=== PATIENT | male | born 1950 | race Caucasian/White ===

== ENCOUNTER 2021-01-05 10:30 | Outpatient (REF) | payer MEDICARE, SELFPAY ==
[2021-01-05 11:02] LABS: Estimated Average Glucose 143 mg/dL; Hemoglobin A1c % 6.6 %
[2021-01-05 12:39] LABS: Alanine Aminotransferase 36 U/L (0-40); Albumin Level 4.5 g/dL (3.5-5.0); Alkaline Phosphatase 48 U/L (39-117); Aspartate Amino Transferase 32 U/L (5-37); Bilirubin Direct 0.3 mg/dL (0.0-0.5); Bilirubin Total 0.8 mg/dL (0.0-1.0); Cholesterol 155 mg/dL; Glucose Fasting 133 mg/dL (60-99); HDL Cholesterol 39 mg/dL; LDL Cholesterol Calculated 96 mg/dl; Total Protein 7.3 g/dL (6.5-8.0); Triglycerides 104 mg/dL
[2021-01-05 12:41] LABS: Reflex LDLD? No
== END 2021-01-05 10:31 | disposition home or self-care (01) ==
LOC: HO.LNP 10:30
PROVIDERS: Visit Provider Internal Medicine
DX: E11.9 Type 2 diabetes mellitus without complications (principal); E78.00 Pure hypercholesterolemia, unspecified
CPT/HCPCS: 80061; 80076; 82947; 83036

== ENCOUNTER 2021-07-13 10:48 | Outpatient (REF) | payer MEDICARE, SELFPAY ==
[2021-07-13 10:53] LABS: MANUAL DIFF FLAG NO
[2021-07-13 11:39] LABS: Basophils Absolute Auto 0.1 X10*3/uL (0.0-0.2); Basophils Percent Auto 0.6 % (0-2); Eosinophils Absolute Auto 0.5 X10*3/uL (0.0-0.4); Eosinophils Percent Auto 5.3 % (0-4); Hematocrit 43.2 % (42.0-52.0); Hemoglobin 14.5 g/dl (14.0-18.0); Imm Gran Abs Auto 0.02 X10*3/uL (0.00-0.03); Imm Gran Pct Auto 0.2 % (0.0-0.4); Mean Corpuscular HGB Conc 33.6 g/dl (31.0-36.0); Mean Corpuscular Hemoglobin 30.8 pg (27.0-33.0); Mean Corpuscular Volume 91.7 fL (80.0-98.0); Mean Platelet Volume 10.4 fL (9.4-12.4); Monocytes Absolute Auto 0.9 X10*3/uL (0.1-1.2); Monocytes Percent Auto 11.1 % (2-11); Neutrophils Percent Auto 46.8 % (45-73); Platelet Count 199 X10*3/uL (160-400); Red Blood Count 4.71 X10*6/uL (4.60-5.80); White Blood Count 8.5 X10*3/uL (4.8-10.8)
[2021-07-13 11:47] LABS: Appearance Urine HAZY; Color Urine YELLOW; Glucose Urine UA NEG (NEG); Leukocyte Esterase Urine TRACE (NEG); Nitrite Urine NEG (NEG); PH 5.5 (5.0-8.0); Specific Gravity - Urine >= 1.030 (1.005-1.025); Urine Blood NEG (NEG); Urine Ketones 5 MG/DL (NEG); Urine Protein NEG (NEG-TRACE)
[2021-07-13 11:54] LABS: Estimated Average Glucose 137 mg/dL; Hemoglobin A1c % 6.4 %
[2021-07-13 12:06] LABS: Microalbum/Creatinine Ratio Ur 6.1 ug/mg cr
[2021-07-13 12:15] LABS: RBC Urine 0 /HPF (0); Squamous Epithelial Cell Urine 1+ /LPF
[2021-07-13 13:05] LABS: Alanine Aminotransferase 40 U/L (0-40); Albumin Level 4.5 g/dL (3.5-5.0); Alkaline Phosphatase 49 U/L (39-117); Anion Gap 12 (12-20); Aspartate Amino Transferase 28 U/L (5-37); Bilirubin Total 0.6 mg/dL (0.0-1.0); Blood Urea Nitrogen 13 mg/dL (9-16); Calcium 9.6 mg/dL (8.4-10.2); Carbon Dioxide 23 mmol/L (22-29); Chloride 106 mmol/L (96-108); Cholesterol 157 mg/dL; Estimated Glomerular Filt Rate 53; Glucose Fasting 143 mg/dL (60-99); HDL Cholesterol 39 mg/dL; LDL Cholesterol Calculated 92 mg/dl; Potassium 4.2 mmol/L (3.3-5.1); Sodium 137 mmol/L (135-145); Total Protein 7.2 g/dL (6.5-8.0); Triglycerides 131 mg/dL
[2021-07-13 13:28] LABS: PSA,Total (Free>4and<10) 2.11 ng/mL (0.00-4.00)
[2021-07-13 14:00] LABS: Reflex LDLD? No
== END 2021-07-13 10:49 | disposition home or self-care (01) ==
LOC: HO.LNP 10:48
PROVIDERS: Visit Provider Internal Medicine
DX: Z00.00 Encounter for general adult medical examination without abnormal findings (principal); E11.9 Type 2 diabetes mellitus without complications; I10 Essential (primary) hypertension; E78.00 Pure hypercholesterolemia, unspecified
CPT/HCPCS: 80053; 80061; 81001; 81003; 82043; 83036; 84153; 85025

== ENCOUNTER 2022-07-19 11:24 | Outpatient (REF) | payer MEDICARE, SELFPAY ==
[2022-07-19 11:28] LABS: MANUAL DIFF FLAG NO
[2022-07-19 12:00] LABS: Basophils Absolute Auto 0.1 X10*3/uL (0.0-0.2); Basophils Percent Auto 0.9 % (0-2); Eosinophils Absolute Auto 0.4 X10*3/uL (0.0-0.4); Eosinophils Percent Auto 5.4 % (0-4); Hematocrit 43.1 % (42.0-52.0); Hemoglobin 14.3 g/dl (14.0-18.0); Imm Gran Abs Auto 0.02 X10*3/uL (0.00-0.03); Imm Gran Pct Auto 0.2 % (0.0-0.4); Lymphocytes Percent Auto 36.8 % (20-40); Mean Corpuscular HGB Conc 33.2 g/dl (31.0-36.0); Mean Corpuscular Hemoglobin 30.3 pg (27.0-33.0); Mean Corpuscular Volume 91.3 fL (80.0-98.0); Mean Platelet Volume 10.5 fL (9.4-12.4); Monocytes Absolute Auto 0.9 X10*3/uL (0.1-1.2); Monocytes Percent Auto 10.8 % (2-11); Neutrophils Absolute Auto 3.7 x10*3/uL (2.0-8.3); Neutrophils Percent Auto 45.9 % (45-73); Platelet Count 209 X10*3/uL (160-400); Red Blood Count 4.72 X10*6/uL (4.60-5.80); White Blood Count 8.1 X10*3/uL (4.8-10.8)
[2022-07-19 12:19] LABS: Estimated Average Glucose 131 mg/dL; Hemoglobin A1c % 6.2 %
[2022-07-19 12:49] LABS: Alanine Aminotransferase 35 U/L (0-40); Albumin Level 4.4 g/dL (3.5-5.0); Alkaline Phosphatase 48 U/L (39-117); Anion Gap 17 (12-20); Aspartate Amino Transferase 29 U/L (5-37); Bilirubin Total 0.6 mg/dL (0.0-1.0); Blood Urea Nitrogen 16 mg/dL (9-16); Calcium 10.1 mg/dL (8.4-10.2); Carbon Dioxide 21 mmol/L (22-29); Chloride 106 mmol/L (96-108); Cholesterol 142 mg/dL; Estimated Glomerular Filt Rate 54; Glucose Fasting 131 mg/dL (60-99); HDL Cholesterol 41 mg/dL; LDL Cholesterol Calculated 79 mg/dl; Potassium 4.4 mmol/L (3.3-5.1); Sodium 140 mmol/L (135-145); Total Protein 7.2 g/dL (6.5-8.0); Triglycerides 114 mg/dL
== END 2022-07-19 11:25 | disposition home or self-care (01) ==
LOC: HO.LNP 11:24
PROVIDERS: Visit Provider Internal Medicine
DX: Z00.00 Encounter for general adult medical examination without abnormal findings (principal); E11.9 Type 2 diabetes mellitus without complications; E78.00 Pure hypercholesterolemia, unspecified; I10 Essential (primary) hypertension
CPT/HCPCS: 80053; 80061; 83036; 85025

== ENCOUNTER 2022-07-25 11:37 | Outpatient (REF) | payer MEDICARE, SELFPAY ==
[2022-07-25 12:06] LABS: Appearance Urine Clear; Color Urine Yellow; Glucose Urine UA Negative (Negative); Leukocyte Esterase Urine Negative (Negative); Nitrite Urine Negative (Negative); Urine Blood Negative (Negative); Urine Ketones Negative (Negative); Urine Protein Negative (Neg-Trace)
[2022-07-25 12:15] LABS: Bacteria Urine None Seen (None Seen); Hyaline Casts Urine 0-2 /LPF (0-2); RBC Urine 0-2 /HPF (0-2); Squamous Epithelial Cell Urine 0-2 /HPF (0-2); WBC Urine 0-5 /HPF (0-5)
[2022-07-25 12:57] LABS: Creatinine Urine 140.67 mg/dL; Microalbum/Creatinine Ratio Ur 6.3 ug/mg cr
== END 2022-07-25 11:38 | disposition home or self-care (01) ==
LOC: HO.LNP 11:37
PROVIDERS: Visit Provider Internal Medicine
DX: E11.9 Type 2 diabetes mellitus without complications (principal); I10 Essential (primary) hypertension
CPT/HCPCS: 81001; 82043

== ENCOUNTER 2023-07-17 14:05 | Outpatient (REF) | payer OTHER, SELFPAY ==
--- NOTE | ~2023-07-17 | FL_ITS ---
EXAMINATION: Modified Barium Swallows CLINICAL INFORMATION: Dysphagia COMPARISON: None TECHNIQUE: Modified barium swallow was performed under lateral fluoroscopy with patient in standing position. Different consistency of barium was administered by the speech therapist. FINDINGS: No laryngeal penetration or aspiration was seen following the oral administration of multiple consistencies of barium. FLUOROSCOPY TIME: 48 seconds Number of Spot Images: DOSE AREA PRODUCT: 615 uGy-m2 (microgray-meter squared) FL/FL barium swallow modified IMPRESSION: No laryngeal penetration or aspiration seen. Refer to the speech therapy report for further clarification This procedure was performed by Irineo Cadet PA-C, and supervised by Dr. Harris
--- NOTE | 2023-07-18 11:23 | MHC.SL.IMP ---
Date of Plan of Treatment: 07/17/23 Onset of Symptoms/Illness: 04/16/23 Date Treatment Started: 07/17/23 Admitting Diagnosis: Dysphagia Primary Speech & Language Diagnosis: R13.10 Dysphagia Reason for Today's Visit: 59803 Modified Barium Swallow Study Pre-evaluation Dietary Consistencies: Regular Pre-evaluation Liquid Consistency: Thin Pre-evaluation Medication Administration: Whole with Liquid Medical History: Modified Barium Swallow Study Fluoroscopic Evaluation of Swallowing Function CPT Code 85093 Evaluation Year: 2022 Reason for Study: Pt reporting difficulty swallowing. Referring Physician: Dr. Irineo Aggarwal Evaluating Clinician: Stacey Langley MA, CCC-EMBEDDER Study Number: 1 Patient Name: Howard Villatoro Status: Outpatient Age: 73 Gender: Male Medical History Parkinson?s disease, headache, degenerative arthritis, erectile dysfunction, hypercholesterolemia, Lyme disease, diabetes mellitus, hypertension, hx colon cancer Current (pre-evaluation) Intake/Diet: Route: PO Diet Grade: Regular Liquid Consistencies: Thin Pre-Study Functional Oral Intake Scale (FOIS): 7- Total oral intake with no restrictions Pain: None reported at time of study SUBJECTIVE: Pt is a 73 year old male with Parkinson?s disease who was referred for a modified barium swallow study to evaluate his complaints of having difficulty swallowing. Pt reports that solids feel ?stuck in [his] throat? and that he induces vomiting in an attempt to regurgitate the food. He says that when this happens, liquid ?won?t go down either.? Pt reports that he expectorates a large amount of sputum with the food. He reports these episodes to be random, as he can go 2-3 days without one. Pt reports onset of his difficulties to have started about 3 months ago. Oral Motor Exam Facial Symmetry: Symmetrical Mouth Occlusion: Normal Oral-Facial Teeth Characteristics: Intact/Normal Dental Appliance Oral-Facial Lip Pucker Description: Normal Oral-Facial Smile (Lips) Description: Normal Oral-Facial Puff Cheeks Description: Normal Tongue Size: Normal Tongue Excursion Description: Normal Tongue Range of Movement Description: Normal Tongue Speed of Movement Description: Normal Tongue Strength of Movement (against opposing pressure): Normal Food and Liquid Trials: Oral Impairment: Lip Closure: Did not test Oral Impairment: Tongue Control During Bolus Hold: 1=Escape to lateral buccal cavity/floor of mouth (FOM) Oral Impairment: Bolus Preparation/Mastication: 0=Timely and efficient chewing and mashing Oral Impairment: Bolus Transport/Lingual Motion: 0=Brisk tongue motion Oral Impairment: Oral Residue: 2=Residue collection on oral structures Oral Impairment:Initiation of Pharyngeal Swallow: 0=Bolus head at posterior angle of ramus (first hyoid excursion) Pharyngeal Impairment: Soft Palate Elevation: 0=No bolus between soft palate (SP)/pharyngeal wall (PW) Pharyngeal Impairment: Laryngeal Elevation: 1=Partial thyroid cartilage/arytenoids to epiglottic petiole movement Pharyngeal Impairment: Anterior Hyoid Excursion: 1=Partial anterior movement Pharyngeal Impairment: Epiglottic Movement: 1=Partial inversion Pharyngeal Impairment: Laryngeal Vestibular Closure:: 0=Complete: no air/contrast in laryngeal vestibule Pharyngeal Impairment: Pharyngeal Stripping Wave: 1=Present: diminished Pharyngeal Impairment: Pharyngeal Contraction: Did not test Pharyngeal Impairment: Pharyngoesophageal Segment Openin=Complete distension and complete duration: no obstruction of flow Pharyngeal Impairment: Tongue Base (TB) Retraction: 2=Narrow column of contrast/air between TB and posterior PW Pharyngeal Impairment: Pharyngeal Residue: 2=Collection of residue within or on pharyngeal structures Pharyngeal Impairment: Esophageal Clearance Upright Position: Did not test Impressions and Recommendations OBJECTIVE: Time-out: performed at 15:00 Evaluation Start: 14:30; Stop: 14:35 Patient Positioning: Standing Viewing Planes: LATERAL ONLY Contrast: MBSImP? Standardized Protocol using commercially prepared, standardized Barium viscosities, including: Varibar? THIN LIQUID (40% w/v, <15 cps) , 1/2 Shortbread Cookie (1 x1 x.25 ) MBSImP ID: [id number] MBSImP Results: Lip closure for intraoral bolus containment could not be assessed due to logistical reasons not related to physiologic impairment. Tongue control during bolus hold allowed bolus escape to the lateral buccal cavity/floor of mouth. Bolus preparation and mastication resulted in timely and efficient chewing and mashing. Bolus transport/lingual motion was with brisk tongue motion. Oral residue was a collection on oral structures. Initiation of the pharyngeal swallow occurred as the bolus head reached the posterior angle of the mandibular ramus. Soft palate elevation resulted in no bolus between the soft palate and the pharyngeal wall. Laryngeal elevation was decreased, with partial superior movement of the thyroid cartilage/partial approximation of the arytenoids to the epiglottic petiole. Anterior hyoid excursion demonstrated partial anterior movement. Epiglottic movement resulted in partial inversion. Laryngeal vestibular closure was complete, as indicated by no air or contrast within the laryngeal vestibule at the height of the swallow. Pharyngeal stripping wave was present, but diminished. Pharyngeal contraction could not be determined due to logistical reasons not related to physiologic impairment. Pharyngoesophageal segment opening was completely distended for complete duration with no obstruction of bolus flow. Tongue base retraction allowed a narrow column of contrast or air between the retracted tongue base and the posterior pharyngeal wall. Pharyngeal residue was a collection of residue within or on pharyngeal structures. Esophageal clearance in the upright position could not be assessed due to logistical reasons not related to physiologic impairment. Oral Impairment Score: 3 (absence of score, component 1) Pharyngeal Impairment Score: 8 (absence of score, component 13) Esophageal Impairment Score: --- (absence of score, component 17) Laryngeal Penetration and Aspiration: Neither penetration nor aspiration was observed in today's study with Cookie, Thin. ASSESSMENT: Clinician Assessment: This exam was performed by the speech pathologist and radiologist. Pt was standing for lateral view and trialed the following consistencies: thin liquid barium (5 mL, individual cup sip with bolus hold, sequential cup sips), pureed solid (applesauce with barium paste), regular solid (Mala Doone cookie coated with barium paste), whole barium pill tablet with sips of water. Unable to visualize lip closure with imaging. Clinically, pt did not appear to have any spillage anteriorly. When instructed to hold bolus, there was minimal spillage to the floor of mouth, but no escape posteriorly. Posterior lingual motion was brisk and timely. Mastication pattern was also timely and efficient. There was mild lingual residue with liquids and solids which mostly cleared with a dry swallow. Pharyngeal swallow trigger was timely, initiated at the posterior angle of the ramus. There was no nasopharyngeal reflux. Reduced laryngeal elevation and partial epiglottic inversion noted, but laryngeal vestibular closure was complete. No evidence of penetration or aspiration during this exam. There was mild residue on the tongue base and in the valleculae, with trace coating in the pyriform sinuses and on the posterior pharyngeal wall. Pharyngeal residue cleared with dry swallow and sips of liquid. Pt swallowed whole barium pill tablet with sips of water. The barium tablet passed freely through the oral and pharyngeal cavities with no hang up. Liquid Intake Recommendation: Thin Liquid Intake Strategies: Small Sips Dietary Recommendations: Regular Medication Administration: Whole with Liquid Please contact the pharmacy regarding appropriate crushable or liquid drug formulations that are available whenever modified delivery is recommended. Compensatory Strategies Recommended: Sitting Upright (90 deg), Small Bites and Sips, Rate of Ingestion Change Supervision during eating and or drinking: None Needed Recommendation for Speech Therapy: NA:Typical Evaluation Intake Recommendations: Route: PO Diet Grade: Regular Liquid Consistencies: Thin Post-Study Functional Oral Intake Scale (FOIS): 7- Total oral intake with no restrictions Overall, unremarkable exam. No evidence of penetration or aspiration. Mild oral and pharyngeal residue cleared with subsequent swallows. Further follow-up with speech therapy is not warranted at this time as pt?s swallow is deemed to be within functional limits in the oral and pharyngeal phases. Given the progressive nature of pt?s underlying condition of Parkinson?s, recommend pt to continue monitoring his dysphagia. If there are any changes or worsening of symptoms, consult with PCP, at which point a re-evaluation may be indicated. Recommend workup with G.I. as pt is reporting expectoration of phlegm and solids. Suggested Referrals: The patient might benefit from a referral to: Gastroenterology Indication for Referral: Further workup Therapy Recommendations: Therapy will be discontinued Clinician - Supplemental, Miscellaneous Communication: It is important to note MBSS objective studies are snapshots in time and Patient function might vary with factors such as time of day or concomitant medical conditions. For this reason, the final treatment plan for this patient should rest with their medical care team. Additional recommendations should be considered with the totality of the Patient in mind. Thank for the opportunity to participate in the care of this patient. If you have any questions about the content of this report, please contact the [facility] [place]. Education: Education regarding findings from today's study and plans for therapy were provided to Patient only through Verbal Instruction. Understanding was expressed by the Patient only. Furnace Utility Operator Clinician/Clinical Fellow: No Supervisory Statement: N/A Speech Language Pathologist: Stacey Langley M.A., CCC-EMBEDDER
== END 2023-07-17 14:06 | disposition home or self-care (01) ==
LOC: HO.XRAY 14:05
PROVIDERS: Visit Provider Psychiatry & Neurology Neurology
DX: R13.10 Dysphagia, unspecified (principal)
CPT/HCPCS: 74230; 92611

== ENCOUNTER → 2023-07-17 14:06 | Outpatient (BNV) | payer OTHER, SELFPAY | PROVIDERS: Visit Provider Radiology Diagnostic Radiology | DX: R13.10 Dysphagia, unspecified (principal) | CPT/HCPCS: 74230 ==

== ENCOUNTER 2024-10-17 10:35 | Outpatient (AMB) | payer OTHER, SELFPAY ==
--- NOTE | 2024-10-17 10:44 | MHC.OFFVIS ---
Vital Signs 10/17/24 10:46 Height 5 ft 10 in Weight 197 lb BMI 28.3 BP 140/66 H Blood Pressure Location Rt brachial Position Sitting Intake Visit Reasons: ENP-Parkinsons Intake Note: [facility] Allergies acetaminophen [From PERCOCET] Allergy (Unknown, Unverified 10/17/24 10:47) UNKNOWN oxycodone [From PERCOCET] Allergy (Unknown, Unverified 10/17/24 10:47) UNKNOWN pravastatin [PRAVASTATIN] Allergy (Unknown, Unverified 10/17/24 10:47) UNKNOWN rosuvastatin [From CRESTOR] Allergy (Unknown, Unverified 10/17/24 10:47) UNKNOWN percocet Allergy (Unknown, Uncoded 10/17/24 10:47) tunnel vision pravastatin Allergy (Unknown, Uncoded 10/17/24 10:47) elev liver enzymes seasonal Allergy (Unknown, Uncoded 10/17/24 10:47) Unknown Medication List - Last Reconciled 10/17/24 by Darlene Cook MD amlodipine mg PO DAILY carboxymethylcellulose sodium 0.5% 1 drp ophthalmic (eye) QID cyclobenzaprine 10 mg PO BEDTIME lisinopril mg PO DAILY lovastatin mg PO metformin mg PO naproxen 375 mg PO BID PRN sildenafil 50 mg PO DAILY PRN HPI Comments Details: 74y/o left handed male comes for further management of Parkinsons disease. He started noticing tremors in his left hand about 2 years ago. He was diagnosed with parkinsons disease by and started on carbidopa/levodopa 25/100 tid and it helped. But he stopped taking it 5 mths ago due to worsening of his IBS. Cognition- mild short term memory issues, word finding difficulties Sleep- no vivid dreams Mood-good Speech-can be softer He has occasional drooling Handwriting- smaller and his tremors are worse when he writes He has difficulty using utensils, has trouble dressing . he can shower by himeself. Gait is Ok Bowel movements - occ constipation . No urinary issues. No nausea. He has mild swallowing issues.He had endoscopy and colonoscopy and was normal. no diplopia, no vertigo . [facility] Medical History (Updated 10/17/24 @ 11:51 by Darlene Cook MD) Parkinson's disease without dyskinesia Nocturnal leg cramps Snoring Osteoarthritis Type 2 diabetes mellitus Tremor Hypercholesteremia Parkinson disease Male erectile disorder Lyme disease HTN (hypertension) Headache Abnormal weight Surgical History (Updated 10/17/24 @ 10:49 by DIANNA Du) Hx of colonoscopy Family History (Updated 10/17/24 @ 10:50 by DIANNA Du) Mother HTN (hypertension) Father HTN (hypertension) Social History (Updated 10/17/24 @ 10:50 by DIANNA Du) Alcohol intake: never Patient Tobacco Use Status: Former Tobacco user Physical Exam Vital Signs: Last Vital Signs BP 140/66 H 10/17/24 10:46 BMI result Body Mass Index 28.3 Const General: cooperative, healthy appearing, comfortable and no acute distress Nutritional Appearance: overweight Orientation/consciousness: patient oriented x3 Eyes Pupils: Equal, round and reactive pupils present Neuro Other: Mild decreased facial expression and blink left UE intermittent rest and postural tremors , action tremors Cog wheel rigidity 2 + in precious UE Mild decreased FFM and Foot taps L>R Gait- mild stoop and decreased arm swing on the left General: patient oriented x3, moves all extremities and no focal motor deficits Cranial nerves: Yes Facial sensation intact/muscles of mastication intact, Yes Equal, round and reactive pupils present, Yes Bilaterally intact EOM present, Yes Nystagmus not present, Yes Normal facial strength present and Yes Midline tongue present Cognition (Neuro): normal cognition Motor exam (neuro): 5/5 motor strength present throughout and Pronator motor function not present Deep tendon reflexes (DTR's): Right triceps reflex intensity grade: 3+, Left triceps reflex intensity grade: 3+, Rt Biceps (C5, C6): 3+, Left biceps reflex intensity grade: 3+, Right brachioradialis reflex intensity grade: 3+ and Left brachioradialis reflex intensity grade: 3+ Coordination: [id number] test normal Assessment & Plan Assessment & Plan (1) Parkinson's disease without dyskinesia: Code(s): G20.A1 - Parkinson's disease without dyskinesia, without mention of fluctuations Category: Medical Qualifiers: Fluctuating manifestations: without fluctuating manifestations Qualified Code(s): G20.A1 - Parkinson's disease without dyskinesia, without mention of fluctuations (2) Nocturnal leg cramps: Code(s): G47.62 - Sleep related leg cramps Category: Medical (3) Snoring: Code(s): R06.83 - Snoring Category: Medical Plan His parkinsons symptoms are mild. Due to Gi issues with levodopa i will hold off on medications for now . PT and OT for gait balance hand strengthening Home sleep test to r/o sleep apnea will consider trialling rytary or dopamine agonists next visi will consider c spine eval as he had had generalized hyperreflexia on todays eval. Orders: Orders PT Evaluation and Treatment Today G20.A1 - Parkinson's disease without dyskinesia, without mention of fluctuations Comprehensive Met. Panel Today G20.A1 - Parkinson's disease without dyskinesia, without mention of fluctuations, G47.62 - Sleep related leg cramps Complete Blood Count Auto Diff Today G20.A1 - Parkinson's disease without dyskinesia, without mention of fluctuations, G47.62 - Sleep related leg cramps RT home sleep study Today G47.10 - Hypersomnia, unspecified, G47.62 - Sleep related leg cramps, R06.83 - Snoring OT Evaluation and Treatment Today G20.A1 - Parkinson's disease without dyskinesia, without mention of fluctuations TSH reflex Free T4 Today G20.A1 - Parkinson's disease without dyskinesia, without mention of fluctuations, G47.62 - Sleep related leg cramps Vitamin B12 and Folate Today G20.A1 - Parkinson's disease without dyskinesia, without mention of fluctuations, G47.62 - Sleep related leg cramps Erythrocyte Sedimentation Rate Today G20.A1 - Parkinson's disease without dyskinesia, without mention of fluctuations, G47.62 - Sleep related leg cramps TERELL Reflex Titer and Pattern Today G20.A1 - Parkinson's disease without dyskinesia, without mention of fluctuations, G47.62 - Sleep related leg cramps Ferritin Today G20.A1 - Parkinson's disease without dyskinesia, without mention of fluctuations, G47.62 - Sleep related leg cramps Vitamin D 25-OH (D2 and D3) Today G20.A1 - Parkinson's disease without dyskinesia, without mention of fluctuations, G47.62 - Sleep related leg cramps Coding Level of Care Code New Pt Level 4 (56805) Complex EM visit Add On G2211 Diagnoses Parkinson's disease without dyskinesia or fluctuating manifestations G20.A1 Fluctuating manifestations: without fluctuating manifestations Nocturnal leg cramps G47.62 Snoring R06.83
[2024-10-17 10:46] VITALS: BP 140/66; BMI 28.3
--- OUTSIDE RECORDS SUMMARY | 2024-10-17 11:43 | XMS_ITS ---
Author Name [facility] [place] [facility] [place] Address [address] [place] [id number] Care Team Providers Care Junction Maker Name Role Phone VICTOR MANUEL LOZANO Primary Care Provider Unavailabl e Insurance Providers: All historical and current Section Date Range: From patient's date of to the date document was created. This section includes the names of all active insurance providers for the patient. Insurance Provider Type of Coverage Plan Name Start of Policy Coverage End of Policy Coverage Group Number Member ID Insurance Provider's Telephone Number Policy Buck's Name Patient's Relationship to Policy Buck [place] [employer] (WNR) MEDICARE ADVANTAGE [facility] ([facility]) Aug 28, 2015 [id number] BERENICE COOPER PATIENT [facility] ([facility]) MEDICARE ADVANTAGE MCR ([facility]) Aug 28, 2022 [id number] BERENICE COOPER PATIENT Selected Encounter This section includes the information on record at [place] for the Encounter. Date/Time Encounter Type Encounter Description Reason Provider Source Dec 15, 2023 08:46 AM QNHP OL DIG ASSMT&MGMT 5-10 CLINICAL PHARMACY ICD-10-CM Z04.89 Encounter for examination and observation for oth reasons THIAGO FIGUEROA Encounter Template Text not used by [place] Assessments - Encounter Diagnoses This section includes the primary and secondary diagnoses documented for the Encounter. Date/Time Primary/Secondary Diagnosis Diagnosis Name Provider Source Dec 15, 2023 08:59 AM PRIMARY Encounter for examination and observation for oth reasons THIAGO FIGUEROA [facility] Plan of Treatment: Future Appointments (+ 6 months) and Future Tests (+/- 45 days) The Plan of Treatment section includes future care activities for the patient from all [place] [facility] This section includes future appointments and future orders which are active, pending or scheduled. Future Appointments This section includes appointments that were scheduled to occur 6 months from the date of the Encounter, up to a maximum of 20 appointments. The data comes from all [facility]. Appointment Date/Time Appointment Type Appointme nt Facility Name January 02, 2024 11:00 AM AMBULATORY - MEDICINE [facility] January 09, 2024 01:00 PM [facility] January 09, 2024 01:30 PM [facility]ONE [facility] Jan 29, 2024 03:30 PM [facility] Feb 09, 2024 01:30 PM AMBULATORY - MEDICINE [facility] Feb 23, 2024 11:30 AM AMBULATORY - MEDICINE [facility] Active, Pending, and Scheduled Orders This section includes a listing of several types of active, pending, and scheduled orders, including clinic medications orders, diagnostic test orders, procedure orders and consult orders; where the start date of the order is 45 days before the date of the Encounter or 45 days after the date of theEncounter. The data comes from all [facility]. Test Date/Time Test Type Test Details Facility Name January 02, 2024 11:58 AM Consult Order COMMUNITY CARE-NEUROLOGY Cons Strategy Manager's Choice [facility] Lab Results: +/- 30 days of the encounter This section includes the Chemistry and Hematology Lab Results on record with [place] for the patient. Radiology Reports and Pathology Reports are provided separately, in subsequent sections. Lab Results This section contains the Chemistry/Hematology Results that were resulted 30 days before or 30 daysafter the date of the Encounter. Date/Time Source Result Type Result - Unit Interpretation Reference Range Comment January 02, 2024 12:14 PM [facility] KAPPA LAMBDA PANEL Specimen Type: SERUM Comment: This assay provides a measurement of the total kappa and total lambda light chains, ie., the amount of free (unattached) light chain in circulation and the amount of light chain linked to heavy chain in intact immunoglobulin molecules. Assays for serum free light chain only, kappa and lambda with ratio, may be more useful in evaluating and managing light chain gammo- pathies including those associated with myeloma, lymphoprolifera tive disorders, and amyloidosis. Test Performed by [employer], [employer] [facility], [address] [place] [address] Lorne Umaña M.D., Ph.D., Director of Laboratories , CLIA [id number] TEST PERFORMED AT: , Ordering Provider: VICTOR MANUEL LOZANO Report Released Date/Time: January 02, 2024 11:42 AM Reporting Lab: [facility] [address] [facility] [address] Performing Lab: [facility] [address] [facility], [address] [place] [address] KAPPA/LAMBDA RATIO 1.79 1.29-2.55 KAPPA 211 mg/dL 176-443 LAMBDA 118 mg/dL 91-240 January 02, 2024 12:14 PM [facility] FOLATE (WROX) Specimen Type: SERUM No comment entered. Ordering Provider: VICTOR MANUEL LOZANO Report Released Date/Time: January 02, 2024 11:42 AM Reporting Lab: [facility] [address] [facility] [address] Performing Lab: [facility] [address] [facility] [address] FOLATE (WROX) 18.57 ng/mL >5.2 January 02, 2024 12:14 PM [facility] PROTEIN SERUM ELECTROPHORESIS PANEL/YUKI Specimen Type : SERUM Comment: SER No monoclonal protein observed on SPEP and YUKI. SPEP reviewed by Yousuf Alvarez MD IEP=IMMUNOELECT ROPHORESIS; YUKI=IMMUNOFIXAT ION ELECTROPHORESIS Ordering Provider: VICTOR MANUEL LOZANO Report Released Date/Time: January 02, 2024 11:42 AM Reporting [facility]: [facility] [place] [facility] [address] [facility] [address] Performing Lab: [facility] [place] [facility] [address] [facility] [address] Alpha-1 Globulin 0.26 g/dL 0.19-0.50 Alpha-2 Globulin 0.87 g/dL 0.46-1.20 Beta Globulin 0.82 g/dL 0.56-1.18 Albumin 4.42 g/dL 3.13-5.37 A/G Ratio 1.53 0.99-1.81 Gamma Globulin 0.93 g/dL 0.67-1.67 January 02, 2024 12:14 PM [facility] MICROALBUMIN CREATININE RATIO PANEL Specimen Type: URINE No comment entered. Ordering Provider: VICTOR MANUEL LOZANO Report Released Date/Time: January 02, 2024 11:42 AM Reporting Lab: [facility] [place] [address] [address] Performing Lab: [facility] [address] [facility] [address] MICROALBUMIN/CR EATININE RATIO 14.6 mg/g 0-29.9 MICROALBUMIN,QU ANTITATIVE 4.1 mg/dL RR UNAVAIL CREATININE URINE 280.64 mg/dL January 02, 2024 12:14 PM [facility] CALCIUM Specimen Type: SERUM No comment entered. Ordering Provider: VICTOR MANUEL LOZANO Report Released Date/Time: January 02, 2024 11:42 AM Reporting Lab: [facility] [place] [facility] [address] [facility] [address] Performing Lab: [facility] [address] [address] CALCIUM 9.3 mg/dL 8.5-10.2 January 02, 2024 12:14 PM [facility] VITAMIN B12 Specimen Type: SERUM No comment entered. Ordering Provider: VICTOR MANUEL LOZANO Report Released Date/Time: January 02, 2024 11:42 AM Reporting Lab: [facility] [address] [address] Performing Lab: [facility] [address] [facility] [address] VITAMIN B12 682 pg/mL 200-900 January 02, 2024 12:14 PM [facility] FERRITIN Specimen Type: SERUM No comment entered. Ordering Provider: VICTOR MANUEL LOZANO Report Released Date/Time: January 02, 2024 11:42 AM Reporting Lab: [facility] [address] [facility] [address] Performing Lab: [address] [address] FERRITIN 109 ng/mL 20-300 January 02, 2024 12:14 PM [facility] IRON & TIBC PANEL Specimen Type: SERUM No comment entered. Ordering Provider: VICTOR MANUEL LOZANO Report Released Date/Time: January 02, 2024 11:42 AM Reporting Lab: [address] [address] Performing Lab: [address] [address] TIBC 294 ug/dL 204-475 IRON 91 ug/dL 40-160 Transferrin Saturation 30.9 20.0-50.0 January 02, 2024 12:14 PM [facility] URINALYSIS CLEAN CATCH Specimen Type: URINE Comment: If Glucose = >500 and Ketones are positive, please alert the Physician. Ordering Provider: VICTOR MANUEL LOZANO Report Released Date/Time: January 02, 2024 11:42 AM Reporting Lab: [address] [address] Performing Lab: [address] [address] UA COLOR Dark-Yellow Yellow UA APPEARANCE Clear Clear UA GLUCOSE NEGATIVE mg/dL Negative UA KETONES TRACE mg/dL Negative UA BLOOD NEGATIVE mg/dL Negative UA PROTEIN 20 mg/dL Negative UA NITRITE NEGATIVE mg/dL Negative UA BILIRUBIN NEGATIVE mg/dL Negative UA SPECIFIC GRAVITY 1.031 H 1.016-1.02 2 UA pH 5.5 5.0-9.0 UA UROBILINOGEN <2.0 mg/dL <2.0 UA LEUKOCYTE NEGATIVE Negative January 02, 2024 12:00 AM [facility] OCCULT BLOOD FIT X1 SCREEN(IN-HOUSE) Specimen Type: FECES No comment entered. Ordering Provider: VICTOR MANUEL LOZANO Report Released Date/Time: January 02, 2024 06:02 PM Reporting Lab: [facility] [address] [facility] [address] Performing Lab: [address] [address] OCCULT BLOOD (FIT)#1 OF 1 Negative NEG December 28, 2023 07:30 AM [facility] CARCINOEMBRYONIC ANTIGEN Specimen Type: SERUM Comment: Non-smokers: <2.5 Smokers <5.0. Ordering Provider: VICTOR MANUEL LOZANO Report Released Date/Time: Dec 22, 2023 10:37 AM Reporting Lab: [facility] [address] [facility] [address] Performing Lab: [facility] [address] [facility] [address] CARCINOEMBRYONI C ANTIGEN 1.64 ng/mL 0-5 December 28, 2023 07:30 AM [facility] LIPID PANEL FASTING Specimen Type: BLOOD No comment entered. Ordering Provider: VICTOR MANUEL LOZANO Report Released Date/Time: Dec 22, 2023 10:37 AM Reporting Lab: [facility] [address] [facility] [address] Performing Lab: [facility] [address] [facility] [address] CHOLESTEROL 124 TRIGLYCERIDE 114 LDL calculated 62.2 CHOL/HDL 3.2 HDL CHOLESTEROL 39 LDL DIRECT 76 December 28, 2023 07:30 AM [facility] LIVER FUNCTION Specimen Type: BLOOD No comment entered. Ordering Provider: VICTOR MANUEL LOZANO Report Released Date/Time: Dec 22, 2023 10:37 AM Reporting Lab: [facility] [address] [facility] [address] Performing Lab: [place] [address] [facility] [address] PROTEIN,TOTAL 7.3 ALBUMIN 4.2 ALKALINE PHOSPHATASE 51 AST 19 ALT 20 BILIRUBIN, TOTAL 0.7 December 28, 2023 07:30 AM [facility] TSH Specimen Type: BLOOD No comment entered. Ordering Provider: VICTOR MANUEL LOZANO Report Released Date/Time: Dec 22, 2023 10:37 AM Reporting Lab: [address] [address] Performing Lab: [address] [address] TSH 1.48 December 28, 2023 07:30 AM [facility] PSA Specimen Type: BLOOD No comment entered. Ordering Provider: VICTOR MANUEL LOZANO Report Released Date/Time: Dec 22, 2023 10:37 AM Reporting Lab: [address] [address] Performing Lab: [address] [address] PSA 2.37 December 28, 2023 07:30 AM [facility] BASIC METABOLIC PANEL (non-fasting) Specimen Type: BLOOD No comment entered. Ordering Provider: VICTOR MANUEL LOZANO Report Released Date/Time: Dec 22, 2023 10:37 AM Reporting Lab: [address] [address] Performing Lab: [address] [address] UREA NITROGEN 20 GLUCOSE 106 SODIUM 139 POTASSIUM 5.1 CHLORIDE 109 CO2 19 CREATININE, Serum 1.22 eGFR(CKD-EPI 2020) 61 December 28, 2023 07:30 AM [facility] HEMOGLOBIN A1C PANEL Specimen Type: BLOOD Comment: Values obtained from A1C measurements can vary. For atypical A1C assays, a reported value of 7.0 could actually be between 6.72 and 7.28 if measured by a reference method. A reported value of 9.0 could actually be between 8.73 and 9.27. Ref: http://www.ngsp .org/CAPdata.as p Ordering Provider: VICTOR MANUEL LOZANO Report Released Date/Time: Dec 22, 2023 10:37 AM Reporting Lab: [facility] [address] [facility] [address] Performing Lab: [facility] [address] [facility] [address] HEMOGLOBIN A1C 5.9 H 4.0-5.6 December 28, 2023 07:30 AM [facility] CBC AND DIFF (AUTO) Specimen Type: BLOOD No comment entered. Ordering Provider: VICTOR MANUEL LOZANO Report Released Date/Time: Dec 22, 2023 10:37 AM Reporting Lab: [facility] [address] [facility] [address] Performing Lab: [facility] [address] [facility] [address] WBC 7.60 10*3/uL 4.50-11.00 RBC 4.32 10*6/uL 4.23-5.66 HGB 13.5 g/dL 12.8-17 HCT 39.0 L 39.2-50.4 MCV 90.3 fL 82-99 MCHC 34.6 g/dL 30.8-35.1 PLT 207 10*3/uL 140-360 RDW-CV 12.8 12.0-16.0 Ada, Abs 0.78 10*3/uL 0.30-1.10 MCH 31.3 pg 26.2-32.6 Neut % 50.7 43.7-75.8 Lymph % 31.8 14.0-42.3 Ada % 10.3 5.1-13.7 Eos % 6.1 0.4-6.8 Baso % 0.8 0.1-2.0 Neut, Abs 3.86 10*3/uL 2.20-7.60 Lymph, Abs 2.42 10*3/uL 1.00-3.20 Eos, Abs 0.46 10*3/uL H 0.03-0.44 Baso, Abs 0.06 10*3/uL 0.01-0.13 Immature Gran % 0.3 0.0-0.7 Immature Gran, Abs 0.02 10*3/uL 0.00-0.06 Social History: Smoking Status (Most current) and Tobacco Use (All prior to encounter date) This section includes the most current, and the historical, smoking and tobacco- related health factors from the [place] facility where the Encounter took place. Current Smoking Status This section includes the most current smoking, or tobacco-related health factor, from the [place] facility where the Encounter took place. Date/Time Current Smoking Status Comment [facility] Sep 01, 2023 02:30 PM VA-TOBACCO FORMER USER [place] [facility] [place] [facility] Tobacco Use History This section includes a history of the smoking, or tobacco-related health factors, that were collected on or before the date of the Encounter. The data comes from the [place] facility where the Encounter took place. Date/Time Smoking Status/Tobac co Use Comment Facility Sep 01, 2023 02:30 PM VA-TOBACCO QUIT 15 YRS OR MORE [place] [facility] [place] [facility] Aug 17, 2022 11:30 AM VA-TOBACCO FORMER USER [place] [facility] [place] [facility] Aug 17, 2022 11:30 AM VA-TOBACCO QUIT 15 YRS OR MORE [place] [facility] [place] [facility] Jul 14, 2021 10:30 AM VA-TOBACCO FORMER USER [place] [facility] [place] [facility] Jul 14, 2021 10:30 AM VA-TOBACCO QUIT 15 YRS OR MORE [place] [facility] [place] [facility] May 26, 2020 11:30 AM VA-TOBACCO FORMER USER [place] [facility] [place] [facility] May 26, 2020 11:30 AM VA-TOBACCO QUIT 15 YRS OR MORE [place] [facility] [place] [facility] Aug 13, 2018 11:07 AM VA-TOBACCO FORMER USER [facility] [place] [facility] Aug 13, 2018 11:07 AM VA-TOBACCO QUIT 5 TO < 15 YRS [facility] [place] [facility] Dec 14, 2017 10:54 AM LIFETIME NON-TOBACCO USER [place] [facility] [facility] Sep 26, 2016 10:11 AM QUIT TOBACCO USE > 7 YEARS AGO [facility] [place] [facility] Sep 11, 2015 10:08 AM QUIT TOBACCO USE > 7 YEARS AGO pt states he quit smoking 47 yrs ago. [facility] [place] [facility] Apr 09, 2013 01:56 PM LIFETIME NON-TOBACCO USER pt states he quit 8 years ago. [facility] Mar 08, 2012 01:47 PM QUIT TOBACCO USE 1-7 YEARS AGO [facility] Jul 13, 2011 09:23 AM QUIT TOBACCO USE 1-7 YEARS AGO quit sic years ago [facility] Mar 19, 2010 10:43 AM QUIT TOBACCO USE 1-7 YEARS AGO [facility] Radiology Reports: +/- 30 days of the encounter Radiology Reports For cases when an order for radiology services may have been completed prior to the date of the Encounter, the report list includes the Radiology Reports that were completed up to 30 days before dateof the Encounter. For cases when an order for radiology services may have been completed after the date of the Encounter, the report list also includes the Radiology Reports that were completed up to30 days after date of the Encounter. The data comes from all [facility] facilities. Date/Time Radiology Report Provider Source January 09, 2024 02:[address] WITH CONTRAST: BERENICE CURRY [id number] -[id number] M Exm Date: JANUARY 09, 2024@14:57 Req Phys: VICTOR MANUEL LOZANO Loc: CWM/NO/PACT 2 (Req'g Loc) Img Loc: [facility]/CT Service: Unknown [facility] , (Case 142 COMPLETE) CT THORAX W/CONT (CT Detailed) CPT:05468 Contrast Media : Non-ionic Iodinated Reason for Study: look for cancer (Case 143 COMPLETE) CT ABDOMEN AND PELVIS WITH CONTRA(CT Detailed) CPT:82340 Contrast Media : Non-ionic Iodinated Clinical History: History of colon cancer cured. History of tobacco use. Patient complains of weight loss and anemia. Report Status: Verified Date Reported: JANUARY 09, 2024 Date Verified: JANUARY 09, 2024 [employer] E-Sig:/ES/YOGI TEIXEIRA JR Report: Study: CT scan of the chest, abdomen and pelvis with contrast. Comparison: Renal ultrasound from May 20, 2013. Technique: After the uneventful administration of oral and 100 cc of Omnipaque 300 nonionic intravenous contrast media, multiple 2 mm contiguous axial images were taken from the thoracic inlet through the pubic symphysis. Soft tissue windows are provided. Coronal and sagittal reformatted images are also provided. Findings: Mild centrilobular and paraseptal emphysematous changes are present with mild associated scattered parenchymal scarring. No acute bony process or pleural effusion is identified. There is a 4 mm, round, well-circumscribed solid nodule on the minor fissure, 9-181, most consistent with intrapulmonary lymph node. There is a 3.7 mm solid, round, well-circumscribed right middle lobe pulmonary nodule, 9-246. No aggressive appearing pulmonary nodules are identified.. No pneumothorax is identified. There is a small amount of scattered mucous debris within the trachea. The tracheobronchial tree is otherwise unremarkable. 2017 Fleischner Society Guidelines for management of incidentally detected pulmonary nodules (in patients over 35 years): Risk is assigned according to the categories proposed by the [employer]: \H\Low risk factors\N\, which corresponds to an estimated risk of cancer of less than 5%, is associated with young age, no prior cancer, less smoking, smaller nodule size, irregular margins, and location in an area other than the upper lobe. \H\High risk factors \N\(which is an estimated risk of cancer of greater than 65%) include prior cancer, older age, heavy smoking, larger nodule size, irregular/spiculated margins, and upper lobe location. Recommendation for \H\multiple\N\ solid nodules: Low-risk patients: Largest nodule size < 6 mm : No routine follow-up required. Largest nodule size >= 6 mm: CT at 3-6 months, then consider CT in 18-24 months. High-risk patients: Largest nodule size < 6 mm : Optional CT at 12 months. Largest nodule size >= 6 mm: CT at 3-6 months, then CT in 18-24months. The heart and pericardium appear normal. There is no abnormal mediastinal, hilar or axillary lymphadenopathy. The liver and gallbladder appear normal. The portal vein is patent and normal. No intrahepatic or extrahepatic biliary ductal dilatation is identified. IVC filter in satisfactory position. The pancreas, spleen, 2 small splenules, and the adrenal glands appear normal. The kidneys enhance normally and symmetrically. Exophytic simple cyst again seen within the right kidney. No solid renal mass, hydronephrosis or nephrolithiasis is identified. The ureters are normal in course and caliber. Moderate calcific atherosclerotic change is present in the grossly patent aorta. No aneurysmal dilatation is identified. The stomach and small bowel are normal in course and caliber. Status post resection of the appendix and proximal ascending colon. The residual colon appears normal in course and caliber.. There is moderate diverticular change to the descending and sigmoid colons without evidence of diverticulitis. The bladder, prostate and seminal vesicles appear normal. There is no dominant abdominal, pelvic or retroperitoneal lymphadenopathy. There is no intra-abdominal free air or free fluid. Age-appropriate degenerative changes are seen to the spine. No acute bony pathology is seen. Impression: No acute abnormality identified. No CT etiology for weight loss, as described above. Primary Diagnostic Code: No immediate attention required Primary Interpreting Staff: YOGI TEIXEIRA JR, Radiologist ([employer]) /YOGI PRABHAKAR JR [facility] January 09, 2024 01:06 PM ULTRASOUND THYROID: BERENICE CURRY [id number] -[id number] M Exm Date: JANUARY 09, 2024@13:06 Req Phys: VICTOR MANEUL LOZANO Loc: CWM/NO/PACT 2 (Req'g Loc) Img Loc: ULTRASOUND Service: Unknown [facility] , (Case 133 COMPLETE) ULTRASOUND THYROID (US Detailed) CPT:02623 Reason for Study: look for cancer Clinical History: History of colon cancer cured. History of tobacco use. Patient complains of weight loss and anemia. Report Status: Verified Date Reported: JANUARY 09, 2024 Date Verified: JANUARY 09, 2024 [employer] E-Sig:/ES/YOGI TEIXEIRA JR Report: Study: Thyroid ultrasound. Comparison: None. Findings: The right lobe of the thyroid measures 3.3 cm in long length x 2.0 cm in AP diameter x 1.5 cm in transverse diameter. Volume of 5 cc with no focal thyroid nodule or mass identified. The thyroid isthmus is sonographically normal. The left lobe of the thyroid measures 3.0 cm in long length x 1.4 cm in AP diameter x 1.3 cm in transverse diameter. Volume of 3 cc with no focal thyroid nodule or mass identified. No extrathyroidal nodules are identified. Impression: No concerning thyroid nodule or mass identified. Normal volume is 7-11 cc/lobe. Volume = L x H x W x 0.52. Differences in technique can preclude direct comparisons. *TI-RADS: Ultrasound based management guidance of thyroid nodules. 0 points: cystic, anechoic, wider than tall, smooth border, comet tail artifact, spongiform. 1 point: mixed cystic and solid, hyperechoic, isoechoic, MACROcalcifications. 2 points: solid, hypoechoic, lobulated or irregular margins, peripheral rim calcifications. 3 points: very hypoechoic, taller than wide, extrathyroidal extension, microcalcifications. TR1 (0 points): Spongiform nodules. cysts. Benign, No FNA. No followup indicated. TR2 (2 points): Not suspicious, No FNA. Followup ultrasound 1, 3, and 5 years. TR3 (3 points): Mildly suspicious. FNA if > 2.5 cm, Follow-up if >1.5 cm. Followup ultrasound 1, 3, and 5 years. TR4 (4 to 6 points): Moderately Suspicious. FNA if >1.5 cm. Follow-up if > 1cm. Followup ultrasound every 1, 2, 3, and 5 years. TR5 (7 points or more): Highly Suspicious. FNA if > 1cm. Follow-up if > 0.5cm. Followup ultrasound every year. Features include solid hypoechoic nodule, solid hypoechoic component of the partially cystic nodule, WITH one or more of the following features: Irregular margins, microcalcifications, taller than wide shape, rim calcifications with small extrusive soft tissue component, evidence of extrathyroidal extension SIGNIFICANT CHANGE: is defined as 20% increase in at least 2 nodule dimensions or a greater than 50% increase in volume. * Reference: ACR Thyroid Imaging, Reporting and Data System (TI-RADS): White Paper of the TI-RADS Committee. Sarasler et al., Journal of the [employer] 2017;14:587-595. Primary Diagnostic Code: No immediate attention required Primary Interpreting Staff: YOGI TEIXEIRA JR, Radiologist (Plug And Mold Finisher) /YOGI PRABHAKAR JR [place] [facility] [place] [facility] Encounter Notes: All associated encounter notes This section contains the clinical notes associated to the Encounter. Date/Time Encounter Note(s) Provider Source Dec 15, 2023 08:46 AM PHARMACY MEDICATIO N MGT NOTE: LOCAL TITLE: CLINICAL PHARMACIST DRUG REGIMEN REVIEW STANDARD TITLE: PHARMACY MEDICATION MGT NOTE DATE OF NOTE: DEC 15, 2023@08:46 ENTRY DATE: DEC 15, 2023@08:46:31 AUTHOR: THIAGO FIGUEROA COSIGNER: URGENCY: STATUS: COMPLETED Pt's most recent labwork from 08/24/23 (nothing more recent in [facility] or [facility]) indicate an SCr of 2.54 and an eGFr of 26. Per Mfg recommendations, metformin use is contraindicated in patients with an eGFR <30 ml/min. Note that in 03/2023, pt's eGFR was substantially higher at 58 ml/min. Alerting the PCP about pt's decline in renal function, suggesting metformin discontinuation may be warranted. If continuing current therapy, PCP may consider closer monitoring of renal function to ascertain if the decreased renal function is the pt's new baseline. Note that pt has f/u appointment on 01/02/24. Thank you /carlos/ TERESA CHOED, BCPS CLINICAL PHARMACIST PRACTITIONER Signed: 12/15/2023 08:59 Receipt Acknowledged By: 12/22/2023 08:56 /carlos/ Victor Manuel Lozano MD Staff Physician THIAGO FIGUEROA CNTL [facility]
--- OUTSIDE RECORDS SUMMARY | 2024-10-17 11:43 | XMS_ITS ---
Author Name [facility] [place] Organization [facility] [place] Address [address] [place] [address] Care Team Providers Care Medical Office Clerk Name Role Phone VICTOR MANUEL LOZANO Primary [...] Buck's Name Patient's Relationship to Policy Buck KERRIE [facility] MEDICARE [facility] ([place]) Aug 28, 2015 [id number] BERENICE COOPER PATIENT [facility] ([place]) MEDICARE ADVANTAGE [facility] ([place]) Aug 28, 2022 [id number] BERENICE COOPER PATIENT Selected Encounter This section includes the information on record at [place] for the Encounter. Date/Time Encounter Type Encounter Description Reason Provider Source Jun 19, 2024 02:30 PM OFFICE O/P EST LOW 20 MIN PRIMARY CARE/MEDICINE ICD-10-CM R63.4 Abnormal weight loss VICTOR MANUEL LOZANO [facility] Encounter Template Text not used by [place] Assessments - Encounter Diagnoses This section includes the primary and secondary diagnoses documented for the Encounter. Date/Time Primary/Secondary Diagnosis Diagnosis Name Provider Source Jun 19, 2024 03:02 PM PRIMARY Abnormal weight loss [facility] MAN[facility]EL [facility] Jun 19, 2024 03:02 PM SECONDARY Encounter for immunization RISA BOWDEN [facility] Plan of Treatment: Future Appointments (+ 6 months) and Future Tests (+/- 45 days) The Plan of Treatment section includes future care activities for the patient from all [place] [facility] This section includes future appointments and future orders which are active, pending or scheduled. Future Appointments This section includes appointments that were scheduled to occur 6 months from the date of the Encounter, up to a maximum of 20 appointments. The data comes from all [facility]. Appointment Date/Time Appointment Type Appointme nt Facility Name Oct 17, 2024 11:00 AM AMBULATORY - MEDICINE [facility] Oct 23, 2024 01:00 PM AMBULATORY MEDICINE [facility] Active, Pending, and Scheduled Orders This section includes a listing of several types of active, pending, and scheduled orders, including clinic medications orders, diagnostic test orders, procedure orders and consult orders; where the start date of the order is 45 days before the date of the Encounter or 45 days after the date of theEncounter. The data comes from all [facility]. Test Date/Time Test Type Test Details Facility Name Jun 13, 2024 12:00 AM Laboratory - Chemistry Order MICROALBUMIN CREATININE RATIO PANEL URINE (RANDOM) SP [facility] Jun 13, 2024 12:00 AM Laboratory - Chemistry Order URINALYSIS CLEAN CATCH URINE SP [facility] Lab Results: +/- 30 days of the encounter This section includes the Chemistry and Hematology Lab Results on record with [place] for the patient. Radiology Reports and Pathology Reports are provided separately, in subsequent sections. Lab Results This section contains the Chemistry/Hematology Results that were resulted 30 days before or 30 daysafter the date of the Encounter. Date/Time Source Result Type Result - Unit Interpretation Reference Range Comment Jun 13, 2024 07:33 AM [facility] CARCINOEMBRYONIC ANTIGEN Specimen Type: SERUM Comment: Non-smokers: <2.5 Smokers <5.0. Ordering Provider: VICTOR MANUEL LOZANO Report Released Date/Time: Jun 09, 2024 09:26 PM Reporting Lab: [facility] [place] [facility] [address] [facility] [address] Performing Lab: [place] [facility] [place] [facility] [address] [facility] [address] CARCINOEMBRYONIC ANTIGEN 1.91 ng/mL 0-5 Jun 13, 2024 07:33 AM [facility] TSH Specimen Type: BLOOD No comment entered. Ordering Provider: VICTOR MANUEL LOZANO Report Released Date/Time: Jun 09, 2024 09:26 PM Reporting Lab: [place] [facility] [place] [facility] [address] [facility] [address] Performing Lab: [place] [facility] [place] [facility] [address] [facility] [address] TSH 2.52 Jun 13, 2024 07:33 AM [facility] LIVER FUNCTION Specimen Type: BLOOD No comment entered. Ordering Provider: VICTOR MANUEL LOZANO Report Released Date/Time: Jun 09, 2024 09:26 PM Reporting Lab: [facility] [place] [facility] [address] [facility] [address] Performing Lab: [facility] [address] [facility] [address] PROTEIN,TOTAL 7.2 ALBUMIN 4.2 ALKALINE PHOSPHATASE 51 AST 21 ALT 26 BILIRUBIN, TOTAL 0.4 Jun 13, 2024 07:33 AM [facility] LIPID PANEL FASTING Specimen Type: BLOOD No comment entered. Ordering Provider: VICTOR MANUEL LOZANO Report Released Date/Time: Jun 09, 2024 09:26 PM Reporting Lab: [place] [facility] [place] [facility] [address] [facility] [address] Performing Lab: [place] [facility] [place] [facility] [address] [facility] [address] CHOLESTEROL 141 TRIGLYCERIDE 84 LDL calculated 79 CHOL/HDL 3.5 HDL CHOLESTEROL 45 Jun 13, 2024 07:33 AM [facility] BASIC METABOLIC PANEL (non-fasting) Specimen Type: BLOOD No comment entered. Ordering Provider: VICTOR MANUEL LOZANO Report Released Date/Time: Jun 09, 2024 09:26 PM Reporting Lab: [place] [facility] [place] [facility] [address] [facility] [address] Performing Lab: [facility] [place] [facility] [address] [facility] [address] UREA NITROGEN 15 GLUCOSE 136 SODIUM 142 POTASSIUM 4.7 CHLORIDE 112 CO2 20 CREATININE, Serum 1.20 eGFR(CKD-EPI 2020) 63 Jun 13, 2024 07:33 AM [facility] [place] [facility] PSA Specimen Type: BLOOD No comment entered. Ordering Provider: VICTOR MANUEL LOZANO Report Released Date/Time: Jun 09, 2024 09:26 PM Reporting Lab: [facility] [place] [facility] [address] [facility] [address] Performing Lab: [facility]N [facility] [address] [facility] [address] PSA 2.46 Jun 13, 2024 07:[address] [facility] HEMOGLOBIN A1C PANEL Specimen Type: BLOOD Comment: Values obtained from A1C measurements can vary. For atypical A1C assays, a reported value of 7.0 could actually be between 6.72 and 7.28 if measured by a reference method. A reported value of 9.0 could actually be between 8.73 and 9.27. Ref: http://www.ng sp.org/CAPdat a.asp Ordering Provider: VICTOR MANUEL LOZANO Report Released Date/Time: Jun 09, 2024 09:26 PM Reporting Lab: [facility] [address] [facility] [address] Performing Lab: [facility] [address] [address] HEMOGLOBIN A1C 5.8 H 4.0-5.6 Jun 13, 2024 07:[address] [facility] CBC AND DIFF (AUTO) Specimen Type: BLOOD No comment entered. Ordering Provider: VICTOR MANUEL LOZANO Report Released Date/Time: Jun 09, 2024 09:26 PM Reporting Lab: [facility] [address] [facility] [address] Performing Lab: [facility] [address] [address] WBC 7.01 10*3/uL 4.50-11.00 RBC 4.40 10*6/uL 4.23-5.66 HGB 13.7 g/dL 12.8-17 HCT 39.3 39.2-50.4 MCV 89.3 fL 82-99 MCHC 34.9 g/dL 30.8-35.1 PLT 194 10*3/uL 140-360 RDW-CV 12.7 12.0-16.0 MONO, ABS 0.66 10*3/uL 0.30-1.10 MCH 31.1 pg 26.2-32.6 NEUT % 53.5 43.7-75.8 LYMPH % 29.4 14.0-42.3 MONO % 9.4 5.1-13.7 EOS % 6.6 0.4-6.8 BASO % 0.7 0.1-2.0 NEUT, ABS 3.75 10*3/uL 2.20-7.60 LYMPH, ABS 2.06 10*3/uL 1.00-3.20 EOS, ABS 0.46 10*3/uL H 0.03-0.44 BASO, ABS 0.05 10*3/uL 0.01-0.13 IMMATURE GRAN % 0.4 0.0-0.7 IMMATURE GRAN, ABS 0.03 10*3/uL 0.00-0.06 NRBC % 0.0 0.0-0.0 NRBC, ABS 0.00 10*3/uL 0.00-0.00 Vital Signs: All taken on the encounter date This section contains inpatient and outpatient Vital Signs collected on the date of the Encounter. Date/Time Temperature Pulse Blood Pressure Respiratory Rate SP02 Pain Height Weight Body Mass Index Source Jun 19, 2024 02:59 PM 132/[address] [facility] Jun 19, 2024 02:12 PM 98.1 73 154/72 16 97 0 70 196 28 [facility] Immunizations: All administered on the encounter date This section contains immunizations associated to the Encounter. Immunization Series Date Issued Reaction Comments RSV, BIVALENT, PROTEIN SUBUN IT RSVPREF, DILUENT RECONSTITUTED, 0.5 ML, PF Jun 19, 2024 steril e water diluent component [id number] Social History: Smoking Status (Most current) and Tobacco Use (All prior to encounter date) This section includes the most current, and the historical, smoking and tobacco- related health factors from the [place] facility where the Encounter took place. Current Smoking Status This section includes the most current smoking, or tobacco-related health factor, from the [place] facility where the Encounter took place. Date/Time Current Smoking Status Comment Alanis parrish Sep 01, 2023 02:30 PM VA-TOBACCO FORMER USER [place] [facility] [place] [facility] Tobacco Use History This section includes a history of the smoking, or tobacco-related health factors, that were collected on or before the date of the Encounter. The data comes from the [place] facility where the Encounter took place. Date/Time Smoking Status/Tobac co Use Comment Facility Sep 01, 2023 02:30 PM VA-TOBACCO QUIT 15 YRS OR MORE [place] [facility] [facility] Aug 17, 2022 11:30 AM VA-TOBACCO FORMER USER [place] [facility] [place] [facility] Aug 17, 2022 11:30 AM VA-TOBACCO QUIT 15 YRS OR MORE [place] [facility] [place] [facility] Jul 14, 2021 10:30 AM VA-TOBACCO FORMER USER [place] [facility] [place] [facility] Jul 14, 2021 10:30 AM VA-TOBACCO QUIT 15 YRS OR MORE [place] [facility] [place] [facility] May 26, 2020 11:30 AM VA-TOBACCO FORMER USER [place] [facility] [place] [facility] May 26, 2020 11:30 AM VA-TOBACCO QUIT 15 YRS OR MORE [place] [facility] [place] [facility] Aug 13, 2018 11:07 AM VA-TOBACCO FORMER USER [place] [facility] [place] [facility] Aug 13, 2018 11:07 AM VA-TOBACCO QUIT 5 TO < 15 YRS [facility] [place] [facility] Dec 14, 2017 10:54 AM LIFETIME NON-TOBACCO USER [place] [facility] [place] [facility] Sep 26, 2016 10:11 AM QUIT TOBACCO USE > 7 YEARS AGO [facility] [place] [facility] Sep 11, 2015 10:08 AM QUIT TOBACCO USE > 7 YEARS AGO pt states he quit smoking 47 yrs ago. [facility] [place] [facility] Apr 09, 2013 01:56 PM LIFETIME NON-TOBACCO USER pt states he quit 8 years ago. [facility] Mar 08, 2012 01:47 PM QUIT TOBACCO USE 1-7 YEARS AGO [facility] Jul 13, 2011 09:23 AM QUIT TOBACCO USE 1-7 YEARS AGO quit sic years ago [facility] Mar 19, 2010 10:43 AM QUIT TOBACCO USE 1-7 YEARS AGO [facility] Encounter Notes: All associated encounter notes This section contains the clinical notes associated to the Encounter. Date/Time Encounter Note(s) Provider Source Jun 19, 2024 03:00 PM PHYSICIAN NOTE: LOCAL TITLE: MD NOTE STANDARD TITLE: PHYSICIAN NOTE DATE OF NOTE: JUN 19, 2024@15:00 ENTRY DATE: JUN 19, 2024@15:00:32 AUTHOR: VICTOR MANUEL LOZANO EXP COSIGNER: URGENCY: STATUS: COMPLETED Patient Name: BERENICE CURRY VITALS: Patient temperature: 98.1 F [36.7 C] (06/19/2024 14:12) Blood pressure: 132/66 (06/19/2024 14:59) Patient height: 70 in [177.8 cm] (06/19/2024 14:12) Patient weight: 196 lb [88.90 kg] (06/19/2024 14:12) Patient BMI: BMI: 28.2 Patient pulse: 73 (06/19/2024 14:12) Patient respiration: 16 (06/19/2024 14:12) Patient Pulse Oximetry: 97% (06/19/2024 14:12) Pain Ratin (06/19/2024 14:12) Active [facility] Medications: Active Outpatient Medications (including Supplies): Active Outpatient Medications Status 1) CARBOXYMETHYLCELLULOSE NA 0.5% OPH SOLN INSTILL 1 ACTIVE (S) DROP INTO EACH EYE FOUR TIMES A DAY 2) CYCLOBENZAPRINE HCL 10MG TAB TAKE ONE TABLET BY MOUTH ACTIVE THREE TIMES DAILY NEEDED FOR BACK SPASMS 3) LIDOCAINE 5% PATCH APPLY 1 PATCH TOPICALLY ONCE DAILY ACTIVE NEEDED FOR NERVE PAIN (LEAVE PATCH ON FOR 12 HOURS, THEN REMOVE PATCH) 4) OMEPRAZOLE 20MG EC CAP TAKE ONE CAPSULE BY MOUTH ACTIVE EVERY MORNING 30 MINUTES BEFORE BREAKFAST Active Non-VA Medications Status 1) Non-VA AMLODIPINE BESYLATE 10MG TAB 10MG BY MOUTH ACTIVE EVERY DAY 2) Non-VA LISINOPRIL 5MG TAB 5MG BY MOUTH EVERY DAY ACTIVE 3) Non-VA LOVASTATIN 20MG TAB 60MG BY MOUTH AT BEDTIME ACTIVE 4) Non-VA METFORMIN HCL 500MG TAB 500MG BY MOUTH TWICE ACTIVE DAILY 8 Total Medications Remote Medications: No Active Remote Medications for this patient director trade note Chief complaint: Weight loss History of present illness Patient was seen in this clinic several months ago with unexplained weight loss. He had extensive evaluation including thyroid ultrasound, CT chest and abdomen, stool for testing, blood and urine tests, all normal. Today patient reports he had upper and lower endoscopy 05-14-2024. Upper endoscopy showed gastric polyp which was removed, benign. Colonoscopy normal. Next colonoscopy due 2024. Patient feels well today with no complaints he is eating normally... He has gained 8 pounds in the past 6 months Review of systems No chest pain or dyspnea No abdominal pain No trouble urinating No fever or chills No cough Physical examination Well-developed well-nourished male in no acute distress Coronary no murmur Lungs clear No peripheral edema CEA: 1.91 PROSTATIC SP ANTIGEN: 2.46 TSH (Access): 2.52 HGB A1C (WR): 5.8 H GLUCOSE: 136 UREA NITROGEN: 15 SODIUM: 142 POTASSIUM: 4.7 CHLORIDE: 112 CO2: 20 CHOLESTEROL: 141 PROTEIN,TOTAL: 7.2 ALBUMIN: 4.2 ALKALINE PHOSPHATASE: 51 SGOT: 21 SGPT: 26 TRIGLYCERIDE: 84 LDL CHOL: 79 CHOL/HDL RATIO: 3.5 HDL: 45 BILIRUBIN,TOT.: 0.4 CREATININE-EGFR: 1.20 eGFR CKD-EPI 2020: 63 WBC: 7.01 RBC: 4.40 HGB: 13.7 HCT: 39.3 MCV: 89.3 MCHC: 34.9 RDW: 12.7 PLT: 194 MCH: 31.1 Neut %: 53.5 Lymph %: 29.4 Carlton %: 9.4 Eos %: 6.6 Baso %: 0.7 Neut, Abs: 3.75 Lymph, Abs: 2.06 Carlton, Abs: 0.66 Eos, Abs: 0.46 H Baso, Abs: 0.05 Immature Granulocytes %: 0.4 Immature Granulocytes, Abs: 0.03 NRBC%: 0.0 NRBC#: 0.00 I discussed above test results with patient Assessment and plan: 1. Weight loss: Appears to be clinically resolved. Will test showed no cancer including upper and lower endoscopy. he is eating and has been gained 8 pounds. Plan: Follow Follow-up 4 months clinic visit and lab Medication Reconciliation: Outpatient: Has the patient been taking medications as documented in the EMLR? YES: The patient has been taking medications as documented in the EMLR. Essential Medication List for Review used to complete this medication reconciliation. INCLUDED IN THIS LIST: Alphabetical list of active outpatient prescriptions dispensed from this [place] (local) and dispensed from another [place] or [facility] facility (remote) as well as inpatient orders (local, pending and active), local clinic medications, locally documented non-VA medications, and local prescriptions that have or been discontinued in the past 90 days. - All changes in medications, including all non-VA/Herbal/OTC medications were entered into CPRS. - If there were any medications the patient should no longer take, they were discontinued. - The patient/caregiver was instructed to update this list, discard old lists, and take this list to the next appointment, whether with a VA or non-VA provider. Follow Up Colonoscopy: Colonoscopy is due based on information available to this reminder. Prior/outside Colonoscopy results: normal Date: May 14, 2024 Colonoscopy reminder set 1 year from JUN 19, 2024. /carlos/ Victor Manuel Lozano MD Staff Physician Signed: 06/19/2024 15:02 VICTOR MANUEL LOZANO [place] [facility] [place] [facility] Jun 19, 2024 02:16 PM PREVENTIVE MEDICINE NURSING NOTE: LOCAL TITLE: CLINICAL REMINDERS/NURSING STANDARD TITLE: PREVENTIVE MEDICINE NURSING NOTE DATE OF NOTE: JUN 19, 2024@14:16 ENTRY DATE: JUN 19, 2024@14:17:02 AUTHOR: YUKI BOWDEN EXP COSIGNER: URGENCY: STATUS: COMPLETED CLINICAL REMINDERS/NURSING Has ADDENDA Falls & Incontinence Screen: Falls Screen: During the past 12 months, did the patient report any falls? 1. One fall with no injury. Incontinence Screen: During the past 12 months, has the patient has any characteristics of incontinence (ability, voiding, leakage, etc.)? No incontinence. Advance Directive Screen MH AD: Patient has an up-to-date Advance Directive at an outside, non-va facility and was asked to forward a copy to his/her clinician. Comment: will get a copy to this VA (Optional) Whole Health Documentation: What matters the most to you? What motivates you to be healthy? (MAP) Response: my COVID-19 Immunization: Patient received a prior dose of the Moderna Monovalent vaccine. Documented: COVID-19 (MODERNA), MRNA, LNP-S, PF, 50 MCG/0.5 ML (AGES 12+ YEARS) Historical Date Administered: May 20, 2024 Series: Series 7 Outside Location: Outside Healthcare Provider Information Source: FROM OTHER REGISTRY Comment: Fei Sandoval Influenza Immunization: The patient has received the seasonal influenza vaccine for the current season at another location. Documented: INFLUENZA, UNSPECIFIED FORMULATION Historical Date Administered: May 20, 2024 Series: Complete Outside Location: Outside Healthcare Provider Information Source: FROM OTHER REGISTRY Comment: Fei Sandoval /carlos/ YUKI BOWDEN LPN LPN Signed: 06/19/2024 14:23 06/19/2024 ADDENDUM STATUS: COMPLETED Respiratory Syncytial Virus (RSV) Vaccine: RSV vaccine administered today. Administered: RSV, BIVALENT, PROTEIN SUBUNIT RSVPREF, DILUENT RECONSTITUTED, 0.5 ML, PF Date Administered: Jun 19, 2024 14:30 Series: Complete Youth Coordinator: [employer] Lot: [id number] Exp Date: Jun 27, 2025 NDC: [id number] Admin Route/Site: INTRAMUSCULAR/RIGHT DELTOID Dosage: 0.5mL Vaccine Information Statement(s): RSV (RESPIRATORY SYNCYTIAL VIRUS) VACCINE VIS Jun 15, 2023 (THAI) Order By: Policy Administered By: Yuki Bowden Comment: sterile water diluent component [id number] Vaccine Information Sheet (VIS) was given to the patient/caregiver, education regarding adverse reactions was discussed, as well as barriers to learning, if any, were acknowledged. /carlos/ YUKI BOWDEN LPN LPN Signed: 06/19/2024 15:14 YUKI BOWDEN [place] [facility]
--- OUTSIDE RECORDS SUMMARY | 2024-10-17 11:43 | XMS_ITS ---
Author Name [facility] of [facility] [place] Organization [facility] [place] Address [address] [place] [address] Care Team Providers Care Program Engagement Director Name Role Phone JANETTE HENDERSON Primary Care Provider Unavailabl e Insurance Providers: [...] Buck's Name Patient's Relationship to Policy Buck [facility] ([facility]) MEDICARE [facility] ([facility]) Aug 28, 2015 [id number] BEERNICE COOPER PATIENT [facility] ([facility]) MEDICARE ADVANTAGE MCR ([facility]) Aug 28, 2022 [id number] BERENICE COOPER PATIENT Selected Encounter This section includes the information on record at [place] for the Encounter. Date/Time Encounter Type Encounter Description Reason Pro vider Source Feb 23, 2024 11:30 AM Outpatient Encounter PRIMARY CARE/MEDICINE IHE Encounter Template Text not used by ME Plan of Treatment: Future Appointments (+ 6 months) and Future Tests (+/- 45 days) The Plan of Treatment section includes future care activities for the patient from all VA treatmentfacilities. This section includes future appointments and future orders which are active, pending or scheduled. Future Appointments This section includes appointments that were scheduled to occur 6 months from the date of the Encounter, up to a maximum of 20 appointments. The data comes from all [place] treatment facilities. Appointment Date/Time Appointment Type Appointme nt Facility Name Jun 19, 2024 01:00 PM AMBULATORY - MEDICINE [facility] [place] [facility] Jun 19, 2024 02:30 PM AMBULATORY - MEDICINE [facility] [place] [facility] Social History: Smoking Status (Most current) and Tobacco Use (All prior to encounter date) This section includes the most current, and the historical, smoking and tobacco- related health factors from the VA facility where the Encounter took place. Current Smoking Status This section includes the most current smoking, or tobacco-related health factor, from the [place] facility where the Encounter took place. Date/Time Current Smoking Status Comment Facil it Sep 01, 2023 02:30 PM VA-TOBACCO FORMER USER [place] [facility] [place] [facility] Tobacco Use History This section includes a history of the smoking, or tobacco-related health factors, that were collected on or before the date of the Encounter. The data comes from the [place] facility where the Encounter took place. Date/Time Smoking Status/Tobac co Use Comment Facility Sep 01, 2023 02:30 PM VA-TOBACCO QUIT 15 YRS OR MORE [facility] [place] [facility] Aug 17, 2022 11:30 AM VA-TOBACCO FORMER USER [facility] [place] [facility] Aug 17, 2022 11:30 AM VA-TOBACCO QUIT 15 YRS OR MORE [facility] [place] [facility] Jul 14, 2021 10:30 AM VA-TOBACCO FORMER USER [facility] [place] [facility] Jul 14, 2021 10:30 AM VA-TOBACCO QUIT 15 YRS OR MORE [facility] [place] [facility] May 26, 2020 11:30 AM VA-TOBACCO FORMER USER [facility] [place] [facility] May 26, 2020 11:30 AM VA-TOBACCO QUIT 15 YRS OR MORE [facility] [place] [facility] Aug 13, 2018 11:07 AM VA-TOBACCO FORMER USER [facility] [place] [facility] Aug 13, 2018 11:07 AM VA-TOBACCO QUIT 5 TO < 15 YRS [facility] [place] [facility] Dec 14, 2017 10:54 AM LIFETIME NON-TOBACCO USER [facility] [place] [facility] Sep 26, 2016 10:11 AM QUIT TOBACCO USE > 7 YEARS AGO [facility] Sep 11, 2015 10:08 AM QUIT TOBACCO USE > 7 YEARS AGO pt states he quit smoking 47 yrs ago. [facility] Apr 09, 2013 01:56 PM LIFETIME NON-TOBACCO USER pt states he quit 8 years ago. [facility] Mar 08, 2012 01:47 PM QUIT TOBACCO USE 1-7 YEARS AGO [facility] Jul 13, 2011 09:23 AM QUIT TOBACCO USE 1-7 YEARS AGO quit sic years ago [facility] Mar 19, 2010 10:43 AM QUIT TOBACCO USE 1-7 YEARS AGO [facility]
--- OUTSIDE RECORDS SUMMARY | 2024-10-17 11:43 | XMS_ITS ---
Author Name [facility] [place] [facility] [place] Organization [facility] [place] Address [address] [place] [address] Care Team Providers Care Advertising Statistical Clerk Name Role Phone VICTOR MANUEL LOZANO [...] Name Patient's Relationship to Policy Buck [facility] ([facility]) MEDICARE ADVANTAGE [facility] ([facility]) Aug 28, 2015 [id number] BERENICE COOPER PATIENT [facility] ([facility]) MEDICARE ADVANTAGE MCR ([facility]) Aug 28, 2022 [id number] BERENICE COOPER PATIENT Selected Encounter This section includes the information on record at [place] for the Encounter. Date/Time Encounter Type Encounter Description Reason Pro vider Source Oct 07, 2024 11:25 AM Outpatient Encounter ADMIN PAT ACTIVTIES (MASNONCT) IHE Encounter Template Text not used by CO Plan of Treatment: Future Appointments (+ 6 [...] 20 appointments. The data comes from all [place] treatment facilities. Appointment Date/Time Appointment Type Appointme nt Facility Name Oct 17, 2024 11:00 AM AMBULATORY - MEDICINE [facility] Oct 23, 2024 01:00 PM AMBULATORY - MEDICINE [facility] Active, Pending, and Scheduled Orders This section includes a listing of several types of active, pending, and scheduled orders, including clinic medications orders, diagnostic test orders, procedure orders and consult orders; where the start date of the order is 45 days before the date of the Encounter or 45 days after the date of theEncounter. The data comes from all [facility]. Test Date/Time Test Type Test Details Facility Name Oct 12, 2024 12:00 AM Laboratory - Chemistry Order URINALYSIS CLEAN CATCH URINE [facility] Oct 12, 2024 12:00 AM Laboratory - Chemistry Order HEMOGLOBIN A1C PANEL BLOOD (LAV-BLOOD) [facility] Oct 12, 2024 12:00 AM Laboratory - Chemistry Order MICROALBUMIN CREATININE RATIO PANEL URINE (RANDOM) [facility] Oct 12, 2024 12:00 AM Laboratory - Chemistry Order CBC AND DIFF (AUTO) BLOOD (LAV-BLOOD) [facility] Oct 12, 2024 12:00 AM Laboratory - Chemistry Order BASIC METABOLIC PANEL (non-fasting) BLOOD (LAV-BLOOD) [facility] Oct 12, 2024 12:00 AM Laboratory - Chemistry Order CARCINOEMBRYONIC ANTIGEN BLOOD (SST-SERUM) [facility] Oct 12, 2024 12:00 AM Laboratory - Chemistry Order LIVER FUNCTION BLOOD (LAV-BLOOD) [facility] Oct 12, 2024 12:00 AM Laboratory - Chemistry Order LIPID PANEL FASTING BLOOD (LAV-BLOOD) [facility] Oct 12, 2024 12:00 AM Laboratory - Chemistry Order TSH BLOOD (LAV-BLOOD) [facility] [place] [facility] Social History: Smoking Status (Most current) and Tobacco Use (All prior to encounter date) This section includes the most current, and the historical, smoking and tobacco- related health factors from the [place] facility where the Encounter took place. Current Smoking Status This section includes the most current smoking, or tobacco-related health factor, from the [place] facility where the Encounter took place. Date/Time Current Smoking Status Comment [facility] it Sep 01, 2023 02:30 PM VA-TOBACCO QUIT 15 YRS OR MORE [facility] [place] [facility] Tobacco Use History This section includes a history of the smoking, or tobacco-related health factors, that were collected on or before the date of the Encounter. The data comes from the [place] facility where the Encounter took place. Date/Time Smoking Status/Tobac co Use Comment Facility Sep 01, 2023 02:30 PM VA-TOBACCO QUIT 15 YRS OR MORE [facility] [place] [facility] Aug 17, 2022 11:30 AM VA-TOBACCO FORMER USER [facility] [place] [facility] Aug 17, 2022 11:30 AM VA-TOBACCO QUIT 15 YRS OR MORE [facility] [place] [facility] Jul 14, 2021 10:30 AM VA-TOBACCO FORMER USER [facility] [place] [facility] Jul 14, 2021 10:30 AM VA-TOBACCO QUIT 15 YRS OR MORE [facility] [place] [facility] May 26, 2020 11:30 AM VA-TOBACCO FORMER USER [facility] [place] [facility] May 26, 2020 11:30 AM VA-TOBACCO QUIT 15 YRS OR MORE [facility] [place] [facility] Aug 13, 2018 11:07 AM VA-TOBACCO FORMER USER [facility] [place] [facility] Aug 13, 2018 11:07 AM VA-TOBACCO QUIT 5 TO < 15 YRS [facility] [place] [facility] Dec 14, 2017 10:54 AM LIFETIME NON-TOBACCO USER [facility] [place] [facility] Sep 26, 2016 10:11 AM QUIT TOBACCO USE > 7 YEARS AGO [facility] [place] [facility] Sep 11, 2015 10:08 AM QUIT TOBACCO USE > 7 YEARS AGO pt states he quit smoking 47 yrs ago. [facility] Apr 09, 2013 01:56 PM LIFETIME NON-TOBACCO USER pt states he quit 8 years ago. [facility] Mar 08, 2012 01:47 PM QUIT TOBACCO USE 1-7 YEARS AGO [facility] Jul 13, 2011 09:23 AM QUIT TOBACCO USE 1-7 YEARS AGO quit sic years ago [facility] Mar 19, 2010 10:43 AM QUIT TOBACCO USE 1-7 YEARS AGO [facility] Encounter Notes: All associated encounter notes This section contains the clinical notes associated to the Encounter. Date/Time Encounter Note(s) Provider Source Oct 07, 2024 11:25 AM ADMINISTRATIVE NOT E: LOCAL TITLE: CCC: SCHEDULING ADMINISTRATION STANDARD TITLE: ADMINISTRATIVE NOTE DATE OF NOTE: OCT 07, 2024@11:25:57 ENTRY DATE: OCT 07, 2024@11:25:57 AUTHOR: REYNA BURT EXP COSIGNER: URGENCY: STATUS: COMPLETED CCC: SCHEDULING ADMINISTRATION Has ADDENDA Patient Demographics Patient Name: BERENICE CURRY Patient Primary Phone: [phone] Patient Primary Address: [address] [place] [address] Patient : 1950 Patient Age: 74 Call Back Number: [phone] Caller/Recipient Relation to Patient: Other If Other Describe Relation to Patient: [facility] Caller Name: Zaira - Pharmacist Administrative Administrative Note Reason: Medication Renewal NonVA Medications Refill/Renewal Request: Non [place] Agency calling to notify pact team: Name of caller/title: Zaira - Pharmacist Agency: [facility] Call back number: [phone] Orders: Medical Report: Calling regarding fax sent on 10/04/24 requesting renewal of medication Rx # - LOVASTATIN 20MG TAB, is out at this time. Any questions please call Zaira at [phone] IMPORTANT: This note was created by [facility] staff. Please do not alert the staff member by adding them as a signer for future communications. Alerts are not monitored by this user. /carlos/ REYNA BURT Signed: 10/07/2024 11:25 Receipt Acknowledged By: 10/07/2024 11:36 /es/ Renetta Lopes MSN RN CNL Primary Care RN for RADHA GAMBLE 10/07/2024 15:00 /es/ Victor Manuel Lozano MD Staff Physician 10/07/2024 ADDENDUM STATUS: COMPLETED lovastatin 20 mg tablet take 3 po qhs x 90 days #270 refill x 3 faxed to [facility] fax [phone] received fax confirmation /carlos/ Victor Manuel Lozano MD Staff Physician Signed: 10/07/2024 14:59 [facility]
--- OUTSIDE RECORDS SUMMARY | 2024-10-17 11:43 | XMS_ITS ---
Author Name [facility] [place] Organization [facility] [place] Address [address] [place] [address] Care Team Providers Care Supervisor Vendor Quality Name Role Phone JANETTE HENDERSON Primary Care [...] Name Patient's Relationship to Policy Buck [facility]ERRIE [facility] MEDICARE [facility] ([facility]) Aug 28, 2015 [id number] BERENICE COOPER PATIENT [facility] (WNR) MEDICARE ADVANTAGE MCR ([facility]) Aug 28, 2022 [id number] BERENICE COOPER PATIENT Selected Encounter This section includes the information on record at [place] for the Encounter. Date/Time Encounter Type Encounter Description Reason Provider Source January 02, 2024 11:00 AM OFFICE O/P EST LOW 20 MIN PRIMARY CARE/MEDICINE ICD-10-CM R63.4 Abnormal weight loss JANETTE HENDERSON [facility] Encounter Template Text not used by [place] Assessments - Encounter Diagnoses This section includes the primary and secondary diagnoses documented for the Encounter. Date/Time Primary/Secondary Diagnosis Diagnosis Name Provider Source January 14, 2024 10:43 PM PRIMARY Abnormal weight loss JANETTE HENDERSON [facility] [place] [facility] January 14, 2024 10:43 PM SECONDARY Encounter for immunization RISA HEN[facility]QUEZ [facility] Plan of Treatment: Future Appointments (+ 6 months) and Future Tests (+/- 45 days) The Plan of Treatment section includes future care activities for the patient from all [place] [facility]. This section includes future appointments and future orders which are active, pending or scheduled. Future Appointments This section includes appointments that were scheduled to occur 6 months from the date of the Encounter, up to a maximum of 20 appointments. The data comes from all [facility]. Appointment Date/Time Appointment Type Appointme nt Facility Name January 09, 2024 01:00 PM [facility]BUL[facility] NONE [facility] January 09, 2024 01:30 PM AMBULATORY NONE [facility] Jan 29, 2024 03:30 PM AMBULATORY - MEDICINE [facility] N[facility]L [facility] Feb 09, 2024 01:30 PM AMBULATORY - MEDICINE [place] [facility] Feb 23, 2024 11:30 AM AMBULATORY - [place]ICINE [place] [facility] Jun 19, 2024 01:00 PM AMBULATORY - MEDICINE [facility] N[facility]L [facility] Jun 19, 2024 02:30 PM AMBULATORY - MEDICINE [facility] NTRL TRN [facility] Active, Pending, and Scheduled Orders This section includes a listing of several types of active, pending, and scheduled orders, including clinic medications orders, diagnostic test orders, procedure orders and consult orders; where the start date of the order is 45 days before the date of the Encounter or 45 days after the date of theEncounter. The data comes from all [facility]. Test Date/Time Test Type Test Details Facility Name January 02, 2024 11:58 AM Consult Order COMMUNITY CARE-NEUROLOGY Cons Gis Instructor's Choice [facility] Lab Results: +/- 30 days of the encounter This section includes the Chemistry and Hematology Lab Results on record with [place] for the patient. Radiology Reports and Pathology Reports are provided separately, in subsequent sections. Lab Results This section contains the Chemistry/Hematology Results that were resulted 30 days before or 30 daysafter the date of the Encounter. Date/Time Source Result Type Result - Unit Interpretation Reference Range Comment January 02, 2024 12:14 PM [facility] KAPPA LAMBDA PANEL Specimen Type: SERUM Comment: [...] tive disorders, and amyloidosis. Test Performed by [facility], [facility], [address] [place] [address] Lorne Umaña M.D., Ph.D., Director of Laboratories , CLIA [id number] TEST PERFORMED AT: , Ordering Provider: JANETTE HENDERSON Report Released Date/Time: January 02, 2024 11:42 AM Reporting Lab: [facility] [address] [facility] [address] Performing Lab: [facility] [address] [address] KAPPA/LAMBDA RATIO 1.79 1.29-2.55 KAPPA 211 mg/dL 176-443 LAMBDA 118 mg/dL 91-240 January 02, 2024 12:14 PM [facility] FOLATE (WROX) Specimen Type: SERUM No comment entered. Ordering Provider: JANETTE HENDERSON Report Released Date/Time: January 02, 2024 11:42 AM Reporting Lab: [facility] [address] [facility] [address] Performing Lab: [facility] [address] [facility] [address] FOLATE (WROX) 18.57 ng/mL >5.2 January 02, 2024 12:14 PM [facility] PROTEIN SERUM ELECTROPHORESIS PANEL/YUKI Specimen Type : SERUM Comment: SER No monoclonal protein observed on SPEP and YUKI. SPEP reviewed by Yousuf Alvarez MD IEP=IMMUNOELECT ROPHORESIS; YUKI=IMMUNOFIXAT ION ELECTROPHORESIS Ordering Provider: JANETTE HENDERSON Report Released Date/Time: January 02, 2024 11:42 AM Reporting Lab: [facility] [address] [facility] [address] Performing Lab: [facility] [address] [facility] [address] Alpha-1 Globulin 0.26 g/dL 0.19-0.50 Alpha-2 Globulin 0.87 g/dL 0.46-1.20 Beta Globulin 0.82 g/dL 0.56-1.18 Albumin 4.42 g/dL 3.13-5.37 A/G Ratio 1.53 0.99-1.81 Gamma Globulin 0.93 g/dL 0.67-1.67 January 02, 2024 12:14 PM [facility] CALCIUM Specimen Type: SERUM No comment entered. Ordering Provider: JANETTE HENDERSON Report Released Date/Time: January 02, 2024 11:42 AM Reporting Lab: [facility] [address] [facility] [address] Performing Lab: [facility] [address] [facility] [address] CALCIUM 9.3 mg/dL 8.5-10.2 January 02, 2024 12:14 PM [facility] MICROALBUMIN CREATININE RATIO PANEL Specimen Type: URINE No comment entered. Ordering Provider: JANETTE HENDERSON Report Released Date/Time: January 02, 2024 11:42 AM Reporting Lab: [facility]RM[facility]N [facility] [address] [facility] [address] Performing Lab: [facility] [address] [facility] [address] MICROALBUMIN/CR EATININE RATIO 14.6 mg/g 0-29.9 MICROALBUMIN,QU ANTITATIVE 4.1 mg/dL RR UNAVAIL CREATININE URINE 280.64 mg/dL January 02, 2024 12:14 PM [facility] VITAMIN B12 Specimen Type: SERUM No comment entered. Ordering Provider: JANETTE HENDERSON Report Released Date/Time: January 02, 2024 11:42 AM Reporting Lab: [facility]RM[facility] S[facility]N [facility] [address] [facility] [address] Performing Lab: [facility] S[facility]THN [facility] [address] [facility] [address] VITAMIN B12 682 pg/mL 200-900 January 02, 2024 12:14 PM [facility] FERRITIN Specimen Type: SERUM No comment entered. Ordering Provider: JANETTE HENDERSON Report Released Date/Time: January 02, 2024 11:42 AM Reporting Lab: [facility]N [facility] [address] [facility] [address] Performing Lab: [facility]ITALUSE[address] [address] FERRITIN 109 ng/mL 20-300 January 02, 2024 12:14 PM [facility] IRON & TIBC PANEL Specimen Type: SERUM No comment entered. Ordering Provider: JANETTE HENDERSON Report Released Date/Time: January 02, 2024 11:42 AM Reporting Lab: [facility] [address] [facility] [address] Performing Lab: [facility] [address] [facility] [address] TIBC 294 ug/dL 204-475 IRON 91 ug/dL 40-160 Transferrin Saturation 30.9 20.0-50.0 January 02, 2024 12:14 PM [facility] URINALYSIS CLEAN CATCH Specimen Type: URINE Comment: If Glucose = >500 and Ketones are positive, please alert the Physician. Ordering Provider: JANETTE HENDERSON Report Released Date/Time: January 02, 2024 11:42 AM Reporting Lab: [facility]ITALRM[facility]N [facility]ITAL[facility] [address] [address] Performing Lab: [facility] [address] UA COLOR Dark-Yellow Yellow UA APPEARANCE Clear Clear UA GLUCOSE NEGATIVE mg/dL Negative UA KETONES TRACE mg/dL Negative UA BLOOD NEGATIVE mg/dL Negative UA PROTEIN 20 mg/dL Negative UA NITRITE NEGATIVE mg/dL Negative UA BILIRUBIN NEGATIVE mg/dL Negative UA SPECIFIC GRAVITY 1.031 H 1.016-1.02 2 UA pH 5.5 5.0-9.0 UA UROBILINOGEN <2.0 mg/dL <2.0 UA LEUKOCYTE NEGATIVE Negative January 02, 2024 12:00 AM [facility] OCCULT BLOOD FIT X1 SCREEN(IN-HOUSE) Specimen Type: FECES No comment entered. Ordering Provider: JANETTE HENDERSON Report Released Date/Time: January 02, 2024 06:02 PM Reporting Lab: [address] [address] Performing Lab: [address] [address] OCCULT BLOOD (FIT)#1 OF 1 Negative NEG December 28, 2023 07:30 AM [facility] CARCINOEMBRYONIC ANTIGEN Specimen Type: SERUM Comment: Non-smokers: <2.5 Smokers <5.0. Ordering Provider: JANETTE HENDERSON Report Released Date/Time: Dec 22, 2023 10:37 AM Reporting Lab: [facility] [address] [facility] [address] Performing Lab: [facility] [address] [facility] [address] CARCINOEMBRYONI C ANTIGEN 1.64 ng/mL 0-5 December 28, 2023 07:30 AM [facility] LIVER FUNCTION Specimen Type: BLOOD No comment entered. Ordering Provider: JANETTE HENDERSON Report Released Date/Time: Dec 22, 2023 10:37 AM Reporting Lab: [facility] [address] [facility] [address] Performing Lab: [address] [address] PROTEIN,TOTAL 7.3 ALBUMIN 4.2 ALKALINE PHOSPHATASE 51 AST 19 ALT 20 BILIRUBIN, TOTAL 0.7 December 28, 2023 07:30 AM [facility] LIPID PANEL FASTING Specimen Type: BLOOD No comment entered. Ordering Provider: JANETTE HENDERSON Report Released Date/Time: Dec 22, 2023 10:37 AM Reporting Lab: [facility] [place] [facility] [address] [facility] [address] Performing Lab: [place] [facility] [facility] [address] [facility] [address] CHOLESTEROL 124 TRIGLYCERIDE 114 LDL calculated 62.2 CHOL/HDL 3.2 HDL CHOLESTEROL 39 LDL DIRECT 76 December 28, 2023 07:30 AM [facility] [place] [facility] TSH Specimen Type: BLOOD No comment entered. Ordering Provider: JANETTE HENDERSON Report Released Date/Time: Dec 22, 2023 10:37 AM Reporting Lab: [place] [facility] [facility] [address] [facility] [address] Performing Lab: [place] [facility] [facility] [address] [facility] [address] TSH 1.48 December 28, 2023 07:30 AM [facility] PSA Specimen Type: BLOOD No comment entered. Ordering Provider: JANETTE HENDERSON Report Released Date/Time: Dec 22, 2023 10:37 AM Reporting Lab: [place] [facility] [place] [facility] [address] [facility] [address] Performing Lab: [place] [facility] [facility] [address] [facility] [address] PSA 2.37 December 28, 2023 07:30 AM [facility] HEMOGLOBIN A1C PANEL Specimen Type: BLOOD Comment: Values obtained from A1C measurements can vary. For atypical A1C assays, a reported value of 7.0 could actually be between 6.72 and 7.28 if measured by a reference method. A reported value of 9.0 could actually be between 8.73 and 9.27. Ref: http://www.ngsp .org/CAPdata.as p Ordering Provider: JANETTE HENDERSON Report Released Date/Time: Dec 22, 2023 10:37 AM Reporting Lab: [place] [facility] [place] [facility] [address] [facility] [address] Performing Lab: [facility]N [facility] [address] [facility] [address] HEMOGLOBIN A1C 5.9 H 4.0-5.6 December 28, 2023 07:30 AM [facility] BASIC METABOLIC PANEL (non-fasting) Specimen Type: BLOOD No comment entered. Ordering Provider: JANETTE HENDERSON Report Released Date/Time: Dec 22, 2023 10:37 AM Reporting Lab: [facility] [address] [facility] [address] Performing Lab: [address] [address] UREA NITROGEN 20 GLUCOSE 106 SODIUM 139 POTASSIUM 5.1 CHLORIDE 109 CO2 19 CREATININE, Serum 1.22 eGFR(CKD-EPI 2020) 61 December 28, 2023 07:30 AM [facility] CBC AND DIFF (AUTO) Specimen Type: BLOOD No comment entered. Ordering Provider: JANETTE HENDERSON Report Released Date/Time: Dec 22, 2023 10:37 AM Reporting Lab: [address] [address] Performing Lab: [address] [address] WBC 7.60 10*3/uL 4.50-11.00 RBC 4.32 10*6/uL 4.23-5.66 HGB 13.5 g/dL 12.8-17 HCT 39.0 L 39.2-50.4 MCV 90.3 fL 82-99 MCHC 34.6 g/dL 30.8-35.1 PLT 207 10*3/uL 140-360 RDW-CV 12.8 12.0-16.0 Centre, Abs 0.78 10*3/uL 0.30-1.10 MCH 31.3 pg 26.2-32.6 Neut % 50.7 43.7-75.8 Lymph % 31.8 14.0-42.3 Centre % 10.3 5.1-13.7 Eos % 6.1 0.4-6.8 Baso % 0.8 0.1-2.0 Neut, Abs 3.86 10*3/uL 2.20-7.60 Lymph, Abs 2.42 10*3/uL 1.00-3.20 Eos, Abs 0.46 10*3/uL H 0.03-0.44 Baso, Abs 0.06 10*3/uL 0.01-0.13 Immature Gran % 0.3 0.0-0.7 Immature Gran, Abs 0.02 10*3/uL 0.00-0.06 Vital Signs: All taken on the encounter date This section contains inpatient and outpatient Vital Signs collected on the date of the Encounter. Date/Time Temperature Pulse Blood Pressure Respiratory Rate SP02 Pain Height Weight Body Mass Index Source January 02, 2024 11:46 AM 126/74 [place] [facility] [place] [facility] January 02, 2024 10:48 AM 99 80 156/72 16 96 5 70.5 190.8 27 [place] [facility] [facility] Immunizations: All administered on the encounter date This section contains immunizations associated to the Encounter. Immunization Series Date Issued Reaction Comments COVID-19 (MODERNA), MRNA, LN P-S, PF, 50 MCG/0.5 ML (AGES 12+ YEARS) 6 January 02, 2024 Social History: Smoking Status (Most current) and Tobacco Use (All prior to encounter date) This section includes the most current, and the historical, smoking and tobacco- related health factors from the [place] facility where the Encounter took place. Current Smoking Status This section includes the most current smoking, or tobacco-related health factor, from the [place] facility where the Encounter took place. Date/Time Current Smoking Status Comment [facility] Sep 01, 2023 02:30 PM VA-TOBACCO FORMER USER [place] [facility] [facility] Tobacco Use History This section includes a history of the smoking, or tobacco-related health factors, that were collected on or before the date of the Encounter. The data comes from the [place] facility where the Encounter took place. Date/Time Smoking Status/Tobac co Use Comment Facility Sep 01, 2023 02:30 PM VA-TOBACCO QUIT 15 YRS OR MORE [place] [facility] [facility] Aug 17, 2022 11:30 AM VA-TOBACCO FORMER USER [facility] [place] [facility] Aug 17, 2022 11:30 AM VA-TOBACCO QUIT 15 YRS OR MORE [place] [facility] [place] [facility] Jul 14, 2021 10:30 AM VA-TOBACCO FORMER USER [facility] [place] [facility] Jul 14, 2021 10:30 AM VA-TOBACCO QUIT 15 YRS OR MORE [facility] [place] [facility] May 26, 2020 11:30 AM VA-TOBACCO FOR[facility]ER [facility] May 26, 2020 11:30 AM VA-TOBACCO QUIT 15 YRS OR MORE [facility] [place] [facility] Aug 13, 2018 11:07 AM VA-TOBACCO FORMER USER [facility] Aug 13, 2018 11:07 AM VA-TOBACCO QUIT 5 TO < 15 YRS [facility] Dec 14, 2017 10:54 AM LIFETIME NON-TOBACCO USER [facility] Sep 26, 2016 10:11 AM QUIT TOBACCO USE > 7 YEARS AGO [facility] WSN [facility] Sep 11, 2015 10:08 AM QUIT TOBACCO USE > 7 YEARS AGO pt states he quit smoking 47 yrs ago. [facility] Apr 09, 2013 01:56 PM LIFETIME NON-TOBACCO USER pt states he quit 8 years ago. [facility] WSTRN [facility] Mar 08, 2012 01:47 PM QUIT TOBACCO USE 1-7 YEARS AGO [facility] Jul 13, 2011 09:23 AM QUIT TOBACCO USE 1-7 YEARS AGO quit sic years ago [facility] WSTRN [facility] Mar 19, 2010 10:43 AM QUIT TOBACCO USE 1-7 YEARS AGO [facility] Radiology Reports: +/- 30 days of the [...] the Encounter. The data comes from all [facility] facilities. Date/Time Radiology Report Provider Source January 09, 2024 02:[address] WITH CONTRAST: JOEMADELINBERENICE CHEN [id number] -[id number] M Exm Date: JANUARY 09, 2024@14:57 Req Phys: HENDERSON,JANETTE D Pat Loc: CWM/NO/PACT 2 (Req'g Loc) Img Loc: NHM/CT Service: Unknown [facility] , (Case [id number] COMPLETE) CT THORAX W/CONT (CT Detailed) CPT:05661 Contrast Media : Non-ionic Iodinated Reason for Study: look for cancer (Case 143 COMPLETE) CT ABDOMEN AND PELVIS WITH CONTRA(CT Detailed) CPT:12311 Contrast Media : Non-ionic Iodinated Clinical History: History of colon cancer cured. History of tobacco use. Patient complains of weight loss and anemia. Report Status: Verified Date Reported: JANUARY 09, 2024 Date Verified: JANUARY 09, 2024 Dry Cell Assembly Supervisor E-Sig:/ES/YOGI TEIEXIRA JR Report: Study: CT scan of the [...] according to the categories proposed by the [employer]: \H\Low risk factors\N\, [...] Primary Interpreting Staff: YOGI TEIXEIRA JR, Radiologist (Dry Cell Assembly Supervisor) /YOGI PRABHAKAR JR [facility] [place] [facility] January 09, 2024 01:06 PM ULTRASOUND THYROID: BERENICE CURRY [id number] -1950 M Exm Date: JANUARY 09, 2024@13:06 Req Phys: JANETTE HENDERSON Pat Loc: CWM/NO/PACT 2 (Req'g Loc) Img Loc: ULTRASOUND Service: Unknown [facility] [place] [facility] , (Case 133 COMPLETE) ULTRASOUND THYROID (US Detailed) CPT:13440 Reason for Study: look for cancer Clinical History: History of colon cancer cured. History of tobacco use. Patient complains of weight loss and anemia. Report Status: Verified Date Reported: JANUARY 09, 2024 Date Verified: JANUARY 09, 2024 Dry Cell Assembly Supervisor E-Sig:/ES/YOGI TEIXEIRA JR Report: Study: Thyroid ultrasound. [...] (TI-RADS): White Paper of the TI-RADS Committee. Sarasconor et al., Journal of the [employer] 2017;14:587-595. Primary Diagnostic Code: No immediate attention required Primary Interpreting Staff: YOGI TEIXEIRA JR, Radiologist (Dry Cell Assembly Supervisor) /YOGI PRABHAKAR JR [place] [facility] Encounter Notes: All associated encounter notes This section contains the clinical notes associated to the Encounter. Date/Time Encounter Note(s) Provider Source January 02, 2024 10:52 AM PREVENTIVE MEDICIN E NURSING NOTE: LOCAL TITLE: CLINICAL REMINDERS/NURSING STANDARD TITLE: PREVENTIVE MEDICINE NURSING NOTE DATE OF NOTE: JANUARY 02, 2024@10:52 ENTRY DATE: JANUARY 02, 2024@10:52:29 AUTHOR: YUKI HENRIQUEZ EXP COSIGNER: URGENCY: STATUS: COMPLETED CLINICAL REMINDERS/NURSING Has ADDENDA Alcohol Use Screen (AUDIT-C): Alcohol Screen: SCREEN FOR ALCOHOL (AUDIT-C) An alcohol screening test (AUDIT-C) was negative (score=1). 1. How often did you have a drink containing alcohol in the past year? Consider a drink to be a 12 ounce can or bottle of regular beer, 8 ounces of malt liquor, a 5 ounce glass of table wine, or a 1.5 ounce shot of liquor (like scotch, gin, or vodka). Monthly or less 2. How many drinks containing alcohol did you have on a typical day when you were drinking in the past year? One or two drinks 3. How often did you have six or more drinks on one occasion in the past year? Never Advance Directive Screen MH AD: Patient has an up-to-date Advance Directive at an outside, non-va facility and was asked to forward a copy to his/her clinician. Suicide Screen: C-SSRS Screening Ryan Suicide Severity Rating Scale (C-SSRS) screener 1. Over the past month, have you wished you were or wished you could go to sleep and not wake up? No 2. Over the past month, have you had any actual thoughts of killing yourself? No 3. Over the past month, have you been thinking about how you might do this? Response not required due to responses to other questions. 4. Over the past month, have you had these thoughts and had some intention of acting on them? Response not required due to responses to other questions. 5. Over the past month, have you started to work out or worked out the details of how to kill yourself? Response not required due to responses to other questions. 6. If yes, at any time in the past month did you intend to carry out this plan? Response not required due to responses to other questions. 7. In your lifetime, have you ever done anything, started to do anything, or prepared to do anything to end your life (for example, collected pills, obtained a gun, gave away valuables, went to the roof but didn't jump)? No 8. If YES, was this within the past 3 months? Response not required due to responses to other questions. Influenza Immunization: The patient has received the seasonal influenza vaccine for the current season at another location. Documented: INFLUENZA, UNSPECIFIED FORMULATION Historical Date Administered: Jun 06, 2023 Series: Complete Outside Location: Outside Healthcare Provider Information Source: FROM PATIENT'S RECALL /carlos/ YUKI HENRIQUEZ LPN LPN Signed: 01/02/2024 10:57 01/02/2024 ADDENDUM STATUS: COMPLETED COVID-19 Immunization: Moderna Monovalent (Spikevax) Administered: COVID-19 (MODERNA), MRNA, LNP-S, PF, 50 MCG/0.5 ML (AGES 12+ YEARS) Date Administered: January 02, 2024 11:00 Series: Series 6 Wet End Tester: MODERNA [employer] Lot: [id number] Exp Date: Feb 03, 2024 [facility]: [id number] Admin Route/Site: INTRAMUSCULAR/RIGHT DELTOID Dosage: 0.5mL Vaccine Information Statement(s): COVID-19 MRNA VACCINE (12+ YRS) VACCINE VIS Jun 15, 2023 (JAPANESE) Order By: Policy Administered By: Yuki Henriquez Vaccine administered without complications. The patient was advised to remain in the facility for 15 minutes post vaccination. /carlos/ YUKI HENRIQUEZ LPN LPN Signed: 01/02/2024 11:56 YUKI HENRIQUEZ [place] [facility]
--- OUTSIDE RECORDS SUMMARY | 2024-10-17 11:44 | XMS_ITS ---
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 Name Role Phone VICTOR MANUEL LOZANO Primary [...] Buck's Name Patient's Relationship to Policy Buck [facility] ([facility]) MEDICARE [facility] ([facility]) Aug 28, 2015 [id number] [phone] BERENICE COOPER PATIENT [facility] ([facility]) MEDICARE ADVANTAGE [facility] ([facility]) Aug 28, 2022 [id number] BERENICE COOPER PATIENT Selected Encounter This section includes the information on record at [place] for the Encounter. Date/Time Encounter Type Encounter Description Reason Pro vider Source Oct 14, 2024 07:44 PM Outpatient Encounter PRIMARY CARE/MEDICINE IHE Encounter Template Text not used by [place] Plan of Treatment: Future Appointments (+ 6 [...] 20 appointments. The data comes from all [place] treatment facilities. Appointment Date/Time Appointment Type Appointme nt Facility Name Oct 17, 2024 11:00 AM AMBULATORY - MEDICINE [facility] Oct 23, 2024 01:00 PM [facility] Active, Pending, and Scheduled Orders This section includes a listing of several types of active, pending, and scheduled orders, including clinic medications orders, diagnostic test orders, procedure orders and consult orders; where the start date of the order is 45 days before the date of the Encounter or 45 days after the date of theEncounter. The data comes from all [facility] facilities. Test Date/Time Test Type Test Details Facility Name Oct 12, 2024 12:00 AM Laboratory - Chemistry Order URINALYSIS CLEAN CATCH [facility]INE [facility] Oct 12, 2024 12:00 AM Laboratory - Chemistry Order MICROALBUMIN CREATININE RATIO PANEL URINE (RANDOM) [facility] Oct 12, 2024 12:00 AM Laboratory - Chemistry Order CARCINOEMBRYONIC ANTIGEN BLOOD (SST-SERUM) [facility] Oct 12, 2024 12:00 AM Laboratory - Chemistry Order HEMOGLOBIN A1C PANEL BLOOD (LAV-BLOOD) [facility] Oct 12, 2024 12:00 AM Laboratory - Chemistry Order CBC AND DIFF (AUTO) BLOOD (LAV-BLOOD) [facility] Oct 12, 2024 12:00 AM Laboratory - Chemistry Order BASIC METABOLIC PANEL (non-fasting) BLOOD (LAV-BLOOD) [facility] Oct 12, 2024 12:00 AM Laboratory - Chemistry Order LIVER FUNCTION BLOOD (LAV-BLOOD) [facility] Oct 12, 2024 12:00 AM Laboratory - Chemistry Order LIPID PANEL FASTING BLOOD (LAV-BLOOD) [facility] Oct 12, 2024 12:00 AM Laboratory - Chemistry Order TSH BLOOD (LAV-BLOOD) [facility] Social History: Smoking Status (Most current) and Tobacco Use (All prior to encounter date) This section includes the most current, and the historical, smoking and tobacco- related health factors from the [place] facility where the Encounter took place. Current Smoking Status This section includes the most current smoking, or tobacco-related health factor, from the [place] facility where the Encounter took place. Date/Time Current Smoking Status Comment [facility] Sep 01, 2023 02:30 PM VA-TOBACCO FORMER USER [place] [facility] Tobacco Use History This section includes a history of the smoking, or tobacco-related health factors, that were collected on or before the date of the Encounter. The data comes from the [place] facility where the Encounter took place. Date/Time Smoking Status/Tobac co Use Comment Facility Sep 01, 2023 02:30 PM VA-TOBACCO QUIT 15 YRS OR MORE [place] [facility] Aug 17, 2022 11:30 AM VA-TOBACCO FORMER USER [place] [facility] Aug 17, 2022 11:30 AM VA-TOBACCO QUIT 15 YRS OR MORE [place] [facility] Jul 14, 2021 10:30 AM VA-TOBACCO FORMER USER [place] [facility] Jul 14, 2021 10:30 AM VA-TOBACCO QUIT 15 YRS OR MORE [place] [facility] May 26, 2020 11:30 AM VA-TOBACCO FORMER USER [place] [facility] May 26, 2020 11:30 AM VA-TOBACCO QUIT 15 YRS OR MORE [place] [facility] Aug 13, 2018 11:07 AM VA-TOBACCO FORMER USER [facility] Aug 13, 2018 11:07 AM VA-TOBACCO QUIT 5 TO < 15 YRS [place] [facility] Dec 14, 2017 10:54 AM LIFETIME NON-TOBACCO USER [place] [facility] Sep 26, 2016 10:11 AM QUIT TOBACCO USE > 7 YEARS AGO [facility] Sep 11, 2015 10:08 AM QUIT TOBACCO USE > 7 YEARS AGO pt states he quit smoking 47 yrs ago. [facility] Apr 09, 2013 01:56 PM LIFETIME NON-TOBACCO USER pt states he quit 8 years ago. [facility] Mar 08, 2012 01:47 PM QUIT TOBACCO USE 1-7 YEARS AGO [facility] Jul 13, 2011 09:23 AM QUIT TOBACCO USE 1-7 YEARS AGO quit sic years ago [facility] Mar 19, 2010 10:43 AM QUIT TOBACCO USE 1-7 YEARS AGO [facility] Encounter Notes: All associated encounter notes This section contains the clinical notes associated to the Encounter. Date/Time Encounter Note(s) Provider Source Oct 14, 2024 07:44 PM PHYSICIAN NOTE: LOCAL TITLE: NOTE STANDARD TITLE: PHYSICIAN NOTE DATE OF NOTE: OCT 14, 2024@19:44 ENTRY DATE: OCT 14, 2024@19:44:35 AUTHOR: VICTOR MANUEL LOZANO EXP COSIGNER: URGENCY: STATUS: COMPLETED lovastatin 20 mg tablets 3 po qhs x 90 days #270 refill x 3 called in [facility] [place] /carlos/ Victor Manuel Lozano MD Staff Physician Signed: 10/14/2024 19:45 VICTOR MANUEL LOZANO [facility]
--- OUTSIDE RECORDS SUMMARY | 2024-10-17 11:44 | XMS_ITS | Encounter Summary ---
Author Name [facility] [place] Address [address] [place] [address] Care Team Providers Care Data Analytics Chief Scientist Name Role Phone BEATRIZJANETTE Primary Care Provider Unavailabl e Insurance Providers: [...] Name Patient's Relationship to Policy Buck [facility]) MEDICARE ADVANTAGE [facility] ([facility]) Aug 28, 2015 [id number] BERENICE COOPER PATIENT [facility] ([facility]) MEDICARE ADVANTAGE [facility] ([facility]) Aug 28, 2022 [id number] BERENICE COOPER PATIENT Selected Encounter This section includes the information on record at [place] for the Encounter. Date/Time Encounter Type Encounter Description Reason Provider Source Oct 27, 2023 11:00 AM OFFICE O/P EST MOD 30 MIN NEUROLOGY ICD-10-CM R25.1 Tremor, unspecified EVELYNE HORTA [place] Encounter Template Text not used by [place] Assessments - Encounter Diagnoses This section includes the primary and secondary diagnoses documented for the Encounter. Date/Time Primary/Secondary Diagnosis Diagnosis Name Provider Source Oct 27, 2023 11:32 AM PRIMARY Tremor, unspecified EVELYNE HORTA [facility] Plan of Treatment: Future Appointments (+ 6 months) and Future Tests (+/- 45 days) The Plan of Treatment section includes future care activities for the patient [facility] [place] [facility] This section includes future appointments and future orders which are active, pending or scheduled. Future Appointments This section includes appointments that were scheduled to occur 6 months from the date of the Encounter, up to a maximum of 20 appointments. The data comes from all [place] treatment facilities. Appointment Date/Time Appointment Type Appointme nt Facility Name January 02, 2024 11:00 AM [facility]ORY [facility] January 09, 2024 01[facility]00 PM [facility] January 09, 2024 01:30 PM [facility]ONE [facility] Jan 29, 2024 03:30 PM [facility] Feb 09, 2024 01:30 PM [facility] Feb 23, 2024 11:30 AM [facility] Vital Signs: All taken on the encounter date This section contains inpatient and outpatient Vital Signs collected on the date of the Encounter. Date/Time Temperature Pulse Blood Pressure Respiratory Rate SP02 Pain Height Weight Body Mass Index Source Oct 27, 2023 11:21 AM 98 86 129/75 18 94 3 197 26 [facility] Social History: Smoking Status (Most current) and Tobacco Use (All prior to encounter date) This section includes the most current, and the historical, smoking and tobacco- related health factors from the [place] facility where the Encounter took place. Current Smoking Status This section includes the most current smoking, or tobacco-related health factor, from the [place] facility where the Encounter took place. Date/Time Current Smoking Status Comment [facility] Sep 01, 2023 02:30 PM VA-TOBACCO FORMER USER [facility] Tobacco Use History This section includes a history of the smoking, or tobacco-related health factors, that were collected on or before the date of the Encounter. The data comes from the [place] facility where the Encounter took place. Date/Time Smoking Status/Tobac co Use Comment Facility Sep 01, 2023 02:30 PM VA-TOBACCO QUIT 15 YRS OR MORE [facility] [place] [facility] Aug 17, 2022 11:30 AM VA-TOBACCO FORMER USER [facility] [place] [facility] Aug 17, 2022 11:30 AM VA-TOBACCO QUIT 15 YRS OR MORE [facility] [place] [facility] Jul 14, 2021 10:30 AM VA-TOBACCO FORMER USER [facility] [place] [facility] Jul 14, 2021 10:30 AM VA-TOBACCO QUIT 15 YRS OR MORE [facility] [place] [facility] May 26, 2020 11:30 AM VA-TOBACCO FORMER USER [facility] [place] [facility] May 26, 2020 11:30 AM VA-TOBACCO QUIT 15 YRS OR MORE [facility] [place] [facility] Aug 13, 2018 11:07 AM VA-TOBACCO FORMER USER [facility] [place] [facility] Aug 13, 2018 11:07 AM VA-TOBACCO QUIT 5 TO < 15 YRS [facility] [place] [facility] Dec 14, 2017 10:54 AM LIFETIME NON-TOBACCO USER [facility] [place] [facility] Sep 26, 2016 10:11 AM QUIT TOBACCO USE > 7 YEARS AGO [facility] [place] [facility] Sep 11, 2015 10:08 AM QUIT TOBACCO USE > 7 YEARS AGO pt states he quit smoking 47 yrs ago. [facility] [place] [facility] Apr 09, 2013 01:56 PM LIFETIME NON-TOBACCO USER pt states he quit 8 years ago. [place] [facility] [place] [facility] Mar 08, 2012 01:47 PM QUIT TOBACCO USE 1-7 YEARS AGO [facility] [place] [facility] Jul 13, 2011 09:23 AM QUIT TOBACCO USE 1-7 YEARS AGO quit sic years ago [facility] [place] [facility] Mar 19, 2010 10:43 AM QUIT TOBACCO USE 1-7 YEARS AGO [facility] [place] [facility] Encounter Notes: All associated encounter notes This section contains the clinical notes associated to the Encounter. Date/Time Encounter Note(s) Provider Source Oct 27, 2023 11:22 AM NEUROLOGY OUTPATIE NT NOTE: LOCAL TITLE: NEUROLOGY CLINIC NOTE STANDARD TITLE: NEUROLOGY OUTPATIENT NOTE DATE OF NOTE: OCT 27, 2023@11:22 ENTRY DATE: OCT 27, 2023@11:22:19 AUTHOR: EVELYNE HORTA COSIGNER: URGENCY: STATUS: COMPLETED Chief Complaint: tremors Interval Hx Oct pt accompanied by spouse. They give congruent hx. Pt reports that his tremors do improve markedly with use of sinemet IR (25/100mg tid), and worsened when he went w/o it for a week, and then improved again when he restarted. Tremors continue to be present only with hand extension and with fine motor activity, when they occur, but never at rest. Aside from some increased bowel motility initially when using sinemet, which has since resolved, he has not had any trouble getting or using this medication, or any other adverse effects. He says that his dysphagia and low voice issues resolved after he addressed the excess phlegm he was having. His appetite also improved. He has not had any syncopal episodes, any falls (though sometimes stumbles while going up stairs), any scuffing of his feet, any RBD during sleep, any constipation, or any other issues or concerns. Pt o/w denies any new issues, illness, injuries, hospitalizations, or concerns. NEUROLOGIC EXAM: Gen: WD WN WM in NAD, appropriate affect, eye contact and social interaction. MS: AAO to Person/Place/Situation Able to maintain attention to conversation and follow directions on exam without distractability, impersistence, or perseveration. Fluent language and intact comprehension, without any paraphasic errors. Normal prosody and word variability/richness. Strength in both UE and LE generally intact. No rest tremor, no parkinsonism on testing of PROM of the BUE. Mild micro>bradykinesia. Trace tremulousness/small amplitude tremor of the LUE during extension. Pt ambulating on own, mildly reduced (but present) RUE arm swing. Trace scuffing of the back of the foot of the LLE during ambulation. Vitals Enter at: Oct 27, 2023@11:21:45 BP: 129/75 P: 86 R: 18 T: 98 197 lb [89.36 kg] (10/27/2023 11:21) Assessment/Plan: 73 y/o M w/trace high freq/low amp tremors improved with sinemet, (and worse when he stopped taking for a week). He is satisfied with current regimen. he is not interested in MRI brain or ARBEN to evaluate for parkinsons. Aside from some decreased arm swing of the RUE, and trace scuffing of the back of the foot of the LLE, there is no significant parkinsonism, and no hx of significant autonomic parkinsonism. -Pt to continue on current sinemet regimen Pt d/w w/PCM if community care neurology referral is needed, if he experiences any worsening of issues or any new symptoms. Evelyne Horta MD Staff Neurologist [facility] ~30 mins spent on exam, assessment, counseling, and coordination [ X ] Management of Neurologic Condition was reassessed, taking into account pt's complex other medical issues and medications. [ X ] ~50% of exam was spent on discussion and education or coordination Medication Rec per [employer] Nursing note on Oct@11:22. NO DISCREPANCIES FOUND other than those listed in note. The patient's medication list/medication history to include Local Active [place] Prescriptions, Remote Active VA Prescriptions, Non-VA medications, Recently VA Prescriptions (90-180 days), Recently Discontinued VA Prescriptions (90-180 days), and Pending Medication Orders where relevant (e.g., patient is seen by multiple providers in the same day) was compared with CPRS and reviewed with the patient/caregiver and reconciled. Any changes in medications and any medications prescribed by this provider discontinued are documented in this note. Medications not prescribed by this provider will be addressed by pt's PCM or appropriate specialty provider. Discussed risks and possible benefits and mechanism of action of medications prescribed. Pt indicated understanding of the risks of medications, and all questions were answered to pt's satisfaction /carlos/ EVELYNE HORTA MD PHYSICIAN Signed: 10/27/2023 11:33 EVELYNE HORTA [facility]
--- OUTSIDE RECORDS SUMMARY | 2024-10-17 11:44 | XMS_ITS | Continuity of Care Document ---
Author Name [facility] Organization [facility] Care Team Providers Care Associate Program Manager Name Role Phone [facility] Unavailable Unavailable Problems Combined list of problems from Department of Defense and Veterans Affairs facilities. It does not include entries that were removed or entered in error. Problem Status Onset Date Problem Type Date of Resolution Comments Source Abnormal weight loss Active 024 Condition January 02, 2024 Entered By: JANETTE HENDERSON Comment: tests ordered [facility] Headache (SCT [id number]) Active 022 Condition Mar 23, 2022 Entered By: JANETTE HENDERSON Comment: CT head normal [facility] Degenerative arthritis Active 020 Condition Sep 17, 2019 Entered By: JANETTE HENDERSON Comment: confirmed by x-ray lumbar spine [facility] Erectile Dysfunction (SCT [id number]) Active 019 Condition Dec 12, 2018 Entered By: JANETTE HENDERSON Comment: treated with medication [facility] Hypercholesterolemia Active 016 Condition [facility] Diabetes mellitus (SNOMED CT 38316303) Active 013 Condition [facility] Lyme Disease Active 013 Condition [facility] Essential hypertension Active 010 Condition [facility] Hypercholesterolemia Active 010 Condition [facility] Colon Cancer Active 005 Condition [facility] Colorectal Cancer Active Condition Ga r 2012 Entered By: NELSON LAIRD Comment: - dx 2005 s/p ?partial colectomyNov 22, 2012 Entered By: NELSON LAIRD Comment: included platin, 5-FU, leucovorin, and prednisone, last 2012 Entered By: NELSON LAIRD Comment: last colo in 2009 ( normal ). CEA normal [facility] Diabetes Mellitus Type II or unspecified Active Condition [facility] Hyperlipidemia Active Condition [facility]pertension Active Condition [facility] Parkinson's disease Active Condition [facility] Tremor Active Condition [facility] Diagnosis: ICD-10-CM R63.4 Abnormal weight loss Active Diagnosis [facility] Diagnosis: ICD-10-CM Z46.0 Encounter for fit/adjst of spectacles and contact lenses Active Diagnosis [facility] Diagnosis: ICD-10-CM E11.9 Type 2 diabetes mellitus without complications Active Diagnosis [facility] Diagnosis: ICD-10-CM Z04.89 Encounter for examination and observation for oth reasons Active Diagnosis [facility] Diagnosis: ICD-10-CM R25.1 Tremor, unspecified Active Diagnosis [facility] Diagnosis: ICD-10-CM I10 Essential (primary) hypertension Active Diagnosis [facility] Diagnosis: ICD-10-CM G20.A1 Parkinson's dis w/o dyskinesia, w/o mention of fluctuations Active Diagnosis [facility] Diagnosis: ICD-10-CM R53.1 Weakness Active Diagnosis [facility] Diagnosis: ICD-10-CM E78.00 Pure hypercholesterolemia, unspecified Active Diagnosis [facility] Medications Combined list of outpatient medications from Department of Defense and Veterans Affairs facilities.Medications provided include 1) outpatient medications from the last 15 months, and 2) patient-reported medications. Medication Details Route Status Patient Instructions Prescription Expires Prescription Number Last Dispense Date Ordering Provider Order Date Order Qty Source AMLODIPINE BESYLATE 10MG TAB TAKE ONE TABLET BY MOUTH EVERY DAY ORAL ACTIVE RAYMUNDO HENDERSON 2009 [facility] CARBIDOPA 25MG/LEVODO PA 100MG TAB TAKE 1 TABLET BY MOUTH THREE TIMES A DAY ORAL DISCONT INUED BY PROVIDE R 10/27/2024 [id number] NAMITA HORTA Y 2023 270 [facility] CARBIDOPA 25MG/LEVODO PA 100MG TAB TAKE 1 TABLET BY MOUTH THREE TIMES A DAY ORAL DISCONT INUED 03/01/2024 [id number] 4 NAMITA HORTA Y 2022 270 [facility] CARBOXYMETH YLCELLULOSE NA 0.5% SOLN,OPH INSTILL 1 DROP INTO EACH EYE FOUR TIMES A DAY OPHTHA LMIC 06/19/2024 [id number] 4 Sebastian YBARRAEW E 2022 45 [facility] CYCLOBENZAP RINE HCL 10MG TAB TAKE ONE TABLET BY MOUTH THREE TIMES DAILY NEEDED FOR BACK SPASMS ORAL ACTIVE 11/24/2024 [id number] RAYMUNDO HENDERSON ZBIGNIEW D 2023 90 [facility] LIDOCAINE 5% PATCH APPLY 1 PATCH TOPICALL Y ONCE DAILY NEEDED FOR NERVE PAIN (LEAVE PATCH ON FOR 12 HOURS, THEN REMOVE PATCH) TOPICA L ACTIVE 02/09/2025 [id number] RAYMUNDO HENDERSON ZBIGNIEW D 2023 30 [facility] LISINOPRIL 5MG TAB TAKE ONE TABLET BY MOUTH EVERY DAY ORAL ACTIVE RAYMUNDO HENDERSON ZBIGNIEW D 2013 [facility] LOVASTATIN 20MG TAB TAKE THREE TABLETS BY MOUTH AT BEDTIME ORAL ACTIVE RAYMUNDO HENDERSON ZBIGNIEW D 2023 [facility] METFORMIN HCL 500MG TAB TAKE ONE TABLET BY MOUTH TWICE DAILY ORAL ACTIVE RAYMUNDO HENDERSON ZBIGNIEW D 2012 [facility] NAPROXEN 375MG TAB TAKE ONE TABLET BY MOUTH TWICE DAILY NEEDED TAKE WITH FOOD; FOR PAIN/INF LAMMATIO N/SWELLI NG ORAL 04/28/2024 [id number] RAYMUNDO HENDERSON D 2022 60 [facility] OMEPRAZOLE 20MG CAP,EC TAKE ONE CAPSULE BY MOUTH EVERY MORNING 30 MINUTES BEFORE BREAKFAS T ORAL ACTIVE 11/24/2024 [id number] 5 RAYMUNDO HENDERSOND D 2023 90 [facility] OMEPRAZOLE 20MG CAP,EC TAKE ONE CAPSULE BY MOUTH EVERY MORNING 30 MINUTES BEFORE BREAKFAS T ORAL DISCONT INUED 03/06/2024 [id number] RAYMUNDO HENDERSON D 2022 90 [facility] SILDENAFIL CITRATE 50MG TAB TAKE ONE TABLET BY MOUTH NEEDED TAKE 1 HOUR PRIOR TO SEXUAL ACTIVITY ORAL 04/28/2024 [id number] RAYMUNDO HENDERSON D 2022 4 [facility] Allergies, Adverse Reactions, Alerts Combined list of allergies from Department of Defense and Veterans Affairs facilities. It does not include entries that were removed or entered in error. Substance Category Reaction Severity Reaction type Status Date Reported Comments Source ATORVASTATIN Propensity to adverse reactions to drug (finding) Muscle pain active 0 [facility] BENZONATATE Propensity to adverse reactions to drug (finding) Eruption active 8 [facility] CEPHALEXIN Propensity to adverse reactions to drug (finding) Eruption active 7 [facility] COLESTIPOL Propensity to adverse reactions to drug (finding) Finding of gastrointes tinal tract gas active 4 [facility] LIPITOR Propensity to adverse reactions to drug (finding) Muscle pain active 3 [facility] PERCOCET Propensity to adverse reactions to drug (finding) Visual disturbance active 3 [facility] PRAVASTATIN Propensity to adverse reactions to drug (finding) Inflammator y disease of liver active 0 [facility] SHINGRIX (PF) Propensity to adverse reactions to drug (finding) Weakness present active 8 [facility] Immunizations Combined list of available immunizations from the Department of Defense and Veterans Affairs facilities. Immunization Series Date Given Administered By Site Reaction Lot Number CVX Code Drug Rail Equipment Operator Status Comments Source RSV, BIVALENT, PROTEIN SUBUNIT RSVPREF, DILUENT RECONSTITUTED , 0.5 ML, PF 2023 RISA BOWDEN RIGHT DELTO ID [id number] 305 complet ed sterile water diluent component [id number] [facility] COVID-19 (MODERNA), MRNA, LNP-S, PF, 50 MCG/0.5 ML (AGES 12+ YEARS) 7 2023 312 complet ed [facility] INFLUENZA, UNSPECIFIED FORMULATION 2023 88 complet ed [facility] COVID-19 (MODERNA), MRNA, LNP-S, PF, 50 MCG/0.5 ML (AGES 12+ YEARS) 6 2023 RISA BOWDEN RIGHT DELTO ID [id number] 312 complet ed [facility] INFLUENZA, UNSPECIFIED FORMULATION 2022 88 complet ed [facility] INFLUENZA, UNSPECIFIED FORMULATION 2021 88 complet ed [facility] COVID-19 (MODERNA), MRNA, LNP-S, BIVALENT BOOSTER, PF, 50 MCG/0.5 ML OR 25MCG/0.25 ML DOSE 2021 229 complet ed [facility] COVID-19 (PFIZER), MRNA, LNP-S, PF, 30 MCG/0.3 ML DOSE 4 2021 208 complet ed [facility] INFLUENZA, UNSPECIFIED FORMULATION 2020 88 complet ed [facility] COVID-19 (PFIZER), MRNA, LNP-S, PF, 30 MCG/0.3 ML DOSE 3 2020 208 complet ed [facility] COVID-19 (PFIZER), MRNA, LNP-S, PF, 30 MCG/0.3 ML DOSE 2 2020 208 complet ed PFR; [id number]; 1 [facility] COVID-19 (PFIZER), MRNA, LNP-S, PF, 30 MCG/0.3 ML DOSE 1 2020 208 complet ed PFR; [id number]; 1 [facility] INFLUENZA, INJECTABLE, QUADRIVALENT, PRESERVATIVE FREE 2019 150 complet ed [facility] INFLUENZA, SEASONAL, INJECTABLE 2018 141 complet ed [facility] TD (ADULT), 2 LF TETANUS TOXOID, PRESERVATIVE FREE, ADSORBED 2017 09 complet ed Site: Right Deltoid [facility] INFLUENZA, SEASONAL, INJECTABLE 2017 141 complet ed [facility] ZOSTER RECOMBINANT 1 2017 187 complet ed [facility] INFLUENZA, SEASONAL, INJECTABLE 2016 141 complet ed Site: Right Deltoid [facility] FLU,3 YRS (HISTORICAL) 2015 88 complet ed Site: Left Deltoid [facility] FLU,3 YRS (HISTORICAL) 2014 88 complet ed [facility] PNEUMOCOCCAL CONJUGATE PCV 13 2013 133 complet ed [facility] FLU,3 YRS (HISTORICAL) 2013 88 complet ed [facility] FLU,3 YRS (HISTORICAL) 2012 88 complet ed Site: Left Deltoid [facility] PNEUMOCOCCAL, UNSPECIFIED FORMULATION 2012 109 complet ed [facility] FLU,3 YRS (HISTORICAL) 2011 88 complet ed [facility] ZOSTER LIVE 2011 CRISTOBAL JEROME 121 complet ed [facility] FLU,3 YRS (HISTORICAL) 2010 88 complet ed [facility] FLU,3 YRS (HISTORICAL) 2009 88 complet ed [facility] FLU,3 YRS (HISTORICAL) 2008 88 complet ed [facility] DTAP, UNSPECIFIED FORMULATION 2008 107 complet ed [facility] FLU,3 YRS (HISTORICAL) 2008 88 complet ed [facility] NOVEL INFLUENZA-H1N 1-09, ALL FORMULATIONS 2008 128 complet ed [facility] PNEUMOCOCCAL, UNSPECIFIED FORMULATION 2007 109 complet ed [facility] Results Combined list of recent chemistry, hematology and other laboratory results from Department of Defense and Veterans Affairs, ranging from 15 months to all on record, depending upon the facility. Order Name Results Value Reference Range Date Interpretation Specimen Comments Source CARCINOEM BRYONIC ANTIGEN CARCINOEMBR YONIC AG [MASS/VOLUM E] IN SERUM OR PLASMA 1.91 ng/mL 0 - 5 06/13 Specimen Type: SERUM Comment: Non-smokers : <2.5 Smokers <5.0. Ordering Provider: CONNIE HENDERSON Report Released Date/Time: Jun 09, 2024 09:26 PM Reporting Lab: [facility] [address] [facility] [address] Performing Lab: [facility] [address] [facility] [address] [facility] LIVER FUNCTION PROTEIN [MASS/VOLUM E] IN SERUM OR PLASMA 7.2 06/13 Specimen Type: BLOOD No comment entered. Ordering Provider: CONNIE HENDERSON Report Released Date/Time: Jun 09, 2024 09:26 PM Reporting Lab: [facility] [address] [facility] [address] Performing Lab: [facility] [address] [facility] [address] [facility] LIVER FUNCTION ALBUMIN [MASS/VOLUM E] IN SERUM OR PLASMA 4.2 06/13 Specimen Type: BLOOD No comment entered. Ordering Provider: CONNIE HENDERSON Report Released Date/Time: Jun 09, 2024 09:26 PM Reporting Lab: [facility] [address] [facility] [address] Performing Lab: [facility] [address] [facility] [address] [facility] LIVER FUNCTION ALKALINE PHOSPHATASE [ENZYMATIC ACTIVITY/VO LUME] IN SERUM OR PLASMA 51 06/13 Specimen Type: BLOOD No comment entered. Ordering Provider: CONNIE HENDERSON Report Released Date/Time: Jun 09, 2024 09:26 PM Reporting Lab: [facility] [address] [facility] [address] Performing Lab: [facility] [place] [facility] [address] [facility] [address] [facility] LIVER FUNCTION ASPARTATE AMINOTRANSF ERASE [ENZYMATIC ACTIVITY/VO LUME] IN SERUM OR PLASMA 21 06/13 Specimen Type: BLOOD No comment entered. Ordering Provider: CONNIE HENDERSON Report Released Date/Time: Jun 09, 2024 09:26 PM Reporting Lab: [facility] [address] [facility] [address] Performing Lab: [facility] [address] [facility] [address] [facility] LIVER FUNCTION ALANINE AMINOTRANSF ERASE [ENZYMATIC ACTIVITY/VO LUME] IN SERUM OR PLASMA 26 06/13 Specimen Type: BLOOD No comment entered. Ordering Provider: CONNIE HENDERSON Report Released Date/Time: Jun 09, 2024 09:26 PM Reporting Lab: [facility] [place] [facility] [address] [facility] [address] Performing Lab: [facility] [place] [facility] [address] [facility] [address] [facility] LIVER FUNCTION BILIRUBIN.T OTAL [MASS/VOLUM E] IN SERUM OR PLASMA 0.4 06/13 Specimen Type: BLOOD No comment entered. Ordering Provider: CONNIE HENDERSON Report Released Date/Time: Jun 09, 2024 09:26 PM Reporting Lab: [facility] [place] [facility] [address] [facility] [address] Performing Lab: [facility] [place] [facility] [address] [facility] [address] [facility] BASIC METABOLIC PANEL (non-fast ing) UREA NITROGEN [MASS/VOLUM E] IN SERUM OR PLASMA 15 06/13 Specimen Type: BLOOD No comment entered. Ordering Provider: CONNIE HENDERSON Report Released Date/Time: Jun 09, 2024 09:26 PM Reporting Lab: [facility] [place] [facility] [address] [facility] [address] Performing Lab: [facility] [place] [facility] [address] [facility] [address] [facility] BASIC METABOLIC PANEL (non-fast ing) GLUCOSE [MASS/VOLUM E] IN SERUM OR PLASMA 136 06/13 Specimen Type: BLOOD No comment entered. Ordering Provider: CONNIE HENDERSON Report Released Date/Time: Jun 09, 2024 09:26 PM Reporting Lab: [facility] [place] [facility] [address] [facility] [address] Performing Lab: [facility] [place] [facility] [address] [facility] [address] [facility] BASIC METABOLIC PANEL (non-fast ing) SODIUM [MOLES/VOLU ME] IN SERUM OR PLASMA 142 06/13 Specimen Type: BLOOD No comment entered. Ordering Provider: CONNIE HENDERSON Report Released Date/Time: Jun 09, 2024 09:26 PM Reporting Lab: [facility] [place] [facility] [address] [facility] [address] Performing Lab: [facility] [address] [facility] [address] [facility] BASIC METABOLIC PANEL (non-fast ing) POTASSIUM [MOLES/VOLU ME] IN SERUM OR PLASMA 4.7 06/13 Specimen Type: BLOOD No comment entered. Ordering Provider: CONNIE HENDERSON Report Released Date/Time: Jun 09, 2024 09:26 PM Reporting Lab: [facility] [address] [facility] [address] Performing Lab: [facility]TR[facility]USE[facility] [address] [facility] [address] [facility] BASIC METABOLIC PANEL (non-fast ing) CHLORIDE [MOLES/VOLU ME] IN SERUM OR PLASMA 112 06/13 Specimen Type: BLOOD No comment entered. Ordering Provider: CONNIE HENDERSON Report Released Date/Time: Jun 09, 2024 09:26 PM Reporting Lab: [facility] TR[facility]ENTERUSEJ[facility] [address] [facility] [address] Performing Lab: [facility] TRN [facility]USEJ[facility] [address] [facility] [address] [facility]ENTERUSE [facility] BASIC METABOLIC PANEL (non-fast ing) CARBON DIOXIDE, TOTAL [MOLES/VOLU ME] IN SERUM OR PLASMA 20 06/13 Specimen Type: BLOOD No comment entered. Ordering Provider: CONNIE HENDERSON Report Released Date/Time: Jun 09, 2024 09:26 PM Reporting Lab: [facility]ITALTRN [facility] [address] [facility] [address] Performing Lab: [facility]ITALTRN [facility]USEJ[facility] [address] [facility] [address] [facility] BASIC METABOLIC PANEL (non-fast ing) CREATININE [MASS/VOLUM E] IN SERUM OR PLASMA 1.20 06/13 Specimen Type: BLOOD No comment entered. Ordering Provider: CONNIE HENDERSON Report Released Date/Time: Jun 09, 2024 09:26 PM Reporting Lab: [facility]TR[facility] [address] [facility] [address] Performing Lab: [facility] [place] [facility] [address] [facility] [address] [facility] [facility] BASIC METABOLIC PANEL (non-fast ing) GLOMERULAR FILTRATION RATE/1.73 SQ M.PREDICTED [VOLUME RATE/AREA] IN SERUM, PLASMA OR BLOOD BY CREATININE- BASED FORMULA (CKD-EPI 2020) 63 06/13 Specimen Type: BLOOD No comment entered. Ordering Provider: CONNIE HENDERSON Report Released Date/Time: Jun 09, 2024 09:26 PM Reporting Lab: [facility]ITALTRN [facility]ENTERUSETS [facility] [address] [facility] [address] Performing Lab: [facility]L TRN [facility]ENTERUSEJ[facility] [address] [facility] [address] [facility]ERN [facility] LIPID PANEL FASTING CHOLESTEROL [MASS/VOLUM E] IN SERUM OR PLASMA 141 06/13 Specimen Type: BLOOD No comment entered. Ordering Provider: CONNIE HENDERSON Report Released Date/Time: Jun 09, 2024 09:26 PM Reporting Lab: [facility] TR[facility]ENTERUSETS [facility] [address] [facility] [address] Performing Lab: [facility]L WSTRN [facility] CENTERUSETS [facility] [address] [facility] [address] [facility]IVONIARNORTH [facility]ERN [facility] LIPID PANEL FASTING TRIGLYCERID E [MASS/VOLUM E] IN SERUM OR PLASMA 84 06/13 Specimen Type: BLOOD No comment entered. Ordering Provider: CONNIE HENDERSON Report Released Date/Time: Jun 09, 2024 09:26 PM Reporting Lab: [facility] [place] [facility] [address] [facility] [address] Performing Lab: [facility] [address] [facility] [address] [facility] TRN [facility]ENTERCHUSE [facility] LIPID PANEL FASTING CHOLESTEROL IN LDL [MASS/VOLUM E] IN SERUM OR PLASMA BY CALCULATION 79 06/13 Specimen Type: BLOOD No comment entered. Ordering Provider: CONNIE HENDERSON Report Released Date/Time: Jun 09, 2024 09:26 PM Reporting Lab: [facility] [place] [facility] [address] [facility] [address] Performing Lab: [facility] [place] [facility] [address] [facility] [address] [facility] LIPID PANEL FASTING CHOLESTEROL .TOTAL/CHOL ESTEROL IN HDL [MASS RATIO] IN SERUM OR PLASMA 3.5 06/13 Specimen Type: BLOOD No comment entered. Ordering Provider: CONNIE HENDERSON Report Released Date/Time: Jun 09, 2024 09:26 PM Reporting Lab: [facility] [place] [facility] [address] [facility] [address] Performing Lab: [facility] [place] [facility] [address] [facility] [address] [facility] [facility] LIPID PANEL FASTING CHOLESTEROL IN HDL [MASS/VOLUM E] IN SERUM OR PLASMA 45 06/13 Specimen Type: BLOOD No comment entered. Ordering Provider: CONNIE HENDERSON Report Released Date/Time: Jun 09, 2024 09:26 PM Reporting Lab: [facility] [place] [facility] [address] [facility] [address] Performing Lab: [facility] [place] [facility] [address] [facility] [address] [facility] [facility] PSA PSA 2.46 06/13 Specimen Type: BLOOD No comment entered. Ordering Provider: CONNIE HENDERSON Report Released Date/Time: Jun 09, 2024 09:26 PM Reporting Lab: [facility] [place] [facility] [address] [facility] [address] Performing Lab: [facility] [place] [facility] [address] [facility] [address] [facility] [place] [facility] TSH TSH 2.52 06/13 Specimen Type: BLOOD No comment entered. Ordering Provider: CONNIE HENDERSON Report Released Date/Time: Jun 09, 2024 09:26 PM Reporting Lab: [facility] [place] [facility] [address] [facility] [address] Performing Lab: [facility] [address] [facility] [address] [facility] HEMOGLOBI N A1C PANEL HEMOGLOBIN A1C/HEMOGLO BIN.TOTAL IN BLOOD BY HPLC 5.8 4.0 - 5.6 06/13 H Specimen Type: BLOOD Comment: Values obtained from A1C measurement s can vary. For atypical A1C assays, a reported value of 7.0 could actually be between 6.72 and 7.28 if measured by a reference method. A reported value of 9.0 could actually be between 8.73 and 9.27. Ref: http://www. ngsp.org/[place] Pdata.asp Ordering Provider: CONNIE HENDERSON Report Released Date/Time: Jun 09, 2024 09:26 PM Reporting Lab: [address] [id number] Performing Lab: [address] [address] [facility] CBC AND DIFF (AUTO) LEUKOCYTES [#/VOLUME] IN BLOOD BY AUTOMATED COUNT 7.01 10*3/u L 4.50 - 11.00 06/13 Specimen Type: BLOOD No comment entered. Ordering Provider: CONNIE HENDERSON Report Released Date/Time: Jun 09, 2024 09:26 PM Reporting Lab: [address] [address] Performing Lab: [address] [address] [facility] CBC AND DIFF (AUTO) ERYTHROCYTE S [#/VOLUME] IN BLOOD BY AUTOMATED COUNT 4.40 10*6/u L 4.23 - 5.66 06/13 Specimen Type: BLOOD No comment entered. Ordering Provider: CONNIE HENDERSON Report Released Date/Time: Jun 09, 2024 09:26 PM Reporting Lab: [address] [address] Performing Lab: [address] [address] [facility] CBC AND DIFF (AUTO) HEMOGLOBIN [MASS/VOLUM E] IN BLOOD 13.7 g/dL 12.8 - 17 06/13 Specimen Type: BLOOD No comment entered. Ordering Provider: CONNIE HENDERSON Report Released Date/Time: Jun 09, 2024 09:26 PM Reporting Lab: [facility] [place] [facility] [address] [facility] [address] Performing Lab: [facility] [place] [facility] [address] [facility] [address] [facility] [place] CBC AND DIFF (AUTO) HEMATOCRIT [VOLUME FRACTION] OF BLOOD BY AUTOMATED COUNT 39.3 39.2 - 50.4 06/13 Specimen Type: BLOOD No comment entered. Ordering Provider: CONNIE HENDERSON Report Released Date/Time: Jun 09, 2024 09:26 PM Reporting Lab: [facility] [place] [facility] [address] [facility] [address] Performing Lab: [facility] [place] [facility] [address] [facility] [address] [facility] [place] [facility] CBC AND DIFF (AUTO) MCV [ENTITIC VOLUME] BY AUTOMATED COUNT 89.3 fL 82 - 99 06/13 Specimen Type: BLOOD No comment entered. Ordering Provider: CONNIE HENDERSON Report Released Date/Time: Jun 09, 2024 09:26 PM Reporting Lab: [facility] [place] [facility] [address] [facility] [address] Performing Lab: [facility] [place] [facility] [address] [facility] [address] [facility] [place] [facility] CBC AND DIFF (AUTO) MCHC [MASS/VOLUM E] BY AUTOMATED COUNT 34.9 g/dL 30.8 - 35.1 06/13 Specimen Type: BLOOD No comment entered. Ordering Provider: CONNIE HENDERSON Report Released Date/Time: Jun 09, 2024 09:26 PM Reporting Lab: [facility] [place] [facility] [address] [facility] [address] Performing Lab: [facility] [address] [facility] [address] [facility] CBC AND DIFF (AUTO) PLATELETS [#/VOLUME] IN BLOOD BY AUTOMATED COUNT 194 10*3/u L 140 - 360 06/13 Specimen Type: BLOOD No comment entered. Ordering Provider: CONNIE HENDERSON Report Released Date/Time: Jun 09, 2024 09:26 PM Reporting Lab: [facility] [address] [facility] [address] Performing Lab: [facility] [place] [facility] [address] [facility] [address] [facility] [place] [facility] CBC AND DIFF (AUTO) ERYTHROCYTE DISTRIBUTIO N WIDTH [RATIO] BY AUTOMATED COUNT 12.7 12.0 - 16.0 06/13 Specimen Type: BLOOD No comment entered. Ordering Provider: CONNIE HENDERSON Report Released Date/Time: Jun 09, 2024 09:26 PM Reporting Lab: [facility] [place] [facility] [address] [facility] [address] Performing Lab: [facility] [place] [facility] [address] [facility] [address] [facility] CBC AND DIFF (AUTO) MONOCYTES [#/VOLUME] IN BLOOD BY AUTOMATED COUNT 0.66 10*3/u L 0.30 - 1.10 06/13 Specimen Type: BLOOD No comment entered. Ordering Provider: CONNIE HENDERSON Report Released Date/Time: Jun 09, 2024 09:26 PM Reporting Lab: [facility] [place] [facility] [address] [facility] [address] Performing Lab: [facility] [place] [facility] [address] [facility] [address] [facility] CBC AND DIFF (AUTO) MCH [ENTITIC MASS] BY AUTOMATED COUNT 31.1 pg 26.2 - 32.6 06/13 Specimen Type: BLOOD No comment entered. Ordering Provider: CONNIE HENDERSON Report Released Date/Time: Jun 09, 2024 09:26 PM Reporting Lab: [facility] [address] [facility] [address] Performing Lab: [facility] [address] [facility] [address] [facility] CBC AND DIFF (AUTO) NEUTROPHILS /100 LEUKOCYTES IN BLOOD BY AUTOMATED COUNT 53.5 43.7 - 75.8 06/13 Specimen Type: BLOOD No comment entered. Ordering Provider: CONNIE HENDERSON Report Released Date/Time: Jun 09, 2024 09:26 PM Reporting Lab: [facility] [address] [facility] [address] Performing Lab: [facility] [address] [facility] [address] [facility] CBC AND DIFF (AUTO) LYMPHOCYTES /100 LEUKOCYTES IN BLOOD BY AUTOMATED COUNT 29.4 14.0 - 42.3 06/13 Specimen Type: BLOOD No comment entered. Ordering Provider: CONNIE HENDERSON Report Released Date/Time: Jun 09, 2024 09:26 PM Reporting Lab: [facility] [address] [facility] [address] Performing Lab: [facility] [address] [facility] [address] [facility] CBC AND DIFF (AUTO) MONOCYTES/1 00 LEUKOCYTES IN BLOOD BY AUTOMATED COUNT 9.4 5.1 - 13.7 06/13 Specimen Type: BLOOD No comment entered. Ordering Provider: CONNIE HENDERSON Report Released Date/Time: Jun 09, 2024 09:26 PM Reporting Lab: [facility] [address] [facility] [address] Performing Lab: [facility] [address] [facility] [address] [facility] CBC AND DIFF (AUTO) EOSINOPHILS /100 LEUKOCYTES IN BLOOD BY AUTOMATED COUNT 6.6 0.4 - 6.8 06/13 Specimen Type: BLOOD No comment entered. Ordering Provider: CONNIE HENDERSON Report Released Date/Time: Jun 09, 2024 09:26 PM Reporting Lab: [facility] [address] [facility] [address] Performing Lab: [facility] [address] [facility] [address] [facility] CBC AND DIFF (AUTO) BASOPHILS/1 00 LEUKOCYTES IN BLOOD BY AUTOMATED COUNT 0.7 0.1 - 2.0 06/13 Specimen Type: BLOOD No comment entered. Ordering Provider: CONNIE HENDERSON Report Released Date/Time: Jun 09, 2024 09:26 PM Reporting Lab: [facility] [address] [facility] [address] Performing Lab: [facility] [address] [facility] [address] [facility] CBC AND DIFF (AUTO) NEUTROPHILS [#/VOLUME] IN BLOOD BY AUTOMATED COUNT 3.75 10*3/u L 2.20 - 7.60 06/13 Specimen Type: BLOOD No comment entered. Ordering Provider: CONNIE HENDERSON Report Released Date/Time: Jun 09, 2024 09:26 PM Reporting Lab: [facility] [address] [facility] [address] Performing Lab: [facility] [address] [facility] [address] [facility] CBC AND DIFF (AUTO) LYMPHOCYTES [#/VOLUME] IN BLOOD BY AUTOMATED COUNT 2.06 10*3/u L 1.00 - 3.20 06/13 Specimen Type: BLOOD No comment entered. Ordering Provider: CONNIE HENDERSON Report Released Date/Time: Jun 09, 2024 09:26 PM Reporting Lab: [facility] [address] [facility] [address] Performing Lab: [facility] [address] [facility] [address] [facility] CBC AND DIFF (AUTO) EOSINOPHILS [#/VOLUME] IN BLOOD BY AUTOMATED COUNT 0.46 10*3/u L 0.03 - 0.44 06/13 H Specimen Type: BLOOD No comment entered. Ordering Provider: CONNIE HENDERSON Report Released Date/Time: Jun 09, 2024 09:26 PM Reporting Lab: [facility] [place] [facility] [address] [facility] [address] Performing Lab: [facility] [place] [facility] [address] [facility] [address] [facility] [place] [facility] CBC AND DIFF (AUTO) BASOPHILS [#/VOLUME] IN BLOOD BY AUTOMATED COUNT 0.05 10*3/u L 0.01 - 0.13 06/13 Specimen Type: BLOOD No comment entered. Ordering Provider: CONNIE HENDERSON Report Released Date/Time: Jun 09, 2024 09:26 PM Reporting Lab: [facility] [place] [address] [address] Performing Lab: [facility] [place] [address] [address] [facility] [place] [facility] CBC AND DIFF (AUTO) IMMATURE GRANULOCYTE S/100 LEUKOCYTES IN BLOOD BY AUTOMATED COUNT 0.4 0.0 - 0.7 06/13 Specimen Type: BLOOD No comment entered. Ordering Provider: CONNIE HENDERSON Report Released Date/Time: Jun 09, 2024 09:26 PM Reporting Lab: [facility] [place] [address] [address] Performing Lab: [facility] [place] [facility] [address] [facility] [address] [facility] [place] [facility] CBC AND DIFF (AUTO) IMMATURE GRANULOCYTE S [#/VOLUME] IN BLOOD 0.03 10*3/u L 0.00 - 0.06 06/13 Specimen Type: BLOOD No comment entered. Ordering Provider: CONNIE HENDERSON Report Released Date/Time: Jun 09, 2024 09:26 PM Reporting Lab: [facility] [place] [address] [address] Performing Lab: [facility] [address] [facility] [address] [facility] CBC AND DIFF (AUTO) NRBC % 0.0 0.0 - 0.0 06/13 Specimen Type: BLOOD No comment entered. Ordering Provider: CONNIE HENDERSON Report Released Date/Time: Jun 09, 2024 09:26 PM Reporting Lab: [facility] [address] Performing Lab: [facility]USE[facility] [address] [facility] [address] [facility] CBC AND DIFF (AUTO) NRBC, ABS 0.00 10*3/u L 0.00 - 0.00 06/13 Specimen Type: BLOOD No comment entered. Ordering Provider: CONNIE HENDERSON Report Released Date/Time: Jun 09, 2024 09:26 PM Reporting Lab: [facility] [address] Performing Lab: [facility]ENTERUSE[address] [address] [facility]USE [facility] KAPPA LAMBDA PANEL KAPPA LIGHT CHAINS/STEWART DA LIGHT CHAINS [MASS RATIO] IN SERUM 1.79 1.29 - 2.55 01/01 Specimen Type: SERUM Comment: This assay provides a measurement of the total kappa and total lambda light chains, ie., the amount of free (unattached ) light chain in circulation and the amount of light chain linked to heavy chain in intact immunoglobu freddy molecules. Assays for serum free light chain only, kappa and lambda with ratio, may be more useful in evaluating and managing light chain gammo- pathies including those associated with myeloma, lymphoproli ferative disorders, and amyloidosis . Test Performed by [employer], [facility], [address] [place] [address] Lorne Umaña M.D., Ph.D., Director of Laboratorie s , CLIA [id number] TEST PERFORMED AT: , Ordering Provider: CONNIE HENDERSON Report Released Date/Time: January 02, 2024 11:42 AM Reporting Lab: [facility]USE[facility] [address] [facility] [address] Performing Lab: [facility]USE[facility] [address] [id number] [facility]ERN [facility] KAPPA LAMBDA PANEL KAPPA LIGHT CHAINS [MASS/VOLUM E] IN SERUM OR PLASMA 211 mg/dL 176 - 443 01/01 Specimen Type: SERUM Comment: This assay provides a measurement of the total kappa and total lambda light chains, ie., the amount of free (unattached ) light chain in circulation and the amount of light chain linked to heavy chain in intact immunoglobu freddy molecules. Assays for serum free light chain only, kappa and lambda with ratio, may be more useful in evaluating and managing light chain gammo- pathies including those associated with myeloma, lymphoproli ferative disorders, and amyloidosis . Test Performed by [employer] [place], [employer] [facility], [address] [place] [address] Lorne Umaña M.D., Ph.D., Director of Laboratorie s , CLIA [id number] TEST PERFORMED AT: , Ordering Provider: CONNIE HENDERSON Report Released Date/Time: January 02, 2024 11:42 AM Reporting Lab: [facility]ITALTR[facility] [address] [facility] [address] Performing Lab: [facility]ENTERUSECH[place]STOP[place] [id number] [facility] KAPPA LAMBDA PANEL LAMBDA LIGHT CHAINS [MASS/VOLUM E] IN SERUM OR PLASMA 118 mg/dL 91 - 240 01/01 Specimen Type: SERUM Comment: This assay provides a measurement of the total kappa and total lambda light chains, ie., the amount of free (unattached ) light chain in circulation and the amount of light chain linked to heavy chain in intact immunoglobu freddy molecules. Assays for serum free light chain only, kappa and lambda with ratio, may be more useful in evaluating and managing light chain gammo- pathies including those associated with myeloma, lymphoproli ferative disorders, and amyloidosis . Test Performed by [employer], [facility], [address] [place], [place] Lorne Umaña M.D., Ph.D., Director of Laboratorie s , CLIA [id number] TEST PERFORMED AT: , Ordering Provider: CONNIE HENDERSON Report Released Date/Time: January 02, 2024 11:42 AM Reporting Lab: [facility] [place] [facility] [address] [facility] [address] Performing Lab: [facility] [place] [facility] [address] [address] [facility] FOLATE (WROX) FOLATE [MASS/VOLUM E] IN SERUM OR PLASMA 18.57 ng/mL 5.2 01/01 Specimen Type: SERUM No comment entered. Ordering Provider: CONNIE HENDERSON Report Released Date/Time: January 02, 2024 11:42 AM Reporting Lab: [facility] [place] [facility] [address] [facility] [address] Performing Lab: [facility] [place] [facility] [address] [facility] [address] [facility] [place] [facility] Vital Signs Combined list of inpatient and outpatient Vital Signs from Department of Defense and Veterans Affairs, ranging from 12 months to all on record, depending upon the facility. Vital Sign Value Date Comments Source SYSTOLIC BLOOD PRESSURE 154 06/19/20 24 14:12:47 [facility] [place] [facility] DIASTOLIC BLOOD PRESSURE 72 024 14:12:47 [facility] [place] [facility] PULSE OXIMETRY 97 06/19/2024 14:12:47 [facility] WEIGHT 196 06/19/2024 14:12:47 [facility] BMI 28 kg/m2 06/19/2024 14:12:47 [facility] PAIN 0 06/19/2024 14:12:47 [facility] [place] [facility] HEIGHT 70 06/19/2024 14:12:47 [facility] TEMPERATURE 98.1 06/19/2024 14:12:47 [facility] PULSE 73 06/19/2024 14:12:47 [facility] RESPIRATION 16 06/19/2024 14:12:47 [facility] SYSTOLIC BLOOD PRESSURE 142 02/09/20 24 13:13:39 [facility] DIASTOLIC BLOOD PRESSURE 62 02/08/ 024 13:13:39 [facility] PULSE OXIMETRY 96 02/09/2024 13:13:39 [facility] WEIGHT 187.7 02/09/2024 13:13:39 [facility] BMI 27 kg/m2 02/09/2024 13:13:39 [facility] PAIN 0 02/09/2024 13:13:39 [facility] HEIGHT 70 02/09/2024 13:13:39 [facility] TEMPERATURE 99.4 02/09/2024 13:13:39 [facility] PULSE 97 02/09/2024 13:13:39 [facility] RESPIRATION 16 02/09/2024 13:13:39 [facility] SYSTOLIC BLOOD PRESSURE 156 01/02/20 24 10:48:36 [facility] DIASTOLIC BLOOD PRESSURE 72 024 10:48:36 [facility] PULSE OXIMETRY 96 01/02/2024 10:48:36 [facility] WEIGHT 190.8 01/02/2024 10:48:36 [facility] BMI 27 kg/m2 01/02/2024 10:48:36 [facility] PAIN 5 01/02/2024 10:48:36 [facility] HEIGHT 70.5 01/02/2024 10:48:36 [facility] TEMPERATURE 99 01/02/2024 10:48:36 [facility] PULSE 80 01/02/2024 10:48:36 [facility] RESPIRATION 16 01/02/2024 10:48:36 [facility] SYSTOLIC BLOOD PRESSURE 129 10/27/19 11:21:45 [facility] DIASTOLIC BLOOD PRESSURE 75 024 11:21:45 [facility] PULSE OXIMETRY 94 10/27/2023 11:21:45 [facility] WEIGHT 197 10/27/2023 11:21:45 [facility] BMI 26 kg/m2 10/27/2023 11:21:45 [facility] PAIN 3 10/27/2023 11:21:45 [facility] TEMPERATURE 98 10/27/2023 11:21:45 [facility] PULSE 86 10/27/2023 11:21:45 [facility] RESPIRATION 18 10/27/2023 11:21:45 [facility] Encounters Combined list of: 1) Encounters from Department of Veterans Affairs facilities going backup to the last 18 months, not all VA inpatient encounters are included; 2) Encounters from the Department of Defense facilities going backup to 280 months. 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, unspeci ZOIN Azar RD D 04/28 [facility] SELF CARE MNGMENT TRAINING [id number] Diagnos is: ICD-10- CM R53.1 Hilario Lara 05/08 [facility] Outpatient Encounter [id number] 06/06 [facility] OFFICE O/P EST MOD 30-39 MIN [id number] Diagnos is: ICD-10- CM 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, w/o mention of fluctua tiANDRES Prince IEL Y 06/08 [facility] Outpatient Encounter [id number] 06/19 [facility] EYE EXAM&TX ESTAB PT 1/>VST [id number] Diagnos is: ICD-10- CM E11.9 Type 2 diabete s mellitu s without complic ations ISMAEL YBARRA 06/19 [facility] Outpatient Encounter [id number] 06/23 [facility] FIT SPECTACLES MULTIFOCAL [id number] Diagnos is: ICD-10- CM Z46.0 Encount er for fit/adj st of spectac les and contact lenses FRANKLIN VIGIL 06/23 [facility] En[facility] [id number] 07/17 [facility] [id number] 07/27 [facility] Encounter [id number] 08/23 [facility] OFFICE O/P EST LOW 20 MIN [id number] Diagnos is: ICD-10- CM I10 Essenti al (primar y) hyperte nsion ZION HENDERSON RD D 09/01 [facility] En[facility] [id number] 09/21 [facility] Encounter [id number] 09/25 [facility] Encounter [id number] 10/02 [facility] OFFICE O/P EST MOD 30 MIN [id number] Diagnos is: ICD-10- CM R25.1 Tremor, unspeci fied ANDRES HORTA IEL Y 10/26 [facility] En[facility] [id number] 11/23 [facility] Encounter [id number] 11/23 [facility] QNHP OL DIG ASSMT&MGMT 5-10 [id number] Diagnos is: ICD-10- CM Z04.89 Encount er for examina tion and observa tion for oth reasons MARCI FIGUEROA 12/14 [facility] OFFICE O/P EST LOW 20 MIN [id number] Diagnos is: ICD-10- CM R63.4 Abnorma l weight loss ZION HENDERSON RD D 01/01 [facility] OFFICE O/P EST LOW 20 MIN [id number] Diagnos is: ICD-10- CM R63.4 Abnorma l weight loss ZION HENDERSON RD 01/01 [facility] En[facility] [id number] 01/03 [facility] En[facility] [id number] D 01/08 [facility] Encounter [id number] D 01/08 [facility] [id number] 01/11 [facility] [id number] D 01/11 [facility] OFFICE O/P EST LOW 20 MIN [id number] Diagnos is: ICD-10- CM R63.4 Abnorma l weight loss ZION HENDERSON RD D 02/08 [facility] [id number] 02/12 [facility] [id number] 02/12 [facility] [id number] 02/22 [facility]counter [id number] 02/22 [facility] [id number] 03/10 [facility] [id number] 03/11 [facility] [id number] 03/12 [facility] [id number] 05/14 [facility] [id number] 05/20 [facility] [id number] 06/19 [facility] COM[place] 1/ [id number] Diagnos is: ICD-10- CM E11.9 Type 2 diabete s mellitu s without complic ations ISMAEL YBARRA E 06/19 [facility] FIT SPECTACLES MULTIFOCAL [id number] Diagnos is: ICD-10- CM Z46.0 Encount er for fit/adj st of spectac les and contact lenses ISMAEL YBARRA E 06/19 [facility] OFFICE O/P EST LOW 20 MIN [id number] Diagnos is: ICD-10- CM R63.4 Abnorma l weight loss ZION HENDERSON RD D 06/19 [facility] Encounter [id number] 06/23 [facility] Encounter [id number] D 07/18 [facility] Out[facility] Encounter [id number] 09/22 [facility] Encounter [id number] 09/22 [facility] Out[facility] Encounter [id number] 10/07 [facility] [facility] Outpatient Encounter [id number] 10[facility]14 [facility] [place] [facility] Social History Combined list of available smoking, tobacco, and other social history from Department of Defense and Veterans Affairs facilities. Social History Type Response Date Comment Source Tobacco smoking status NHIS VA-TOBACCO QUIT 15 YRS OR MORE 09/01/2023 [facility] [place] [place] [facility] History of tobacco use DE-TOBACCO FORMER USER 09/01/2023 [facility] [facility] History of tobacco use DE-TOBACCO FORMER USER 08[facility]17[facility] [place] [facility] History of tobacco use DE-TOBACCO FORMER USER 07/14/2021 [facility] [place] [facility] History of tobacco use DE-TOBACCO FORMER USER 05/26/2020 [facility] [place] [facility] History of tobacco use DE-TOBACCO FORMER USER 08/13/2018 [facility] [place] [facility] History of tobacco use LIFETIME NON-TOBACCO USER 12/14/2017 [facility] [place] [facility] History of tobacco use QUIT TOBACCO USE > 7 YEARS AGO 09/26/2016 [facility] [place] [facility] History of tobacco use QUIT TOBACCO USE > 7 YEARS AGO 09/11/2015 pt states he quit smoking 47 yrs ago. [facility] [place] [facility] History of tobacco use LIFETIME NON-TOBACCO USER 04/09/2013 pt states he quit 8 years ago. [facility] [place] [facility] History of tobacco use QUIT TOBACCO USE 1-7 YEARS AGO 03/08/2012 [facility] [place] [facility] History of tobacco use QUIT TOBACCO USE 1-7 YEARS AGO 07/13/2011 quit sic years ago [facility] [place] [facility] History of tobacco use QUIT TOBACCO USE 1-7 YEARS AGO 03/19/2010 [facility] [place] [facility] Plan of Care List of future care activities from Department of Veterans Affairs facilities. Additional future care activities may be listed in the Assessment and Plan section. Date/Time Care Activity Care Activity Detail Facili ty 10/17/2024 AMBULATORY - MEDICINE [facility]AT[facility] [place] [facility] 10/23/2024 AMBULATORY - MEDICINE AMBULATORY - MEDICI [facility] [place] [facility] 10/12/2024 Laboratory - Sail Repair Person ry Order URINALYSIS CLEAN CATCH URINE [facility] [place] [facility] 10/12/2024 Laboratory - Sail Repair Person ry Order MICROALBUMIN CREATININE RATIO PANEL URINE (RANDOM) [facility] [place] [facility] 10/12/2024 Laboratory - Sail Repair Person ry Order HEMOGLOBIN A1C PANEL BLOOD (LAV-BLOOD) SP [facility] [place] [facility] 10/12/2024 Laboratory - Sail Repair Person ry Order CARCINOEMBRYONIC ANTIGEN BLOOD (SST-SERUM) SP [facility] [place] [facility] 10/12/2024 Laboratory - Sail Repair Person ry Order BASIC METABOLIC PANEL (non-fasting) BLOOD (LAV-BLOOD) [facility] [place] [facility] 10/12/2024 Laboratory - Sail Repair Person ry Order CBC AND DIFF (AUTO) BLOOD (LAV-BLOOD) [facility] [place] [facility] 10/12/2024 Laboratory - Sail Repair Person ry Order LIVER FUNCTION BLOOD (LAV-BLOOD) [facility] [place] [facility] 10/12/2024 Laboratory - Sail Repair Person ry Order LIPID PANEL FASTING BLOOD (LAV-BLOOD) [facility] [place] [facility] 10/12/2024 Laboratory - Sail Repair Person ry Order TSH BLOOD (LAV-BLOOD) [facility]
--- OUTSIDE RECORDS SUMMARY | 2024-10-17 11:44 | XMS_ITS ---
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 Generated for Printi ng/Nayeli/eTransmitting on:?10/17/2024 11:44 AM EST
--- OUTSIDE RECORDS SUMMARY | 2024-10-17 11:44 | XMS_ITS | Encounter Summary ---
Author Name [facility] [place] [facility] [place] Address [address] [place] [address] Care Team Providers Care Sales Enablement Consultant Name Role Phone BEATRIZ JANETTE Primary Care Provider Unavailabl e Insurance Providers: [...] Name Patient's Relationship to Policy Buck KERRIE [facility] MEDICARE ADVANTAGE [facility] ([facility]) Aug 28, 2015 [id number] BERENICE COOPER PATIENT [facility] (WNR) MEDICARE ADVANTAGE [facility] ([facility]) Aug 28, 2022 [id number] BERENICE COOPER PATIENT Selected Encounter This section includes the information on record at [place] for the Encounter. Date/Time Encounter Type Encounter Description Reason Provider Source Jun 19, 2024 01:00 PM COMPRE OPH EXAM EST PT 1/> OPTOMETRY ICD-10-CM E11.9 Type 2 diabetes mellitus without complications DEVANG YBARRA Cayla Encounter Template Text not used by [place] Assessments - Encounter Diagnoses This section includes the primary and secondary diagnoses documented for the Encounter. Date/Time Primary/Secondary Diagnosis Diagnosis Name Provider Source Jun 19, 2024 01:37 PM PRIMARY Type 2 diabetes mellitus without complications DEVANG YBARRA [facility] Jun 19, 2024 01:37 PM SECONDARY Unspecified disorder of refraction DEVANG YBARRA [facility] Plan of Treatment: Future Appointments (+ 6 months) and Future Tests (+/- 45 days) The Plan of Treatment section includes future care activities for the patient from all [place] [facility]. This section includes future appointments and future orders which are active, pending or scheduled. Future Appointments This section includes appointments that were scheduled to occur 6 months from the date of the Encounter, up to a maximum of 20 appointments. The data comes from all [facility]. Appointment Date/Time Appointment Type Appointme nt Facility Name Oct 17, 2024 11:00 AM AMBULATORY - MEDICINE [facility] Oct 23, 2024 01:00 PM AMBULATORY MEDICINE [facility] Active, Pending, and Scheduled Orders This section includes a listing of several types of active, pending, and scheduled orders, including clinic medications orders, diagnostic test orders, procedure orders and consult orders; where the start date of the order is 45 days before the date of the Encounter or 45 days after the date of theEncounter. The data comes from all [facility]. Test Date/Time Test Type Test Details Facility Name Jun 13, 2024 12:00 AM Laboratory - Chemistry Order URINALYSIS CLEAN CATCH URINE [facility] Jun 13, 2024 12:00 AM Laboratory - Chemistry Order MICROALBUMIN CREATININE RATIO PANEL URINE (RANDOM) [facility] Lab Results: +/- 30 days of the encounter This section includes the Chemistry and Hematology Lab Results on record with [place] for the patient. Radiology Reports and Pathology Reports are provided separately, in subsequent sections. Lab Results This section contains the Chemistry/Hematology Results that were resulted 30 days before or 30 daysafter the date of the Encounter. Date/Time Source Result Type Result - Unit Interpretation Reference Range Comment Jun 13, 2024 07:33 AM [facility] CARCINOEMBRYONIC ANTIGEN Specimen Type: SERUM Comment: Non-smokers: <2.5 Smokers <5.0. Ordering Provider: JANETTE HENDERSON Report Released Date/Time: Jun 09, 2024 09:26 PM Reporting Lab: [facility] [address] [address] Performing Lab: [facility] [address] [facility] [address] CARCINOEMBRYONIC ANTIGEN 1.91 ng/mL 0-5 Jun 13, 2024 07:33 AM [facility] LIVER FUNCTION Specimen Type: BLOOD No comment entered. Ordering Provider: JANETTE HENDERSON Report Released Date/Time: Jun 09, 2024 09:26 PM Reporting Lab: [facility] [address] [address] Performing Lab: [facility] [address] [address] PROTEIN,TOTAL 7.2 ALBUMIN 4.2 ALKALINE PHOSPHATASE 51 AST 21 ALT 26 BILIRUBIN, TOTAL 0.4 Jun 13, 2024 07:33 AM [facility] LIPID PANEL FASTING Specimen Type: BLOOD No comment entered. Ordering Provider: JANETTE HENDERSON Report Released Date/Time: Jun 09, 2024 09:26 PM Reporting Lab: [facility] [address] [address] Performing Lab: [facility] [address] [address] CHOLESTEROL 141 TRIGLYCERIDE 84 LDL calculated 79 CHOL/HDL 3.5 HDL CHOLESTEROL 45 Jun 13, 2024 07:33 AM [facility] BASIC METABOLIC PANEL (non-fasting) Specimen Type: BLOOD No comment entered. Ordering Provider: JANETTE HENDERSON Report Released Date/Time: Jun 09, 2024 09:26 PM Reporting Lab: [facility] [address] [address] Performing Lab: [facility] [address] [address] UREA NITROGEN 15 GLUCOSE 136 SODIUM 142 POTASSIUM 4.7 CHLORIDE 112 CO2 20 CREATININE, Serum 1.20 eGFR(CKD-EPI 2020) 63 Jun 13, 2024 07:33 AM [facility] TSH Specimen Type: BLOOD No comment entered. Ordering Provider: JANETTE HENDERSON Report Released Date/Time: Jun 09, 2024 09:26 PM Reporting Lab: [facility] [place] [facility] [address] [address] Performing Lab: [place] [facility] [place] [facility] [address] [address] TSH 2.52 Jun 13, 2024 07:33 AM [facility] [place] [facility] PSA Specimen Type: BLOOD No comment entered. Ordering Provider: JANETTE HENDERSON Report Released Date/Time: Jun 09, 2024 09:26 PM Reporting Lab: [facility] [place] [facility] [address] [address] Performing Lab: [facility] [place] [facility] [address] [address] PSA 2.46 Jun 13, 2024 07:33 AM [facility] HEMOGLOBIN A1C PANEL Specimen Type: BLOOD Comment: Values obtained from A1C measurements can vary. For atypical A1C assays, a reported value of 7.0 could actually be between 6.72 and 7.28 if measured by a reference method. A reported value of 9.0 could actually be between 8.73 and 9.27. Ref: http://www.ng sp.org/CAPdat a.asp Ordering Provider: JANETTE HENDERSON Report Released Date/Time: Jun 09, 2024 09:26 PM Reporting Lab: [facility] [place] [facility] [address] [address] Performing Lab: [facility] [place] [facility] [address] [address] HEMOGLOBIN A1C 5.8 H 4.0-5.6 Jun 13, 2024 07:33 AM [facility] CBC AND DIFF (AUTO) Specimen Type: BLOOD No comment entered. Ordering Provider: JANETTE HENDERSON Report Released Date/Time: Jun 09, 2024 09:26 PM Reporting Lab: [facility] [place] [facility] [address] [address] Performing Lab: [facility] [address] [address] WBC 7.01 10*3/uL 4.50-11.00 RBC 4.40 10*6/uL [...] Source Jun 19, 2024 02:59 PM 132/66 [facility] [place] [facility] Jun 19, 2024 02:12 PM 98.1 73 154/72 16 97 0 70 196 28 [facility] [place] [facility] Social History: Smoking Status (Most current) and Tobacco Use (All prior to encounter date) This section includes the most current, and the historical, smoking and tobacco- related health factors from the [place] facility where the Encounter took place. Current Smoking Status This section includes the most current smoking, or tobacco-related health factor, from the [place] facility where the Encounter took place. Date/Time Current Smoking Status Comment Facil it Sep 01, 2023 02:30 PM VA-TOBACCO FORMER USER [place] [facility] [place] [facility] Tobacco Use History This section includes a history of the smoking, or tobacco-related health factors, that were collected on or before the date of the Encounter. The data comes from the [place] facility where the Encounter took place. Date/Time Smoking Status/Tobac co Use Comment Facility Sep 01, 2023 02:30 PM VA-TOBACCO QUIT 15 YRS OR MORE [place] [facility] [place] [facility] Aug 17, 2022 11:30 AM VA-TOBACCO FORMER USER [place] [facility] [place] [facility] Aug 17, 2022 11:30 AM VA-TOBACCO QUIT 15 YRS OR MORE [place] [facility] [place] [facility] Jul 14, 2021 10:30 AM VA-TOBACCO FORMER USER [place] [facility] [place] [facility] Jul 14, 2021 10:30 AM VA-TOBACCO QUIT 15 YRS OR MORE [place] [facility] [place] [facility] May 26, 2020 11:30 AM VA-TOBACCO FORMER USER [place] [facility] [place] [facility] May 26, 2020 11:30 AM VA-TOBACCO QUIT 15 YRS OR MORE [place] [facility] [place] [facility] Aug 13, 2018 11:07 AM VA-TOBACCO FORMER USER [place] [facility] [place] [facility] Aug 13, 2018 11:07 AM VA-TOBACCO QUIT 5 TO < 15 YRS [place] [facility] [place] [facility] Dec 14, 2017 10:54 AM LIFETIME NON-TOBACCO USER [place] [facility] [place] [facility] Sep 26, 2016 10:11 AM QUIT TOBACCO USE > 7 YEARS AGO [place] [facility] [place] [facility] Sep 11, 2015 10:08 AM QUIT TOBACCO USE > 7 YEARS AGO pt states he quit smoking 47 yrs ago. [place] [facility] [place] [facility] Apr 09, 2013 01:56 PM LIFETIME NON-TOBACCO USER pt states he quit 8 years ago. [place] [facility] [place] [facility] Mar 08, 2012 01:47 PM QUIT TOBACCO USE 1-7 YEARS AGO [place] [facility] [place] [facility] Jul 13, 2011 09:23 AM QUIT TOBACCO USE 1-7 YEARS AGO quit sic years ago [facility] Mar 19, 2010 10:43 AM QUIT TOBACCO USE 1-7 YEARS AGO [facility] Encounter Notes: All associated encounter notes This section contains the clinical notes associated to the Encounter. Date/Time Encounter Note(s) Provider Source Jun 19, 2024 08:40 AM OPTOMETRY NOTE: LOCAL TITLE: OPTOMETRY NOTE STANDARD TITLE: OPTOMETRY NOTE DATE OF NOTE: JUN 19, 2024@08:40 ENTRY DATE: JUN 19, 2024@08:40:53 AUTHOR: SHILPI SALDAÑA CHR EXP COSIGNER: URGENCY: STATUS: COMPLETED OPTOMETRY NOTE Has ADDENDA Active problems - Computerized Problem List is the source for the followin. Abnormal weight loss 2. Tremor 3. Parkinson's disease 4. Headache (SCT [id number]) 5. Degenerative arthritis 6. Erectile Dysfunction (SCT 847422967) 7. Hypercholesterolemia 8. Lyme Disease 9. Diabetes mellitus (SNOMED CT 81732596) 10. Essential hypertension 11. Hypercholesterolemia 12. Colon Cancer Active Outpatient Medications (including Supplies): Active Outpatient Medications Status 1) CARBOXYMETHYLCELLULOSE NA 0.5% OPH SOLN INSTILL 1 ACTIVE DROP INTO EACH EYE FOUR TIMES A [...] MOUTH TWICE ACTIVE DAILY 8 Total Medications Allergies: ATORVASTATIN, PERCOCET, PRAVASTATIN, COLESTIPOL, CEPHALEXIN, BENZONATATE SHINGRIX (PF) All medications including those prescribed by outside VA's, community providers, and all OTC meds were reviewed and reconciled with patient to the best of their abilities. This 74 year old MALE is seen today for CEE Optometry Parts Picker Attending Provider Note: Date of Last Exam: May 2023 Location: [facility] Chief Complaint: Patient states vision is stable, however, he notes that his eyes always feel like there is sand in them, in the mornings I have to remove sand from them. Says this has been going on for the past year or more, but seems to just be getting worse. Using ATs BID which helps somewhat- would like more refills today. HISTORY AND REVIEW OF SYSTEMS: Diabetes per history without ocular manifestations OU Dry eye syndrome Pseudophakia OU Refraction disorder (-) Pain: (-) TONG: (-) Diplopia: (-) Flashes: (-) Floaters: (-) Amaurosis Fugax/Tia's: (-) Eye Injury: (+) Eye Surgery: PC IOL OU (-) TBI (-) FOHx: (-) Smoker/Length of Time: DIABEIC: Yes LAST A1C: Collection time: Jun 13, 2024@07:33 Test Name Result Units Range --------- ------ ----- ----- HEMOGLOBIN A1C 5.8 H % 4.0 - 5.6 NEW ALLERGIES TO REPORT: No EYE MEDICATION(S): AT's BID CURRENT RX WITH BCVA: OD +1.00 -1.00 X005 20/20 OS +0.25 -1.00 X005 20/20 Add:+2.50 20/20 DVA: ( )SC ( )CC (x)Phoropter ( )CL OD: 20/20 OS: 20/20 NVA OU: 20/20 MANIFEST REFRACTION(MRx): OD: +0.75 -1.00 x005 20/20 OS: +0.50 -1.00 x005 20/20 ADD: +2.50 20/20 CVF: Appear FTFC OU EOMS: Appear Full OU PUPILS: Appear ERRL(-)APD INTRAOCULAR PRESSURE (IOP) METHOD: Goldmann Time: 1:06PM OD: 17 OS: 19 holding lids ANTERIOR CHAMBER (AC): Penlight or slit lamp (if available) exam appears unremarkable. Pupils are dilated. Dilation and driving precautions reviewed with patient and patient expresses understanding. Medication: 1% Tropicamide, 2.5% Phenylephrine OU Time: 1:08PM Visual Imaging Performed Today: Additional Comments: /carlos/ Shilpi Saldaña Optometry Health Parts Picker Signed: 06/19/2024 13:09 06/19/2024 ADDENDUM STATUS: COMPLETED O: Dermatochalasis OU was seen and lashes were clear both eyes. Corneas and conjunctiva were clear both eyes. Anterior chambers were deep clear and quiet with open angles. Iris was flat both eyes without neovascularization. Posterior chamber lenses were in place and clear OU. Vitreous syneresis was seen OU. Approximately 30% horizontal and vertical cupping was seen OD and 40% horizontal and vertical cupping OS with healthy rims and margins and no neovascularization OU. Normal pigmentary architecture was seen OU with trace ERM temporally OD and no lipid or edema OU. A two third artery to vein ratio was seen with good color and caliber. Retinal peripheries were intact OU without diabetic retinopathy OU. A: Diabetes per history without ocular manifestations OU. Dry eye syndrome. Pseudophakia OU looks perfect. Refraction disorder P: Renewed lubricating eyedrops and ordered the same to be used as needed. Ordered new PAL. The patient will return in 12 months or sooner if any problems arise. Education: After discussion and answering all 's questions, demonstrated and verbalized understanding of diagnosis and treatment. Yes [x] No [ ] Medication Reconciliation: Outpatient: Has the patient been taking medications as documented in the EMLR? YES: The patient has been taking medications as documented in the EMLR. Essential Medication List for Review used to complete this medication reconciliation. INCLUDED IN THIS LIST: Alphabetical list of active outpatient prescriptions dispensed from this VA (local) and dispensed from another VA or DoD facility (remote) as well as inpatient orders [...] whether with a VA or non-VA provider. /carlos/ JESSA YBARRA OD STAFF REGIONAL ACCOUNT MANAGER Signed: 06/19/2024 13:37 SHILPI SALDAÑA [place] [facility]
--- OUTSIDE RECORDS SUMMARY | 2024-10-17 11:44 | XMS_ITS ---
Author Organization [facility] Ace rebecca Sandoval Address [address] [facility] [place] [address] Care Team Providers Care Hookman Name Role Phone Marcelo Bhatti MD Primary Care Provider Sony Rivas Unavailable [phone] Allergies Allergen (clinical drug ingredient) Drug/Non Drug Allergy documented on EMR Reaction Allergy Type Onset Date Status atorvastatin Lipitor Unknown Drug Allergy Acti ve REASON FOR VISIT At Risk Footcare, Painful Nail(s) aggravated by shoes and causing difficulty standing/walking., ToeIrritation Medications Medication SIG (Take, Route, Frequency, Duration) Notes Start Date End Date Status Extra Depth Orthopedic Shoes, (1) Pair With (3) Pair Custom Heat Molded Multidensity Innersoles Dx: NIDDM/PVD(E11.51), Hammertoe Foot Deformity(M20.41,M20.42), Preulcerative Skin Lesion(s)(L85.1) Wear Daily for 365 days 08/16/2024 Active Lovastatin Active amLODIPine Besylate Active metFORMIN HCl Active Lisinopril Active Social History Tobacco Use: Social History Observation Description Date Details (start date - stop date) Former Smoker NA - NA Tobacco Use/Smoking Question Answer Notes Are you a: former smoker Additional Findings: Tobacco Non-User Current no n-smoker Alcohol Screen Question Answer Notes Did you have a drink containing alcohol in the p ast year? No Points 0 Interpretation Negative Tobacco use other than smoking: Question Answer Notes Are you an other tobacco user? No Problems Problem Type SNOMED Code ICD Code Onset Dates Problem Status W/U Status Risk Notes Problem Type 2 diabetes mellitus with peripheral angiopathy (520001169) Type 2 diabetes mellitus with diabetic peripheral angiopathy without gangrene (E11.51) Active confirmed Q7(A), Q8(2B), Q9(1B,2C) Problem Acquired hammer toe of right foot ([id number] 105) Other hammer toe(s) (acquired), right foot (M20.41) Active confirmed Problem Acquired hammer toe of left foot (3394574424475 103) Other hammer toe(s) (acquired), left foot (M20.42) Active confirmed Vital Signs Height 5 ft 11 in in 08/16/2024 Weight 190 lbs 08/16/2024 BMI 26.5 kg/m2 08/16/2024 Blood pressure systolic 130 mm Hg 08/16/20 24 Blood pressure diastolic 78 mm Hg 024 Procedures Procedure Date Ordered Date Performed Result Body Sit e 59136-DLHVZSC NAIL, 1-5 08/16/2024 N/A 63055-IOFF SKIN LESIONS, OVER 4 08/16/2024 N/A Q3172-[id number] DYSTROPHIC NAILS ANY # 08/16/2024 N/A Encounters Encounter Location Date Provider Diagnosis [facility] [address] [address] 08/16/2024 Sony Goldstein Type 2 diabetes mellitus with diabetic peripheral angiopathy without gangrene E11.51 ; Tinea unguium B35.1 ; Pain in right toe(s) M79.674 ; Pain in left toe(s) M79.675 ; Other hammer toe(s) (acquired), right foot M20.41 and Other hammer toe(s) (acquired), left foot M20.42 Assessments Encounter Date Diagnosis (ICD Code) Assessment Notes Treatment Notes Treatment Clinical Notes Section Notes 08/16/2024 Type 2 diabetes mellitus with diabetic peripheral angiopathy without gangrene (ICD-10 - E11.51) Q7(A), Q8(2B), Q9(1B,2C) 08/16/2024 Tinea unguium (ICD-10 - B35.1) 08/16/2024 Pain in right toe(s) (ICD-10 - M79.674) 08/16/2024 Pain in left toe(s) (ICD-10 - M79.675) 08/16/2024 Other hammer toe(s) (acquired), right foot (ICD-10 - M20.41) Patient Educated with: DIABETIC FOOT CARE INSTRUCTIONS.p df (DIABETIC FOOT CARE INSTRUCTIONS.p df) 08/16/2024 Other hammer toe(s) (acquired), left foot (ICD-10 - M20.42) Plan Of Treatment Medication Medication Name Sig Start Date Stop Date Notes Extra Depth Orthopedic Shoes , (1) Pair With (3) Pair Custom Heat Molded Multidensity Innersoles Dx: NIDDM/PVD(E11.51), Hammertoe Foot Deformity(M20.41,M20.42), Preulcerative Skin Lesion(s)(L85.1) Wear Daily for 365 days 08/16/2024 Treatment Notes Assessment Notes Other hammer toe(s) (acquired), right fo ot Patient Educated with: DIABETIC FOOT CARE INSTRUCTIONS.pdf (DIABETIC FOOT CARE INSTRUCTIONS.pdf) Pending Test Test Name Order Date 38512-VIANUZY NAIL, 1-5 08/16/2024 76910-NFYC SKIN LESIONS, OVER 4 08/16/20 24 [id number]-URXOKOCE DYSTROPHIC NAILS ANY # Next Appt Details Follow Up: prn, Reason: Provider Name:Sony Goldstein , 11/22/2024 10:45:00 AM, [address] [place] [address], [id number], Procedure Notes * Category Sub-Category Detail Notes Keratoma Treatment Parring or Cutting o f Benign Hyperkeratotic Lesion(s) (-57) More than 4 Lesions - Due to the at risk nature of the patients medical condition as documented in the exam findings, performance of this keratoderma treatment is medically necessary as its management by an unskilled/untrained nonprofessional would put this patients foot and overall health at risk. Therefore, the benign hyperkeratotic lesions, ( 6) in total, locations as stated and described in the exam ( Medial plantar, IPJ, TA, Medial plantar, IPJ, T5, SUB MTH (s), 1, B/L, Plantar Heel(s), B/L), were pared, and/or cut utilizing a sterile 15 blade, tissue nippers, and/or power dremel instrumentation by the physician of record - 94846, Q8 Debride Nails 1-5 Procedure: Due to the cli nical pathology outlined in the exam findings, performance of this nail treatment is medically necessary as its management by an unskilled/untrained nonprofessional would put this patients foot and overall health at risk. Therefore, debridement to affected nail(s), as described in exam ( TA, T5,T7 ), was performed exclusively by the physician of record to reduce/remove overall nail length, girth, thickness, subungual debris, and necrotic tissue, by manual and/or electrical means through the use of a nail nipper and/or dremel stylegrinder, to a more viable healthy nail plate or bed tissue 5 nails or fewer in number. Silver nitrate was used for any petechial bleeding as necessary. Definitive antifungal treatment options, both pharmaceutical and surgical, have been reviewed and discussed with the patient. The patient solely prefers the use of intermittent/as needed professional debridement services for their nail condition and understands that additional periodic treatments may be required as necessary to maintain effective symptomatic relief - 25249 Nail Reduction Nail Reduction (-27) Trimming o f all dystrophic nails - Due to the at risk nature of the patients medical condition as documented in the exam findings, performance of this nail treatment is medically necessary as its management by an unskilled/untrained nonprofessional would put this patients foot and overall health at risk. Therefore, the dystrophic nails, in locations as stated and described in the exam ( T1, T2, T3, T4, T6, T8, T9), were debrided by the phisician of record to reduce/remove overall nail length and girth, by manual and electrical means with use of a nail nipper and/or dremel, to more viable healthy nail plate or bed tissue - G0127, Q8 Progress Notes * Howard VILLATORODOB: [birth year] (74 yo M)Acc No.[id number]:08/16/2024 Progress Notes Patient:?Howard VILLATORO Provider:?Sony Goldstein DPM :1950???Age:74 Y???Sex:Male Norm e:08/16/2024 Address:[address] [place], [place] [id number] Pcp:Marcelo Bhatti MD Subjective: * Chief Complaints: * ???At Risk FootcarePainful N ail(s) aggravated by shoes and causing difficulty standing/walking.Toe Irritation * HPI: ???At Risk footcare:?Pt States Last PCP Visit:?Date?04/10/2024 ?Misc?Patient accompanied by, , Malika.?Toe pain:?Location:?B/L feet.?Duration:?several years.?Course:?worse.?Aggravated by:?shoes, any pressure.?Treatments:?change in shoes.? * ROS:?General/Constitutional:?Nausea?denies.?Vomiting?denies.?Hunger Thirst?denies.?Loss appetite?denies.?Chills?denies.?Fatigue?denies.?Fever?denies.?Night Sweats?denies.?Unexplained weight loss?denies.?Unexplained weight gain?denies.?HEENTM:?Dentures?denies.?Dizziness?denies.?Glasses/contacts?admits.?Retinopathy?den ies.?Blurred/double vision?denies.?TMJ?denies.?Discharge/drainage?denies.?Implants?denies.?Sore throat?denies.?Dental implants?denies.?Hard of hearing ?denies.?Difficulty chewing/swallowing/speaking?denies.?Nose bleeds?denies.?Sore mouth?denies.?Respiratory:?On O xygen?denies.?Pneumonia/pleurisy?denies.?Bronchitis?denies.?Emphysema?denies.?Co ughing?denies.?Cough blood?denies.?Shortness of breath?denies.?Wheezing?denies.?Cardiovascular:?Pacemaker?denies.?MVP?denies.?WPW?denies.?CHF?denies.?Heart attack?denies.?Septal defect?denies.?Rapid beat?denies.?Chest pain ?denies.?Atrial Fib.?denies.?Murmur/Palpitations?denies.?Gastrointestinal:?Hemorrhoids?denies.?Stomach/Abdominal pain?denies.?Dark blood stool?denies.?Irritable bowel ?denies.?Constipation?denies.?Diarrhea?denies.?Hematology:?Swelling?denies.?Clots?denies.?Varicose Veins?denies.?Bruising?denies.?Bleeding problem?denies.?Genitourinary:?Blood urine?denies.?Frequent/Painfu/urination/bladder control?denies.?Kidney stones?denies.?Infection (UTI)?denies.?Nephropathy?denies.?sex trans dis (STD)?denies.?Prostate?denies.?Musculoskeletal:?Hammertoes?admits.?Bunions?denies.?Back Pain?denies.?Muscle Cramps/ Resting?denies.?Muscle cramps / walking?denies.?Generalized aches and pains?denies.?Weakness?denies.?Integ.:?Bridges?denies.?Scars?denies.?Corns/calluses?admits.?Ingrown nails?admits.?Painful nails?admits.?Open Sores?denies.?Rashes?denies.?Neurologic:?Difficulty sleeping?denies.?Brain disorder?denies.?Numbness?denies.?Balance t rouble?denies.?Confusion?denies.?Fainting/blackouts?denies.?Tingling?denies.?Mat mors?denies.? * Medical History:? * Surgical History:?Denies Pas t Surgical History * Hospitalization/Major Diagno stic Procedure:?Denies Past Hospitalization * Family History:?Mother: dece ased.?Father: .? * Social History:?Tobacco Use:?Tobacco Use/Smoking?Are you a:?former smoker ?Additional Findings: Tobacco Non-User?Current non-smoker ?Tobacco use other than smoking?Are you an other tobacco user??No ???Drugs/Alcohol:?Drugs?Have you used drugs other than those for medical reasons in the past 12 months??No ?Alcohol Screen?Did you have a drink containing alcohol in the past year??No ?Points?0 ?Interpretation?Negative ???Miscellaneous:?Caffeine: yes. ?Children: no. ?Exercise: no. ?Marital status: . * Medications:?TakingamLODIPin e Besylate Lisinopril metFORMIN HCl Lovastatin Medication List reviewed and reconciled with the patientTaking amLODIPine Besylate Taking Lisinopril Taking metFORMIN HCl Taking Lovastatin Medication List reviewed and reconciled with the patient * Allergies:?Lipitoryes[Allerg ies Verified] Objective: * Vitals:?Ht: 5 ft 11 in, Wt: 190, BMI: 26.5, Shoe size: 11, BP:130/78mm Hg, BS:not taken, Ht-cm: 180.34 cm, Wt-k.18 kg. * ???Past Orders: ???Lab:HEMOGLOBIN A1C (GLYCO HEMOGLOBIN) (Order Date - 08/16/2024) (Collection Date & Time - 06/28/2024 11:09 AM) ? Value Reference Range ?TOTAL HEMOGLOBIN (HGBA1C) 5.8 * Examination: ???Vascular: ?DP PULSES (B):?0/4, LEFT, 1/4, RIGHT.?PT PULSES (B):? 0/4, B/L.?CAPILLARY FILL TIME:? delayed, all digits, B/L.?TROPHIC CONDITION-TEXTURE/ELASTICITY/TURGOR/HAIR GROWTH (B):? decreased, fragile, with sparse to absent hair growth, B/L.?TEMPERTURE GRADIENT (C):? decreased, cool to cool, proximal to distal, B/L.?PIGMENTATION:?rubrous, B/L.?EDEMA (C):?absent, B/L.?CLAUDICATION (C):?denies, B/L.?REST PAIN:?denies, B/L.?PARESTHESIA (C):?absent, B/L.?BURNING (C):?absent, B/L.?Nails: ?NAILS are:?Elongated, overgrown, dystrophic, lytic, greater than 3mm thick, discolored and friable with crumbly malodorous subungual debris, with pain on palpation ( TA, T5,T7 ), all other nails not described with characteristics as possessing mycosis are elongated, overgrown, and dystrophic ( T1, T2, T3, T4, T6, T8, T9?).?Dermatologic: ?SKIN FINDINGS:?Skin exam reveals Keratotic lesion(s) located at, Medial plantar, IPJ, TA, Medial plantar, IPJ, T5, SUB MTH (s), 1, B/L, Plantar Heel(s), B/L.?Orthopedic: ?MUSCLE STRENGTH:?5/5 all groups in a symmetrical fashion, B/L.?FOOT MORPHOLOGY:?(-) Charcot collapse/destruction noted at MTJ.?DIGITAL DEFORMITIES:?Digital contracture, PIPJ, 2-5 B/L, incompl-reducible to push-up test, no over, nor underlapping,?there is?evidence of shoe producing skin irritation.?FOOTWEAR:?worn, non-supportive, shoe gear properties exacerbate patient's foot/toe deformity.?Neurological: ?SENSORY:?Neurological exam reveals intact sensorium, pain sensation normal, vibration sensation intact, pinprick sensation is normal in the lower extremities, 5.07 monofilament test performed at plantar aspects of 5 varied sites per foot shows sensation, normal, B/L, Pt denies, anesthesia, burning, paresthesia, tingling, B/L.?Ophthalmology Referral: ?DIABETES EYE EXAM?General Examination: ?GENERAL APPEARANCE:?Reveals a pleasant, alert, well nourished, well- developed, well hydrated individual, who demonstrates proper attention to hygiene/body habitus, and is in no acute distress, Pt serves as own historian for office visit today, Pt accompanied by, , and/who is physically present in exam room at time of visit.?ORIENTED:?person, place, and time.?FOOT EXAM:?Footwear Evaluation? Assessment: * Assessment: 1.?Tinea unguium - B35.1???2 .?Type 2 diabetes mellitus with diabetic peripheral angiopathy without gangrene - E11.51 (Primary)???Notes :Q7(A), Q8(2B), Q9(1B,2C)???3.?Pain in right toe(s) - M79.674???4.?Pain in left toe(s) - M79.675???5.?Other hammer toe(s) (acquired), right foot - M20.41???Specify :Chronic problem, Worse (4),Rx Management (4)???6.?Other hammer toe(s) (acquired), left foot - M20.42???Specify :Chronic problem, Worse (4),Rx Management (4)??? Plan: * Treatment: 2.?Tinea unguium?Procedure: 22164-DUKBMZB NAIL, 1-5 3.?Other hammer toe(s) (acqu ired), right foot? Start Extra Depth Orthopedic Shoes, (1) Pair ., With (3) Pair Custom Heat Molded Multidensity Innersoles, Dx: NIDDM/PVD(E11.51), Hammertoe Foot Deformity(M20.41,M20.42), Preulcerative Skin Lesion(s)(L85.1), Wear, Daily, 365 days, 2, Refills 0.?? Notes: Patient Educated with: DIABETIC FOOT CARE INSTRUCTIONS.pdf (DIABETIC FOOT CARE INSTRUCTIONS.pdf)?? * Procedures:?Debride Nails 1-5:?Procedure:?Due to the clinical pathology outlined in the exam findings, performance of this nail treatment is medically necessary as its management by an unskilled/untrained nonprofessional would put this patients foot and overall health at risk. Therefore, debridement to affected nail(s), as described in exam (??TA,?T5,T7?), was performed exclusively by the physician of record to reduce/remove overall nail length, girth, thickness, subungual debris, and necrotic tissue, by manual and/or electrical means through the use of a nail nipper and/or dremel stylegrinder, to a more viable healthy nail plate or bed tissue 5 nails or fewer in number. Silver nitrate was used for any petechial bleeding as necessary. Definitive antifungal treatment options, both pharmaceutical and surgical, have been reviewed and discussed with the patient. The patient solely prefers the use of intermittent/as needed professional debridement services for their nail condition and understands that additional periodic treatments may be required as necessary to maintain effective symptomatic relief - 44700.?Keratoma Treatment:?Parring or Cutting of Benign Hyperkeratotic Lesion(s)?(-57) More than 4 Lesions - Due to the at risk nature of the patients medical condition as documented in the exam findings, performance of this keratoderma treatment is medically necessary as its management by an unskilled/untrained nonprofessional would put this patients foot and overall health at risk. Therefore, the benign hyperkeratotic lesions, ( 6) in total, locations as stated and described in the exam (?Medial plantar,?IPJ,?TA,?Medial plantar,?IPJ,?T5,?SUB MTH (s),?1,?B/L,?Plantar Heel(s),?B/L), were pared, and/or cut utilizing a sterile 15 blade, tissue nippers, and/or power dremel instrumentation by the physician of record - 61077, Q8.?Nail Reduction:?Nail Reduction?(-27) Trimming of all dystrophic nails - Due to the at risk nature of the patients medical condition as documented in the exam findings, performance of this nail treatment is medically necessary as its management by an unskilled/untrained nonprofessional would put this patients foot and overall health at risk. Therefore, the dystrophic nails, in locations as stated and described in the exam ( T1, T2, T3, T4, T6, T8, T9), were debrided by the phisician of record to reduce/remove overall nail length and girth, by manual and electrical means with use of a nail nipper and/or dremel, to more viable healthy nail plate or bed tissue - G0127, Q8.? * Procedure Codes:?G0127 BARRERA ING DYSTROPHIC NAILS ANY #, Modifiers: XS , [id number] DEBRIDE NAIL, 1-5, Modifiers: XS 26543 TRIM SKIN LESIONS, OVER 4, Modifiers: XS , Q8 * Preventive Medicine:? ??Counseling:?Discussion:?-04: Office or other outpatient visit for the evaluation and management of a new patient, which required a medically appropriate history and/or examination and MODERATE level of DECISION MAKING for: 1 OR MORE CHRONIC PROBLEM(S) THATS WORSENING, 2 STABLE CHRONIC PROBLEMS, A NEWLY DIAGNOSED PROBLEM WITH UNCERTAIN PROGNOSIS, AN ACUTE COMPLICATED INJURY WITH MULTIPLE TREATMENT OPTIONS, OR AN ACUTE PROBLEM WITH ACCOMPANYING SYSTEMIC SYMPTOMS, THAT POSE(S) A MODERATE RISK OF MORBIDITY. THIS CONDITION MAY ALSO INCLUDE RX DRUG MANAGEMENT, OR A DECISON FOR MINOR SURGERY. The visit on the day of the encounter encompassed interpreting the data and educating the patient as to the nature of their condition, treatment options available according to their individual PMH, meds, allergies, and overall health/living conditions, as well as any potential risks or complications that may occur from a failure to adhere to, and participate in, the recommended course of therapy. The discussion included a complete verbal, and/or written explanation of the examination results, any x-rays taken, the proposed diagnosis, and outline of the treatment plan. A schedule for future care needs was also explained. The patient verbalized an understanding of the instructions at this time and agreed to be an active participant in their treatment. If the patient should think of any questions or concerns after the visit, I have encouraged the patient to call the office.?Digital Surgery:?Digital surgery was discussed with the patient, We elected to try conservative treatment at the present time, due to the patients medical history and increased asssociated post-operative risks.?Digital Treatment:?HT- I explained to the patient the possible etiologies of Hammertoes, including genetics/foot type/shoegear/activity level/exercise routine and the risks/benefits of all the different treatment options for their pain including: No treatment at all, Rest, Ice, New/supportive/wider/deeper Shoegear, Digital Padding/Strapping/Taping/Bracing/Gel protective sleeves, Foot/Ankle AFO Bracing, Stretching exercises, Deep Tissue Massage, Arch support/shoe inserts with splay metatarsal padding, and Custom orthoses. I insisted that any digital devices be removed daily and not worn overnight for safety. The patient is to carefully examine the toes daily for any skin irritation while using any splinting or padding device. The advantages and disadvantages of each option were discussed and the patients questions re: shoegear, padding, custom vs prefabricated inserts, activity level, and consistency in home treatment regimens for optimal success were answered to their verbally confirmed satisfaction.?Shoe Gear Counseling:?SHOE Rx - The patient was counseled in great detail on their muscoloskeletal foot and toe deformities which coincided with the dermatological presentations visualized on exam. We discussed how their deformities put the integrity of their feet at risk for potential pedal complications which makes the accomidative diabetic shoes and cutomizable inserts medically necessary. We discussed the different shoe and insert treatment types and options, as well as the important advantages for adhering to regularly wearing these accomidative devices daily. The patient was made aware of the fact that a failure to abide by these recommedations may be deleterious to their foot health as they are able to prevent many pedal complications such as skin irritation, skin ulceration, infection, and even loss of toe/foot/leg/or life. Time was also spent with the patient dispensing and discussing proper diabetic footcare techniques including daily skin moisturization, daily foot inspection for any interruption in skin integrity including open lesions, or sign of infection such as redness/malodor/drainage/swelling. Also discussed and recommended were procedures regarding daily shoe inspection for the presence of internal foreign bodies as well as any visualized irregular shoe or insert wear. Patient questions re: shoes, inserts, and self foot inspections were answered to their satisfaction as the patient verbally confirmed a full understanding of the above information. A Rx for Extra Depth Orthopedic Shoes with 3 pair of custom heat-molded inserts was dispensed.? ??Screening/Special Tests:?Fall Risk?Screening:?No falls in the past year ?FALLS: Screening for Future Fall Risk?Have you had any falls with injury in the past year??No * Follow Up:?prn * Images: * Sign off status: Completed true * Provider:?Sony Goldstein DPM Date:?2023 Generated for Wanda paez/Nayeli/Cristaitting on:?10/17/2024 11:44 AM EST History and Physical Notes * HPI (History of Present Illness) Category Sub-Category Detail Notes Category Not es Toe pain Location: B/L feet Duration: several years Course: worse Aggravated by: shoes, any pressure Treatments: change in shoes At Risk footcare Pt States Last PCP Visit: Date: [facility] [place] accompanied by, , Malika Examination Category Sub-Category Detail Notes Category Not es Neurological SENSORY: Neurological exa m reveals intact sensorium, pain sensation normal, vibration sensation intact, pinprick sensation is normal in the lower extremities, 5.07 monofilament test performed at plantar aspects of 5 varied sites per foot shows sensation, normal, B/L, Pt denies, anesthesia, burning, paresthesia, tingling, B/L Dermatologic SKIN FINDINGS: Skin exam reveal s Keratotic lesion(s) located at, Medial plantar, IPJ, TA, Medial plantar, IPJ, T5, SUB MTH (s), 1, B/L, Plantar Heel(s), B/L Orthopedic FOOT MORPHOLOGY: (-) Charcot col lapse/destruction noted at MTJ FOOTWEAR: worn, non-supportive , shoe gear properties exacerbate patient's foot/toe deformity DIGITAL DEFORMITIES: Digital contracture , PIPJ, 2-5 B/L, incompl-reducible to push-up test, no over, nor underlapping, there is evidence of shoe producing skin irritation MUSCLE STRENGTH: 5/5 all groups in a symmetrical fashion, B/L General Examination GENERAL APPEARANCE: Reveals a pleasant, alert, well nourished, well-developed, well hydrated individual, who demonstrates proper attention to hygiene/body habitus, and is in no acute distress, Pt serves as own historian for office visit today, Pt accompanied by, , and/who is physically present in exam room at time of visit FOOT EXAM: Lower Extremity Neurological Exa m performed:: Yes Date: 08/16/2024 ORIENTED: person, place, and t jitendra Footwear Evaluation Footwear Evaluation performe d:: Yes Ophthalmology Referral DIABETES EYE EXAM Procedure Perform ed:: Yes ?Date of Exam Performed: 06/13/2024 Diabetic Retinopathy Screening:: Yes Retinal Screening Performed:: Yes Findings of Diabetic Eye Exam:: no retin opathy Vascular DP PULSES (B): 0/4, LEFT, 1/4, RIGHT PT PULSES (B): 0/4, B/L CAPILLARY FILL TIME: delayed, all digits , B/L TEMPERTURE GRADIENT (C): decreased, cool to cool, proximal to distal, B/L TROPHIC CONDITION-TEXTURE/ELASTICITY/TURGOR/HAIR GROWTH (B): decreased, fragile, with sparse to absen t hair growth, B/L EDEMA (C): absent, B/L CLAUDICATION (C): denies, B/L REST PAIN: denies, B/L PIGMENTATION: rubrous, B/L PARESTHESIA (C): absent, B/L BURNING (C): absent, B/L Nails NAILS are: Elongated, overg rown, dystrophic, lytic, greater than 3mm thick, discolored and friable with crumbly malodorous subungual debris, with pain on palpation ( TA, T5,T7 ), all other nails not described with characteristics as possessing mycosis are elongated, overgrown, and dystrophic ( T1, T2, T3, T4, T6, T8, T9 )
--- OUTSIDE RECORDS SUMMARY | 2024-10-17 11:44 | XMS_ITS ---
Author Name [facility] [place] Organization [facility] [place] Address [address] [place] [address] Care Team Providers Care Purchasing Supervisor Name Role Phone VICTOR MANUEL LOZANO Primary [...] Name Patient's Relationship to Policy Buck [facility] MEDICARE [facility] ([facility]) Aug 28, 2015 [id number] BERENICE COOPER PATIENT [facility] ([facility]) MEDICARE ADVANTAGE MCR ([facility]) Aug 28, 2022 [id number] BERENICE COOPER PATIENT Selected Encounter This section includes the information on record at [place] for the Encounter. Date/Time Encounter Type Encounter Description Reason Provider Source Feb 09, 2024 01:30 PM OFFICE O/P EST LOW 20 MIN PRIMARY CARE/MEDICINE ICD-10-CM R63.4 Abnormal weight loss VICTOR MANUEL LOZANO [facility] Encounter Template Text not used by [place] Assessments - Encounter Diagnoses This section includes the primary and secondary diagnoses documented for the Encounter. Date/Time Primary/Secondary Diagnosis Diagnosis Name Provider Source Feb 09, 2024 05:23 PM PRIMARY Abnormal weight loss [facility]EL [facility] Feb 09, 2024 05:23 PM SECONDARY Pain in right hip VICTOR MANUEL LOZANO [facility] Plan of Treatment: Future Appointments (+ 6 months) and Future Tests (+/- 45 days) The Plan of Treatment section includes future care activities for the patient from all [place] [facility] This section includes future appointments and future orders which are active, pending or scheduled. Future Appointments This section includes appointments that were scheduled to occur 6 months from the date of the Encounter, up to a maximum of 20 appointments. The data comes from all [facility] facilities. Appointment Date/Time Appointment Type Appointme nt Facility Name Feb 23, 2024 11:30 AM AMBULATORY - MEDICINE [facility] Jun 19, 2024 01:00 PM AMBULATORY MEDICINE [facility] Jun 19, 2024 02:30 PM AMBULATORY MEDICINE [facility] Active, Pending, and Scheduled Orders This section includes a listing of several types of active, pending, and scheduled orders, including clinic medications orders, diagnostic test orders, procedure orders and consult orders; where the start date of the order is 45 days before the date of the Encounter or 45 days after the date of theEncounter. The data comes from all [facility]. Test Date/Time Test Type Test Details Facility Name January 02, 2024 11:58 AM Consult Order COMMUNITY CARE-NEUROLOGY Cons Laundry Aid[employer] Choice [facility] Vital Signs: All taken on the encounter date This section contains inpatient and outpatient Vital Signs collected on the date of the Encounter. Date/Time Temperature Pulse Blood Pressure Respiratory Rate SP02 Pain Height Weight Body Mass Index Source Feb 09, 2024 02:00 PM 126/74 [facility] Feb 09, 2024 01:13 PM 99.4 97 142/62 16 96 0 70 187.7 27 [facility] Social History: Smoking Status (Most current) and Tobacco Use (All prior to encounter date) This section includes the most current, and the historical, smoking and tobacco- related health factors from the [place] facility where the Encounter took place. Current Smoking Status This section includes the most current smoking, or tobacco-related health factor, from the [facility] facility where the Encounter took place. Date/Time Current Smoking Status Comment Facil it Sep 01, 2023 02:30 PM VA-TOBACCO FORMER USER [place] [facility] [place] [facility] Tobacco Use History This section includes a history of the smoking, or tobacco-related health factors, that were collected on or before the date of the Encounter. The data comes from the [place] facility where the Encounter took place. Date/Time Smoking Status/Tobac co Use Comment Facility Sep 01, 2023 02:30 PM VA-TOBACCO QUIT 15 YRS OR MORE [place] [facility] [place] [facility] Aug 17, 2022 11:30 AM VA-TOBACCO FORMER USER [place] [facility] [place] [facility] Aug 17, 2022 11:30 AM VA-TOBACCO QUIT 15 YRS OR MORE [place] [facility] [place] [facility] Jul 14, 2021 10:30 AM VA-TOBACCO FORMER USER [place] [facility] [place] [facility] Jul 14, 2021 10:30 AM VA-TOBACCO QUIT 15 YRS OR MORE [place] [facility] [place] [facility] May 26, 2020 11:30 AM VA-TOBACCO FORMER USER [place] [facility] [place] [facility] May 26, 2020 11:30 AM VA-TOBACCO QUIT 15 YRS OR MORE [place] [facility] [place] [facility] Aug 13, 2018 11:07 AM VA-TOBACCO FORMER USER [place] [facility] [place] [facility] Aug 13, 2018 11:07 AM VA-TOBACCO QUIT 5 TO < 15 YRS [place] [facility] [place] [facility] Dec 14, 2017 10:54 AM LIFETIME NON-TOBACCO USER [place] [facility] [place] [facility] Sep 26, 2016 10:11 AM QUIT TOBACCO USE > 7 YEARS AGO [place] [facility] [place] [facility] Sep 11, 2015 10:08 AM QUIT TOBACCO USE > 7 YEARS AGO pt states he quit smoking 47 yrs ago. [place] [facility] [place] [facility] Apr 09, 2013 01:56 PM LIFETIME NON-TOBACCO USER pt states he quit 8 years ago. [place] [facility] [place] [facility] Mar 08, 2012 01:47 PM QUIT TOBACCO USE 1-7 YEARS AGO [place] [facility] [place] [facility] Jul 13, 2011 09:23 AM QUIT TOBACCO USE 1-7 YEARS AGO quit sic years ago [facility] Mar 19, 2010 10:43 AM QUIT TOBACCO USE 1-7 YEARS AGO [facility] Encounter Notes: All associated encounter notes This section contains the clinical notes associated to the Encounter. Date/Time Encounter Note(s) Provider Source Feb 09, 2024 05:18 PM PHYSICIAN NOTE: LOCAL TITLE: MD NOTE STANDARD TITLE: PHYSICIAN NOTE DATE OF NOTE: FEB 09, 2024@17:18 ENTRY DATE: FEB 09, 2024@17:18:40 AUTHOR: VICTOR MANUEL LOZANO EXP COSIGNER: URGENCY: STATUS: COMPLETED Patient Name: BERENICE CURRY VITALS: Patient temperature: 99.4 F [37.4 C] (02/09/2024 13:13) Blood pressure: 126/74 (02/09/2024 14:00) Patient height: 70 in [177.8 cm] (02/09/2024 13:13) Patient weight: 187.7 lb [85.14 kg] (02/09/2024 13:13) Patient BMI: BMI: 27.0 Patient pulse: 97 (02/09/2024 13:13) Patient respiration: 16 (02/09/2024 13:13) Patient Pulse Oximetry: 96% (02/09/2024 13:13) Pain Ratin (02/09/2024 13:13) Active VA Medications: Active Outpatient Medications (including Supplies): Active Outpatient Medications Status 1) CARBOXYMETHYLCELLULOSE NA 0.5% OPH SOLN INSTILL 1 ACTIVE DROP INTO EACH EYE FOUR TIMES A DAY 2) CYCLOBENZAPRINE HCL 10MG TAB TAKE ONE TABLET BY MOUTH ACTIVE (S) THREE TIMES DAILY NEEDED FOR BACK SPASMS 3) NAPROXEN 375MG TAB TAKE ONE TABLET BY MOUTH TWICE ACTIVE (S) DAILY NEEDED TAKE WITH FOOD; FOR PAIN/INFLAMMATION/SWELLING 4) OMEPRAZOLE 20MG EC CAP TAKE ONE CAPSULE BY MOUTH ACTIVE (S) EVERY MORNING 30 MINUTES BEFORE BREAKFAST 5) SILDENAFIL CITRATE 50MG TAB TAKE ONE TABLET BY MOUTH ACTIVE (S) NEEDED TAKE 1 HOUR PRIOR TO SEXUAL ACTIVITY Pending Outpatient Medications Status 1) LIDOCAINE 5% PATCH APPLY 1 PATCH TOPICALLY ONCE DAILY PENDING NEEDED (LEAVE PATCH ON FOR 12 HOURS, THEN REMOVE PATCH) Active Non-VA Medications Status 1) Non-VA AMLODIPINE BESYLATE 10MG TAB 10MG BY MOUTH ACTIVE EVERY DAY 2) Non-VA LISINOPRIL 5MG TAB 5MG BY MOUTH EVERY DAY ACTIVE 3) Non-VA LOVASTATIN 20MG TAB 60MG BY MOUTH AT BEDTIME ACTIVE 4) Non-VA METFORMIN HCL 500MG TAB 500MG BY MOUTH TWICE ACTIVE DAILY 10 Total Medications Remote Medications: No Active 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 Since then he has had extensive evaluation including CAT scan of chest, CAT scan abdomen, ultrasound thyroid, stool FIT testing, blood testing and urine tests. All tests negative for cancer. Patient reports today that he has upper and lower endoscopy scheduled in April with Dr. Clemente. Today he is feeling well with no complaints. Physical examination Well-developed well-nourished male no acute distress Ears mild cerumen without erythema Gait normal Assessment and plan: 1. Weight loss: No obvious etiology Plan: Await endoscopy to look for cancer 2. Right hip pain: November 2023 fell. Seen at [facility] emergency department. Verbal report from patient, all x-rays negative for fracture. Some mild persistent right hip pain. No improvement with topical diclofenac. He is requesting topical lidocaine. I provided education about side effects including life-threatening irregular heartbeat. Patient understands and accepts the risks. Plan: Topical lidocaine Follow-up 4 months clinic visit and lab Medication Reconciliation: Outpatient: Has the patient been taking medications as documented in the EMLR? YES: The patient has been taking medications as documented in the EMLR. Essential Medication List for Review used to complete this medication reconciliation. INCLUDED IN THIS LIST: Alphabetical list of active outpatient prescriptions dispensed from this [place] (local) and dispensed from another [place] or [facility] facility (remote) as well as inpatient orders [...] with a VA or non-VA provider. /carlos/ Victor Manuel Lozano MD Staff Physician Signed: 02/09/2024 17:23 VICTOR MANUEL LOZANO [facility] [employer] [facility] [facility] Feb 09, 2024 05:15 PM ACCOUNTING OF DISCLOSURES NOTE: LOCAL TITLE: STATE PRESCRIPTION DRUG MONITORING PROGRAM (SPDMP) STANDARD TITLE: ACCOUNTING OF DISCLOSURES NOTE DATE OF NOTE: FEB 09, 2024@17:15 ENTRY DATE: FEB 09, 2024@17:15:44 AUTHOR: VICTOR MANUEL LOZANO EXP COSIGNER: URGENCY: STATUS: COMPLETED State Prescription Drug Monitoring Program (SPDMP) Review The following State Prescription Drug Monitoring Program was queried for this patient: [place] Report Number: The purpose of this query was a part of the medication reconciliation process for the: Renewal of a controlled substance prescription. The findings of the query are as follows: No duplicate therapy prescriptions for controlled substances outside the [facility] were found. /stephanie Lozano MD Staff Physician Signed: 02/09/2024 17:15 VICTOR MANUEL LOZANO [facility]
--- OUTSIDE RECORDS SUMMARY | 2024-10-17 11:44 | XMS_ITS | Patient Health Record ---
Author Organization [facility] Keshiaroberth Sandoval Address [address] [place] [address] Care Team Providers Care Structural Manager Name Role Phone Magy ANDERSEN, Marcelo Primary Care Provider Sony Rivas Unavailable [phone] Allergies Allergen (clinical drug ingredient) Drug/Non Drug Allergy documented on EMR Reaction Allergy Type Onset Date Status atorvastatin Lipitor Unknown Drug Allergy Acti ve Results Component Value Reference Range Notes HEMOGLOBIN A1C (GLYCOHEMOGLO BIN) Reviewed date:08/16/2024 11:09:55 AM Interpretation: Performing Lab: Notes/Report: TOTAL HEMOGLOBIN (HGBA1C) 5.8 Reason For Referral No Information Medications Medication SIG (Take, Route, Frequency, Duration) [...] Problem Status W/U Status Risk Notes Problem Acquired hammer toe of right foot (4330218641577 105) Other hammer toe(s) (acquired), right foot (M20.41) Active confirmed Problem Acquired hammer toe of left foot (3704997280127 103) Other hammer toe(s) (acquired), left foot (M20.42) Active confirmed Problem Type 2 diabetes mellitus with peripheral angiopathy (054838093) Type 2 diabetes mellitus with diabetic peripheral angiopathy without gangrene (E11.51) Active confirmed Q7(A), Q8(2B), Q9(1B,2C) Vital Signs Blood pressure diastolic 78 mm Hg 08/16/2024 Height 5 ft 11 in in 08/16/2024 Blood pressure systolic 130 mm Hg 08/16/2024 Weight 190 lbs 08/16/2024 BMI 26.5 kg/m2 08/16/2024 Procedures Procedure Date Ordered Date Performed Result Body Sit e 03212-BAPQQAA NAIL, 1-5 08/16/2024 N/A 15493-XHYQ SKIN LESIONS, OVER 4 08/16/2024 N/A [id number] DYSTROPHIC NAILS ANY # 08/16/2024 N/A Encounters Encounter Location Date Provider Diagnosis [facility] [address] 08/16/2024 Sony Goldstein Type 2 diabetes mellitus with diabetic peripheral angiopathy without gangrene E11.51 ; Tinea unguium B35.1 ; Pain in right toe(s) M79.674 ; Pain in left toe(s) M79.675 ; Other hammer toe(s) (acquired), right foot M20.41 and Other hammer toe(s) (acquired), left foot M20.[address] [facility] [address] 05/01/2024 Sony Goldstein Assessments Encounter Date Diagnosis (ICD Code) Assessment Notes Treatment Notes Treatment Clinical Notes Section Notes 08/16/2024 Tinea unguium (ICD-10 - B35.1) 08/16/2024 Type 2 diabetes mellitus with diabetic peripheral angiopathy without gangrene (ICD-10 - E11.51) Q7(A), Q8(2B), Q9(1B,2C) 08/16/2024 Pain in right toe(s) (ICD-10 - M79.674) 08/16/2024 Pain in left toe(s) (ICD-10 - M79.675) 08/16/2024 Other hammer toe(s) (acquired), right foot (ICD-10 - M20.41) Patient Educated with: DIABETIC FOOT CARE INSTRUCTIONS.p df (DIABETIC FOOT CARE INSTRUCTIONS.p df) 08/16/2024 Other hammer toe(s) (acquired), left foot (ICD-10 - M20.42) Plan Of Treatment Pending Test Test Name Order Date [id number] NAIL, 1-5 08/16/2024 79533-SCIS SKIN LESIONS, OVER 4 08/16/20 24 [id number] DYSTROPHIC NAILS ANY # Next Appt Details Provider Name:Sony Goldstein , 11/22/2024 10:45:00 AM, [address] [place], [address], Insurance Providers Payer Name Payer Address Payer Phone Subscriber Number Group Number Insured Name Patient Relationship to Insured Coverage Start Date Coverage End Date [employer] [place] [employer] [address] [place] [address] [id number] Howard Olivarez Self - patient is the insured 3 Medical (General) History Medical History History ICD Code Back,Hip,and Knee pain Cancer Cataracts Diabetic High Blood Pressure Lyme disease Parkinsons disease Hypercholesterolemia
--- OUTSIDE RECORDS SUMMARY | 2024-10-17 11:45 | XMS_ITS ---
Author Name [facility] [place] Organization [place] Address [address] [place] [address] Care Team Providers Care Chemical Blender Name Role Phone VICTOR MANUEL LOZANO Primary [...] Buck's Name Patient's Relationship to Policy Buck [facility] ([facility] MEDICARE [facility] ([facility]) Aug 28, 2015 [id number] [phone] BERENICE COOEPR PATIENT [facility] ([facility]) MEDICARE ADVANTAGE MCR ([facility]) Aug 28, 2022 [id number] BERENICE COOPER PATIENT Selected Encounter This section includes the information on record at [place] for the Encounter. Date/Time Encounter Type Encounter Description Reason Pro vider Source Sep 22, 2024 07:41 PM Outpatient Encounter PRIMARY CARE/MEDICINE [facility] Encounter Template Text not used by [place] Plan of Treatment: Future Appointments (+ 6 [...] 20 appointments. The data comes from all [place] treatment facilities. Appointment Date/Time Appointment Type Appointme nt Facility Name Oct 17, 2024 11:00 AM AMBULATORY - MEDICINE [facility] Oct 23, 2024 01:00 PM [facility] Active, Pending, and Scheduled Orders This section includes a listing of several types of active, pending, and scheduled orders, including clinic medications orders, diagnostic test orders, procedure orders and consult orders; where the start date of the order is 45 days before the date of the Encounter or 45 days after the date of theEncounter. The data comes from all [facility] facilities. Test Date/Time Test Type Test Details Facility Name Oct 12, 2024 12:00 AM Laboratory - Chemistry Order URINALYSIS CLEAN CATCH URINE [facility] Oct 12, 2024 12:00 AM Laboratory - Chemistry Order MICROALBUMIN CREATININE RATIO PANEL URINE (RANDOM) [facility] Oct 12, 2024 12:00 AM Laboratory - Chemistry Order CARCINOEMBRYONIC ANTIGEN BLOOD (SST-SERUM) [facility] Oct 12, 2024 12:00 AM Laboratory - Chemistry Order HEMOGLOBIN A1C PANEL BLOOD (LAV-BLOOD) [facility] Oct 12, 2024 12:00 AM Laboratory - Chemistry Order CBC AND DIFF (AUTO) BLOOD (LAV-BLOOD) [facility] Oct 12, 2024 12:00 AM Laboratory - Chemistry Order BASIC METABOLIC PANEL (non-fasting) BLOOD (LAV-BLOOD) [facility] Oct 12, 2024 12:00 AM Laboratory - Chemistry Order LIVER FUNCTION BLOOD (LAV-BLOOD) [facility] Oct 12, 2024 12:00 AM Laboratory - Chemistry Order LIPID PANEL FASTING BLOOD (LAV-BLOOD) [facility] Oct 12, 2024 12:00 AM Laboratory - Chemistry Order TSH BLOOD (LAV-BLOOD) [facility] Social History: Smoking Status (Most current) and Tobacco Use (All prior to encounter date) This section includes the most current, and the historical, smoking and tobacco- related health factors from the [place] facility where the Encounter took place. Current Smoking Status This section includes the most current smoking, or tobacco-related health factor, from the [place] facility where the Encounter took place. Date/Time Current Smoking Status Comment [facility] Sep 01, 2023 02:30 PM VA-TOBACCO FORMER USER [place] [facility] [place] [facility] Tobacco Use History This section includes a history of the smoking, or tobacco-related health factors, that were collected on or before the date of the Encounter. The data comes from the [place] facility where the Encounter took place. Date/Time Smoking Status/Tobac co Use Comment Facility Sep 01, 2023 02:30 PM VA-TOBACCO QUIT 15 YRS OR MORE [place] [facility] [place] [facility] Aug 17, 2022 11:30 AM VA-TOBACCO FORMER USER [place] [facility] [place] [facility] Aug 17, 2022 11:30 AM VA-TOBACCO QUIT 15 YRS OR MORE [place] [facility] [place] [facility] Jul 14, 2021 10:30 AM VA-TOBACCO FORMER USER [place] [facility] [place] [facility] Jul 14, 2021 10:30 AM VA-TOBACCO QUIT 15 YRS OR MORE [place] [facility] [place] [facility] May 26, 2020 11:30 AM VA-TOBACCO FORMER USER [place] [facility] [place] [facility] May 26, 2020 11:30 AM VA-TOBACCO QUIT 15 YRS OR MORE [place] [facility] [place] [facility] Aug 13, 2018 11:07 AM VA-TOBACCO FORMER USER [place] [facility] [place] [facility] Aug 13, 2018 11:07 AM VA-TOBACCO QUIT 5 TO < 15 YRS [place] [facility] [place] [facility] Dec 14, 2017 10:54 AM LIFETIME NON-TOBACCO USER [place] [facility] [place] [facility] Sep 26, 2016 10:11 AM QUIT TOBACCO USE > 7 YEARS AGO [place] [facility] [place] [facility] Sep 11, 2015 10:08 AM QUIT TOBACCO USE > 7 YEARS AGO pt states he quit smoking 47 yrs ago. [facility] [place] [facility] Apr 09, 2013 01:56 PM LIFETIME NON-TOBACCO USER pt states he quit 8 years ago. [facility] Mar 08, 2012 01:47 PM QUIT TOBACCO USE 1-7 YEARS AGO [facility] Jul 13, 2011 09:23 AM QUIT TOBACCO USE 1-7 YEARS AGO quit sic years ago [facility] Mar 19, 2010 10:43 AM QUIT TOBACCO USE 1-7 YEARS AGO [facility] Encounter Notes: All associated encounter notes This section contains the clinical notes associated to the Encounter. Date/Time Encounter Note(s) Provider Source Sep 22, 2024 07:41 PM PHYSICIAN NOTE: LOCAL TITLE: NOTE STANDARD TITLE: PHYSICIAN NOTE DATE OF NOTE: SEP 22, 2024@19:41 ENTRY DATE: SEP 22, 2024@19:41:12 AUTHOR: VICTOR MANUEL LOZANO EXP COSIGNER: URGENCY: STATUS: COMPLETED NOTE Has ADDENDA metformin 500 mg tablet 1 po bid x 90 days #180 refill x 3 faxed to [facility] fax [phone] received fax confirmation /carlos/ Victor Manuel Lozano MD Staff Physician Signed: 09/22/2024 19:54 09/27/2024 ADDENDUM STATUS: COMPLETED refaxed /carlos/ Victor Manuel Lozano MD Staff Physician Signed: 09/27/2024 09:56 VICTOR MANUEL LOZANO [facility]
--- OUTSIDE RECORDS SUMMARY | 2024-10-17 11:45 | XMS_ITS ---
Author Name [facility] Organization [facility] [place] Address [address] [place] [address] Care Team Providers Care Licensed Psychologist Name Role Phone JANETTE HENDERSON Primary Care [...] Buck's Name Patient's Relationship to Policy [facility] ([facility]) MEDICARE [facility] ([facility]) Aug 28, 2015 [id number] BERENICE COOPER PATIENT [facility] ([facility]) MEDICARE ADVANTAGE [facility] ([facility]) Aug 28, 2022 [id number] BERENICE COOPER PATIENT Selected Encounter This section includes the information on record at [place] for the Encounter. Date/Time Encounter Type Encounter Description Reason Pro vider Source Sep 22, 2024 12:00 AM Outpatient Encounter EVENT (HISTORICAL) [facility] Encounter Template Text not used by [facility] Plan of Treatment: Future Appointments (+ 6 [...] 20 appointments. The data comes from all [place] treatment facilities. Appointment Date/Time Appointment Type Appointme nt Facility Name Oct 17, 2024 11:00 AM AMBULATORY - MEDICINE [facility] Oct 23, 2024 01:00 PM AMBULATORY - [facility] Active, Pending, and Scheduled Orders This section includes a listing of several types of active, pending, and scheduled orders, including clinic medications orders, diagnostic test orders, procedure orders and consult orders; where the start date of the order is 45 days before the date of the Encounter or 45 days after the date of theEncounter. The data comes from all [facility] [place] [facility] facilities. Test Date/Time Test Type Test Details Facility Name Oct 12, 2024 12:00 AM Laboratory - Chemistry Order URINALYSIS CLEAN CATCH URINE [facility] Oct 12, 2024 12:00 AM Laboratory - Chemistry Order MICROALBUMIN CREATININE RATIO PANEL URINE (RANDOM) [facility] Oct 12, 2024 12:00 AM Laboratory - Chemistry Order CARCINOEMBRYONIC ANTIGEN BLOOD (SST-SERUM) [facility] Oct 12, 2024 12:00 AM Laboratory - Chemistry Order HEMOGLOBIN A1C PANEL BLOOD (LAV-BLOOD) [facility] Oct 12, 2024 12:00 AM Laboratory - Chemistry Order CBC AND DIFF (AUTO) BLOOD (LAV-BLOOD) [facility] Oct 12, 2024 12:00 AM Laboratory - Chemistry Order BASIC METABOLIC PANEL (non-fasting) BLOOD (LAV-BLOOD) [facility] Oct 12, 2024 12:00 AM Laboratory - Chemistry Order LIVER FUNCTION BLOOD (LAV-BLOOD) [facility] Oct 12, 2024 12:00 AM Laboratory - Chemistry Order LIPID PANEL FASTING BLOOD (LAV-BLOOD) [facility] Oct 12, 2024 12:00 AM Laboratory - Chemistry Order TSH BLOOD (LAV-BLOOD) [facility] Social History: Smoking Status (Most current) and Tobacco Use (All prior to encounter date) This section includes the most current, and the historical, smoking and tobacco- related health factors from the [place] facility where the Encounter took place. Current Smoking Status This section includes the most current smoking, or tobacco-related health factor, from the [place] facility where the Encounter took place. Date/Time Current Smoking Status Comment [facility] Sep 01, 2023 02:30 PM VA-TOBACCO FORMER USER [place] [facility] [place] [facility] Tobacco Use History This section includes a history of the smoking, or tobacco-related health factors, that were collected on or before the date of the Encounter. The data comes from the [place] facility where the Encounter took place. Date/Time Smoking Status/Tobac co Use Comment Facility Sep 01, 2023 02:30 PM VA-TOBACCO QUIT 15 YRS OR MORE [place] [facility] [place] [facility] Aug 17, 2022 11:30 AM VA-TOBACCO FORMER USER [place] [facility] [place] [facility] Aug 17, 2022 11:30 AM VA-TOBACCO QUIT 15 YRS OR MORE [place] [facility] [place] [facility] Jul 14, 2021 10:30 AM VA-TOBACCO FORMER USER [place] [facility] [place] [facility] Jul 14, 2021 10:30 AM VA-TOBACCO QUIT 15 YRS OR MORE [place] [facility] [place] [facility] May 26, 2020 11:30 AM VA-TOBACCO FORMER USER [place] [facility] [place] [facility] May 26, 2020 11:30 AM VA-TOBACCO QUIT 15 YRS OR MORE [place] [facility] [place] [facility] Aug 13, 2018 11:07 AM VA-TOBACCO FORMER USER [facility] [place] [facility] Aug 13, 2018 11:07 AM VA-TOBACCO QUIT 5 TO < 15 YRS [place] [facility] [place] [facility] Dec 14, 2017 10:54 AM LIFETIME NON-TOBACCO USER [place] [facility] [place] [facility] Sep 26, 2016 10:11 AM QUIT TOBACCO USE > 7 YEARS AGO [facility] [place] [facility] Sep 11, 2015 10:08 AM QUIT TOBACCO USE > 7 YEARS AGO pt states he quit smoking 47 yrs ago. [facility] [place] [facility] Apr 09, 2013 01:56 PM LIFETIME NON-TOBACCO USER pt states he quit 8 years ago. [facility] Mar 08, 2012 01:47 PM QUIT TOBACCO USE 1-7 YEARS AGO [facility] Jul 13, 2011 09:23 AM QUIT TOBACCO USE 1-7 YEARS AGO quit sic years ago [facility] Mar 19, 2010 10:43 AM QUIT TOBACCO USE 1-7 YEARS AGO [facility] Encounter Notes: All associated encounter notes This section contains the clinical notes associated to the Encounter. Date/Time Encounter Note(s) Provider Source Sep 22, 2024 12:00 AM NURSING ADMINISTRATIVE NOTE: LOCAL TITLE: NON-VA PRESCRIPTION STANDARD TITLE: NURSING ADMINISTRATIVE NOTE DATE OF NOTE: SEP 22, 2024 ENTRY DATE: OCT 17, 2024@07:17:30 AUTHOR: MONTSERRAT LOCKE EXP COSIGNER: URGENCY: STATUS: COMPLETED VistA Imaging - Scanned Document SCANNED DOCUMENT SIGNATURE NOT REQUIRED Electronically Filed: 10/17/2024 by: MONTSERRAT MCKINNON [facility]
== END 2024-10-17 11:29 | disposition home or self-care (01) ==
PROVIDERS: PCP Internal Medicine; Visit Provider Psychiatry & Neurology Neurology
DX: G20.A1 Parkinson's disease without dyskinesia, without mention of fluctuations (principal); G47.62 Sleep related leg cramps; R06.83 Snoring
CPT/HCPCS: 99204; G2211

== ENCOUNTER 2024-10-17 10:35 | Outpatient (REF) | payer OTHER, SELFPAY ==
--- OUTSIDE RECORDS SUMMARY | 2024-10-17 12:55 | XMS_ITS | Continuity of Care Document ---
Author Name [facility] Organization [facility] Care Team Providers Care Scrap Separator Name Role Phone [facility] Unavailable Unavailable Problems Combined list of problems from Department of Defense and Veterans Affairs facilities. It does not include entries that were removed or entered in error. Problem Status Onset Date Problem Type Date of Resolution Comments Source Abnormal weight loss Active 024 Condition January 02, 2024 Entered By: JANETTE HENDERSON Comment: tests ordered [facility] Headache (SCT [id number]) Active 022 Condition Mar 23, 2022 Entered By: JANETTE HENDERSON Comment: CT head normal [facility] Degenerative arthritis Active 020 Condition Sep 17, 2019 Entered By: JANETTE HENDERSON Comment: confirmed by x-ray lumbar spine [facility] Erectile Dysfunction (SCT [id number]) Active 019 Condition Dec 12, 2018 Entered By: JANETTE HENDERSON Comment: treated with medication [facility] Hypercholesterolemia Active 016 Condition [facility] Diabetes mellitus (SNOMED CT [id number]) Active 013 Condition [facility] Lyme Disease Active 013 Condition [facility] Essential hypertension Active 010 Condition [facility] Hypercholesterolemia Active 010 Condition [facility] Colon Cancer Active 005 Condition [facility] Colorectal Cancer Active Condition Fl r 2012 Entered By: NELSON LAIRD Comment: [...] ORAL DISCONT INUED BY PROVIDE R 10/27/2024 [id number] NAMITA HORTA Y 2023 270 [facility] CARBIDOPA 25MG/LEVODO PA 100MG TAB TAKE 1 TABLET BY MOUTH THREE TIMES A DAY ORAL DISCONT INUED 03/01/2024 [id number] NAMITA HORTA Y 2022 270 [facility] CARBOXYMETH YLCELLULOSE NA 0.5% SOLN,OPH INSTILL 1 DROP INTO EACH EYE FOUR TIMES A DAY OPHTHA LMIC 06/19/2024 [id number] Sebastian YBARRAEW E 2022 45 [facility] CYCLOBENZAP RINE HCL 10MG TAB TAKE ONE TABLET BY MOUTH THREE TIMES DAILY NEEDED FOR BACK SPASMS ORAL ACTIVE 11/24/2024 [id number] RAYMUNDO HENDERSON ZBIGNIEW D 2023 90 [facility] LIDOCAINE 5% PATCH APPLY 1 PATCH TOPICALL Y ONCE DAILY NEEDED FOR NERVE PAIN (LEAVE PATCH ON FOR 12 HOURS, THEN REMOVE PATCH) TOPICA L ACTIVE 02/09/2025 [id number] 5 RAYMUNDO HENDERSON ZBIGNIEW D 2023 30 [facility] LISINOPRIL 5MG TAB [...] FOR PAIN/INF LAMMATIO N/SWELLI NG ORAL 04/28/2024 [id number] RAYMUNDO HENDERSON D 2022 60 [facility] OMEPRAZOLE 20MG CAP,EC TAKE ONE CAPSULE BY MOUTH EVERY MORNING 30 MINUTES BEFORE BREAKFAS T ORAL ACTIVE 11/24/2024 [id number] RAYMUNDO HENDERSOND D 2023 90 [facility] OMEPRAZOLE 20MG CAP,EC TAKE ONE CAPSULE BY MOUTH EVERY MORNING 30 MINUTES BEFORE BREAKFAS T ORAL DISCONT INUED 03/06/2024 [id number] 4 RAYMUNDO HENDERSON D 2022 90 [facility] SILDENAFIL CITRATE 50MG TAB TAKE ONE TABLET BY MOUTH NEEDED TAKE 1 HOUR PRIOR TO SEXUAL ACTIVITY ORAL 04/28/2024 [id number] RAYMUNDO HENDERSON D 2022 4 [facility] Allergies, Adverse Reactions, Alerts [...] reactions to drug (finding) Eruption active 8 [facility] CEPHALEXIN Propensity to adverse reactions to drug (finding) Eruption active 7 [facility] COLESTIPOL Propensity to adverse reactions to drug (finding) Finding of gastrointes tinal tract gas active 4 [facility] LIPITOR Propensity to adverse reactions to drug (finding) Muscle pain active 3 [facility] PERCOCET Propensity to adverse reactions to drug (finding) Visual disturbance active 3 [facility] PRAVASTATIN Propensity to adverse reactions to [...] Site Reaction Lot Number CVX Code Drug Nanoscience Technician Status Comments Source RSV, BIVALENT, PROTEIN SUBUNIT RSVPREF, DILUENT RECONSTITUTED , 0.5 ML, PF 2023 RISA BOWDEN RIGHT DELTO ID [id number] 305 complet ed sterile water diluent component [id number] [facility] COVID-19 (MODERNA), MRNA, LNP-S, PF, 50 MCG/0.5 ML (AGES 12+ YEARS) 7 2023 312 complet ed [facility] INFLUENZA, UNSPECIFIED FORMULATION 2023 88 complet ed [facility] COVID-19 (MODERNA), MRNA, LNP-S, PF, 50 MCG/0.5 ML (AGES 12+ YEARS) 6 2023 RISA BOWDEN RIGHT DELTO ID [id number] 312 complet ed [facility] INFLUENZA, UNSPECIFIED FORMULATION 2022 88 complet ed [facility] INFLUENZA, UNSPECIFIED FORMULATION 2021 88 complet ed [facility] COVID-19 (MODERNA), MRNA, LNP-S, BIVALENT BOOSTER, PF, 50 MCG/0.5 ML OR 25MCG/0.25 ML DOSE 2021 229 complet ed [facility] COVID-19 (PFIZER), [...] DOSE 2 2020 208 complet ed PFR; [id number]; 1 [facility] COVID-19 (PFIZER), MRNA, LNP-S, PF, 30 MCG/0.3 ML DOSE 1 2020 208 complet ed PFR; [id number]; 1 [facility] [...] FLU,3 YRS (HISTORICAL) 2009 88 complet ed [facility] [...] Reference Range Date Interpretation Specimen Comments Source BASIC METABOLIC PANEL (non-fast ing) UREA NITROGEN [MASS/VOLUM E] IN SERUM OR PLASMA 15 06/13 Specimen Type: BLOOD No comment entered. Ordering Provider: CONNIE HENDERSON Report Released Date/Time: Jun 09, 2024 09:26 PM Reporting Lab: [facility] [place] [facility] [address] [facility] [address] Performing Lab: [facility] [address] [facility] [address] [place] [facility] [facility] [place] [facility] BASIC METABOLIC PANEL (non-fast ing) GLUCOSE [MASS/VOLUM E] IN SERUM OR PLASMA 136 06/13 Specimen Type: BLOOD No comment entered. Ordering Provider: CONNIE HENDERSON Report Released Date/Time: Jun 09, 2024 09:26 PM Reporting Lab: [facility] [place] [facility] [address] [facility] [address] Performing Lab: [place] [facility] [place] [facility] [address] [facility] [address] [place] [facility] [facility] BASIC METABOLIC PANEL (non-fast ing) SODIUM [MOLES/VOLU ME] IN SERUM OR PLASMA 142 06/13 Specimen Type: BLOOD No comment entered. Ordering Provider: CONNIE HENDERSON Report Released Date/Time: Jun 09, 2024 09:26 PM Reporting Lab: [place] [facility] [place] [facility] [address] [facility] [address] Performing Lab: [place] [facility] [place] [facility] [address] [facility] [address] [place] [facility] [facility] BASIC METABOLIC PANEL (non-fast ing) POTASSIUM [MOLES/VOLU ME] IN SERUM OR PLASMA 4.7 06/13 Specimen Type: BLOOD No comment entered. Ordering Provider: CONNIE HENDERSON Report Released Date/Time: Jun 09, 2024 09:26 PM Reporting Lab: [facility] [facility] [address] [facility] [address] Performing Lab: [place] [facility] [facility] [address] [facility] [address] [facility] [place] [facility] BASIC METABOLIC PANEL (non-fast ing) CHLORIDE [MOLES/VOLU ME] IN SERUM OR PLASMA 112 06/13 Specimen Type: BLOOD No comment entered. Ordering Provider: CONNIE HENDERSON Report Released Date/Time: Jun 09, 2024 09:26 PM Reporting Lab: [place] [facility] [place] [facility] [address] [facility] [address] Performing Lab: [place] [facility] [place] [facility] [address] [facility] [address] [place] [facility] BASIC METABOLIC PANEL (non-fast ing) CARBON DIOXIDE, TOTAL [MOLES/VOLU ME] IN SERUM OR PLASMA 20 06/13 Specimen Type: BLOOD No comment entered. Ordering Provider: CONNIE HENDERSON Report Released Date/Time: Jun 09, 2024 09:26 PM Reporting Lab: [place] [facility] [facility] [address] [facility] [address] Performing Lab: [facility] [place] [facility] [address] [facility] [address] [facility] [facility] BASIC METABOLIC PANEL (non-fast ing) CREATININE [MASS/VOLUM E] IN SERUM OR PLASMA 1.20 06/13 Specimen Type: BLOOD No comment entered. Ordering Provider: CONNIE HENDERSON Report Released Date/Time: Jun 09, 2024 09:26 PM Reporting Lab: [place] [facility] [place] [facility] [address] [facility] [address] Performing Lab: [facility] TRN [facility] [address] [facility] [address] [facility] TRN [facility] BASIC METABOLIC PANEL (non-fast ing) GLOMERULAR FILTRATION RATE/1.73 SQ M.PREDICTED [VOLUME RATE/AREA] IN SERUM, PLASMA OR BLOOD BY CREATININE- BASED FORMULA (CKD-EPI 2020) 63 06/13 Specimen Type: BLOOD No comment entered. Ordering Provider: CONNIE HENDERSON Report Released Date/Time: Jun 09, 2024 09:26 PM Reporting Lab: [facility] [address] [facility] [address] Performing Lab: [facility] TRN [facility] [address] [facility] [address] [facility]ITALRW[facility] HOSPITALN [facility]ITALUSE [facility] CARCINOEM BRYONIC ANTIGEN CARCINOEMBR YONIC AG [MASS/VOLUM E] IN SERUM OR PLASMA 1.91 ng/mL 0 - 5 06/13 Specimen Type: SERUM Comment: Non-smokers : <2.5 Smokers <5.0. Ordering Provider: CONNIE HENDERSON Report Released Date/Time: Jun 09, 2024 09:26 PM Reporting Lab: [facility]N [facility] [address] [facility] [address] Performing Lab: [place] [facility] [facility] [address] [facility] [address] [facility]RL [facility] CBC AND DIFF (AUTO) LEUKOCYTES [#/VOLUME] IN BLOOD BY AUTOMATED COUNT 7.01 10*3/u L 4.50 - 11.00 06/13 Specimen Type: BLOOD No comment entered. Ordering Provider: CONNIE HENDERSON Report Released Date/Time: Jun 09, 2024 09:26 PM Reporting Lab: [facility] [place] [facility] [address] [facility] [address] Performing Lab: [facility] [place] [facility] [address] [facility] [address] [facility] [facility] CBC AND DIFF (AUTO) ERYTHROCYTE S [#/VOLUME] IN BLOOD BY AUTOMATED COUNT 4.40 10*6/u L 4.23 - 5.66 06/13 Specimen Type: BLOOD No comment entered. Ordering Provider: CONNIE HENDERSON Report Released Date/Time: Jun 09, 2024 09:26 PM Reporting Lab: [facility] [place] [facility] [address] [facility] [address] Performing Lab: [place] [facility] [place] [facility] [address] [facility] [address] [place] [facility] [facility] CBC AND DIFF (AUTO) HEMOGLOBIN [MASS/VOLUM E] IN BLOOD 13.7 g/dL 12.8 - 17 06/13 Specimen Type: BLOOD No comment entered. Ordering Provider: CONNIE HENDERSON Report Released Date/Time: Jun 09, 2024 09:26 PM Reporting Lab: [facility] [place] [facility] [address] [facility] [address] Performing Lab: [facility] [facility] [address] [facility] [address] [facility] [facility] CBC AND DIFF (AUTO) HEMATOCRIT [VOLUME FRACTION] OF BLOOD BY AUTOMATED COUNT 39.3 39.2 - 50.4 06/13 Specimen Type: BLOOD No comment entered. Ordering Provider: CONNIE HENDERSON Report Released Date/Time: Jun 09, 2024 09:26 PM Reporting Lab: [facility] [place] [facility] [address] [facility] [address] Performing Lab: [facility] [place] [facility] [address] [facility] [address] [place] [facility] [facility] CBC AND DIFF (AUTO) MCV [ENTITIC VOLUME] BY AUTOMATED COUNT 89.3 fL 82 - 99 06/13 Specimen Type: BLOOD No comment entered. Ordering Provider: CONNIE HENDERSON Report Released Date/Time: Jun 09, 2024 09:26 PM Reporting Lab: [facility] [place] [facility] [address] [facility] [address] Performing Lab: [facility] [place] [facility] [address] [facility] [address] [place] [facility] [facility] CBC AND DIFF (AUTO) MCHC [MASS/VOLUM E] BY AUTOMATED COUNT 34.9 g/dL 30.8 - 35.1 06/13 Specimen Type: BLOOD No comment entered. Ordering Provider: CONNIE HENDERSON Report Released Date/Time: Jun 09, 2024 09:26 PM Reporting Lab: [place] [facility] [place] [facility] [address] [facility] [address] Performing Lab: [place] [facility] [place] [facility] [address] [facility] [address] [place] [facility] [facility] CBC AND DIFF (AUTO) PLATELETS [#/VOLUME] IN BLOOD BY AUTOMATED COUNT 194 10*3/u L 140 - 360 06/13 Specimen Type: BLOOD No comment entered. Ordering Provider: CONNIE HENDERSON Report Released Date/Time: Jun 09, 2024 09:26 PM Reporting Lab: [place] [facility] [place] [facility] [address] [facility] [address] Performing Lab: [facility] [place] [facility] [address] [facility] [address] [place] [facility] [place] [facility] CBC AND DIFF (AUTO) ERYTHROCYTE DISTRIBUTIO N WIDTH [RATIO] BY AUTOMATED COUNT 12.7 12.0 - 16.0 06/13 Specimen Type: BLOOD No comment entered. Ordering Provider: CONNIE HENDERSON Report Released Date/Time: Jun 09, 2024 09:26 PM Reporting Lab: [place] [facility] [place] [facility] [address] [facility] [address] Performing Lab: [facility] [place] [facility] [address] [facility] [address] [place] [facility] [facility] CBC AND DIFF (AUTO) MONOCYTES [#/VOLUME] IN BLOOD BY AUTOMATED COUNT 0.66 10*3/u L 0.30 - 1.10 06/13 Specimen Type: BLOOD No comment entered. Ordering Provider: CONNIE HENDERSON Report Released Date/Time: Jun 09, 2024 09:26 PM Reporting Lab: [facility] [address] [facility] [address] Performing Lab: [facility] [facility] [address] [facility] [address] [place] [facility] [facility] CBC AND DIFF (AUTO) MCH [ENTITIC MASS] BY AUTOMATED COUNT 31.1 pg 26.2 - 32.6 06/13 Specimen Type: BLOOD No comment entered. Ordering Provider: CONNIE HENDERSON Report Released Date/Time: Jun 09, 2024 09:26 PM Reporting Lab: [facility] [facility] [address] [facility] [address] Performing Lab: [place] [facility] [place] [facility] [address] [facility] [address] [facility] [facility] CBC AND DIFF (AUTO) NEUTROPHILS /100 LEUKOCYTES IN BLOOD BY AUTOMATED COUNT 53.5 43.7 - 75.8 06/13 Specimen Type: BLOOD No comment entered. Ordering Provider: CONNIE HENDERSON Report Released Date/Time: Jun 09, 2024 09:26 PM Reporting Lab: [facility] [facility] [address] [facility] [address] Performing Lab: [facility] [place] [facility] [address] [facility] [address] [place] [facility] [place] [facility] CBC AND DIFF (AUTO) LYMPHOCYTES /100 LEUKOCYTES IN BLOOD BY AUTOMATED COUNT 29.4 14.0 - 42.3 06/13 Specimen Type: BLOOD No comment entered. Ordering Provider: CONNIE HENDERSON Report Released Date/Time: Jun 09, 2024 09:26 PM Reporting Lab: [facility] [place] [facility] [address] [facility] [address] Performing Lab: [place] [facility] [place] [facility] [address] [facility] [address] [place] [facility] [facility] CBC AND DIFF (AUTO) MONOCYTES/1 00 LEUKOCYTES IN BLOOD BY AUTOMATED COUNT 9.4 5.1 - 13.7 06/13 Specimen Type: BLOOD No comment entered. Ordering Provider: CONNIE HENDERSON Report Released Date/Time: Jun 09, 2024 09:26 PM Reporting Lab: [place] [facility] [place] [facility] [address] [facility] [address] Performing Lab: [place] [facility] [facility] [address] [facility] [address] [facility] [place] [facility] CBC AND DIFF (AUTO) EOSINOPHILS /100 LEUKOCYTES IN BLOOD BY AUTOMATED COUNT 6.6 0.4 - 6.8 06/13 Specimen Type: BLOOD No comment entered. Ordering Provider: CONNIE HENDERSON Report Released Date/Time: Jun 09, 2024 09:26 PM Reporting Lab: [place] [facility] [place] [facility] [address] [facility] [address] Performing Lab: [place] [facility] [facility] [address] [facility] [address] [facility]N [place] [facility] CBC AND DIFF (AUTO) BASOPHILS/1 00 LEUKOCYTES IN BLOOD BY AUTOMATED COUNT 0.7 0.1 - 2.0 06/13 Specimen Type: BLOOD No comment entered. Ordering Provider: CONNIE HENDERSON Report Released Date/Time: Jun 09, 2024 09:26 PM Reporting Lab: [place] [facility] [place] [facility] [address] [facility] [address] Performing Lab: [place] [facility] [place] [facility] [address] [facility] [address] [facility] [place] [facility] CBC AND DIFF (AUTO) NEUTROPHILS [#/VOLUME] IN BLOOD BY AUTOMATED COUNT 3.75 10*3/u L 2.20 - 7.60 06/13 Specimen Type: BLOOD No comment entered. Ordering Provider: CONNIE HENDERSON Report Released Date/Time: Jun 09, 2024 09:26 PM Reporting Lab: [facility] [place] [facility] [address] [facility] [address] Performing Lab: [facility] [place] [facility] [address] [facility] [address] [facility] [place] [facility] CBC AND DIFF (AUTO) LYMPHOCYTES [#/VOLUME] IN BLOOD BY AUTOMATED COUNT 2.06 10*3/u L 1.00 - 3.20 06/13 Specimen Type: BLOOD No comment entered. Ordering Provider: CONNIE HENDERSON Report Released Date/Time: Jun 09, 2024 09:26 PM Reporting Lab: [facility] [place] [facility] [address] [facility] [address] Performing Lab: [facility] [place] [facility] [address] [facility] [address] [facility] [place] [facility] CBC AND DIFF (AUTO) EOSINOPHILS [#/VOLUME] IN BLOOD BY AUTOMATED COUNT 0.46 10*3/u L 0.03 - 0.44 06/13 H Specimen Type: BLOOD No comment entered. Ordering Provider: CONNIE HENDERSON Report Released Date/Time: Jun 09, 2024 09:26 PM Reporting Lab: [facility] [place] [facility] [address] [facility] [address] Performing Lab: [facility] [place] [facility] [address] [facility] [address] [facility] [place] [facility] CBC AND DIFF (AUTO) BASOPHILS [#/VOLUME] IN BLOOD BY AUTOMATED COUNT 0.05 10*3/u L 0.01 - 0.13 06/13 Specimen Type: BLOOD No comment entered. Ordering Provider: CONNIE HENDERSON Report Released Date/Time: Jun 09, 2024 09:26 PM Reporting Lab: [facility] [place] [facility] [address] [facility] [address] Performing Lab: [facility] [place] [facility] [address] [facility] [address] [facility] [place] [facility] CBC AND DIFF (AUTO) IMMATURE GRANULOCYTE S/100 LEUKOCYTES IN BLOOD BY AUTOMATED COUNT 0.4 0.0 - 0.7 06/13 Specimen Type: BLOOD No comment entered. Ordering Provider: CONNIE HENDERSON Report Released Date/Time: Jun 09, 2024 09:26 PM Reporting Lab: [place] [facility] [address] [address] Performing Lab: [place] [facility] [facility] [address] [facility] W[facility]N [facility]CHUSE [facility] CBC AND DIFF (AUTO) IMMATURE GRANULOCYTE S [#/VOLUME] IN BLOOD 0.03 10*3/u L 0.00 - 0.06 06/13 Specimen Type: BLOOD No comment entered. Ordering Provider: CONNIE HENDERSON Report Released Date/Time: Jun 09, 2024 09:26 PM Reporting Lab: [facility]PITALRMOBILE IN[facility] CENTERTRN [address] [address] Performing Lab: [place] [facility] TRN [facility] [address] [facility]ITALRL TRN [facility]ITALUSE [facility] CBC AND DIFF (AUTO) NRBC % 0.0 0.0 - 0.0 06/13 Specimen Type: BLOOD No comment entered. Ordering Provider: CONNIE HENDERSON Report Released Date/Time: Jun 09, 2024 09:26 PM Reporting Lab: [facility]ITALR[facility]BILE IN[facility] CENTERTRN [facility] [address] Performing Lab: [place] [facility] TRN [facility]ITALUSE[address] [address] [facility]ITALRL TRN [facility]ITALUSE [facility] CBC AND DIFF (AUTO) NRBC, ABS 0.00 10*3/u L 0.00 - 0.00 06/13 Specimen Type: BLOOD No comment entered. Ordering Provider: CONNIE HENDERSON Report Released Date/Time: Jun 09, 2024 09:26 PM Reporting Lab: [facility]ITALRL TRN [facility]ITALUSE[address] [address] Performing Lab: [place] [facility] TRN [facility]ITAL[facility] [address] [facility] HEMOGLOBI N A1C PANEL HEMOGLOBIN A1C/HEMOGLO BIN.TOTAL [...] Jun 09, 2024 09:26 PM Reporting Lab: [address] [address] Performing Lab: [address] [address] [facility] LIPID PANEL FASTING CHOLESTEROL [MASS/VOLUM E] IN SERUM OR PLASMA 141 06/13 Specimen Type: BLOOD No comment entered. Ordering Provider: CONNIE HENDERSON Report Released Date/Time: Jun 09, 2024 09:26 PM Reporting Lab: [address] [address] Performing Lab: [address] [address] [facility] LIPID PANEL FASTING TRIGLYCERID E [MASS/VOLUM E] IN SERUM OR PLASMA 84 06/13 Specimen Type: BLOOD No comment entered. Ordering Provider: CONNIE HENDERSON Report Released Date/Time: Jun 09, 2024 09:26 PM Reporting Lab: [address] [address] Performing Lab: [address] [address] [facility] LIPID PANEL FASTING CHOLESTEROL IN LDL [MASS/VOLUM E] IN SERUM OR PLASMA BY CALCULATION 79 06/13 Specimen Type: BLOOD No comment entered. Ordering Provider: CONNIE HENDERSON Report Released Date/Time: Jun 09, 2024 09:26 PM Reporting Lab: [place] [facility] [facility] [address] [facility] [address] Performing Lab: [facility] [facility] [address] [facility] [address] [place] [facility] [facility] [facility] LIPID PANEL FASTING CHOLESTEROL .TOTAL/CHOL ESTEROL IN HDL [MASS RATIO] IN SERUM OR PLASMA 3.5 06/13 Specimen Type: BLOOD No comment entered. Ordering Provider: CONNIE HENDERSON Report Released Date/Time: Jun 09, 2024 09:26 PM Reporting Lab: [place] [facility] [place] [facility] [address] [facility] [address] Performing Lab: [place] [facility] [facility] [address] [facility] [address] [place] [facility] [facility] LIPID PANEL FASTING CHOLESTEROL IN HDL [MASS/VOLUM E] IN SERUM OR PLASMA 45 06/13 Specimen Type: BLOOD No comment entered. Ordering Provider: CONNIE HENDERSON Report Released Date/Time: Jun 09, 2024 09:26 PM Reporting Lab: [place] [facility] [place] [facility] [address] [facility] [address] Performing Lab: [place] [facility] [place] [facility] [address] [facility] [address] [place] [facility] [facility] LIVER FUNCTION PROTEIN [MASS/VOLUM E] IN SERUM OR PLASMA 7.2 06/13 Specimen Type: BLOOD No comment entered. Ordering Provider: CONNIE HENDERSON Report Released Date/Time: Jun 09, 2024 09:26 PM Reporting Lab: [place] [facility] [place] [facility] [address] [facility] [address] Performing Lab: [place] [facility] [facility] [address] [facility] [address] [place] [facility] [facility] LIVER FUNCTION ALBUMIN [MASS/VOLUM E] IN SERUM OR PLASMA 4.2 06/13 Specimen Type: BLOOD No comment entered. Ordering Provider: CONNIE HENDERSON Report Released Date/Time: Jun 09, 2024 09:26 PM Reporting Lab: [facility] [place] [facility] [address] [facility] [address] Performing Lab: [facility] [place] [facility] [address] [facility] [address] [facility] [place] [facility] LIVER FUNCTION ALKALINE PHOSPHATASE [ENZYMATIC ACTIVITY/VO LUME] IN SERUM OR PLASMA 51 06/13 Specimen Type: BLOOD No comment entered. Ordering Provider: CONNIE HENDERSON Report Released Date/Time: Jun 09, 2024 09:26 PM Reporting Lab: [facility] [place] [facility] [address] [facility] [address] Performing Lab: [facility] [place] [facility] [address] [facility] [address] [facility] [place] [facility] LIVER FUNCTION ASPARTATE AMINOTRANSF ERASE [ENZYMATIC ACTIVITY/VO LUME] IN SERUM OR PLASMA 21 06/13 Specimen Type: BLOOD No comment entered. Ordering Provider: CONNIE HENDERSON Report Released Date/Time: Jun 09, 2024 09:26 PM Reporting Lab: [facility] [place] [facility] [address] [facility] [address] Performing Lab: [facility] [facility] [address] [facility] [address] [facility] [place] [facility] LIVER FUNCTION ALANINE AMINOTRANSF ERASE [ENZYMATIC ACTIVITY/VO LUME] IN SERUM OR PLASMA 26 06/13 Specimen Type: BLOOD No comment entered. Ordering Provider: CONNIE HENDERSON Report Released Date/Time: Jun 09, 2024 09:26 PM Reporting Lab: [facility] [place] [facility] [address] [facility] [address] Performing Lab: [facility] [place] [facility] [address] [facility] [address] [facility] [facility] LIVER FUNCTION BILIRUBIN.T OTAL [MASS/VOLUM E] IN SERUM OR PLASMA 0.4 06/13 Specimen Type: BLOOD No comment entered. Ordering Provider: CONNIE HENDERSON Report Released Date/Time: Jun 09, 2024 09:26 PM Reporting Lab: [facility] [place] [facility] [address] [facility] [address] Performing Lab: [facility] [place] [facility] [address] [facility] [address] [facility] [facility] PSA PSA 2.46 06/13 Specimen Type: BLOOD No comment entered. Ordering Provider: CONNIE HENDERSON Report Released Date/Time: Jun 09, 2024 09:26 PM Reporting Lab: [facility] [place] [facility] [address] [facility] [address] Performing Lab: [facility] [place] [facility] [address] [facility] [address] [place] [facility] [facility] TSH TSH 2.52 06/13 Specimen Type: BLOOD No comment entered. Ordering Provider: CONNIE HENDERSON Report Released Date/Time: Jun 09, 2024 09:26 PM Reporting Lab: [place] [facility] [place] [facility] [address] [facility] [address] Performing Lab: [place] [facility] [place] [facility] [address] [facility] [address] [facility] [facility] FOLATE (WROX) FOLATE [MASS/VOLUM E] IN SERUM OR PLASMA 18.57 ng/mL 5.2 01/01 Specimen Type: SERUM No comment entered. Ordering Provider: CONNIE HENDERSON Report Released Date/Time: January 02, 2024 11:42 AM Reporting Lab: [place] [facility] [place] [facility] [address] [facility] [address] Performing Lab: [place] [facility] [place] [facility] [address] [facility] [address] [place] [facility] [place] [facility] KAPPA LAMBDA PANEL KAPPA LIGHT CHAINS/STEWART DA [...] disorders, and amyloidosis . Test Performed by [facility] [employer], [address] [place] [address] Lorne Umaña M.D., Ph.D., Director of Laboratorie s , CLIA [id number] TEST PERFORMED AT: , Ordering Provider: CONNIE HENDERSON Report Released Date/Time: January 02, 2024 11:42 AM Reporting Lab: [place] [facility] [facility] [address] [facility] [address] Performing Lab: [place] [facility] [place] [facility] [address] [address] [place] [facility] [facility] KAPPA LAMBDA PANEL KAPPA LIGHT CHAINS [MASS/VOLUM [...] disorders, and amyloidosis . Test Performed by [employer] [employer] [place], [address] [place] [address] Lorne Umaña M.D., Ph.D., Director of Laboratorie s , CLIA [id number] TEST PERFORMED AT: , Ordering Provider: CONNIE HENDERSON Report Released Date/Time: January 02, 2024 11:42 AM Reporting Lab: [place] [facility] [place] [facility] [address] [facility] [address] Performing Lab: [place] [facility] [place] [facility] [address] [facility], [address] [place] [address] [place] [facility] [facility] KAPPA LAMBDA PANEL LAMBDA LIGHT CHAINS [MASS/VOLUM [...] disorders, and amyloidosis . Test Performed by [facility], [email or web address] [facility], [address] [place] [address] Lorne Umaña M.D., Ph.D., Director of Laboratorie s , CLIA [id number] TEST PERFORMED AT: , Ordering Provider: CONNIE HENDERSON Report Released Date/Time: January 02, 2024 11:42 AM Reporting Lab: [place] [facility] [facility] [address] [facility] [address] Performing Lab: [place] [facility] [place] [facility] [address] [address] [place] [facility] [facility] Vital Signs Combined list of inpatient and outpatient Vital Signs from Department of Defense and Veterans Affairs, ranging from 12 months to all on record, depending upon the facility. Vital Sign Value Date Comments Source SYSTOLIC BLOOD PRESSURE 154 06/19/20 24 14:12:47 [place] [facility] [facility] DIASTOLIC BLOOD PRESSURE 72 024 14:12:47 [place] [facility] [facility] PULSE OXIMETRY 97 06/19/2024 14:12:47 [facility] [place] [facility] WEIGHT 196 06/19/2024 14:12:47 [facility] [place] 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 SELF CARE MNGMENT TRAINING [id number] Diagnos is: ICD-10- CM R53.1 Hilario Lara 05/08 [facility] [place] [place] [facility] Outpatient Encounter [id number] 06/06 [facility] [place] [place] 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 Outpatient Encounter [id number] 06/19 [facility] [place] [facility] [place] [facility] EYE EXAM&TX ESTAB PT 1/>VST [id number] Diagnos is: ICD-10- CM E11.9 Type 2 diabete s mellitu s without complic ations ISMAEL YBARRA 06/19 [facility] [place] [place] [facility] Outpatient Encounter [id number] 06/23 [facility] [place] [place] [facility] FIT SPECTACLES MULTIFOCAL [id number] Diagnos is: ICD-10- CM Z46.0 Encount er for fit/adj st of spectac les and contact lenses FRANKLIN VIGIL 06/23 [facility] [place] En[facility] [id number] 07/17 [facility] [place] En[facility] [id number] 07/27 [facility] [place] En[facility] [id number] 08/23 [facility] [place] OFF[facility] O/P EST LOW 20 MIN [id number] Diagnos is: ICD-10- CM I10 Essenti al (primar y) hyperte nsion ZION HENDERSON RD D 09/01 [facility] [place] En[facility] [id number] 09/21 [facility] [place] En[facility] [id number] 09/25 [facility] [place] En[facility] [id number] 10/02 [facility] [place] [place] OFF[facility] O/P EST MOD 30 MIN [id number] Diagnos is: ICD-10- CM R25.1 Tremor, unspeci fied ANDRES HORTA IEL Y 10/26 [facility] [place] En[facility] [id number] 11/23 [facility] [place] En[facility] [id number] 11/23 [facility] [place] QNHP OL DIG ASSMT&MGMT 5-10 [id number] Diagnos is: ICD-10- CM Z04.89 Encount er for examina tion and observa tion for oth reasons MARCI FIGUEROA 12/14 [facility] [place] OFF[facility] O/P EST LOW 20 MIN [id number] Diagnos is: ICD-10- CM R63.4 Abnorma l weight loss ZION HENDERSON RD D 01/01 [facility] [place] OFF[facility] O/P EST LOW 20 MIN [id number] Diagnos is: ICD-10- CM R63.4 Abnorma l weight loss ZION HENDERSON RD 01/01 [facility] [place] En[facility] [id number] 01/03 [facility] [place] En[facility] [id number] D 01/08 [facility] [place] En[facility] [id number] D 01/08 [facility] [place] En[facility] [id number] 01/11 [facility] [place] [place] Encounter [id number] D 01/11 [facility] [place] [place] OFF[facility] O/P EST LOW 20 MIN [id number] Diagnos is: ICD-10- CM R63.4 Abnorma l weight loss ZION HENDERSON RD D 02/08 [facility] [place] En[facility] [id number] 02/12 [facility] [place] En[facility] [id number] 02/12 [facility] [place] Encounter [id number] 02/22 [facility] [place] En[facility] [id number] 02/22 [facility] [place] En[facility] [id number] 03/10 [facility] [place] En[facility] [id number] 03/11 [facility] [place] Encounter [id number] 03/12 [facility] [place] Encounter [id number] 05/14 [facility] [place] En[facility] [id number] 05/20 [facility] [place] En[facility] [id number] 06/19 [facility] [place] COM[place]AM [place] PT 1/ [id number] Diagnos is: ICD-10- CM E11.9 Type 2 diabete s mellitu s without complic ations ISMAEL YBARRA E 06/19 [facility] FIT SPECTACLES MULTIFOCAL [id number] Diagnos is: ICD-10- CM Z46.0 Encount er for fit/adj st of spectac les and contact lenses ISMAEL YBARRA E 06/19 [facility] [place] [place] [facility] OFFICE O/P EST LOW 20 MIN [id number] Diagnos is: ICD-10- CM R63.4 Abnorma l weight loss ZION HENDERSON RD D 06/19 [facility] [place] En[facility] [id number] 06/23 [facility] [place] En[facility] [id number] D 07/18 [facility] [place] En[facility] [id number] 09/22 [facility] [place] Encounter [id number] 09/22 [facility] [place] [place] Encounter [id number] 10/07 [facility] [place] [facility] [place] [facility] Outpatient Encounter [id number] 10[facility] Social History Combined list of available smoking, tobacco, and other social history from Department of Defense and Veterans Affairs facilities. Social History Type Response Date Comment Source Tobacco smoking status NHIS VA-TOBACCO QUIT 15 YRS OR MORE 09/01/2023 [facility] [place] [facility] History of tobacco use IL-TOBACCO FORMER USER 09/01/2023 [facility] [place] [facility] History of tobacco use [facility]-TOBACCO FORMER USER [facility] [place] [facility] History of tobacco use IL-TOBACCO FORMER USER 07/14/2021 [facility] [place] [facility] History of tobacco use IL-TOBACCO FORMER USER 05/26/2020 [facility] [place] [facility] History of tobacco use IL-TOBACCO FORMER USER 08/13/2018 [facility] [place] [facility] History of tobacco use LIFETIME NON-TOBACCO USER 12/14/2017 [facility] [place] [facility] History of tobacco use QUIT TOBACCO USE > 7 YEARS AGO 09/26/2016 [facility] [place] [facility] History of tobacco use QUIT TOBACCO USE > 7 YEARS AGO 09/11/2015 pt states he quit smoking 47 yrs ago. [facility] [place] [facility] History of tobacco use LIFETIME NON-TOBACCO USER 04/09/2013 pt states he quit 8 years ago. [facility] [place] [facility] History of tobacco use QUIT TOBACCO USE 1-7 YEARS AGO 03/08/2012 [facility] [place] [facility] History of tobacco use QUIT TOBACCO USE 1-7 YEARS AGO 07/13/2011 quit sic years ago [facility] [place] [facility] History of tobacco use QUIT TOBACCO USE 1-7 YEARS AGO 03/19/2010 [facility] [place] [facility] Plan of Care List of future care activities from Department of Veterans Affairs facilities. Additional future care activities may be listed in the Assessment and Plan section. Date/Time Care Activity Care Activity Detail Facili ty 10/17/2024 AMBULATORY - MEDICINE AMBULATORY - [facility]ICI [facility] [place] [facility] 10/23/2024 AMBULATORY - MEDICINE AMBULATORY - MEDICI [facility] [place] [facility] 10/12/2024 Laboratory - Shank Breaker ry Order URINALYSIS CLEAN CATCH URINE SP [facility] [place] [facility] 10/12/2024 Laboratory - Shank Breaker ry Order MICROALBUMIN CREATININE RATIO PANEL URINE (RANDOM) SP [facility] [place] [facility] 10/12/2024 Laboratory - Shank Breaker ry Order HEMOGLOBIN A1C PANEL BLOOD (LAV-BLOOD) SP [facility] [place] [facility] 10/12/2024 Laboratory - Shank Breaker ry Order CARCINOEMBRYONIC ANTIGEN BLOOD (SST-SERUM) SP [facility] [place] [facility] 10/12/2024 Laboratory - Shank Breaker ry Order BASIC METABOLIC PANEL (non-fasting) BLOOD (LAV-BLOOD) [facility] [place] [facility] 10/12/2024 Laboratory - Shank Breaker ry Order CBC AND DIFF (AUTO) BLOOD (LAV-BLOOD) [facility] [place] [facility] 10/12/2024 Laboratory - Shank Breaker ry Order LIVER FUNCTION BLOOD (LAV-BLOOD) SP [facility] [place] [facility] 10/12/2024 Laboratory - Shank Breaker ry Order LIPID PANEL FASTING BLOOD (LAV-BLOOD) SP [facility] [place] [facility] 10/12/2024 Laboratory - Shank Breaker ry Order TSH BLOOD (LAV-BLOOD) [facility]
[2024-10-17 18:01] LABS: MANUAL DIFF FLAG NO
[2024-10-17 18:16] LABS: Basophils Absolute Auto 0.1 X10*3/uL (0.0-0.2); Basophils Percent Auto 0.9 % (0-2); Eosinophils Absolute Auto 0.5 X10*3/uL (0.0-0.4); Eosinophils Percent Auto 6.1 % (0-4); Hematocrit 43.1 % (42.0-52.0); Hemoglobin 14.4 g/dl (14.0-18.0); Imm Gran Abs Auto 0.03 X10*3/uL (0.00-0.03); Imm Gran Pct Auto 0.4 % (0.0-0.4); Lymphocytes Absolute Auto 2.2 X10*3/uL (1.2-4.9); Lymphocytes Percent Auto 26.8 % (20-40); Mean Corpuscular HGB Conc 33.4 g/dl (31.0-36.0); Mean Corpuscular Volume 92.7 fL (80.0-98.0); Mean Platelet Volume 10.1 fL (9.4-12.4); Monocytes Absolute Auto 0.9 X10*3/uL (0.1-1.2); Monocytes Percent Auto 10.7 % (2-11); Neutrophils Absolute Auto 4.4 x10*3/uL (2.0-8.3); Neutrophils Percent Auto 55.1 % (45-73); Platelet Count 226 X10*3/uL (160-400); Red Blood Count 4.65 X10*6/uL (4.60-5.80); Red Cell Distribution Width 13.1 % (11.0-16.0)
[2024-10-17 18:29] LABS: Alanine Aminotransferase 32 U/L (0-40); Albumin Level 4.6 g/dL (3.5-5.0); Alkaline Phosphatase 57 U/L (39-117); Anion Gap 14 (12-20); Aspartate Amino Transferase 30 U/L (5-37); Bilirubin Total 0.3 mg/dL (0.0-1.0); Blood Urea Nitrogen 20 mg/dL (9-16); Calcium 10.3 mg/dL (8.4-10.2); Carbon Dioxide 20 mmol/L (22-29); Chloride 111 mmol/L (96-108); Estimated Glomerular Filt Rate > 60; Glucose Random 102 mg/dL (60-115); Sodium 140 mmol/L (135-145); Total Protein 8.2 g/dL (6.5-8.0)
[2024-10-17 18:56] LABS: Ferritin 85 ng/mL (20-250); Folate 18.7 ng/mL (> or = 4.0); TSH reflex Free T4 1.88 uIU/mL (0.32-4.0); Vitamin B12 549 pg/mL (200-900)
[2024-10-17 19:03] LABS: Erythrocyte Sedimentation Rate 17 MM/HR (0-15)
[2024-10-23 12:04] LABS: Vitamin D 25-OH, D2 <4 ng/mL; Vitamin D 25-OH, D3 50 ng/mL; Vitamin D 25-OH, Total 50 ng/mL (30-100)
[2024-10-23 13:34] LABS: Anti Nuclear Antibody Pattern Nuclear, Speckled; Anti Nuclear Antibody Screen POSITIVE (NEGATIVE)
== END 2024-10-17 10:36 | disposition home or self-care (01) ==
LOC: HO.HKASLDS 10:35
PROVIDERS: PCP Internal Medicine; Visit Provider Psychiatry & Neurology Neurology
DX: G20.A1 Parkinson's disease without dyskinesia, without mention of fluctuations (principal); G47.62 Sleep related leg cramps; R06.83 Snoring; Z79.899 Other long term (current) drug therapy
CPT/HCPCS: 36415; 80053; 82306; 82607; 82728; 82746; 84443; 85025; 85652; 86038; 86039; 99202

== ENCOUNTER 2025-02-04 12:07 | Inpatient (IN) | payer OTHER, SELFPAY ==
--- NOTE | ~2025-02-04 | XR_ITS ---
EXAMINATION: XR TIBIA AND FIBULA, RIGHT CLINICAL INFORMATION: fall COMPARISON: None available. TECHNIQUE: AP and lateral views of the right tibia and fibula were obtained. FINDINGS: The bones and soft tissues are normal. No fracture. No osseous lesions. Mild arthritis in the ankle joint. There is a large plantar calcaneal spur. XR/XR tibia fibula RT 2V IMPRESSION: No acute bony abnormalities right tibia and fibula. Electronically signed by: Gene Harris MD 02/04/2025 01:46 PM EDT RP
--- NOTE | ~2025-02-04 | CT_ITS ---
CLINICAL HISTORY: Trauma, medial tenderness, r o occ fx Exam: CT of the right knee without contrast Comparison: X-rays of the right knee from 02/04/2025 Findings: Ewwxdkri-dk-dwpeuk tricompartment osteoarthritis of the right knee including subchondral cystic changes, osteophytes, and joint space narrowing in this nonweightbearing study. Cartilage loss supported by CT including patellofemoral compartment particularly in the lateral patellar facet with subchondral sclerosis present. Mild lateral positioning of the patella as can be seen with patellofemoral tracking syndrome. Adjacent soft tissue calcifications present. Large effusion present. No acute displaced fracture. No dislocation. Vascular calcifications noted. Impression: 1. Large effusion present. 2. Zhvadotk-fn-dmlvmo osteoarthritis of the right knee. 3. No displaced fracture. This document has been electronically signed by: Mike Lindsay MD on 02/05/2025 01:11:19
--- NOTE | ~2025-02-04 | XR_ITS ---
EXAMINATION: XR KNEE, RIGHT CLINICAL INFORMATION: fall COMPARISON: None available. TECHNIQUE: Four views of the right knee. FINDINGS: No fracture, dislocation, or suspicious bone lesion. Normal bone mineralization. Normal alignment. A linear density projecting medial superiorly from the medial femoral condyle is felt to represent artifact. Joint spaces are preserved. No significant arthropathy. No significant joint effusion. Soft tissues appear normal. There are mild vascular calcifications. XR/XR knee RT 4V IMPRESSION: 1. No acute abnormalities of the right knee. Electronically signed by: Gene Harris MD 02/04/2025 01:45 PM EDT
--- NOTE | ~2025-02-04 | CT_ITS ---
EXAMINATION: CT CERVICAL SPINE WITHOUT CONTRAST CLINICAL INFORMATION: Fall. DLP: 1104 mGY*cm COMPARISON: None available. TECHNIQUE: CT images were obtained axially by scanning through the base of the skull through lower T2. Coronal and sagittal reformatted images were generated from the original axial data set. ALARA: The examination used one or more of the following radiation dose reduction techniques: Automated exposure control, iterative reconstruction, and/or adjustment of mA and/or KV. FINDINGS: Faint lucency and cortical offset is noted in the C2 right transverse process (axial series 4 image 140/320). 2 lucencies in the cortex of the posterior superior left vertebral body of T1 is concerning for a small nondisplaced fracture. (Coronal image 42-3/86) Otherwise, there are extensive degenerative changes with grade 1 anterolisthesis at C4-5 and minimally at C3-4, C5-6, and C7-T1. There are endplate osteophytes and mild disc space narrowing. There is extensive facet sclerosis, osteophytes, and facet joint space narrowing between C3 and T1. There is also extensive degenerative changes of the anterior C1-2 articulation as well as the atlantooccipital joint. CT/CT cervical spine wo IV con IMPRESSION: Faint lucency in the posterior superior left T1 vertebral body is concerning for a small nondisplaced fracture. Focal cortical lucency through the right C2 transverse process is probably related to chronic change or prominent trabeculations and less likely acute fracture. Degenerative disc disease and severe facet osteoarthritis Electronically signed by: Martin Salmeron MD 02/04/2025 02:44 PM EDT
--- NOTE | ~2025-02-04 | CT_ITS ---
EXAMINATION: CT HEAD WITHOUT CONTRAST CLINICAL INFORMATION: Fall, head strike. COMPARISON: None available. TECHNIQUE: Contiguous axial imaging was performed from the skull base to vertex without intravenous administration of contrast. This CT examination was performed using dose optimization techniques as appropriate, variously including the following: *Automated exposure control *Adjustment of mA and/or kV according to patient size (this includes techniques or standardized protocols for targeted exams where dose is matched to indication/reason for exam; i.e. extremities or head) *Use of iterative reconstruction technique FINDINGS: There is no evidence of intracranial hemorrhage or extra-axial fluid collection. There is no mass effect, or edema. No CT evidence of acute territorial infarct. Ventricles, sulci, and cisterns are normal in size and configuration for patient age. No hydrocephalus. No midline shift. Negative hyperdense MCA sign. Negative insular ribbon sign. Patchy periventricular and deep white matter hypoattenuation is consistent with mild to moderate small vessel ischemic changes. 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 Normal pituitary. Mild atheromatous calcification of the bilateral carotid siphons and V4 segments vertebral arteries bilaterally. Globes and orbital contents image normally. There are bilateral lens replacements. No extracranial soft tissue abnormalities. The paranasal sinuses, mastoid air cells, and tympanic cavities are normally aerated. No suspicious bony abnormalities. There are no acute fractures evident. CT/CT head/brain wo IV con IMPRESSION: No acute intracranial abnormality. No acute fracture evident. Electronically signed by: Gene Harris MD 02/04/2025 02:34 PM EDT
--- NOTE | ~2025-02-04 | XR_ITS ---
EXAMINATION: XR FOOT, RIGHT CLINICAL INFORMATION: fall COMPARISON: None available. TECHNIQUE: AP, lateral, and oblique views of the right foot. FINDINGS: No fracture, dislocation, or suspicious bone lesion. Normal bone mineralization. Normal alignment. Joint spaces are essentially preserved. Mild degenerative arthropathy in the ankle joint. Normal plantar arch. Large plantar calcaneal spur. No ankle joint effusion. Soft tissues appear normal. XR/XR foot RT 2V IMPRESSION: 1. No acute bony abnormalities of the right foot. Electronically signed by: Gene Harris MD 02/04/2025 01:48 PM EDT
--- NOTE | ~2025-02-04 | XR_ITS ---
EXAMINATION: XR HIP, RIGHT CLINICAL INFORMATION: Fall COMPARISON: None available. TECHNIQUE: AP pelvis, and 2 views right hip. FINDINGS: No fracture, dislocation, or suspicious bone lesion. Mild degenerative arthritis in both hip joints. Normal hip joint alignment. Normal femoral head contour without evidence of AVN. Normal acetabular coverage bilaterally. The sacrum is intact. There are degenerative changes in the bilateral SI joints. There are vascular calcifications in the soft tissues. XR/XR hip RT w PEL1V IMPRESSION: No acute findings in the pelvis or right hip. Electronically signed by: Gene Harris MD 02/04/2025 01:50 PM EDT
[2025-02-04 12:32] VITALS: BP 111/63; PULSE 88; RESP 16; TEMP 36.7; O2SAT 97; BMI 23.0
--- NOTE | 2025-02-04 12:40 | ED.GENADULT ---
HPI - General Adult General Chief complaint: Fall Stated complaint: R leg injury - fall yesterday Time Seen by Provider: 02/04/25 21:23 History of Present Illness ED Provider: Pradeep DUPREE narrative: The patient is a 74-year-old male with a history of Parkinson's disease who lives at home with his . Apparently his was sick yesterday and came to the hospital and was hospitalized. Today the son checked on the father and found the patient on a couch. The patient seemed very weak and the son could not get the patient to stand up from the couch. Additionally the patient's had told the son that the patient fell yesterday or the day before and injured his right knee. The son had not been aware of that. When the son checked on the father today the son felt that the patient seemed extremely weak and unable to care for himself and so brought him to the emergency room. Additionally the son was concerned about the right knee injury. The patient is not able to really give details about the fall. The patient does not think he hit his head. The patient denies headache and neck pain. The patient denies chest pain or shortness of breath. The patient denies pain with breathing. The patient denies abdominal pain, nausea, vomiting. The patient denies feeling feverish. The patient denies any urinary discomfort. The patient admits to some pain in the right knee but otherwise denies all pain or other symptoms. Related Data Home Medications ?Medication ?Instructions ?Recorded ?Confirmed carboxymethylcellulose sodium 0.5 1 drp ophthalmic (eye) QID 10/11/24 10/17/24 % eye drops cyclobenzaprine 10 mg tablet 10 mg PO BEDTIME 10/11/24 02/04/25 naproxen 375 mg tablet 375 mg PO BID PRN 10/11/24 10/17/24 sildenafil 50 mg tablet 50 mg PO DAILY PRN 10/11/24 10/17/24 amlodipine 10 mg tablet 10 mg PO DAILY 10/17/24 02/04/25 lisinopril 10 mg tablet mg PO DAILY 10/17/24 10/17/24 lovastatin 20 mg tablet 60 mg PO BEDTIME 10/17/24 02/04/25 metformin 500 mg tablet 500 mg PO BID 10/17/24 02/04/25 carbidopa 25 mg-levodopa 100 mg 1 tab PO TID 02/04/25 02/04/25 tablet metoprolol succinate 50 mg 50 mg PO DAILY 02/04/25 02/04/25 tablet,extended release 24 hr Allergies Allergy/AdvReac Type Severity Reaction Status Date / Time acetaminophen [From PERCOCET] Allergy Unknown UNKNOWN Verified 02/04/25 12:37 oxycodone [From PERCOCET] Allergy Unknown UNKNOWN Verified 02/04/25 12:37 pravastatin [PRAVASTATIN] Allergy Unknown UNKNOWN Verified 02/04/25 12:37 rosuvastatin [From CRESTOR] Allergy Unknown UNKNOWN Verified 02/04/25 12:37 percocet Allergy Unknown tunnel Uncoded 10/17/24 10:47 vision pravastatin Allergy Unknown elev liver Uncoded 10/17/24 10:47 enzymes seasonal Allergy Unknown Unknown Uncoded 10/17/24 10:47 PMFSH Past Medical History Medical History Parkinson's disease without dyskinesia Nocturnal leg cramps Snoring Osteoarthritis Type 2 diabetes mellitus Tremor Hypercholesteremia Parkinson disease Male erectile disorder Lyme disease HTN (hypertension) Headache Abnormal weight Surgical History Hx of colonoscopy Family History Family History Mother HTN (hypertension) Father HTN (hypertension) Social History Social History Alcohol intake: never Patient Tobacco Use Status: Former Tobacco user Smoked in Last 30 Days: No Use of substances other than those prescribed or required for medical reasons: No Advance Directives: No Advance Directives Information Provided: No Nutrition Risks: No Nutritional Risk Physical Exam ED Vital Signs: Vital Signs - 24 hr 02/04/25 12:32 02/04/25 21:27 02/04/25 23:46 Temperature 98.1 F 98.4 F Pulse Rate 88 90 93 Respiratory Rate 16 16 16 Blood Pressure 111/63 136/78 133/58 L Pulse Oximetry 97 98 Oxygen Delivery Method Room Air Room Air 02/05/25 02:18 02/05/25 04:07 Temperature 98.2 F 100.1 F Pulse Rate 100 Respiratory Rate 16 Blood Pressure 121/57 L Pulse Oximetry 97 Oxygen Delivery Method Room Air BMI result Body Mass Index 23.0 Const Other: The patient is an older man who was awake and seemed reasonably well oriented. He was oriented to the month and the year and the place. He did not appear obviously acutely ill. He looks somewhat chronically ill. HENMT Other: Face is symmetrical, mucous membranes moist. Eyes Other: Pupils are round equal, conjunctivae clear, extraocular movements intact General: appearance normal, both eyes and all related structures Neck Neck: Yes normal visual inspection, Yes full ROM and Yes no JVD Resp Effort & Inspection: normal respiratory effort Auscultation: clear to auscultation bilaterally Cardio Rate: regular rate Rhythm: regular rhythm Heart sounds: S1 normal heart sound present and S2 normal heart sound present GI Other: The abdomen is soft and nontender Skin Other: There is a patch of erythema on the medial aspect of the proximal right lower leg just below the knee. This area is quite tender. Neuro Other: The patient is an older man with a somewhat vague demeanor but who was not frankly confused or disoriented. Cranial nerves 2-12 seem grossly intact. He moves his extremities symmetrically although he has pain with moving his right knee. No obvious focal findings. Extrem Other: There is a patch of erythema on the proximal right lower leg medially. This is just on the lower medial aspect of the right knee. The patient is quite tender with palpation of this area of erythema. Elsewhere the knee seems less tender. I can palpate what seems to be a clinical effusion in the suprapatellar region and the patient does not seem markedly tender. The patient has pain with the manipulation of the right knee but I can put the knee through at least 30 degrees of a range of motion. The other joints do not seem to be tender or painful to the patient. There was no peripheral edema or asymmetry to the ankles or calves. Good pulses in the feet. Course Course Course Narrative: RME: 74-year-old male history of Parkinson's presents to ED for right lower extremity pain after falling yesterday. Patient states he fell because he felt weak. Patient denies hitting head. Presently negative for any signs of neuro deficits. NIH score is 0. Labs EKG head imaging and lower extremity imaging ordered Medications Administered Generic Name Dose Route Start Last Admin Trade Name Freq PRN Reason Stop Dose Admin Amlodipine Besylate 10 mg 02/05/25 09:00 02/05/25 08:40 Amlodipine Besylate 10 Mg Tablet PO 10 mg DAILY KAILEY Administration Protocol Carbidopa/Levodopa 1 tab 02/05/25 03:10 02/05/25 08:41 Carbidopa/Levodopa 25/100 Tablet PO 1 tab TID KAILEY Administration Ceftriaxone Sodium 1 gm 02/05/25 05:30 02/05/25 05:32 Ceftriaxone Sodium 1 Gm Vial IVPUSH 1 gm Q24H KAILEY Administration Insulin Human Lispro 0 unit 02/05/25 07:30 02/05/25 08:42 Insulin Lispro 100 Unit/Ml 3 Ml Vial SUBCUT Not Given QIDACHS [facility] Protocol Magnesium Oxide 400 mg 02/05/25 09:00 02/05/25 08:40 Magnesium Oxide 400 Mg Tablet PO 400 mg DAILY KAILEY Administration Metoprolol Succinate 50 mg 02/05/25 09:00 02/05/25 08:41 Metoprolol Succinate Er 50 Mg Tab.Er.24h PO 50 mg DAILY KAILEY Administration Protocol Omeprazole 20 mg 02/05/25 06:30 02/05/25 06:43 Omeprazole 20 Mg Capsule.Dr PO 20 mg DAILY@0630 [facility] Administration Sodium Chloride 3 ml 02/05/25 08:00 02/05/25 08:00 0.9 % Sodium Chloride Flush 3 Ml Syringe IVFLUSH Not Given QSHIFT [facility] Discontinued Medications Generic Name Dose Route Start Last Admin Trade Name Freq PRN Reason Stop Dose Admin Lactated Ringer's 1,000 mls @ 999 mls/hr 02/04/25 21:45 02/04/25 23:00 Lr IV 02/04/25 22:45 Infused .Q1H1M KAILEY Infusion Magnesium Sulfate 2 gm in 50 mls @ 150 mls/hr 02/04/25 21:42 02/04/25 22:22 Magnesium Sulfate/H2o IV 02/04/25 22:01 Infused ONCE ONE Infusion Vancomycin HCl 1,000 mg/ 535 mls @ 267.5 mls/hr 02/05/25 04:47 02/05/25 07:56 Vancomycin HCl 750 mg/ Sodium IV 02/05/25 06:46 Infused Chloride ONCE ONE Infusion Ketorolac Tromethamine 15 mg 02/05/25 05:23 02/05/25 05:32 Ketorolac Tromethamine 15 Mg/Ml Vial IVPUSH 02/05/25 05:24 15 mg ONCE ONE Administration Lidocaine HCl 5 ml 02/05/25 04:06 02/05/25 04:38 Lidocaine Hcl 1 % Mpf 5 Ml Vial INFILTRATI 02/05/25 04:07 5 ml ONCE ONE Administration Procedures Joint Aspiration/Injection Joint Asp./Inject. 1: Time Out Performed: Yes Side of body: right Joint Aspirated: knee Ultrasound Guidance: Yes Skin Prep: Povidone-Iodine1% Local Anesthetic: lidocaine 1% Amount of anesthesia used (mL): 2 Needle Size Used: 20G Fluid Obtained: turbid Total fluid obtained (mL): 35 Patient Tolerated Procedure: well and no complications Complications: none Medical Decision Making Medical Decision Making MDM Narrative: The patient is a 74-year-old male with a history of Parkinson's. The patient is was hospitalized yesterday. The patient spent the night alone last night after his was hospitalized. Today the son checked on the patient and the son felt the patient was quite weak and could not get him to stand up. It did not seem as though the patient was doing well in his own at home. There is a report that the patient fell. The details are not clear. Here in the emergency room the patient had a lidocaine patch on the right knee. This was apparently applied by his before she was hospitalized. The patient states that he hurt his knee and a fall. Studies ordered at triage included a head CT and a cervical spine CT that were negative. Additionally ordered were a right hip x-ray, right tib-fib x-ray, right foot x-ray, and right knee x-ray. These studies were negative. The patient has a white count of 15.5. Differential showed 79.5% neutrophils. CRP somewhat elevated at 8.59. We obtained a rectal temperature. This was 100.1. I ordered a CT of the right knee to look for a possible occult fracture after the negative knee x-ray. The CT shows no definite fracture but did show what was described as a large effusion. Given that the patient had an area of erythema and tenderness on the medial side of the right knee and given that he had an elevated white count in his slightly elevated rectal temperature I ultimately felt it might be prudent to assume that there might be a cellulitis at the right knee. Given the presence of an underlying effusion I also felt that it would be prudent to rule out a septic arthritis although my clinical suspicion for septic arthritis is low. I therefore performed an arthrocentesis of the right knee. I did this after speaking with the son for telephone consent. The patient had had a change in his mental status by that point which I think was sundowning in a patient who probably has some incipient dementia. The patient's son gave verbal consent over the phone. The procedure was then done under sterile conditions after a time-out was called. 35 mL of somewhat turbid, nonbloody fluid was easily aspirated from the right knee. The procedure was performed on the lateral aspect of the right knee, opposite the side of the knee which has a erythema. Blood cultures were obtained and a lactate was mildly elevated. The patient was started on vancomycin and admitted to the hospitalist service for further evaluation and management. Lab Data 02/05/25 05:55 02/05/25 05:55 Labs: Lab Results 02/04/25 02/05/25 02/05/25 Range/Units 13:33 03:19 04:19 WBC 15.5 H (4.8-10.8) X10*3/uL RBC 4.59 L (4.60-5.80) X10*6/uL Hgb 13.9 L (14.0-18.0) g/dl Hct 39.8 L (42.0-52.0) % MCV 86.7 (80.0-98.0) fL MCH 30.3 (27.0-33.0) pg MCHC 34.9 (31.0-36.0) g/dl RDW 12.9 (11.0-16.0) % Plt Count 267 (160-400) X10*3/uL MPV 9.9 (9.4-12.4) fL Immature Gran % (Auto) 0.6 H (0.0-0.4) % Neut % (Auto) 79.5 H (45-73) % Lymph % (Auto) 10.7 L (20-40) % [place] % (Auto) 8.3 (2-11) % Eos % (Auto) 0.6 (0-4) % Baso % (Auto) 0.3 (0-2) % Lymph # (Auto) 1.7 (1.2-4.9) X10*3/uL [place]well # (Auto) 1.3 H (0.1-1.2) X10*3/uL Eos # (Auto) 0.1 (0.0-0.4) X10*3/uL Baso # (Auto) 0.1 (0.0-0.2) X10*3/uL Abs Immat Gran (auto) 0.09 H (0.00-0.03) X10*3/uL Absolute Neuts (auto) 12.3 H (2.0-8.3) x10*3/uL Absolute Nucleated RBC 0.000 (0.0-0.012) X10*3/uL Nucleated RBC % (auto) 0.0 (0.0-0.2) /100WBC Sodium 137 (135-145) mmol/L Potassium 4.0 (3.3-5.1) mmol/L Chloride 107 (96-108) mmol/L Carbon Dioxide 21 L (22-29) mmol/L Anion Gap 13 (12-20) BUN 15 (9-16) mg/dL Creatinine 1.46 H (0.5-1.4) mg/dL Estim Creat Clear Calc 44.1 Estimated GFR 47 Random Glucose 142 H (60-115) mg/dL Lactic Acid 2.3 H* (0.5-2.0) mmol/L Calcium 9.8 (8.4-10.2) mg/dL Magnesium 1.4 L* (1.6-2.6) mg/dL Total Bilirubin 0.8 (0.0-1.0) mg/dL AST 21 (5-37) U/L ALT 14 (0-40) U/L Alkaline Phosphatase 67 (39-117) U/L Total Creatine Kinase 99 (38-174) U/L Troponin I High Sens 4.7 (<3.5-35.0) ng/L C-Reactive Protein 8.59 H (< or = 0.50) mg/dL Total Protein 8.0 (6.5-8.0) g/dL Albumin 4.7 (3.5-5.0) g/dL Urine Color Dark Yellow Urine Appearance Clear Urine pH 5.5 (5.0-9.0) Ur Specific [place] 1.025 (1.005-1.025) Urine Protein Trace (Neg-Trace) mg/dL Urine Glucose (UA) Negative (Negative) mg/dL Urine Ketones Trace (Negative) mg/dL Urine Blood Negative (Negative) Urine Nitrite Negative (Negative) Ur Leukocyte Esterase Negative (Negative) Discharge Plan Discharge Clinical Impression: Cellulitis of right leg Patient Disposition: Admitted As Inpatient
--- NOTE | 2025-02-04 12:43 | ECG_ITS ---
Test Reason : weakness fall Blood Pressure : */* mmHG Vent. Rate : 83 BPM Atrial Rate : 83 BPM P-R Int : 170 ms QRS Dur : 82 ms QT Int : 376 ms P-R-T Axes : 45 -8 50 degrees QTcB Int : 441 ms Normal sinus rhythm Normal ECG No previous ECGs available Referred By: Gabriel Augustine Electronically Signed By: STEVEN FOSTER MD
--- NOTE | 2025-02-04 13:28 | MHC.EDTECH ---
CALLED TWICE FOR LAB/EKG NO ANSWER.
[2025-02-04 14:00] LABS: MANUAL DIFF FLAG NO
[2025-02-04 14:01] LABS: Basophils Absolute Auto 0.1 X10*3/uL (0.0-0.2); Basophils Percent Auto 0.3 % (0-2); Eosinophils Absolute Auto 0.1 X10*3/uL (0.0-0.4); Eosinophils Percent Auto 0.6 % (0-4); Hematocrit 39.8 % (42.0-52.0); Hemoglobin 13.9 g/dl (14.0-18.0); Imm Gran Abs Auto 0.09 X10*3/uL (0.00-0.03); Imm Gran Pct Auto 0.6 % (0.0-0.4); Lymphocytes Absolute Auto 1.7 X10*3/uL (1.2-4.9); Lymphocytes Percent Auto 10.7 % (20-40); Mean Corpuscular HGB Conc 34.9 g/dl (31.0-36.0); Mean Corpuscular Hemoglobin 30.3 pg (27.0-33.0); Mean Corpuscular Volume 86.7 fL (80.0-98.0); Mean Platelet Volume 9.9 fL (9.4-12.4); Monocytes Absolute Auto 1.3 X10*3/uL (0.1-1.2); Monocytes Percent Auto 8.3 % (2-11); Neutrophils Absolute Auto 12.3 x10*3/uL (2.0-8.3); Neutrophils Percent Auto 79.5 % (45-73); Platelet Count 267 X10*3/uL (160-400); Red Blood Count 4.59 X10*6/uL (4.60-5.80); Red Cell Distribution Width 12.9 % (11.0-16.0); White Blood Count 15.5 X10*3/uL (4.8-10.8)
[2025-02-04 14:21] LABS: Troponin-I High Sensitivity 4.7 ng/L (<3.5-35.0)
[2025-02-04 14:24] LABS: Alanine Aminotransferase 14 U/L (0-40); Albumin Level 4.7 g/dL (3.5-5.0); Alkaline Phosphatase 67 U/L (39-117); Anion Gap 13 (12-20); Aspartate Amino Transferase 21 U/L (5-37); Bilirubin Total 0.8 mg/dL (0.0-1.0); Blood Urea Nitrogen 15 mg/dL (9-16); Calcium 9.8 mg/dL (8.4-10.2); Carbon Dioxide 21 mmol/L (22-29); Chloride 107 mmol/L (96-108); Creatinine Clr Calc Pharmacy 44.1; Estimated Glomerular Filt Rate 47; Glucose Random 142 mg/dL (60-115); Magnesium 1.4 mg/dL (1.6-2.6); Sodium 137 mmol/L (135-145)
--- NOTE | 2025-02-04 20:44 | PC.NURSE ---
Patient/family requesting urinal. Remains in waiting room at this time. Has Parkinson's. Urinal provided. UA ordered. Awaiting ED bed assignment.
--- NOTE | 2025-02-04 21:26 | PC.NURSE ---
pt a&ox4, respirations even and unlabored. pt reports fall after knees gave out . pt denies blood thinners and loc. pt reports he fell onto his right knee and is now reporting right knee pain. pt 3 person assist out of wheel chair into bed. pt also reports he has not urinated since arriving, bladder scan done at this time, 81 ml. pt nsr on tele 80-81bpm. vss. at bedside
[2025-02-04 21:27] VITALS: BP 136/78; PULSE 90; RESP 16; O2SAT 98
[2025-02-04] MEDS: Magnesium Sulfate/H2O 2 GM/50 ML PIGGYBACK IV (21:57)
[2025-02-04] MEDS: Lactated Ringers 1,000 ML 999 ML IV (21:57)
[2025-02-04 22:09] LABS: C Reactive Protein 8.59 mg/dL (< or = 0.50)
--- NOTE | 2025-02-04 22:23 | PC.NURSE ---
Pt janelle Camarena [phone]
--- NOTE | 2025-02-04 22:33 | PC.NURSE ---
medication list provided to this rn by pt son, medications updated in system, provider aware
[2025-02-04 23:46] VITALS: BP 133/58; PULSE 93; RESP 16; TEMP 36.9
[2025-02-05] VITALS (9 sets, daily range): BP systolic 101–128; BP diastolic 54–67; PULSE 86–100; RESP 14–20; TEMP 36.2–37.8; O2SAT 93–97
--- NOTE | 2025-02-05 03:19 | PC.NURSE ---
pt notably increasingly confused, pt removed iv access, got dressed and was attempting to stand up. pt 2 person assist on standing. aware. camera placed on pt and pt placed in hospital bed for safety. pt straight cath per provider order, tolerated well, 200ml of yellow urine voided
[2025-02-05 03:28] LABS: Appearance Urine Clear; Color Urine Dark Yellow; Glucose Urine UA Negative (Negative); Leukocyte Esterase Urine Negative (Negative); Nitrite Urine Negative (Negative); PH 5.5 (5.0-9.0); Specific Gravity - Urine 1.025 (1.005-1.025); Urine Blood Negative (Negative); Urine Ketones Trace mg/dL (Negative); Urine Protein Trace mg/dL (Neg-Trace)
[2025-02-05] MEDS: Carbidopa/Levodopa 25/100 TABLET 1 TAB PO ×4 (03:44→21:05)
[2025-02-05] MEDS: Lidocaine HCl 1 % MPF 5 ML VIAL INFILTRATI (04:38)
[2025-02-05 04:43] LABS: Lactic Acid 2.3 mmol/L (0.5-2.0)
--- NOTE | 2025-02-05 04:48 | PC.NURSE ---
at bedside for right knee aspiration. verbal consent over the phone from pt son, time out called. lab specimen collected, hospitalist at bedside
--- NOTE | 2025-02-05 05:02 | P.HPHOSP_ITS ---
History of Present Illness Date of Service: 02/05/25 Attending physician on admission: Rojelio Brock Chief Complaint: right knee pain Pt is a 74-year-old male with past medical history Parkinson's with tremors, diabetes [id number], hypertension, erectile dysfunction, hyperlipidemia, colon cancer currently cancer free was seen in the emergency department per his son after patient was found at home lying in the couch with significant weakness and mild confusion. It was concluded that patient had fallen within the last 48 hours. Patient does have Parkinson's and has been having more frequent falls. Pt has walker, cane and WC available for use at home. Patient only able to provide minimal details. Patient denied strike to the head. Patient is not on blood thinners. Patient's was admitted to this hospital earlier which prompted son to check on the patient as he was alone. Patient had a noted leukocytosis, lactic acid of 2.3, sed rate of 17 and CRP of 8.59. Blood cultures were drawn and are pending. UA negative for urinary tract infection. Magnesium also low at 1.4 and patient received 2 g of IV magnesium in the emergency department. Patient did not experience a bout of significant confusion and patient attempted to get dressed and out of the stretcher to leave. Patient was redirected by the ED provider and is currently comfortable, alert and orientated x3. Was noted that patient was experiencing retention of urine and Rodriguez was placed with initial 200 cc output. In the emergency department CT of the head and CT of the cervical spine were completed. CT of the head negative for acute findings. CT of the cervical spine noted a possible nondisplaced fracture of T1. On examination patient has full range of motion in the cervical and upper back area. Patient denies any pain in the cervical and thoracic spine area. Palpation of the spine does not elicit any pain or discomfort. Reviewed findings with the attending Dr. Mayen. No referral indicated at this time. Patient indicated that he likely injured his right knee. Patient states that he did hit both knees with the right knee became more painful which prompted him to be bound to the couch and unable to ambulate. A large right knee effusion was found on x-ray. ED provider was able to tap the right knee and extract 35 mL of turbid yellow fluid. Specimen sent for culture. Knee is currently very hot to the touch. Areas of cellulitis marked with surgical marker. Patient now developing a low-grade temperature of a 100.1F. Patient will receive 15 mg of IV Toradol for pain and inflammation. Patient was started on vancomycin in the ED. Ceftriaxone is being added to cover for septic joint. Orthopedics has been consulted as well. There was no obvious injury to the left knee, B hips or B lower ankles or feet. Review of Systems 2 Review of Systems: Patient currently denies any chest pain, nausea, vomiting or diarrhea. Patient denies any shortness of breath at rest. Patient denies fever, chills or night sweats. Patient appears comfortable but is reporting pain in the right knee. Patient reports having intermittent tremors especially in the upper body that wax and wane. Patient is reporting problems with swallowing. Yes all other systems are reviewed and are negative [facility] Medical History (Updated 02/05/25 @ 05:03 by BRIA Alexander) Parkinson's disease without dyskinesia Nocturnal leg cramps Snoring Osteoarthritis Type 2 diabetes mellitus Tremor Hypercholesteremia Parkinson disease Male erectile disorder Lyme disease HTN (hypertension) Headache Abnormal weight Cognitive capacity: Currently alert and orientated x3 Functional capacity: uses cane/walker Family History Mother HTN (hypertension) Father HTN (hypertension) Surgical History Hx of colonoscopy Social History Alcohol intake: never Patient Tobacco Use Status: Former Tobacco user Smoked in Last 30 Days: No Use of substances other than those prescribed or required for medical reasons: No Advance Directives: No Advance Directives Information Provided: No Ebola Risk: Travel/Contact With Anyone From Affected Area/s: No Has Patient Experienced Ebola Symptoms: No Meds Allergies Allergy/AdvReac Type Severity Reaction Status Date / Time acetaminophen [From PERCOCET] Allergy Unknown UNKNOWN Verified 02/04/25 12:37 oxycodone [From PERCOCET] Allergy Unknown UNKNOWN Verified 02/04/25 12:37 pravastatin [PRAVASTATIN] Allergy Unknown UNKNOWN Verified 02/04/25 12:37 rosuvastatin [From CRESTOR] Allergy Unknown UNKNOWN Verified 02/04/25 12:37 percocet Allergy Unknown tunnel Uncoded 10/17/24 10:47 vision pravastatin Allergy Unknown elev liver Uncoded 10/17/24 10:47 enzymes seasonal Allergy Unknown Unknown Uncoded 10/17/24 10:47 Active Medications: Current Medications Acetaminophen (Acetaminophen 325 Mg Tablet) 650 mg PO Q6H PRN PRN Reason: Pain, Mild 1-3,fever,headache Albuterol/Ipratropium (Albuterol/Iprat 2.5/0.5mg 3 Ml Ampul.Neb) 3 ml INHALE Q4H PRN PRN Reason: Shortness of Breath/Wheezing Amlodipine Besylate (Amlodipine Besylate 10 Mg Tablet) 10 mg PO DAILY [facility]; Protocol Calcium Carbonate (Calcium Carbonate 750 Mg Tab.Chew) 750 mg PO Q4H PRN PRN Reason: Heartburn Carbidopa/Levodopa (Carbidopa/Levodopa 25/100 Tablet) 1 tab PO TID KAILEY Last Admin: 02/05/25 03:44 Dose: 1 tab Vancomycin HCl 1,000 mg/Vancomycin HCl 750 mg/ Sodium Chloride 535 mls @ 267.5 mls/hr IV ONCE ONE Stop: 02/05/25 06:46 Magnesium Hydroxide (Milk Of Magnesia 30 Ml Oral.Susp) 30 ml PO DAILY PRN PRN Reason: Constipation Melatonin (Melatonin 3 Mg Tablet) 6 mg PO BEDTIME PRN PRN Reason: Insomnia Metformin HCl (Metformin Hcl 500 Mg Tablet) 500 mg PO BID [facility] Metoprolol Succinate (Metoprolol Succinate Er 50 Mg Tab.Er.24h) 50 mg PO DAILY [facility]; Protocol Ondansetron HCl (Ondansetron Hcl 4 Mg/2 Ml Vial) 4 mg IVPUSH Q8H PRN PRN Reason: Nausea and Vomiting Pharmacy Consult (Consult Rx Vancomycin Dosing) 1 each MISCELLANE DAILY PRN PRN Reason: Consult order Polyethylene Glycol (Polyethylene Glycol 3350 17 Gm Powd.Pack) 17 gm PO DAILY PRN PRN Reason: Constipation Pravastatin Sodium (Pravastatin Sodium 20 Mg Tablet) 60 mg PO BEDTIME [facility] Senna (Sennosides 8.6 Mg Tablet) 17.2 mg PO BEDTIME [facility] Sodium Chloride (0.9 % Sodium Chloride Flush 3 Ml Syringe) 3 ml IVFLUSH QSHIFT [facility] Home Medications ?Medication ?Instructions ?Recorded ?Confirmed ?Last Taken ?Type carboxymethylcellulose sodium 0.5 1 drp ophthalmic (eye) QID 10/11/24 10/17/24 Unknown History % eye drops cyclobenzaprine 10 mg tablet 10 mg PO BEDTIME 10/11/24 02/04/25 Unknown History naproxen 375 mg tablet 375 mg PO BID PRN 10/11/24 10/17/24 Unknown History sildenafil 50 mg tablet 50 mg PO DAILY PRN 10/11/24 10/17/24 Unknown History amlodipine 10 mg tablet 10 mg PO DAILY 10/17/24 02/04/25 Unknown History lisinopril 10 mg tablet mg PO DAILY 10/17/24 10/17/24 Unknown History lovastatin 20 mg tablet 60 mg PO BEDTIME 10/17/24 02/04/25 Unknown History metformin 500 mg tablet 500 mg PO BID 10/17/24 02/04/25 Unknown History carbidopa 25 mg-levodopa 100 mg 1 tab PO TID 02/04/25 02/04/25 Unknown History tablet metoprolol succinate 50 mg 50 mg PO DAILY 02/04/25 02/04/25 Unknown History tablet,extended release 24 hr Physical Exam 2 Vital Signs and Narrative: Vital Signs: Last Vital Signs Temp 100.1 F 02/05/25 04:07 Pulse 100 02/05/25 02:18 Resp 16 02/05/25 02:18 BP 121/57 L 02/05/25 02:18 Pulse Ox 97 02/05/25 02:18 O2 Del Method Room Air 02/05/25 02:18 BMI result Body Mass Index 23.0 Alert and orientated X3, able to follow commands, answer interview questions for HPI. SHort term memory fair. Neuro: CN II-X11 intact, noted essential tremor in upper body and confirmed with pt he was not havign chills, visual acuity intact EYES: PERRLA, EOM intact, sclerae nonicteric, conjunctiva pink ENT: hearing intact, uvula midline, lips moist, nares patent no epistaxis Cardiac: S1 S2 RRR, no murmur, no JVD, no edema in left lower extremity, mild swelling noted in right knee Pulmonary: lungs clear to auscultation B Abdominal: BS active in all 4 quadrants, no guarding, tenderness, rebounding MSK: strength 4/5 upper and lower extremities : no CVA tenderness Rodriguez in place Extremities: Mild edema in right knee, very hot to the touch, areas of cellulitis marked with surgical pen, PT and DP pulses palpable +2 Psych: mood stable, judgement and insight fair Skin: Cellulitis noted medial lower border of right knee. Otherwise skin currently intact Fluid from effusion yellow, turbid no obvious blood seen Results Labs 02/05/25 05:55 02/05/25 05:55 Labs: Laboratory Results - last 24 hr 02/04/25 02/05/25 02/05/25 13:33 03:19 04:19 MCV 86.7 MCH 30.3 MCHC 34.9 RDW 12.9 Plt Count 267 MPV 9.9 Immature Gran % (Auto) 0.6 H Neut % (Auto) 79.5 H Lymph % (Auto) 10.7 L Bowman % (Auto) 8.3 Eos % (Auto) 0.6 Baso % (Auto) 0.3 Lymph # (Auto) 1.7 [place] # (Auto) 1.3 H Eos # (Auto) 0.1 Baso # (Auto) 0.1 Abs Immat Gran (auto) 0.09 H Absolute Neuts (auto) 12.3 H Absolute Nucleated RBC 0.000 Nucleated RBC % (auto) 0.0 Anion Gap 13 Estim Creat Clear Calc 44.1 Estimated GFR 47 Random Glucose 142 H Lactic Acid 2.3 H* Calcium 9.8 Magnesium 1.4 L* Total Bilirubin 0.8 AST 21 ALT 14 Alkaline Phosphatase 67 Total Creatine Kinase 99 Troponin I High Sens 4.7 C-Reactive Protein 8.59 H Total Protein 8.0 Albumin 4.7 Urine Color Dark Yellow Urine Appearance Clear Urine pH 5.5 Ur Specific [place] 1.025 Urine Protein Trace Urine Glucose (UA) Negative Urine Ketones Trace Urine Blood Negative Urine Nitrite Negative Ur Leukocyte Esterase Negative ECG Attestation: I personally reviewed and interpreted this ECG as follows: (Normal sinus rhythm, QTC 441) Imaging Radiologist's Impressions: Impressions Hip/Pelvis X-Ray 02/04/25 12:20 IMPRESSION: No acute findings in the pelvis or right hip. Electronically signed by: Gene Harris MD 02/04/2025 01:50 PM EDT RP Tibia/Fibula X-Ray 02/04/25 12:25 IMPRESSION: No acute bony abnormalities right tibia and fibula. Electronically signed by: Gene Harris MD 02/04/2025 01:46 PM EDT RP Foot X-Ray 02/04/25 12:26 IMPRESSION: 1. No acute bony abnormalities of the right foot. Electronically signed by: Gene Harris MD 02/04/2025 01:48 PM EDT RP Cervical Spine CT 02/04/25 12:59 IMPRESSION: Faint lucency in the posterior superior left T1 vertebral body is concerning for a small nondisplaced fracture. Focal cortical lucency through the right C2 transverse process is probably related to chronic change or prominent trabeculations and less likely acute fracture. Degenerative disc disease and severe facet osteoarthritis Electronically signed by: Martin Salmeron MD 02/04/2025 02:44 PM EDT RP Head CT 02/04/25 12:59 IMPRESSION: No acute intracranial abnormality. No acute fracture evident. Electronically signed by: Gene Harris MD 02/04/2025 02:34 PM EDT RP Knee X-Ray 02/04/25 13:00 IMPRESSION: 1. No acute abnormalities of the right knee. Electronically signed by: Gene Harris MD 02/04/2025 01:45 PM EDT RP Assessment and Plan (1) Effusion, right knee: Status: Acute Plan Pt is a 74-year-old male with past medical history Parkinson's with tremors, diabetes [id number], hypertension, erectile dysfunction, hyperlipidemia, colon cancer currently cancer free is being admitted for large right knee effusion status post fall with cellulitis and to rule out septic joint. Sepsis -Patient currently developing low-grade temp of a 100.7 degrees. Lactate 2.3, leukocytosis 15. -IV fluids administered per protocol -Patient on ceftriaxone and vancomycin -Source right knee effusion/cellulitis - ruling out septic joint -Consider ID consult if indicated Large R knee effusion/ cellulitis, rule out septic joint -Patient currently on vancomycin and ceftriaxone -Right knee effusion tapped by emergency room provider, cultures pending -Blood cultures pending -Lactic acid 2.3, IV fluids administered -ESR 17, CRP 8.59 -Orthopedics consulted -Keep leg elevated, ice packs p.r.n., 1 dose of Toradol 15 mg IV x1, acetaminophen for fever -Helo Lovenox until seen by ortho Nondisplaced fracture likely T1 VB s/p fall -Reviewed with the attending Dr. Mayen, no intervention at this time -Physical exam reassuring Hypomagnesemia -Patient received 2 g of IV Mag -Check Mag daily -Start oral supplementation DMII -SSI -DIabetic DIet Parkinson's with recent falls -Continue current dose of carbidopa levodopa once med rec completed -PT evaluation HTN -Patient normally on amlodipine, lisinopril and metoprolol: Noted sepsis with stable blood pressure so we will hold home medications at this time -Low-sodium diet DVT prophylaxis: Held due to noted effusion/ ortho consult, unsure if pt will require surgical intervention PPI prophylaxis: Omeprazole Med rec pending Full Code status Quality Stroke Does the patient have a stroke diagnosis?: No Reason for No Anti-thrombotic by Day Two: Contraindicated VTE Prior VTE?: No VTE Risk Level:: Medical - moderate - high VTE Device Contraindication: N/A - Device Ordered VTE Drug Contraindication: Treatment Not Tolerated
[2025-02-05] MEDS: vancomycin HCL 1,000 MG, vancomycin HCL 750 MG in 0.9 % Sodium Chloride 500 ML 267.5 MG IV (05:23)
[2025-02-05 05:27] LABS: MN% 8.1 %; PMN% 91.9 %; RBC Synovial Fluid 0.002 X10*6/uL; Source Synovial Fluid right knee
[2025-02-05] MEDS: cefTRIAXone sodium 1 GM VIAL IVPUSH (05:32)
[2025-02-05] MEDS: Ketorolac Tromethamine 15 MG/ML VIAL IVPUSH (05:32)
[2025-02-05 05:59] LABS: MANUAL DIFF FLAG NO
[2025-02-05 06:01] LABS: BF Shift QC OK YES
[2025-02-05 06:01] LABS: Basophils Percent Auto 0.3 % (0-2); Eosinophils Percent Auto 0.3 % (0-4); Hematocrit 34.6 % (42.0-52.0); Imm Gran Abs Auto 0.04 X10*3/uL (0.00-0.03); Imm Gran Pct Auto 0.3 % (0.0-0.4); Lymphocytes Absolute Auto 1.2 X10*3/uL (1.2-4.9); Lymphocytes Percent Auto 10.4 % (20-40); Mean Corpuscular HGB Conc 34.7 g/dl (31.0-36.0); Mean Corpuscular Hemoglobin 29.9 pg (27.0-33.0); Mean Corpuscular Volume 86.3 fL (80.0-98.0); Mean Platelet Volume 9.7 fL (9.4-12.4); Monocytes Absolute Auto 1.2 X10*3/uL (0.1-1.2); Neutrophils Absolute Auto 9.1 x10*3/uL (2.0-8.3); Neutrophils Percent Auto 78.7 % (45-73); Platelet Count 185 X10*3/uL (160-400); Red Blood Count 4.01 X10*6/uL (4.60-5.80); Red Cell Distribution Width 12.6 % (11.0-16.0); White Blood Count 11.5 X10*3/uL (4.8-10.8)
[2025-02-05 06:02] LABS: Monocytes Synovial Fluid 5 %
[2025-02-05 06:23] LABS: Reflex Lactate? Lactic Acid Added
[2025-02-05 06:27] LABS: Alanine Aminotransferase < 6 U/L (0-40); Alkaline Phosphatase 52 U/L (39-117); Anion Gap 14 (12-20); Aspartate Amino Transferase 34 U/L (5-37); Bilirubin Total 0.6 mg/dL (0.0-1.0); Blood Urea Nitrogen 20 mg/dL (9-16); Calcium 8.9 mg/dL (8.4-10.2); Carbon Dioxide 19 mmol/L (22-29); Chloride 105 mmol/L (96-108); Estimated Glomerular Filt Rate > 60; Glucose Random 93 mg/dL (60-115); Magnesium 1.7 mg/dL (1.6-2.6); Potassium 3.7 mmol/L (3.3-5.1); Sodium 134 mmol/L (135-145); Total Protein 6.7 g/dL (6.5-8.0)
[2025-02-05] MEDS: Omeprazole 20 MG CAPSULE.DR PO (06:43)
--- NOTE | 2025-02-05 06:47 | PHA.PROG ---
Admission Date/Time: February 05, 2025 04:50 Indication: SEPSIS Weight in k.575 kg Adjusted body weight in Kg: [place] body weight in Kg: Obesity Dosing Indication % IBW: Serum Creatinine - Last 168 Hours 02/04/25 02/05/25 13:33 05:55 Creatinine 1.46 H 1.15 Estimated CrCl and GFR - Last 168 Hours 02/04/25 02/05/25 13:33 05:55 Estim Creat Clear Calc 44.1 56.0 Estimated GFR 47 > 60 Vancomycin Loading Dose: 1750 MG Current Vancomycin Dosing Regimen: 1500 MG Q24H Vancomycin Monitoring using AUC goal of 400 - 600 range with trough as surrogate marker: JYC=142 TROUGH=17.9 Date and Time for next Vancomycin Level to be drawn: 02/07/25 @0600 Pharmacist Comments on Vancomycin Plan: Vancomycin dosing will take advantage of [employer] as a clinical decision support tool that uses Bayesian modeling to calculate individual patient's pharmacokinetic parameters and forecast the patient's drug concentration time course with the target goal AUC 24 range of 400 - 600 mg/L/hr.
[2025-02-05 06:59] LABS: ~Lactic Acid-LAB USE ONLY 1.1 mmol/L (0.5-2.0)
[2025-02-05 07:30] LABS: Glucose, Whole Blood 104 mg/dL (60-115)
[2025-02-05] MEDS: Magnesium Oxide 400 MG TABLET PO (08:40)
[2025-02-05] MEDS: amLODIPine Besylate 10 MG TABLET PO (08:40)
[2025-02-05] MEDS: Metoprolol Succinate ER 50 MG TAB.ER.24H PO (08:41)
--- NOTE | 2025-02-05 11:03 | PHA.MEDREC ---
Pharmacy Consult ? Medication Reconciliation Pharmacy has completed the medication reconciliation. Spoke with pt and he was able to confirm some medications but was a poor historian with his Lisinopril and Metoprolol; Pt states he is not taking the Lisinopril anymore. [facility] and [facility] able [facility] get [facility] med [facility]; [facility]op[facility], pt adamant he is not on that anymore and now taking Metoprolol.
--- NOTE | 2025-02-05 11:11 | PHA.MEDREC ---
Addendum entered by Mojgan Friend RPh 02/05/25 12:03: Reviewed by [facility]. Left lisinopril on the med list and will make provider aware as the pt said they were not on this med (last filled 09/02/24 #90), and then states he was on it? Original Note: Pharmacy Consult ? Medication Reconciliation Pharmacy has completed the medication reconciliation. Spoke with pt and he was able to confirm some medications but was a poor historian with his Lisinopril and Metoprolol; Pt states he is not taking the Lisinopril anymore. [facility] and [facility] able [facility] get [facility] med [facility]; [facility]op[facility], pt adamant he is not on that anymore and now taking Metoprolol. Pt states he is taking his Carbidopa-Levadopa QD and stated he always took it QD and was never aware of it needing to be taken TID.
[2025-02-05 12:03] LABS: Glucose, Whole Blood 120 mg/dL (60-115)
--- NOTE | 2025-02-05 17:27 | HO.PM.IMPN ---
Subjective Subjective Date of Service: 02/05/25 Interval History: Large R knee effusion/ cellulitis, Review of Systems knee pain similar ,edema somewhat improving no fevers Review of Systems: Yes all other systems are reviewed and are negative Physical Exam Vital Signs: Vital Signs: Last Vital Signs Temp 98.1 F 02/05/25 11:57 Pulse 87 02/05/25 11:57 Resp 18 02/05/25 11:57 BP 101/67 02/05/25 11:57 Pulse Ox 93 02/05/25 11:57 O2 Del Method Room Air 02/05/25 11:57 BMI result Body Mass Index 23.0 Appearance: Alert.? Oriented X3. cvs: rrr, [id number]. res: clear to auscultation ,no rhonchii or wheezing abd: no rebound or guarding ,nt, bs present. ext pulses present , no cyanosis. :right effusion/zctk-cky-nnhzrjbfi, neuro: axo3 , nonfocal. Objective Data Active Medications Acetaminophen (Acetaminophen 325 Mg Tablet) 650 mg PO Q6H PRN PRN Reason: Pain, Mild 1-3,fever,headache Albuterol/Ipratropium (Albuterol/Iprat 2.5/0.5mg 3 Ml Ampul.Neb) 3 ml INHALE Q4H PRN PRN Reason: Shortness of Breath/Wheezing Amlodipine Besylate (Amlodipine Besylate 10 Mg Tablet) 10 mg PO DAILY [facility]; Protocol Last Admin: 02/05/25 08:40 Dose: 10 mg Documented By: JENIFFER Calcium Carbonate (Calcium Carbonate 750 Mg Tab.Chew) 750 mg PO Q4H PRN PRN Reason: Heartburn Carbidopa/Levodopa (Carbidopa/Levodopa 25/100 Tablet) 1 tab PO TID [facility] Last Admin: 02/05/25 15:47 Dose: 1 tab Documented By: CLARISSE Ceftriaxone Sodium (Ceftriaxone Sodium 1 Gm Vial) 1 gm IVPUSH Q24H [facility] Last Admin: 02/05/25 05:32 Dose: 1 gm Documented By: MARIAN Dextrose (Dextrose 50 % 25 Gm/50 Ml Syringe) 25 gm IVPUSH Q15M PRN; Protocol PRN Reason: per Hypoglycemia Standing Ord. Glucose (Glucose Gel 15 Gm Gel..Gram.) 15 gm PO Q15M PRN; Protocol PRN Reason: per Hypoglycemia Standing Ord. Vancomycin HCl 1,500 mg/ (Sodium Chloride) 500 mls @ 333.333 mls/hr IV Q24H [facility] Insulin Human Lispro (Insulin Lispro 100 Unit/Ml 3 Ml Vial) 0 unit SUBCUT QIDACHS [facility]; Protocol Last Admin: 02/05/25 12:01 Dose: Not Given Documented By: CLARISSE Non-Admin Reason: No Insulin Coverage Magnesium Hydroxide (Milk Of Magnesia 30 Ml Oral.Susp) 30 ml PO DAILY PRN PRN Reason: Constipation Magnesium Oxide (Magnesium Oxide 400 Mg Tablet) 400 mg PO DAILY [facility] Last Admin: 02/05/25 08:40 Dose: 400 mg Documented By: JENIFFER Melatonin (Melatonin 3 Mg Tablet) 6 mg PO BEDTIME PRN PRN Reason: Insomnia Metoprolol Succinate (Metoprolol Succinate Er 50 Mg Tab.Er.24h) 50 mg PO DAILY [facility]; Protocol Last Admin: 02/05/25 08:41 Dose: 50 mg Documented By: JENIFFER Omeprazole (Omeprazole 20 Mg Capsule.Dr) 20 mg PO DAILY@0630 [facility] Last Admin: 02/05/25 06:43 Dose: 20 mg Documented By: MARIAN Ondansetron HCl (Ondansetron Hcl 4 Mg/2 Ml Vial) 4 mg IVPUSH Q8H PRN PRN Reason: Nausea and Vomiting Pharmacy Consult (Consult Rx Vancomycin Dosing) 1 each MISCELLANE DAILY PRN PRN Reason: Consult order Polyethylene Glycol (Polyethylene Glycol 3350 17 Gm Powd.Pack) 17 gm PO DAILY PRN PRN Reason: Constipation Pravastatin Sodium (Pravastatin Sodium 20 Mg Tablet) 60 mg PO BEDTIME [facility] Senna (Sennosides 8.6 Mg Tablet) 17.2 mg PO BEDTIME [facility] Sodium Chloride (0.9 % Sodium Chloride Flush 3 Ml Syringe) 3 ml IVFLUSH QSHIFT [facility] Last Admin: 02/05/25 15:47 Dose: Not Given Documented By: CLARISSE Non-Admin Reason: No Access Labs 02/05/25 05:55 02/05/25 05:55 Labs: Laboratory Results - last 24 hr 02/04/25 02/05/25 02/05/25 13:33 03:19 04:19 MCV MCH MCHC RDW Plt Count MPV Immature Gran % (Auto) Neut % (Auto) Lymph % (Auto) Emanuel % (Auto) Eos % (Auto) Baso % (Auto) Lymph # (Auto) Emanuel # (Auto) Eos # (Auto) Baso # (Auto) Abs Immat Gran (auto) Absolute Neuts (auto) Absolute Nucleated RBC Nucleated RBC % (auto) Anion Gap Estim Creat Clear Calc Estimated GFR POC Glucose Random Glucose Lactic Acid 2.3 H* Lactic Acid F/U @ 2Hr Calcium Magnesium Total Bilirubin AST ALT Alkaline Phosphatase C-Reactive Protein 8.59 H Total Protein Albumin Urine Color Dark Yellow Urine Appearance Clear Urine pH 5.5 Ur Specific [place] 1.025 Urine Protein Trace Urine Glucose (UA) Negative Urine Ketones Trace Urine Blood Negative Urine Nitrite Negative Ur Leukocyte Esterase Negative Synovial Source Synovial WBC Synovial RBC Synovial Lymphocytes Synovial Monocytes 02/05/25 02/05/25 02/05/25 05:21 05:55 06:38 MCV 86.3 MCH 29.9 MCHC 34.7 RDW 12.6 Plt Count 185 D MPV 9.7 Immature Gran % (Auto) 0.3 Neut % (Auto) 78.7 H Lymph % (Auto) 10.4 L Emanuel % (Auto) 10.0 Eos % (Auto) 0.3 Baso % (Auto) 0.3 Lymph # (Auto) 1.2 Emanuel # (Auto) 1.2 Eos # (Auto) 0.0 Baso # (Auto) 0.0 Abs Immat Gran (auto) 0.04 H Absolute Neuts (auto) 9.1 H Absolute Nucleated RBC 0.000 Nucleated RBC % (auto) 0.0 Anion Gap 14 Estim Creat Clear Calc 56.0 Estimated GFR > 60 POC Glucose Random Glucose 93 Lactic Acid Lactic Acid F/U @ 2Hr 1.1 Calcium 8.9 D Magnesium 1.7 Total Bilirubin 0.6 AST 34 ALT < 6 Alkaline Phosphatase 52 C-Reactive Protein Total Protein 6.7 Albumin 4.0 Urine Color Urine Appearance Urine pH Ur Specific [place] Urine Protein Urine Glucose (UA) Urine Ketones Urine Blood Urine Nitrite Ur Leukocyte Esterase Synovial Source right knee Synovial WBC 43.560 Synovial RBC 0.002 Synovial Lymphocytes 95 Synovial Monocytes 5 02/05/25 02/05/25 07:26 11:57 MCV MCH MCHC RDW Plt Count MPV Immature Gran % (Auto) Neut % (Auto) Lymph % (Auto) Emanuel % (Auto) Eos % (Auto) Baso % (Auto) Lymph # (Auto) Emanuel # (Auto) Eos # (Auto) Baso # (Auto) Abs Immat Gran (auto) Absolute Neuts (auto) Absolute Nucleated RBC Nucleated RBC % (auto) Anion Gap Estim Creat Clear Calc Estimated GFR POC Glucose 104 120 H Random Glucose Lactic Acid Lactic Acid F/U @ 2Hr Calcium Magnesium Total Bilirubin AST ALT Alkaline Phosphatase C-Reactive Protein Total Protein Albumin Urine Color Urine Appearance Urine pH Ur Specific [place] Urine Protein Urine Glucose (UA) Urine Ketones Urine Blood Urine Nitrite Ur Leukocyte Esterase Synovial Source Synovial WBC Synovial RBC Synovial Lymphocytes Synovial Monocytes Microbiology Microbiology Results: Microbiology 02/05/25 05:21 Gram Stain - Final Knee aspirate Gross Specimen Examination - Final Fluid Crystals - Final 02/05/25 05:20 Gram Stain - Final Knee - Aspirate Assessment and Plan (1) Effusion, right knee: Status: Acute Assessment and Plan: 74-year-old male with past medical history Parkinson's with tremors, diabetes [id number], hypertension, erectile dysfunction, hyperlipidemia, colon cancer currently cancer free is being admitted for large right knee effusion status post fall with cellulitis and to rule out septic joint. Sepsis Started on ceftriaxone and vancomycin-? Sepsis/septic joint Source right knee effusion/cellulitis - ruling out septic joint-fluid culture negative, no fever Patient has sodium mono urate crystal-likely gout Will stop vanco, continue ceftriaxone due tomild knee cellulitis. added po prednisone /colchicine Large R knee effusion/ cellulitis, rule out septic joint Right knee effusion tapped by emergency room provider, cultures pending Blood cultures pending Lactic acid 2.3 -ESR 17, CRP 8.59 Orthopedics consulted-no acute intervention due to have gout likely Keep leg elevated, ice packs p.r.n., 1 dose of Toradol 15 mg IV x1, acetaminophen for fever Nondisplaced fracture likely T1 VB s/p fall : please see h&P,reassurance. Hypomagnesemia: repleted and resolved. DMII-SSI -DIabetic DIet fs with slidng wcale coverage. Parkinson's with recent falls -Continue current dose of carbidopa levodopa once med rec completed -PT evaluation HTN -Patient normally on amlodipine, lisinopril and metoprolol: Noted sepsis with stable blood pressure so we will hold home medications at this time -Low-sodium diet DVT prophylaxis: Held due to noted effusion/ ortho consult, unsure if pt will require surgical intervention . Urinary retention: Added Flomax Monitor PVR, if urinary retention or than 350 mL use straight cath PPI prophylaxis: Omeprazole ongoing need: Sepsis/gout/cellulitis: Need IV antibiotics, ID evaluation and monitor for cellulitis Quality Stroke Does the patient have a stroke diagnosis?: No Reason for No Anti-thrombotic by Day Two: Contraindicated VTE Prior VTE?: No VTE Risk Level:: Medical - moderate - high VTE Device Contraindication: N/A - Device Ordered VTE Drug Contraindication: Treatment Not Tolerated
[2025-02-05 17:35] LABS: Glucose, Whole Blood 119 mg/dL (60-115)
[2025-02-05] MEDS: Heparin Sodium,Porcine 5,000 UNIT/ML VIAL 5000 UNIT SUBCUT (19:02)
[2025-02-05] MEDS: predniSONE 20 MG TABLET 40 MG PO (19:03)
[2025-02-05] MEDS: Tamsulosin HCL 0.4 MG CAPSULE PO (19:03)
[2025-02-05] MEDS: Gabapentin 100 MG CAPSULE PO (21:04)
[2025-02-05] MEDS: Sennosides 8.6 MG TABLET 17.2 MG PO (21:04)
[2025-02-05] MEDS: Pravastatin Sodium 20 MG TABLET 60 MG PO (21:05)
[2025-02-05] MEDS: Colchicine 0.6 MG TABLET PO (21:05)
[2025-02-05 21:17] LABS: Glucose, Whole Blood 128 mg/dL (60-115)
[2025-02-05 23:23] LABS: Lymphocytes Synovial Fluid 0 %; Neutrophils Synovial Fluid 95 %
[2025-02-06] MEDS: Heparin Sodium,Porcine 5,000 UNIT/ML VIAL 5000 UNIT SUBCUT ×3 (01:53→18:17)
[2025-02-06] MEDS: 0.9 % Sodium Chloride Flush 3 ML SYRINGE IVFLUSH ×4 (01:59→20:21)
[2025-02-06 03:37] VITALS: BP 134/68; PULSE 86; RESP 16; TEMP 36.7; O2SAT 97
[2025-02-06] MEDS: cefTRIAXone sodium 1 GM VIAL IVPUSH (04:33)
--- NOTE | 2025-02-06 04:45 | PC.NURSE ---
0200 pt bladder scanned for [address]cath x 2 met with resistance. notified ordered to try to insert haddad cath.Pt refused haddad notified.
[2025-02-06] MEDS: Omeprazole 20 MG CAPSULE.DR PO (05:27)
[2025-02-06 07:37] VITALS: BP 107/57; PULSE 87; RESP 16; TEMP 36.2; O2SAT 98
[2025-02-06 07:43] LABS: Glucose, Whole Blood 144 mg/dL (60-115)
[2025-02-06 09:11] VITALS: BP 107/57; PULSE 87; O2SAT 98
[2025-02-06 09:24] LABS: Glucose Synovial Fluid 131; Total Protein Synovial Fluid 4.1
[2025-02-06 11:27] LABS: Glucose, Whole Blood 125 mg/dL (60-115)
[2025-02-06 12:31] LABS: Hematocrit 34.4 % (42.0-52.0); Hemoglobin 12.4 g/dl (14.0-18.0); Mean Corpuscular Hemoglobin 30.4 pg (27.0-33.0); Mean Corpuscular Volume 84.3 fL (80.0-98.0); Mean Platelet Volume 9.9 fL (9.4-12.4); Platelet Count 201 X10*3/uL (160-400); Red Blood Count 4.08 X10*6/uL (4.60-5.80); Red Cell Distribution Width 12.2 % (11.0-16.0); White Blood Count 11.4 X10*3/uL (4.8-10.8)
[2025-02-06 12:32] LABS: Venous Blood Gas Refer to POC result
[2025-02-06 12:33] LABS: VBG Base Excess -3.3 mmol/L; VBG HCO3 20 mmol/L (22-26); VBG pCO2 31 mmHg; VBG pH 7.41 (7.32-7.43); VBG pO2 44 mmHg
[2025-02-06 12:51] LABS: Alanine Aminotransferase < 6 U/L (0-40); Albumin Level 3.9 g/dL (3.5-5.0); Alkaline Phosphatase 53 U/L (39-117); Anion Gap 14 (12-20); Aspartate Amino Transferase 32 U/L (5-37); Bilirubin Direct 0.3 mg/dL (0.0-0.5); Bilirubin Total 0.5 mg/dL (0.0-1.0); Blood Urea Nitrogen 18 mg/dL (9-16); Calcium 9.4 mg/dL (8.4-10.2); Carbon Dioxide 21 mmol/L (22-29); Chloride 104 mmol/L (96-108); Creatinine Clr Calc Pharmacy 66.5; Estimated Glomerular Filt Rate > 60; Glucose Random 133 mg/dL (60-115); Potassium 4.2 mmol/L (3.3-5.1); Sodium 135 mmol/L (135-145); Total Protein 6.9 g/dL (6.5-8.0)
[2025-02-06 12:52] LABS: Creatinine Clr Calc Pharmacy 64.5; Estimated Glomerular Filt Rate > 60
--- NOTE | 2025-02-06 14:27 | MHC.CM.PN ---
CM SPOKE TO PTS SONRO [phone] AND PT MULTIPLE TIMES DCP WILL BE STR, [facility] IS PREFERRED PT HAS COMPLETED A NEW HCP NAMING HIS AND SON HIS AGENTS
--- NOTE | 2025-02-06 14:34 | MHC.CM.PN ---
Per Karli Carver: imm 02/05 met with pts son who explains the pt was living with his who is now a [place] [facility] [place] [facility] physical therapy is recommending str for pt son agrees he says the pts is the hcp for kassidy spoke with schuyler at al who says that pt does not qualify for snf thru the al pt has bc [facility] blue his id number is [id number] referrals made to str
[2025-02-06 15:17] VITALS: BP 123/57; PULSE 80; RESP 16; TEMP 36.4; O2SAT 97
--- NOTE | 2025-02-06 15:56 | HO.WOUND ---
Wound Consult: Initial 74yr old?male admitted to [facility] on 02/05/25 04:50 - See progress notes and H&P for detailed history.? Wound consult placed for bilateral buttock.? Patient agreeable to assessment and photo documentation.? Sacrum Etiology: Redness??Present on Admission Wound Bed: pink blanchable tissue remains intact and hyperpigmented Drainage / Odor: none Edges: ?mirrored Ryann wound: ? Intact No Induration, Fluctuance or Warmth noted Pain: denies Goals of Treatment: ? Foam to aid in pressure redistribution Recommendations: 1. Turn and Reposition every 2 hours and as needed for patient comfort.? Use pillows or wedges to support off loading positions. 2. Off Load all bony prominences with use of pillows and heel boots if needed.? Apply Preventative foams where needed. ? 3. Monitor for incontinence and moisture control, use barrier creams when needed for prevention and treatment. 4. Provide adequate and supplemental nutrition.? 5. Order low air loss mattress. 6. When applicable maintain blood glucose levels per Providers order. Sacrum - Off Load Pressure with Q2 hr turns and use of pillows - Routine cleansing.? Apply skin prep allow to dry.? Cover with foam dressing to aid in off loading and protection from friction. Change every 3 days and PRN. Re-consult wound care Nurse for wound deterioration or wound changes.
--- NOTE | 2025-02-06 16:06 | HO.PM.IMPN ---
Subjective Subjective Date of Service: 02/06/25 Interval History: confusion,knee swellin Review of Systems Mental status seems to be improving Review of Systems: Yes all other systems are reviewed and are negative Physical Exam Vital Signs: Vital Signs: Last Vital Signs Temp 97.6 F 02/06/25 15:17 Pulse 80 02/06/25 15:17 Resp 16 02/06/25 15:17 BP 123/57 L 02/06/25 15:17 Pulse Ox 97 02/06/25 15:17 O2 Del Method Room Air 02/06/25 15:17 BMI result Body Mass Index 23.0 Appearance: Alert.? Oriented X3. cvs: rrr, p9p1kgful. res: clear to auscultation ,no rhonchii or wheezing abd: no rebound or guarding ,nt, bs present. ext pulses present , no cyanosis. :right effusion/ujed-zjx-zctjgoikp, neuro: axo3 , nonfocal. Objective Data Active Medications Acetaminophen (Acetaminophen 325 Mg Tablet) 650 mg PO Q6H PRN PRN Reason: Pain, Mild 1-3,fever,headache Albuterol/Ipratropium (Albuterol/Iprat 2.5/0.5mg 3 Ml Ampul.Neb) 3 ml INHALE Q4H PRN PRN Reason: Shortness of Breath/Wheezing Calcium Carbonate (Calcium Carbonate 750 Mg Tab.Chew) 750 mg PO Q4H PRN PRN Reason: Heartburn Carbidopa/Levodopa (Carbidopa/Levodopa 25/100 Tablet) 1 tab PO TID [facility] Last Admin: 02/06/25 11:34 Dose: Not Given Documented By: BETTIE Non-Admin Reason: too lethargic Ceftriaxone Sodium (Ceftriaxone Sodium 1 Gm Vial) 1 gm IVPUSH Q24H [facility] Last Admin: 02/06/25 04:33 Dose: 1 gm Documented By: MICHAEL Colchicine (Colchicine 0.6 Mg Tablet) 0.6 mg PO BID [facility] Last Admin: 02/06/25 11:35 Dose: Not Given Documented By: BETTIE Non-Admin Reason: too lethargic Cyclobenzaprine HCl (Cyclobenzaprine Hcl 10 Mg Tablet) 10 mg PO BEDTIME PRN PRN Reason: Spasms Dextrose (Dextrose 50 % 25 Gm/50 Ml Syringe) 25 gm IVPUSH Q15M PRN; Protocol PRN Reason: per Hypoglycemia Standing Ord. Gabapentin (Gabapentin 100 Mg Capsule) 100 mg PO BID [facility] Last Admin: 02/06/25 11:35 Dose: Not Given Documented By: BETTIE Non-Admin Reason: too lethargic Glucose (Glucose Gel 15 Gm Gel..Gram.) 15 gm PO Q15M PRN; Protocol PRN Reason: per Hypoglycemia Standing Ord. Heparin Sodium (Porcine) (Heparin Sodium,Porcine 5,000 Unit/Ml Vial) 5,000 unit SUBCUT Q8H [facility] Last Admin: 02/06/25 09:55 Dose: 5,000 unit Documented By: SEBASTIEN Insulin Human Lispro (Insulin Lispro 100 Unit/Ml 3 Ml Vial) 0 unit SUBCUT QIDACHS [facility]; Protocol Last Admin: 02/06/25 11:36 Dose: Not Given Documented By: BETTIE Non-Admin Reason: No Insulin Coverage Lidocaine (Lidocaine 4 % Patch Adh..Patch) 1 patch TRANSDERMA DAILY PRN PRN Reason: Nerve Pain Magnesium Hydroxide (Milk Of Magnesia 30 Ml Oral.Susp) 30 ml PO DAILY PRN PRN Reason: Constipation Magnesium Oxide (Magnesium Oxide 400 Mg Tablet) 400 mg PO DAILY [facility] Last Admin: 02/06/25 11:35 Dose: Not Given Documented By: BETTIE Non-Admin Reason: too lethargic Melatonin (Melatonin 3 Mg Tablet) 6 mg PO BEDTIME PRN PRN Reason: Insomnia Metoprolol Succinate (Metoprolol Succinate Er 50 Mg Tab.Er.24h) 50 mg PO DAILY [facility]; Protocol Last Admin: 02/06/25 11:35 Dose: Not Given Documented By: BETTIE Non-Admin Reason: too lethargic Omeprazole (Omeprazole 20 Mg Capsule.Dr) 20 mg PO DAILY@0630 [facility] Last Admin: 02/06/25 05:27 Dose: 20 mg Documented By: MICHAEL Ondansetron HCl (Ondansetron Hcl 4 Mg/2 Ml Vial) 4 mg IVPUSH Q8H PRN PRN Reason: Nausea and Vomiting Pharmacy Consult (Consult Rx Vancomycin Dosing) 1 each MISCELLANE DAILY PRN PRN Reason: Consult order Polyethylene Glycol (Polyethylene Glycol 3350 17 Gm Powd.Pack) 17 gm PO DAILY PRN PRN Reason: Constipation Pravastatin Sodium (Pravastatin Sodium 20 Mg Tablet) 60 mg PO BEDTIME [facility] Last Admin: 02/05/25 21:05 Dose: 60 mg Documented By: MICHAEL Prednisone (Prednisone 20 Mg Tablet) 40 mg PO DAILY [facility] Last Admin: 02/06/25 11:35 Dose: Not Given Documented By: BETTIE Non-Admin Reason: too lethargic Senna (Sennosides 8.6 Mg Tablet) 17.2 mg PO BEDTIME [facility] Last Admin: 02/05/25 21:04 Dose: 17.2 mg Documented By: MICHAEL Sodium Chloride (0.9 % Sodium Chloride Flush 3 Ml Syringe) 3 ml IVFLUSH QSHIFT [facility] Last Admin: 02/06/25 15:19 Dose: 3 ml Documented By: BETTIE Tamsulosin HCl (Tamsulosin Hcl 0.4 Mg Capsule) 0.4 mg PO DAILY [facility] Last Admin: 02/06/25 11:36 Dose: Not Given Documented By: BETTIE Non-Admin Reason: too lethargic Trazodone HCl (Trazodone Hcl 25 Mg Halftab) 25 mg PO BID PRN PRN Reason: Pain, Severe (Pain Scale 7-10) Labs 02/06/25 12:23 02/06/25 12:23 Labs: Laboratory Results - last 24 hr 02/05/25 02/05/25 02/05/25 05:21 17:26 21:12 MCV MCH MCHC RDW Plt Count MPV Absolute Nucleated RBC Nucleated RBC % (auto) VBG pH VBG pCO2 VBG pO2 VBG HCO3 VBG O2 Saturation VBG Base Excess Anion Gap Estim Creat Clear Calc Estimated GFR POC Glucose 119 H 128 H Random Glucose Calcium Total Bilirubin Direct Bilirubin AST ALT Alkaline Phosphatase Total Protein Albumin Synovial Neutrophils 95 Synovial Lymphocytes 0 Synovial Glucose 131 Synovial Total Protein 4.1 02/06/25 02/06/25 02/06/25 07:40 11:24 12:23 MCV 84.3 MCH 30.4 MCHC 36.0 RDW 12.2 Plt Count 201 MPV 9.9 Absolute Nucleated RBC 0.000 Nucleated RBC % (auto) 0.0 VBG pH VBG pCO2 VBG pO2 VBG HCO3 VBG O2 Saturation VBG Base Excess Anion Gap 14 Estim Creat Clear Calc 64.5 Estimated GFR POC Glucose 144 H 125 H Random Glucose Calcium Total Bilirubin Direct Bilirubin AST ALT Alkaline Phosphatase Total Protein Albumin Synovial Neutrophils Synovial Lymphocytes Synovial Glucose Synovial Total Protein 02/06/25 02/06/25 02/06/25 12:23 12:23 12:29 MCV MCH MCHC RDW Plt Count MPV Absolute Nucleated RBC Nucleated RBC % (auto) VBG pH 7.41 VBG pCO2 31 VBG pO2 44 VBG HCO3 20 L VBG O2 Saturation 59.0 VBG Base Excess -3.3 Anion Gap Estim Creat Clear Calc 66.5 Estimated GFR > 60 > 60 POC Glucose Random Glucose 133 H Calcium 9.4 Total Bilirubin 0.5 Direct Bilirubin 0.3 AST 32 ALT < 6 Alkaline Phosphatase 53 Total Protein 6.9 Albumin 3.9 Synovial Neutrophils Synovial Lymphocytes Synovial Glucose Synovial Total Protein Microbiology Microbiology Results: Microbiology 02/05/25 05:20 Gram Stain - Final Knee - Aspirate Routine Culture - Preliminary No growth to date. 02/05/25 05:21 Gram Stain - Final Knee aspirate Anaerobic Culture - Preliminary No growth to date. Gross Specimen Examination - Final Fluid Crystals - Final Joint Fluid Culture - Preliminary No growth after 1 day 02/05/25 04:27 Blood Culture - Preliminary Blood - Venous No growth after 24 hours. 02/05/25 04:19 Blood Culture - Preliminary Blood - Venous No growth after 24 hours. Assessment and Plan (1) Effusion, right knee: Status: Acute Assessment and Plan: 74-year-old male with past medical history Parkinson's with tremors, diabetes [id number], hypertension, erectile dysfunction, hyperlipidemia, colon cancer currently cancer free is being admitted for large right knee effusion status post fall with cellulitis and to rule out septic joint. Sepsis sec Source right knee cellulitis/gout flare - ruling out septic joint-fluid culture negative, no fever Patient has sodium mono urate crystal-likely gout ESR 17, CRP 8.59 Will stop vanco, continue ceftriaxone due to mild knee cellulitis. added po prednisone /colchicine Id eval. Pt eval Toxic metabolic encephalopathy: Likely due to lack of sleep, decreased p.o. intake, pain meds. Hold pain meds for today BMP and CBC seems fine, patient not hypoxic Improving The patient's perioperative risk is high, particularly for cardiopulmonary complications, delirium, infection, and hepatic complications due to cirrhosis. Close perioperative monitorin is essential to mitigate these risks. Nondisplaced fracture likely T1 VB s/p fall : please see h&P,reassurance. Hypomagnesemia: repleted and resolved. DMII-SSI -DIabetic DIet fs with slidng wcale coverage. Parkinson's with recent falls -Continue current dose of carbidopa levodopa once med rec completed -PT evaluation HTN -Patient normally on amlodipine, lisinopril and metoprolol: Noted sepsis with stable blood pressure so we will hold home medications at this time -Low-sodium diet DVT prophylaxis: Held due to noted effusion/ ortho consult, unsure if pt will require surgical intervention . Urinary retention: Added Flomax Monitor PVR, if urinary retention or than 350 mL use straight cath PPI prophylaxis: Omeprazole ongoing need: Sepsis/gout/cellulitis: Need IV antibiotics, ID evaluation and monitor for cellulitis Quality Stroke Does the patient have a stroke diagnosis?: No Reason for No Anti-thrombotic by Day Two: Contraindicated VTE Prior VTE?: No VTE Risk Level:: Medical - moderate - high VTE Device Contraindication: N/A - Device Ordered VTE Drug Contraindication: Treatment Not Tolerated
[2025-02-06] MEDS: Carbidopa/Levodopa 25/100 TABLET 1 TAB PO ×2 (16:15→20:20)
[2025-02-06 16:24] LABS: Glucose, Whole Blood 119 mg/dL (60-115)
--- NOTE | 2025-02-06 16:30 | P.CNNE_ITS ---
History of Present Illness Data of Consult Service Date: 02/06/25 Primary Care Provider: Marcelo Bhatti MD [facility] Reason for consult: Parkinson's 74 years old man who said that he started to use a cane and a walker about a month ago and was seen by a doctor in [place] and was prescribed medicines for Parkinson's. This history was not independently confirmed. It he was brought to hospital for unsteadiness. His son found him apparently on the floor and it was not clear what had happened. When I saw him he was comfortable watching television. There was no history of seizure disorder. Review of Systems 2 Review of Systems: No recent cold or flu-like illness PMFSH Past Medical History Medical History Parkinson's disease without dyskinesia Nocturnal leg cramps Snoring Osteoarthritis Type 2 diabetes mellitus Tremor Hypercholesteremia Parkinson disease Male erectile disorder Lyme disease HTN (hypertension) Headache Abnormal weight Family History Family History Mother HTN (hypertension) Father HTN (hypertension) Surgical History Surgical History Hx of colonoscopy Social History Social History Household Members: Spouse Housing: House Do you presently have visiting nurse or other home services: No Alcohol intake: never Patient Tobacco Use Status: Former Tobacco user service: Yes Travel History Ebola Risk: Travel/Contact With Anyone From Affected Area/s: No Has Patient Experienced Ebola Symptoms: No Meds Allergies Allergy/AdvReac Type Severity Reaction Status Date / Time acetaminophen [From PERCOCET] Allergy Unknown UNKNOWN Verified 02/04/25 12:37 oxycodone [From PERCOCET] Allergy Unknown UNKNOWN Verified 02/04/25 12:37 pravastatin [PRAVASTATIN] Allergy Unknown UNKNOWN Verified 02/04/25 12:37 rosuvastatin [From CRESTOR] Allergy Unknown UNKNOWN Verified 02/04/25 12:37 percocet Allergy Unknown tunnel Uncoded 10/17/24 10:47 vision pravastatin Allergy Unknown elev liver Uncoded 10/17/24 10:47 enzymes seasonal Allergy Unknown Unknown Uncoded 10/17/24 10:47 Active Medications: Current Medications Acetaminophen (Acetaminophen 325 Mg Tablet) 650 mg PO Q6H PRN PRN Reason: Pain, Mild 1-3,fever,headache Albuterol/Ipratropium (Albuterol/Iprat 2.5/0.5mg 3 Ml Ampul.Neb) 3 ml INHALE Q4H PRN PRN Reason: Shortness of Breath/Wheezing Calcium Carbonate (Calcium Carbonate 750 Mg Tab.Chew) 750 mg PO Q4H PRN PRN Reason: Heartburn Carbidopa/Levodopa (Carbidopa/Levodopa 25/100 Tablet) 1 tab PO TID [facility] Last Admin: 02/06/25 16:15 Dose: 1 tab Ceftriaxone Sodium (Ceftriaxone Sodium 1 Gm Vial) 1 gm IVPUSH Q24H [facility] Last Admin: 02/06/25 04:33 Dose: 1 gm Colchicine (Colchicine 0.6 Mg Tablet) 0.6 mg PO BID [facility] Last Admin: 02/06/25 11:35 Dose: Not Given Cyclobenzaprine HCl (Cyclobenzaprine Hcl 10 Mg Tablet) 10 mg PO BEDTIME PRN PRN Reason: Spasms Dextrose (Dextrose 50 % 25 Gm/50 Ml Syringe) 25 gm IVPUSH Q15M PRN; Protocol PRN Reason: per Hypoglycemia Standing Ord. Gabapentin (Gabapentin 100 Mg Capsule) 100 mg PO BID [facility] Last Admin: 02/06/25 11:35 Dose: Not Given Glucose (Glucose Gel 15 Gm Gel..Gram.) 15 gm PO Q15M PRN; Protocol PRN Reason: per Hypoglycemia Standing Ord. Heparin Sodium (Porcine) (Heparin Sodium,Porcine 5,000 Unit/Ml Vial) 5,000 unit SUBCUT Q8H [facility] Last Admin: 02/06/25 09:55 Dose: 5,000 unit Insulin Human Lispro (Insulin Lispro 100 Unit/Ml 3 Ml Vial) 0 unit SUBCUT QIDACHS [facility]; Protocol Last Admin: 02/06/25 11:36 Dose: Not Given Lidocaine (Lidocaine 4 % Patch Adh..Patch) 1 patch TRANSDERMA DAILY PRN PRN Reason: Nerve Pain Magnesium Hydroxide (Milk Of Magnesia 30 Ml Oral.Susp) 30 ml PO DAILY PRN PRN Reason: Constipation Magnesium Oxide (Magnesium Oxide 400 Mg Tablet) 400 mg PO DAILY [facility] Last Admin: 02/06/25 11:35 Dose: Not Given Melatonin (Melatonin 3 Mg Tablet) 6 mg PO BEDTIME PRN PRN Reason: Insomnia Metoprolol Succinate (Metoprolol Succinate Er 50 Mg Tab.Er.24h) 50 mg PO DAILY [facility]; Protocol Last Admin: 02/06/25 11:35 Dose: Not Given Omeprazole (Omeprazole 20 Mg Capsule.Dr) 20 mg PO DAILY@0630 [facility] Last Admin: 02/06/25 05:27 Dose: 20 mg Ondansetron HCl (Ondansetron Hcl 4 Mg/2 Ml Vial) 4 mg IVPUSH Q8H PRN PRN Reason: Nausea and Vomiting Pharmacy Consult (Consult Rx Vancomycin Dosing) 1 each MISCELLANE DAILY PRN PRN Reason: Consult order Polyethylene Glycol (Polyethylene Glycol 3350 17 Gm Powd.Pack) 17 gm PO DAILY PRN PRN Reason: Constipation Pravastatin Sodium (Pravastatin Sodium 20 Mg Tablet) 60 mg PO BEDTIME [facility] Last Admin: 02/05/25 21:05 Dose: 60 mg Prednisone (Prednisone 20 Mg Tablet) 40 mg PO DAILY [facility] Last Admin: 02/06/25 11:35 Dose: Not Given Senna (Sennosides 8.6 Mg Tablet) 17.2 mg PO BEDTIME [facility] Last Admin: 02/05/25 21:04 Dose: 17.2 mg Sodium Chloride (0.9 % Sodium Chloride Flush 3 Ml Syringe) [facility] Admin: 02/06/25 15:19 Dose: 3 ml Tamsulosin HCl (Tamsulosin Hcl 0.4 Mg Capsule) 0.4 mg PO DAILY [facility] Last Admin: 02/06/25 11:36 Dose: Not Given Trazodone HCl (Trazodone Hcl 25 Mg Halftab) 25 mg PO BID PRN PRN Reason: Pain, Severe (Pain Scale 7-10) Home Medications ?Medication ?Instructions ?Recorded ?Confirmed ?Last Taken ?Type cyclobenzaprine 10 mg tablet 10 mg PO BEDTIME PRN Spasms 10/11/24 02/05/25 Unknown History naproxen 375 mg tablet 375 mg PO BID PRN Pain 10/11/24 02/05/25 Unknown History sildenafil 50 mg tablet 50 mg PO DAILY PRN Sexual Activity 10/11/24 02/05/25 Unknown History amlodipine 10 mg tablet 10 mg PO DAILY 10/17/24 02/05/25 1 Day Ago History ~02/04/25 lovastatin 20 mg tablet 60 mg PO BEDTIME 10/17/24 02/05/25 1 Day Ago History ~02/04/25 metformin 500 mg tablet 500 mg PO BID 10/17/24 02/05/25 1 Day Ago History ~02/04/25 carbidopa 25 mg-levodopa 100 mg 1 tab PO DAILY 02/04/25 02/05/25 Unknown History tablet metoprolol succinate 50 mg 50 mg PO DAILY 02/04/25 02/05/25 1 Day Ago History tablet,extended release 24 hr ~02/04/25 lidocaine 5 % topical patch 1 patch topical DAILY PRN Nerve 02/05/25 02/05/25 Unknown History Pain lisinopril 10 mg tablet 10 mg PO DAILY 02/05/25 02/05/25 Unknown History omeprazole 20 mg capsule,delayed 20 mg PO DAILY@0630 02/05/25 02/05/25 Unknown History release Physical Exam 2 Vital Signs: Vital Signs: Last Vital Signs Temp 97.6 F 02/06/25 15:17 Pulse 80 02/06/25 15:17 Resp 16 02/06/25 15:17 BP 123/57 L 02/06/25 15:17 Pulse Ox 97 02/06/25 15:17 O2 Del Method Room Air 02/06/25 15:17 BMI result Body Mass Index 23.0 Neuro: Other: He is alert and awake with normal spontaneity of speech fluency comprehension and affect. Facial expression blinking or slightly diminished. Mild cogwheeling rigidity is noted in upper extremities. Mild tremor is noted in upper extremities. Deep tendon reflexes are trace to absent with flexor plantars. Speech is normal. Results Labs 02/06/25 12:23 02/06/25 12:23 Labs: Short CBC 02/06/25 Range/Units 12:23 WBC 11.4 H (4.8-10.8) X10*3/uL Hgb 12.4 L (14.0-18.0) g/dl Hct 34.4 L (42.0-52.0) % Plt Count 201 (160-400) X10*3/uL BMP 02/06/25 02/06/25 12:23 12:23 Sodium 135 Potassium 4.2 Chloride 104 Carbon Dioxide 21 L BUN 18 H Creatinine 1.00 0.97 Calcium 9.4 Liver Function 02/06/25 Range/Units 12:23 Total Bilirubin 0.5 (0.0-1.0) mg/dL Direct Bilirubin 0.3 (0.0-0.5) mg/dL AST 32 (5-37) U/L ALT < 6 (0-40) U/L Alkaline Phosphatase 53 (39-117) U/L Albumin 3.9 (3.5-5.0) g/dL Noncontrast head CT did not reveal any significant abnormality for his age. Microbiology Microbiology Results: Microbiology 02/05/25 05:20 Knee - Aspirate Gram Stain - Final 02/05/25 05:20 Knee - Aspirate Routine Culture - Preliminary No growth to date. 02/05/25 05:21 Knee aspirate Gram Stain - Final 02/05/25 05:21 Knee aspirate Anaerobic Culture - Preliminary No growth to date. 02/05/25 05:21 Knee aspirate Gross Specimen Examination - Final 02/05/25 05:21 Knee aspirate Fluid Crystals - Final 02/05/25 05:21 Knee aspirate Joint Fluid Culture - Preliminary No growth after 1 day 02/05/25 04:27 Blood - Venous Blood Culture - Preliminary No growth after 24 hours. 02/05/25 04:19 Blood - Venous Blood Culture - Preliminary No growth after 24 hours. Assessment and Plan (1) Parkinson's disease without dyskinesia: Qualifiers: Fluctuating manifestations: without fluctuating manifestations Q ualified Code(s): G20.A1 - Parkinson's disease without dyskinesia, without mention of fluctuations Status: Acute 74 years old man with moderate Parkinson's. My recommendation is to put him on carbidopa/levodopa 25/100 4 times a day at 07:00, 11:00, 15:00, and 19:00. PT OT consultation is also recommended. Procedures Date of Service Date of Service: 02/06/25
[2025-02-06 19:21] VITALS: BP 127/61; PULSE 85; RESP 16; TEMP 36.4; O2SAT 97
[2025-02-06] MEDS: Sennosides 8.6 MG TABLET 17.2 MG PO (20:20)
[2025-02-06] MEDS: Pravastatin Sodium 20 MG TABLET 60 MG PO (20:20)
[2025-02-06] MEDS: Colchicine 0.6 MG TABLET PO (20:21)
[2025-02-06 20:23] LABS: Glucose, Whole Blood 110 mg/dL (60-115)
[2025-02-07] MEDS: Heparin Sodium,Porcine 5,000 UNIT/ML VIAL 5000 UNIT SUBCUT ×2 (01:28→08:46)
[2025-02-07 03:31] VITALS: BP 128/60; PULSE 88; RESP 18; TEMP 36.3; O2SAT 96
[2025-02-07] MEDS: Omeprazole 20 MG CAPSULE.DR PO (05:09)
[2025-02-07] MEDS: cefTRIAXone sodium 1 GM VIAL IVPUSH (05:09)
[2025-02-07 06:22] LABS: Vancomycin Random 2.4 mcg/mL (15-20)
[2025-02-07 06:25] LABS: Creatinine Clr Calc Pharmacy 65.1; Estimated Glomerular Filt Rate > 60
[2025-02-07 07:19] VITALS: BP 130/61; PULSE 95; RESP 18; TEMP 36.4; O2SAT 96
[2025-02-07 07:26] LABS: Glucose, Whole Blood 90 mg/dL (60-115)
[2025-02-07] MEDS: Colchicine 0.6 MG TABLET PO (08:45)
[2025-02-07] MEDS: Tamsulosin HCL 0.4 MG CAPSULE PO (08:46)
[2025-02-07] MEDS: predniSONE 20 MG TABLET 40 MG PO (08:46)
[2025-02-07] MEDS: Carbidopa/Levodopa 25/100 TABLET 1 TAB PO ×2 (08:46→13:01)
[2025-02-07] MEDS: Metoprolol Succinate ER 50 MG TAB.ER.24H PO (08:46)
[2025-02-07] MEDS: Magnesium Oxide 400 MG TABLET PO (08:46)
[2025-02-07] MEDS: 0.9 % Sodium Chloride Flush 3 ML SYRINGE IVFLUSH (08:53)
[2025-02-07] MEDS: Acetaminophen 325 MG TABLET 650 MG PO (10:28)
[2025-02-07 10:47] VITALS: BP 130/61; PULSE 95; O2SAT 96
[2025-02-07 11:58] LABS: Glucose, Whole Blood 139 mg/dL (60-115)
[2025-02-07 11:58] LABS: Lyme PCR Source FLUID, SYNOVIAL; Lyme Synovial Fluid PCR NOT DETECTED (NOT DETECTED)
--- NOTE | 2025-02-07 12:48 | P.CNID_ITS ---
History of Present Illness Data of Consult Service Date: 02/07/25 Requesting physician: Norma Delcid Primary Care Provider: Marcelo Bhatti MD [facility] Reason for consult: right knee redness He presents with swelling right knee last week. He had it tapped,shows uric acid crystals It is not red now. 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 Nocturnal leg cramps Snoring Osteoarthritis Type 2 diabetes mellitus Tremor Hypercholesteremia Parkinson disease Male erectile disorder Lyme disease HTN (hypertension) Headache Abnormal weight Family History Family History Mother HTN (hypertension) Father HTN (hypertension) Family history: reviewed and not pertinent Surgical History Surgical History Hx of colonoscopy Social History Social History Household Members: Spouse Housing: House Do you presently have visiting nurse or other home services: No Alcohol intake: never Patient Tobacco Use Status: Former Tobacco user service: Yes Travel History Ebola Risk: Travel/Contact With Anyone From Affected Area/s: No Has Patient Experienced Ebola Symptoms: No Meds Allergies Allergy/AdvReac Type Severity Reaction Status Date / Time acetaminophen [From PERCOCET] Allergy Unknown UNKNOWN Verified 02/04/25 12:37 oxycodone [From PERCOCET] Allergy Unknown UNKNOWN Verified 02/04/25 12:37 pravastatin [PRAVASTATIN] Allergy Unknown UNKNOWN Verified 02/04/25 12:37 rosuvastatin [From CRESTOR] Allergy Unknown UNKNOWN Verified 02/04/25 12:37 percocet Allergy Unknown tunnel Uncoded 10/17/24 10:47 vision pravastatin Allergy Unknown elev liver Uncoded 10/17/24 10:47 enzymes seasonal Allergy Unknown Unknown Uncoded 10/17/24 10:47 Active Medications: Current Medications Acetaminophen (Acetaminophen 325 Mg Tablet) 650 mg PO Q6H PRN PRN Reason: Pain, Mild 1-3,fever,headache Last Admin: 02/07/25 10:28 Dose: 650 mg Albuterol/Ipratropium (Albuterol/Iprat 2.5/0.5mg 3 Ml Ampul.Neb) 3 ml INHALE Q4H PRN PRN Reason: Shortness of Breath/Wheezing Calcium Carbonate (Calcium Carbonate 750 Mg Tab.Chew) 750 mg PO Q4H PRN PRN Reason: Heartburn Carbidopa/Levodopa (Carbidopa/Levodopa 25/100 Tablet) 1 tab PO QID [facility] Colchicine (Colchicine 0.6 Mg Tablet) 0.6 mg PO BID [facility] Last Admin: 02/07/25 08:45 Dose: 0.6 mg Cyclobenzaprine HCl (Cyclobenzaprine Hcl 10 Mg Tablet) 10 mg PO BEDTIME PRN PRN Reason: Spasms Dextrose (Dextrose 50 % 25 Gm/50 Ml Syringe) 25 gm IVPUSH Q15M PRN; Protocol PRN Reason: per Hypoglycemia Standing Ord. Gabapentin (Gabapentin 100 Mg Capsule) 100 mg PO BID [facility] Last Admin: 02/06/25 11:35 Dose: Not Given Glucose (Glucose Gel 15 Gm Gel..Gram.) 15 gm PO Q15M PRN; Protocol PRN Reason: per Hypoglycemia Standing Ord. Heparin Sodium (Porcine) (Heparin Sodium,Porcine 5,000 Unit/Ml Vial) 5,000 unit SUBCUT Q8H [facility] Last Admin: 02/07/25 08:46 Dose: 5,000 unit Insulin Human Lispro (Insulin Lispro 100 Unit/Ml 3 Ml Vial) 0 unit SUBCUT QIDACHS [facility]; Protocol Last Admin: 02/07/25 11:59 Dose: Not Given Lidocaine (Lidocaine 4 % Patch Adh..Patch) 1 patch TRANSDERMA DAILY PRN PRN Reason: Nerve Pain Magnesium Hydroxide (Milk Of Magnesia 30 Ml Oral.Susp) 30 ml PO DAILY PRN PRN Reason: Constipation Magnesium Oxide (Magnesium Oxide 400 Mg Tablet) 400 mg PO DAILY [facility] Last Admin: 02/07/25 08:46 Dose: 400 mg Melatonin (Melatonin 3 Mg Tablet) 6 mg PO BEDTIME PRN PRN Reason: Insomnia Metoprolol Succinate (Metoprolol Succinate Er 50 Mg Tab.Er.24h) 50 mg PO DAILY [facility]; Protocol Last Admin: 02/07/25 08:46 Dose: 50 mg Omeprazole (Omeprazole 20 Mg Capsule.Dr) 20 mg PO DAILY@0630 [facility] Last Admin: 02/07/25 05:09 Dose: 20 mg Ondansetron HCl (Ondansetron Hcl 4 Mg/2 Ml Vial) 4 mg IVPUSH Q8H PRN PRN Reason: Nausea and Vomiting Polyethylene Glycol (Polyethylene Glycol 3350 17 Gm Powd.Pack) 17 gm PO DAILY PRN PRN Reason: Constipation Pravastatin Sodium (Pravastatin Sodium 20 Mg Tablet) 60 mg PO BEDTIME [facility] Last Admin: 02/06/25 20:20 Dose: 60 mg Prednisone (Prednisone 10 Mg Tablet) 30 mg PO DAILY [facility] Senna (Sennosides 8.6 Mg Tablet) 17.2 mg PO BEDTIME [facility] Last Admin: 02/06/25 20:20 Dose: 17.2 mg Sodium Chloride (0.9 % Sodium Chloride Flush 3 Ml Syringe) 3 ml IVFLUSH QSHIFT [facility] Last Admin: 02/07/25 08:53 Dose: 3 ml Tamsulosin HCl (Tamsulosin Hcl 0.4 Mg Capsule) 0.4 mg PO DAILY [facility] Last Admin: 02/07/25 08:46 Dose: 0.4 mg Trazodone HCl (Trazodone Hcl 25 Mg Halftab) 25 mg PO BID PRN PRN Reason: Pain, Severe (Pain Scale 7-10) Home Medications ?Medication ?Instructions ?Recorded ?Confirmed ?Last Taken ?Type cyclobenzaprine 10 mg tablet 10 mg PO BEDTIME PRN Spasms 10/11/24 02/05/25 Unknown History naproxen 375 mg tablet 375 mg PO BID PRN Pain 10/11/24 02/05/25 Unknown History sildenafil 50 mg tablet 50 mg PO DAILY PRN Sexual Activity 10/11/24 02/05/25 Unknown History amlodipine 10 mg tablet 10 mg PO DAILY 10/17/24 02/05/25 1 Day Ago History ~02/04/25 lovastatin 20 mg tablet 60 mg PO BEDTIME 10/17/24 02/05/25 1 Day Ago History ~02/04/25 metformin 500 mg tablet 500 mg PO BID 10/17/24 02/05/25 1 Day Ago History ~02/04/25 carbidopa 25 mg-levodopa 100 mg 1 tab PO DAILY 02/04/25 02/05/25 Unknown History tablet metoprolol succinate 50 mg 50 mg PO DAILY 02/04/25 02/05/25 1 Day Ago History tablet,extended release 24 hr ~02/04/25 lidocaine 5 % topical patch 1 patch topical DAILY PRN Nerve 02/05/25 02/05/25 Unknown History Pain lisinopril 10 mg tablet 10 mg PO DAILY 02/05/25 02/05/25 Unknown History omeprazole 20 mg capsule,delayed 20 mg PO DAILY@0630 02/05/25 02/05/25 Unknown History release Physical Exam 2 Vital Signs: Vital Signs: Last Vital Signs Temp 97.5 F 02/07/25 07:19 Pulse 95 02/07/25 10:47 Resp 18 02/07/25 07:19 BP 130/61 02/07/25 10:47 Pulse Ox 96 02/07/25 10:47 O2 Del Method Room Air 02/07/25 07:19 BMI result Body Mass Index 23.0 Const: General: cooperative HEENT: Head: Yes normal to inspection Face and sinus: Yes normal facial exam Mouth: Normal oral and palatal mucosa present Teeth and gingiva: d entition normal Eyes: General: appearance normal, both eyes and all related structures P upils: Equal, round and reactive pupils present Resp: Effort & Inspection: normal respiratory effort Cardio: Rate: regular rate Rhythm: regular rhythm GI: Palpation (GI): Soft to palpation and nontender : General: Yes no CVA tenderness Back/Spine/Pelvis: Back: no CVA tenderness Skin: General skin exam: no rashes or lesions noted Neuro: General: moves all extremities Cranial nerves: Yes Equal, round and reactive pupils present Extrem: General: Yes normal to inspection Psych: Appearance: grossly normal Results Labs 02/06/25 12:23 02/07/25 05:52 Labs: BMP 02/06/25 02/06/25 02/07/25 12:23 12:23 05:52 Sodium 135 Potassium 4.2 Chloride 104 Carbon Dioxide 21 L BUN 18 H Creatinine 1.00 0.97 0.99 Calcium 9.4 Liver Function 02/06/25 Range/Units 12:23 Total Bilirubin 0.5 (0.0-1.0) mg/dL Direct Bilirubin 0.3 (0.0-0.5) mg/dL AST 32 (5-37) U/L ALT < 6 (0-40) U/L Alkaline Phosphatase 53 (39-117) U/L Albumin 3.9 (3.5-5.0) g/dL Microbiology Microbiology Results: Microbiology 02/05/25 05:20 Knee - Aspirate Gram Stain - Final 02/05/25 05:20 Knee - Aspirate Routine Culture - Final No growth after 2 days 02/05/25 05:21 Knee aspirate Gram Stain - Final 02/05/25 05:21 Knee aspirate Anaerobic Culture - Preliminary No growth to date. 02/05/25 05:21 Knee aspirate Gross Specimen Examination - Final 02/05/25 05:21 Knee aspirate Fluid Crystals - Final 02/05/25 05:21 Knee aspirate Joint Fluid Culture - Final No growth after 2 days 02/05/25 04:27 Blood - Venous Blood Culture - Preliminary No growth after 48 hours. 02/05/25 04:19 Blood - Venous Blood Culture - Preliminary No growth after 48 hours. Assessment and Plan (1) Effusion, right knee: Status: Acute Plan Treat for gout. No antibiotics necessary.
--- NOTE | 2025-02-07 13:02 | MHC.CM.PN ---
pt going to [facility] today at 4 son javi notified of same
--- NOTE | 2025-02-07 13:22 | PM.DS ---
DS: Providers Provider Date of Service: 02/07/25 Date of admission: 02/05/25 04:50 Date of discharge: 02/07/25 Primary care physician: Marcelo Bhatti MD Consults: 02/05/25 05:00 Consult to Orthopedics Routine Consulting Provider: [facility] Reason for consultation: large right knee effusion 02/05/25 17:33 Consult to Infectious Diseases Routine Consulting Provider: [facility] Reason for consultation: right knee cellulitis vs gout Has provider been notified: No 02/05/25 21:20 Consult to Wound Care Routine Reason for consultation: redness to precious buttocks 02/06/25 08:05 Consult to Urology Routine Consulting Provider: [facility] Reason for consultation: urinary retention Has provider been notified: No Attending physician on discharge: Norma Delcid Discharging clinician: Norma Delcid DS: Diagnosis Discharge Diagnosis (1) Effusion, right knee: Status: Acute DS: Summary Hospital Course Hospital Course: HPI:74-year-old male with past medical history Parkinson's with tremors, diabetes [id number], hypertension, erectile dysfunction, hyperlipidemia, colon cancer currently cancer free was seen in the emergency department per his son after patient was found at home lying in the couch with significant weakness and mild confusion. It was concluded that patient had fallen within the last 48 hours. Patient does have Parkinson's and has been having more frequent falls. Pt has walker, cane and WC available for use at home. Patient only able to provide minimal details. Patient denied strike to the head. Patient is not on blood thinners. Patient's was admitted to this hospital earlier which prompted son to check on the patient as he was alone. Patient had a noted leukocytosis, lactic acid of 2.3, sed rate of 17 and CRP of 8.59. Blood cultures were drawn and are pending. UA negative for urinary tract infection. Magnesium also low at 1.4 and patient received 2 g of IV magnesium in the emergency department. Patient did not experience a bout of significant confusion and patient attempted to get dressed and out of the stretcher to leave. Patient was redirected by the ED provider and is currently comfortable, alert and orientated x3. Was noted that patient was experiencing retention of urine and Rodriguez was placed with initial 200 cc output. In the emergency department CT of the head and CT of the cervical spine were completed. CT of the head negative for acute findings. CT of the cervical spine noted a possible nondisplaced fracture of T1. On examination patient has full range of motion in the cervical and upper back area. Patient denies any pain in the cervical and thoracic spine area. Palpation of the spine does not elicit any pain or discomfort. Reviewed findings with the attending Dr. Mayen. No referral indicated at this time. Patient indicated that he likely injured his right knee. Patient states that he did hit both knees with the right knee became more painful which prompted him to be bound to the couch and unable to ambulate. A large right knee effusion was found on x-ray. ED provider was able to tap the right knee and extract 35 mL of turbid yellow fluid. Specimen sent for culture. Knee is currently very hot to the touch. Areas of cellulitis marked with surgical marker. Patient now developing a low-grade temperature of a 100.1F. Patient will receive 15 mg of IV Toradol for pain and inflammation. Patient was started on vancomycin in the ED. Ceftriaxone is being added to cover for septic joint. Orthopedics has been consulted as well. There was no obvious injury to the left knee, B hips or B lower ankles or feet. Hospital course: Initially patient was admitted thought to be sepsis secondary to suspected septic arthritis: started on IV antibiotics for possible septic arthritis-subsequently blood culture and fluid culture negative, synovial fluid positive for sodium monitor urate crystals:Patient seen by ortho and ID as well as synovial fluid analysis and cultures reviewed, leukocytosis improving: Recommended to treat gout, no further use of antibiotic, less likely septic arthritis. Patient is currently on prednisone ,also received colchicine: Patient seems to be improving, knee pain and motion is also improving: Patient will be going to the rehab with prednisone taper, consider outpatient uric acid checking and also allopurinol use. Also also on Naprosyn at home. Seen by PT recommended rehab. Toxic metabolic encephalopathy multifactorial-improved with improving p.o. intake as well as hydration and sleeping well, holding sedative medications. Nondisplaced fracture likely T1 VB s/p fall : Asymptomatic ,reassurance. Hypomagnesemia: repleted and resolved.moniter renal function/electrolytes ,magnesium in 1 week. Parkinson's with recent falls: Patient seems to be improving, seen by neuro : Carbidopa levodopa adjusted to 1 tablets q.i.d. in addition seen by PT recommended rehab. Hypertension: Blood pressure is stable on metoprolol, hold lisinopril and amlodipine if needed can reintroduced slowly outpatient. Urinary retention: Added Flomax, Rodriguez due to urinary retention, consider voiding trial in rehab next week or so, if continue to have urinary retention-may need Urology evaluation. Discussed with Urology Dr. Meier -may need outpatient followup. Plan: Hold lisinopril and amlodipine as above. Continue magnesium p.o. as prescribed. Check renal function electrolytes magnesium in 1 week. Carbidopa levodopa adjusted to 1 tablets q.i.d. Continue Flomax, voiding trial in 2- 3 days, if still has urinary retention may need Rodriguez and Urology evaluation outpatient Above management discussed with the patient in detail length, as well as a son-they both understand and in agreement with the above plan, time spent 40 minute, all question answered, staff was present during conversation. Time Attestation Total time managing care of this patient today: 40 mintues. Discharge Coordination Time (in mins): 40 min Quality: Safe Use of Opioids Does Pt have an Active Cancer Diagnosis on the Problem List?: No Quality: Stroke Does the patient have a stroke diagnosis?: No Physical Exam Vital Signs: Vital Signs: Last Vital Signs Temp 97.5 F 02/07/25 07:19 Pulse 95 02/07/25 10:47 Resp 18 02/07/25 07:19 BP 130/61 02/07/25 10:47 Pulse Ox 96 02/07/25 10:47 O2 Del Method Room Air 02/07/25 07:19 BMI result Body Mass Index 23.0 Appearance: Alert.? Oriented X3. cvs: rrr, [id number]. res: clear to auscultation ,no rhonchii or wheezing abd: no rebound or guarding ,nt, bs present. ext pulses present , no cyanosis. MS: Right knee pain and swelling seems to be improved, no erythema neuro: axo3 , nonfocal. DS: Data Data Completed and Pending Labs on day of discharge: Laboratory Results - last 24 hr 02/05/25 02/06/25 02/06/25 05:21 16:02 19:30 Hold Purple Top Creatinine Estim Creat Clear Calc Estimated GFR POC Glucose 119 H 110 Synovial Lyme DNA (PCR) NOT DETECTED Random Vancomycin Lyme (Rapid PCR) Src FLUID, SYNOVIAL 02/07/25 02/07/25 02/07/25 05:52 07:22 11:49 Hold Purple Top SEE NOTE Creatinine 0.99 Estim Creat Clear Calc 65.1 Estimated GFR > 60 POC Glucose 90 139 H Synovial Lyme DNA (PCR) Random Vancomycin 2.4 L Lyme (Rapid PCR) Src Preliminary micro results at discharge 02/05/25 05:21 Anaerobic Culture - Preliminary Knee aspirate No growth to date. 02/05/25 04:27 Blood Culture - Preliminary Blood - Venous No growth after 48 hours. 02/05/25 04:19 Blood Culture - Preliminary Blood - Venous No growth after 48 hours. Imaging Chest x-ray: Radiologist's impression: ITS Impressions Hip/Pelvis X-Ray 02/04/25 12:20 IMPRESSION: No acute findings in the pelvis or right hip. Electronically signed by: Gene Harris MD 02/04/2025 01:50 PM EDT RP Tibia/Fibula X-Ray 02/04/25 12:25 IMPRESSION: No acute bony abnormalities right tibia and fibula. Foot X-Ray 02/04/25 12:26 IMPRESSION: 1. No acute bony abnormalities of the right foot. Cervical Spine CT 02/04/25 12:59 IMPRESSION: Faint lucency in the posterior superior left T1 vertebral body is concerning for a small nondisplaced fracture. Focal cortical lucency through the right C2 transverse process is probably related to chronic change or prominent trabeculations and less likely acute fracture. Degenerative disc disease and severe facet osteoarthritis Head CT 02/04/25 12:59 IMPRESSION: No acute intracranial abnormality. No acute fracture evident. Knee X-Ray 02/04/25 13:00 IMPRESSION: 1. No acute abnormalities of the right knee. Discharge Plan Discharge Anticipated Discharge Date/Time: 02/07/25 12:48 Patient Disposition: Xfer SNF Discharge Diagnosis: gout flare Referrals: gabe gruber [Other] - 1 Week Marcelo Bhatti MD [Primary Care Provider] - 1 Week Discharge Medications: New tamsulosin 0.4 mg Capsule 0.4 mg PO DAILY Qty: 1 0RF prednisone 10 mg tablet See Taper PO DIRECTED Qty: 18 0RF Taper: Prednisone 30 mg daily for 3 Days and 0 Hour 20 mg daily for 3 Days and 0 Hour 10 mg daily for 3 Days and 0 Hour Rx Instructions: see taper instructions acetaminophen 325 mg Tablet 650 mg PO Q6H PRN (Reason: Pain, Mild 1-3,Fever,Headache) Qty: 1 0RF magnesium gluconate 12.5 mg magne- sium (250 mg) tablet 250 mg PO TID Qty: 1 0RF Continued metoprolol succinate 50 mg tablet extended release 24 hr 50 mg PO DAILY omeprazole 20 mg Capsule,Delayed Release(Dr/Ec) 20 mg PO DAILY@0630 lidocaine 5 % Adhesive Patch,Medicated 1 patch TOPICAL DAILY PRN (Reason: Nerve Pain) Rx Instructions: leave on most painful area for up to 12 hrs cyclobenzaprine 10 mg tablet 10 mg PO BEDTIME PRN (Reason: Spasms) naproxen 375 mg tablet 375 mg PO BID PRN (Reason: Pain) sildenafil 50 mg tablet 50 mg PO DAILY PRN (Reason: Sexual Activity) Rx Instructions: administer 30 minutes to 4 hours before activity lovastatin 20 mg tablet 60 mg PO BEDTIME metformin 500 mg tablet 500 mg PO BID Changed carbidopa-levodopa 25-100 mg tablet 1 tab PO QID Qty: 1 0RF Held lisinopril 10 mg tablet 10 mg PO DAILY Hold Instructions: Resume on 02/19/25. amlodipine 10 mg tablet 10 mg PO DAILY Hold Instructions: Resume on 02/19/25. Discharge Orders: Discharge Order (Routine); Ordered 02/07/25 Ordered By: Norma Delcid Diet: Advance to usual diet Activity on Discharge: As tolerated Stand Alone Forms: Patient Portal Discharge page Print Language: Grenadian Care Plan Goals: Initially patient was started on IV antibiotics for possible septic arthritis-subsequently blood culture and fluid culture negative, synovial fluid positive for sodium monitor urate crystals: Patient seen by ortho and ID: Recommended to treat gout, no further use of antibiotic. Patient is currently on prednisone ,also received colchicine: Patient seems to be improving, knee pain and motion is also improving: Patient will be going to the rehab with prednisone taper, consider outpatient uric acid checking and also allopurinol use. Also also on Naprosyn . Toxic metabolic encephalopathy multifactorial-improved with improving p.o. intake as well as hydration and sleeping well, holding sedative medications. Nondisplaced fracture likely T1 VB s/p fall : Asymptomatic ,reassurance. Hypomagnesemia: repleted and resolved.moniter renal function/electrolytes ,magnesium in 1 week. Parkinson's with recent falls: Patient seems to be improving, seen by neuro : Carbidopa levodopa adjusted to 1 tablets q.i.d. in addition seen by PT recommended rehab. Hypertension: Blood pressure is stable on metoprolol, hold lisinopril and amlodipine if needed can reintroduced slowly outpatient. Urinary retention: Added Flomax, Rodriguez due to urinary retention, consider voiding trial in rehab next 2 days, if continue to have urinary retention-may need Urology evaluation. Health Concerns: As above. Plan of Treatment: As above. Assessment: As above.
[2025-02-07 15:26] VITALS: BP 117/60; PULSE 87; RESP 16; TEMP 36.4; O2SAT 97
== END 2025-02-07 16:33 | disposition skilled nursing facility (03) | DRG 553 ==
LOC: HO.ED 02-05 04:48 → HO.EDOVER 02-05 05:52 → HO.S3 02-05 19:07
PROVIDERS: Nurse Practitioner Family; Physician Assistant; Admitting Provider Student in an Organized Health Care Education/Training Program; Emergency Provider Emergency Medicine; PCP Internal Medicine; Visit Provider Internal Medicine
DX: M10.9 Gout, unspecified (principal); G92.8 Other toxic encephalopathy; L03.115 Cellulitis of right lower limb; S22.011A Stable burst fracture of first thoracic vertebra, initial encounter for closed fracture; R33.9 Retention of urine, unspecified; G20.A1 Parkinson's disease without dyskinesia, without mention of fluctuations; W19.XXXA Unspecified fall, initial encounter; I10 Essential (primary) hypertension; E11.9 Type 2 diabetes mellitus without complications; E83.42 Hypomagnesemia; Z85.038 Personal history of other malignant neoplasm of large intestine; Z79.84 Long term (current) use of oral hypoglycemic drugs; Z79.899 Other long term (current) drug therapy
CPT/HCPCS: 36415; 70450; 72125; 73502; 73564; 73590; 73620; 73700; 80048; 80053; 80076; 80202; 81003; 82550; 82565; 82803; 82945; 82947; 83605; 83735; 84157; 84484; 85025; 85027; 86140; 87040; 87070; 87073; 87205; 87476; 89051; 89060; 93005; 97116; 97162; 99285; J0696; J1644; J1885; J2003; J3370; J3475; J7120

== ENCOUNTER → 2025-02-04 12:43 | Outpatient (BNV) | payer OTHER, SELFPAY | PROVIDERS: Admitting Provider Student in an Organized Health Care Education/Training Program; Emergency Provider Emergency Medicine; PCP Internal Medicine; Visit Provider Internal Medicine Cardiovascular Disease | DX: R53.1 Weakness (principal); W19.XXXA Unspecified fall, initial encounter | CPT/HCPCS: 93010 ==

== ENCOUNTER → 2025-02-04 12:44 | Outpatient (BNV) | payer OTHER, SELFPAY | PROVIDERS: PCP Internal Medicine; Visit Provider Radiology Diagnostic Radiology | DX: M46.92 Unspecified inflammatory spondylopathy, cervical region (principal); M50.30 Other cervical disc degeneration, unspecified cervical region; S09.90XA Unspecified injury of head, initial encounter; M25.561 Pain in right knee; M25.551 Pain in right hip; M79.661 Pain in right lower leg; M79.671 Pain in right foot; W19.XXXA Unspecified fall, initial encounter | CPT/HCPCS: 70450; 72125; 73502; 73564; 73590; 73620 ==

== ENCOUNTER → 2025-02-05 04:50 | Outpatient (BNV) | payer OTHER, SELFPAY | PROVIDERS: Admitting Provider Student in an Organized Health Care Education/Training Program; Emergency Provider Emergency Medicine; PCP Internal Medicine; Visit Provider Psychiatry & Neurology Neurology | DX: G20.A1 Parkinson's disease without dyskinesia, without mention of fluctuations (principal) | CPT/HCPCS: 99222 ==

== ENCOUNTER → 2025-02-05 04:50 | Outpatient (BNV) | payer OTHER, SELFPAY | PROVIDERS: Admitting Provider Student in an Organized Health Care Education/Training Program; Emergency Provider Emergency Medicine; PCP Internal Medicine; Visit Provider Nurse Practitioner Family | DX: M25.461 Effusion, right knee (principal); L03.115 Cellulitis of right lower limb; E11.9 Type 2 diabetes mellitus without complications | CPT/HCPCS: 99223; 99232; 99499 ==

== ENCOUNTER → 2025-02-05 04:50 | Outpatient (BNV) | payer OTHER, SELFPAY | PROVIDERS: Admitting Provider Student in an Organized Health Care Education/Training Program; Emergency Provider Emergency Medicine; PCP Internal Medicine; Visit Provider Internal Medicine | DX: M25.461 Effusion, right knee (principal) | CPT/HCPCS: 99232 ==

== ENCOUNTER → 2025-02-05 | Outpatient (BNV) | payer OTHER, SELFPAY | PROVIDERS: Emergency Provider Emergency Medicine; PCP Internal Medicine; Visit Provider Radiology Neuroradiology | DX: M25.461 Effusion, right knee (principal); M17.11 Unilateral primary osteoarthritis, right knee | CPT/HCPCS: 73700 ==

== ENCOUNTER 2025-05-27 06:09 | Emergency (ER) | payer OTHER, SELFPAY ==
--- OUTSIDE RECORDS SUMMARY | 2024-11-22 06:45 | XMS_ITS ---
Author Organization [facility] Address [address] [place] [address] Care Team Providers Care Resident Services Supervisor Name Role Phone Magy ANDERSEN, Marcelo Primary Care Provider Sony Rivas Unavailable [phone] Encounters Encounter Location Date Provider Diagnosis [facility] [address] [place] [address] 11/22/2024 Sony Goldstein Plan Of Treatment No Information Progress Notes * Howard VILLATORODOB: [birth year] (75 yo M)Acc No.[id number]:11/22/2024 Progress Note Patient: Howard PARRA Provider: Cayla Goldstein DPM :1950 A ge:74 Y S ex:Male Date:11/22/2024 Address:[address] [place], [place] [address] Pcp:Marcelo Bhatti MD Subjective: * Chief Complaints: * * Medical History: Objective: * Vitals: Assessment: Plan: * Treatment: * Images: * The named appointment provid er may or may not be the originator of this progress note, and it is not deemed complete until electronically signed by the appointment provider. Sign off status: Pending * Provider: Cayla Goldstein DPM Date: 11/22/2024 Generated for Majori ng/Facassieg/eTransmitting on: 0 05/27/2025 07:51 AM EDT
--- NOTE | ~2025-05-27 | XR_ITS ---
CLINICAL HISTORY: hip pain Exam: Pelvis and right hip three views Comparison: CR/CA/SR - XR HIP 1 VIEW RIGHT WITH PELVIS - 02/04/25 13:20 EDT Findings: Suboptimal rotated pelvic frontal view. No acute fracture or dislocation. Small osteophytes and mild joint space narrowing of the bilateral hips, stable. Mild sclerotic changes and joint space narrowing of the SI joints, stable. Moderate to advanced degenerative spondylosis of the lower lumbar spine, unchanged. Elongated sclerotic lesion of the left femoral head neck junction, unchanged, nonaggressive appearance, likely bone island. Vascular calcification noted. Unremarkable soft tissue. Impression: 1. No acute finding. 2. Stable degenerative changes hips, SI joints and lower lumbar spine. This document has been electronically signed by: Marylou Alvarez MD on 05/27/2025 09:14:45
[2025-05-27 06:11] VITALS: BP 130/67; PULSE 94; RESP 16; TEMP 36.6; O2SAT 98; BMI 21.5
--- NOTE | 2025-05-27 06:54 | ED.EXTPRO ---
HPI - Extremity Problem General Chief complaint: Extremity Problem Stated complaint: right leg pain Time Seen by Provider: 05/27/25 06:42 Source: patient Mode of arrival: ambulatory Limitations: no limitations History of Present Illness ED Provider: DR. Bourne HPI Narrative: 75-year-old male with past medical history significant for Parkinson's with tremor, diabetes [id number], HTN, HLD, history of colon cancer patient is complaining of right hip /right knee pain that is started 4-3 days ago, patient had a prior episode in the past was told he was sent to a rehab for 14 days and he felt much better after rehab patient had same episode of pain and was hoping to go to rehab, patient started to use a cane again for the last 2 3 days. No fever, no chills, no redness, no hotness, no discharge from anywhere, no fall, no trauma to the right hip or knee. Related Data Home Medications ?Medication ?Instructions ?Recorded ?Confirmed cyclobenzaprine 10 mg tablet 10 mg PO BEDTIME PRN Spasms 10/11/24 02/05/25 naproxen 375 mg tablet 375 mg PO BID PRN Pain 10/11/24 02/05/25 sildenafil 50 mg tablet 50 mg PO DAILY PRN Sexual Activity 10/11/24 02/05/25 amlodipine 10 mg tablet 10 mg PO DAILY 10/17/24 02/05/25 Held on 02/07/25. Instructions: Resume on 02/19/25. lovastatin 20 mg tablet 60 mg PO BEDTIME 10/17/24 02/05/25 metformin 500 mg tablet 500 mg PO BID 10/17/24 02/05/25 metoprolol succinate 50 mg 50 mg PO DAILY 02/04/25 02/05/25 tablet,extended release 24 hr lidocaine 5 % topical patch 1 patch topical DAILY PRN Nerve 02/05/25 02/05/25 Pain lisinopril 10 mg tablet 10 mg PO DAILY 02/05/25 02/05/25 Held on 02/07/25. Instructions: Resume on 02/19/25. omeprazole 20 mg capsule,delayed 20 mg PO DAILY@0630 02/05/25 02/05/25 release Previous Rx's ?Medication ?Instructions ?Recorded acetaminophen 325 mg tablet 650 mg (2 x 325 mg) PO Q6H PRN 02/07/25 Pain, Mild 1-3,Fever,Headache #1 tab carbidopa 25 mg-levodopa 100 mg 1 tab PO QID #1 tab 02/07/25 tablet finasteride 5 mg tablet (Proscar) 5 mg PO DAILY #1 tab 02/07/25 magnesium gluconate 12.5 mg 250 mg (20 x 12.5 mg magne- sium 02/07/25 magnesium (250 mg) tablet (250 mg)) PO TID #1 tab prednisone 10 mg tablet See Taper PO DIRECTED #18 tabs 02/07/25 tamsulosin 0.4 mg capsule 0.4 mg PO DAILY #1 cap 02/07/25 Allergies Allergy/AdvReac Type Severity Reaction Status Date / Time acetaminophen (From PERCOCET) Allergy Unknown UNKNOWN Verified 05/27/25 06:15 oxycodone (From PERCOCET) Allergy Unknown UNKNOWN Verified 05/27/25 06:15 pravastatin (PRAVASTATIN) Allergy Unknown UNKNOWN Verified 05/27/25 06:15 rosuvastatin (From CRESTOR) Allergy Unknown UNKNOWN Verified 05/27/25 06:15 percocet Allergy Unknown tunnel Uncoded 05/27/25 06:15 vision pravastatin Allergy Unknown elev liver Uncoded 05/27/25 06:15 enzymes seasonal Allergy Unknown Unknown Uncoded 05/27/25 06:15 Review of Systems Review of Systems: All other systems are reviewed and are negative Constitutional: Reports as per HPI and Reports no additional constitutional complaints Eyes: Reports as per HPI and Reports no additional eye complaints Reports system reviewed and no additional complaints, except as documented Cardiovascular: Reports as per HPI and Reports no additional cardiovascular complaints Respiratory: Reports as per HPI and Reports no additional respiratory complaints Gastrointestinal: Reports as per HPI and Reports no additional gastrointestinal complaints Genitourinary: Reports no additional female genitourinary complaints Musculoskeletal: Reports no additional musculoskeletal complaints Skin/Breast: Reports system reviewed and no additional complaints, except as docu Psychiatric: Reports no additional psychiatric complaints Endocrine: Reports no additional endocrine complaints Hematologic/Lymphatic: Reports no additional hematologic/lymphatic complaints Allergic/Immunologic: Reports no additional allergic/immunologic complaints Reports system reviewed and no additional complaints, except as documented and Reports Abnormal speech present PMFSH Past Medical History Medical History Cellulitis of right leg Parkinson's disease without dyskinesia Nocturnal leg cramps Snoring Osteoarthritis Type 2 diabetes mellitus Tremor Hypercholesteremia Parkinson disease Male erectile disorder Lyme disease HTN (hypertension) Headache Abnormal weight Surgical History Hx of colonoscopy Family History Family History Mother HTN (hypertension) Father HTN (hypertension) Social History Social History Household Members: Spouse Housing: House Do you presently have visiting nurse or other home services: No Alcohol intake: never Patient Tobacco Use Status: Former Tobacco user Smoked in Last 30 Days: No Use of substances other than those prescribed or required for medical reasons: No Advance Directives: Yes Advance Directives on File: Yes Advance Directives Date on File: 05/27/25 Do you have a plan to hurt others: No Plan service: Yes Physical Exam Vital Signs: Vital Signs: Last Vital Signs Temp 98.1 F 05/27/25 08:00 Pulse 97 05/27/25 08:00 Resp 15 05/27/25 08:00 BP 139/61 05/27/25 08:00 Pulse Ox 98 05/27/25 08:00 O2 Del Method Room Air 05/27/25 08:00 BMI result Body Mass Index 21.5 Vital signs have been reviewed and appear to be correct. Blood pressure elevated. Heart rate normal. Respiratory rate normal. Temperature normal. Oxygen saturation normal. Appearance: Alert. Oriented X3. No acute distress. Head: Normal external exam. Normocephalic. Atraumatic. No Oglesby signs noted. No raccoon eyes noted Eyes: PERRLA. EOMI. Conjunctiva and sclera normal. Eyelids normal. ENT: TM's Normal. Pharynx normal. Uvula midline. Moist mucous membranes. No trismus noted. No drooling noted. No muffled voice noted. Neck: Normal inspection. Neck supple. FROM. No adenopathy. Thyroid Normal. No meningeal signs. No neck mass noted. CVS: Normal heart rate and rhythm. Heart sound normal. No murmurs noted. Pulses normal throughout. Respiratory: No respiratory distress. Painless inspiration. Breath sounds normal. No wheezes/rales/rhonchi noted. Chest nontender. No accessory muscle usage noted or decreased air movement noted. Abdomen: Soft and nontender. Bowel sounds normal in all 4 quadrants. No distention noted. No organomegaly noted. No visible injury noted. Back: No CVA tenderness. Full range of motion noted. Skin: Skin warm and dry. Normal skin color. Normal skin turgor. No rashes/lesions/lacerations noted. Extremities: Right hip/ right knee: Full range of motion, no redness, no hotness, no swelling, no deformity, neurovascularly intact. Neuro: Oriented X 3. Cranial nerve exam: II-XII are grossly intact No motor deficit. No sensory deficit. Reflexes normal. Course Reevaluation(s) Reevaluation #1: Workup was unremarkable, patient has been seen and evaluated by Physical therapy/ case management based plan for this patient at this moment is to discharge home with VNA, patient agreed on the plan. Time: 09:44 Medical Decision Making Differential Diagnosis Differential Diagnoses: The differential diagnosis associated with the presentation includes ( Right hip arthritis, right hip fracture, right hip dislocation, neurovascular instability right lower extremity, electrolyte derangement, severe anemia, medical clearance.) Admission/Observation Consideration of admission/observation: Escalation of care including admission/observation considered Lab Data MDM Lab Attestation statement: I reviewed the patient's lab results. 05/27/25 07:29 05/27/25 07:29 Labs: Lab Results 05/27/25 Range/Units 07:29 WBC 8.8 (4.8-10.8) X10*3/uL RBC 4.45 L (4.60-5.80) X10*6/uL Hgb 13.5 L (14.0-18.0) g/dl Hct 38.8 L (42.0-52.0) % MCV 87.2 (80.0-98.0) fL MCH 30.3 (27.0-33.0) pg MCHC 34.8 (31.0-36.0) g/dl RDW 13.2 (11.0-16.0) % Plt Count 198 (160-400) X10*3/uL MPV 10.0 (9.4-12.4) fL Immature Gran % (Auto) 0.2 (0.0-0.4) % Neut % (Auto) 71.7 (45-73) % Lymph % (Auto) 15.8 L (20-40) % [place] % (Auto) 9.4 (2-11) % Eos % (Auto) 2.6 (0-4) % Baso % (Auto) 0.3 (0-2) % Lymph # (Auto) 1.4 (1.2-4.9) X10*3/uL [place] # (Auto) 0.8 (0.1-1.2) X10*3/uL Eos # (Auto) 0.2 (0.0-0.4) X10*3/uL Baso # (Auto) 0.0 (0.0-0.2) X10*3/uL Abs Immat Gran (auto) 0.02 (0.00-0.03) X10*3/uL Absolute Neuts (auto) 6.3 (2.0-8.3) x10*3/uL Absolute Nucleated RBC 0.000 (0.0-0.012) X10*3/uL Nucleated RBC % (auto) 0.0 (0.0-0.2) /100WBC Sodium 142 (135-145) mmol/L Potassium 4.8 (3.3-5.1) mmol/L Chloride 107 (96-108) mmol/L Carbon Dioxide 25 (22-29) mmol/L Anion Gap 15 (12-20) BUN 20 H (9-16) mg/dL Creatinine 1.11 (0.5-1.4) mg/dL Estim Creat Clear Calc 53.6 Estimated GFR > 60 Random Glucose 136 H (60-115) mg/dL Calcium 10.2 D (8.4-10.2) mg/dL Independent Interpretation I performed an independent interpretation of an: Plain X-Ray ( Right hip:1. No acute finding. 2. Stable degenerative changes hips, SI joints and lower lumbar spine.) Radiology Impression Discussion of test interpretation with radiology: I have reviewed the radiologist's reading. Discharge Plan Discharge Clinical Impression: Arthralgia of hip, right Patient Disposition: Home, Self-Care Instructions: Arthralgia (ED) Prescriptions: No Action metoprolol succinate 50 mg tablet extended release 24 hr 50 mg PO DAILY omeprazole 20 mg Capsule,Delayed Release(Dr/Ec) 20 mg PO DAILY@0630 lidocaine 5 % Adhesive Patch,Medicated 1 patch TOPICAL DAILY PRN (Reason: Nerve Pain) Rx Instructions: leave on most painful area for up to 12 hrs lisinopril 10 mg tablet 10 mg PO DAILY tamsulosin 0.4 mg Capsule 0.4 mg PO DAILY Qty: 1 0RF carbidopa-levodopa 25-100 mg tablet 1 tab PO QID Qty: 1 0RF prednisone 10 mg tablet See Taper PO DIRECTED Qty: 18 0RF Taper: Prednisone 30 mg daily for 3 Days and 0 Hour 20 mg daily for 3 Days and 0 Hour 10 mg daily for 3 Days and 0 Hour Rx Instructions: see taper instructions acetaminophen 325 mg Tablet 650 mg PO Q6H PRN (Reason: Pain, Mild 1-3,Fever,Headache) Qty: 1 0RF magnesium gluconate 12.5 mg magne- sium (250 mg) tablet 250 mg PO TID Qty: 1 0RF finasteride [Proscar] 5 mg tablet 5 mg PO DAILY Qty: 1 0RF cyclobenzaprine 10 mg tablet 10 mg PO BEDTIME PRN (Reason: Spasms) naproxen 375 mg tablet 375 mg PO BID PRN (Reason: Pain) sildenafil 50 mg tablet 50 mg PO DAILY PRN (Reason: Sexual Activity) Rx Instructions: administer 30 minutes to 4 hours before activity lovastatin 20 mg tablet 60 mg PO BEDTIME metformin 500 mg tablet 500 mg PO BID amlodipine 10 mg tablet 10 mg PO DAILY Referrals: Karen MEYERS [Outside] Marcelo Bhatti MD [Primary Care Provider, Medical] Print Language: Cameroonian
[2025-05-27 07:37] LABS: MANUAL DIFF FLAG NO
[2025-05-27 07:38] LABS: Hematocrit 38.8 % (42.0-52.0); Hemoglobin 13.5 g/dl (14.0-18.0); Imm Gran Abs Auto 0.02 X10*3/uL (0.00-0.03); Imm Gran Pct Auto 0.2 % (0.0-0.4); Lymphocytes Absolute Auto 1.4 X10*3/uL (1.2-4.9); Mean Corpuscular HGB Conc 34.8 g/dl (31.0-36.0); Mean Corpuscular Hemoglobin 30.3 pg (27.0-33.0); Mean Corpuscular Volume 87.2 fL (80.0-98.0); NRBC Abs Auto 0.000 X10*3/uL (0.0-0.012); NRBC Pct Auto 0.0 /100WBC (0.0-0.2); Platelet Count 198 X10*3/uL (160-400); Red Blood Count 4.45 X10*6/uL (4.60-5.80); White Blood Count 8.8 X10*3/uL (4.8-10.8)
--- OUTSIDE RECORDS SUMMARY | 2025-05-27 07:51 | XMS_ITS | Encounter Summary ---
Author Organization [facility] Address [address] [place] [address] Care Team Providers Care Shipwright Supervisor Name Role Phone Carmelo Romo MD Primary Care Provider + [phone] Encounter Details Date Type Department Care Team (Late st Contact Info) Description 02/19/2025 Lab Requisition [facility] - Main Lab [address] [facility] [place] [address] Rebeka Godfrey PA [address] [phone] Parkinson's disease without dyskinesia, without mention of fluctuations (CMS/HCC V24, CMS/HCC V28); Type 2 diabetes mellitus with unspecified complications (CMS/HCC V24, CMS/HCC V28); Pure hypercholesterolemia, unspecified; Essential (primary) hypertension Social History Tobacco Use Types Packs/Day Years Used Date Smoking Tobacco: Never Assessed Sex and Gender Information Value Date Recorded Sex Assigned at Not on file Legal Sex Male 2:43 PM EST Gender Identity Not on file Sexual Orientation Not on file documented as of this encounter Plan of Treatment Not on file documented as of this encounter Procedures Procedure Name Priority Date/Time Associated Diagnosis Comments COMPLETE BLOOD COUNT Routine 02/19/2025 6:30 AM EDT Parkinson's disease without dyskinesia, without mention of fluctuations (CMS/HCC V24, CMS/HCC V28) Type 2 diabetes mellitus with unspecified complications (CMS/HCC V24, CMS/HCC V28) Pure hypercholesterolemia, unspecified Essential (primary) hypertension BASIC METABOLIC PANEL Routine 02/19/2025 6:30 AM EDT Parkinson's disease without dyskinesia, without mention of fluctuations ([facility] V24, [facility] V28) Type 2 diabetes mellitus with unspecified complications ([facility] V24, [facility] V28) Pure hypercholesterolemia, unspecified Essential (primary) hypertension documented in this encounter Results * (ABNORMAL) Basic metabolic panel (02/19/2025 6:30 AM EDT) Pathologist [facility] Sodium 137 133 - 145 mmol/L LAB CHEMISTRY METHOD 02/19/2025 10:17 AM [facility] Potassium 4.3 3.5 - 5.5 mmol/L LAB CHEMISTRY METHOD 02/19/2025 10:17 AM [facility] Chloride 103 96 - 110 mmol/L LAB CHEMISTRY METHOD 02/19/2025 10:17 AM [facility] CO2 25 21 - 32 mmol/L LAB CHEMISTRY METHOD 02/19/2025 10:17 AM [facility] Anion Gap 9 3 - 11 LAB CHEMISTRY METHOD 02/19/2025 10:17 AM [facility] Glucose 63(L) 70 - 100 mg/dL LAB CHEMISTRY METHOD 02/19/2025 10:17 AM [facility] BUN 25 5 - 25 mg/dL LAB CHEMISTRY METHOD 02/19/2025 10:17 AM [facility] Creatinine 1.32(H) 0.70 - 1.30 mg/dL LAB CHEMISTRY METHOD 02/19/2025 10:17 AM [facility] eGFR 56(L) >=60 mL/min/1. 73m2 LAB CHEMISTRY METHOD 02/19/2025 10:17 AM [facility] Comment:Calculation based on the Chronic Kidney Disease Epidemiology Collaboration (CKD-EPI) equation refit without adjustment for race. BUN/Creatinine Ratio 18.9 LAB CHEMISTRY METHOD 02/19/2025 10:17 AM [facility] Calcium 9.5 8.5 - 10.5 mg/dL LAB CHEMISTRY METHOD 02/19/2025 10:17 AM EDT [facility] Blood Venous blood specimen / Unknown Venipuncture / Unknown 02/19/2025 6:30 AM EDT 02/19/2025 8:24 AM EDT Rebeka GAINES LAB BLOOD ORDERAB LES Final Result [facility] [address] [place] [address], * (ABNORMAL) Complete blood count (02/19/2025 6:30 AM EDT) WBC 14.8(H) 4.8 - 10.8 K/mcL LAB HEMETOLOGY METHOD 02/19/2025 9:35 AM EDT [facility] RBC 5.40 4.50 - 5.50 M/mcL LAB HEMETOLOGY METHOD 02/19/2025 9:35 AM [facility] Hemoglobin 16.0 13.5 - 17.5 g/dL LAB HEMETOLOGY METHOD 02/19/2025 9:35 AM [facility] Hematocrit 49.2 42.0 - 54.0 % LAB HEMETOLOGY METHOD 02/19/2025 9:35 AM EDT [facility] MCV 91.8 79.0 - 98.0 FL LAB HEMETOLOGY METHOD 02/19/2025 9:35 AM [facility] MCH 29.9 27.0 - 32.0 pcg LAB HEMETOLOGY METHOD 02/19/2025 9:35 AM [facility] MCHC 32.5 32.0 - 37.0 g/dL LAB HEMETOLOGY METHOD 02/19/2025 9:35 AM EDT [facility] RDW 13.3 11.0 - 15.0 % LAB HEMETOLOGY METHOD 02/19/2025 9:35 AM EDT [facility] Platelets 260 130 - 400 K/mcL LAB HEMETOLOGY METHOD 02/19/2025 9:35 AM EDT [facility] MPV 10.3 7.0 - 11.0 FL LAB HEMETOLOGY METHOD 02/19/2025 9:35 AM EDT [facility] NRBC 0.0 <1.0 % LAB HEMETOLOGY METHOD 02/19/2025 9:35 AM EDT [facility] NRBC Absolute 0.00 <0.10 K/mcL LAB HEMETOLOGY METHOD 02/19/2025 9:35 AM EDT [facility] Blood Venous blood specimen / Unknown Venipuncture / Unknown 02/19/2025 6:30 AM EDT 02/19/2025 8:24 AM EDT Rebeka GAINES LAB BLOOD ORDERAB LES Final Result [facility] [address] [place] [address], documented in this encounter Visit Diagnoses Diagnosis Parkinson's disease without dyskinesia, without mention of fluctuations (CMS/HCC V24, CMS/HCC V28) Type 2 diabetes mellitus with unspecified complications (CMS/HCC V24, CMS/HCC V28) Pure hypercholesterolemia, unspecified Essential (primary) hypertension Unspecified essential hypertension documented in this encounter Care Teams Shipwright Supervisor Relationship Specialty Start Date End Date Carmelo Romo MD [address] [place] [address] PCP - General Family Medicine 02/19/25 documented as of this encounter
--- OUTSIDE RECORDS SUMMARY | 2025-05-27 07:51 | XMS_ITS | Clinical Summary ---
Author Organization [address] Address [address] [place] [address] Phone Care Team Providers Care Geographic Information Systems Analyst Name Role Phone Carmelo Romo MD Primary Care Provider [phone] Social History Tobacco Use Types Packs/Day Years Used Date Smoking Tobacco: Never Assessed Sex and Gender Information Value Date Recorded Sex Assigned at Not on file Legal Sex Male 2:43 PM EST Gender Identity Not on file Sexual Orientation Not on file Plan of Treatment Health Maintenance Due Date Last Done Comments Diabetes: Annual Foot Exam 02/23/1958 Diabetes: Annual Retina Eye Exam 02/23/1958 Zoster Vaccines (3 of 3) 02/08/2018 12/14/2017, 02/26 Cholesterol Screening (Lipid Panel) 06/04/2024 Falls Risk Assessment 06/04/2024 Hepatitis C Screening 06/04/2024 Social Influencers of Health Screening 06/04/2024 Depression Screening 08/28/2024 Diabetes: Annual Urine Albumin-Creatinine Ratio (uACR) 02/15/2025 Diabetes: Blood Sugar Control Test (HGBA1C) 02/15/2025 COVID-19 Vaccine ( season) 2025 01/02/2024, 06/01/2023, 12/30/2021, Additional history exists Influenza Vaccine (#1) 2025 , 06/15/2022, 06/12/2022, Additional history exists Diabetes: Annual GFR (Glomerular Filtration Rate) 02/19/2026 02/19/2025 Hypertension/CHF/CAD Annual BMP Blood Test 02/19/2026 02/19/2025 DTaP,Tdap,and Td Vaccines (2 - Td or Tdap) 05/14/2028 05/14/2018 Pneumococcal Vaccine: 50+ Years Completed 05/08/2023, 11/05/2018, 08/13/2014, Additional history exists RSV Immunization Adult Patients Completed 06/01/2023 HIB Vaccines Aged Out No longer eligi ble based on patient's age to complete this topic HPV Vaccines Aged Out No longer eligi ble based on patient's age to complete this topic Hepatitis A Vaccines Aged Out No long er eligible based on patient's age to complete this topic Hepatitis B Vaccines Aged Out No long er eligible based on patient's age to complete this topic IPV Vaccines Aged Out No longer eligi ble based on patient's age to complete this topic MMR Vaccines Aged Out No longer eligi ble based on patient's age to complete this topic Meningococcal ACWY Vaccine Aged Out N o longer eligible based on patient's age to complete this topic Meningococcal B Vaccine Aged Out No l onger eligible based on patient's age to complete this topic RSV Immunization Patients Under 20 months Aged Out No longer eligible based on patient's age to complete this topic Varicella Vaccines Aged Out No longer eligible based on patient's age to complete this topic Procedures Procedure Name Priority Date/Time Associated Diagnosis Comments BASIC METABOLIC PANEL Routine 02/19/2025 6:30 AM EDT Parkinson's disease without dyskinesia, without mention of fluctuations ([facility] V24, [facility] V28) Type 2 diabetes mellitus with unspecified complications ([facility] V24, [facility] V28) Pure hypercholesterolemia, unspecified Essential (primary) hypertension from Last 3 Months or Most Recently Relevant to Health Maintenance Results * (ABNORMAL) Basic metabolic panel (02/19/2025 6:30 AM EDT) Sodium 137 133 - 145 mmol/L LAB CHEMISTRY METHOD 02/19/2025 10:17 AM [facility] Potassium 4.3 3.5 - 5.5 mmol/L LAB CHEMISTRY METHOD 02/19/2025 10:17 AM [facility] Chloride 103 96 - 110 mmol/L LAB CHEMISTRY METHOD 02/19/2025 10:17 AM [facility] CO2 25 21 - 32 mmol/L LAB CHEMISTRY METHOD 02/19/2025 10:17 AM [facility] Anion Gap 9 3 - 11 LAB CHEMISTRY METHOD 02/19/2025 10:17 AM [facility] Glucose 63(L) 70 - 100 mg/dL LAB CHEMISTRY METHOD 02/19/2025 10:17 AM [facility] BUN 25 5 - 25 mg/dL LAB CHEMISTRY METHOD 02/19/2025 10:17 AM [facility] Creatinine 1.32(H) 0.70 - 1.30 mg/dL LAB CHEMISTRY METHOD 02/19/2025 10:17 AM [facility] eGFR 56(L) >=60 mL/min/1. 73m2 LAB CHEMISTRY METHOD 02/19/2025 10:17 AM [facility] Comment:Calculation based on the Chronic Kidney Disease Epidemiology Collaboration (CKD-EPI) equation refit without adjustment for race. BUN/Creatinine Ratio 18.9 LAB CHEMISTRY METHOD 02/19/2025 10:17 AM [facility] Calcium 9.5 8.5 - 10.5 mg/dL LAB CHEMISTRY METHOD 02/19/2025 10:17 AM [facility] Blood Venous blood specimen / Unknown Venipuncture / Unknown 02/19/2025 6:30 AM EDT 02/19/2025 8:24 AM EDT us Rebeka GAINES LAB BLOOD ORDERAB LES Final Result [facility] [address] [place] [address], from Last 3 Months or Most Recently Relevant to Health Maintenance Insurance [facility] Care Teams Geographic Information Systems Analyst Relationship Specialty Start Date End Date Carmelo Romo MD [address] [place] [address] PCP - General Family Medicine 02/19/25
--- OUTSIDE RECORDS SUMMARY | 2025-05-27 07:51 | XMS_ITS | Patient Health Record ---
Author Organization [facility] Address [address] [facility] [place] [address] Care Team Providers Care Sas Sql Developer Name Role Phone Magy ANDERSEN, Marcelo Primary Care Provider Sony Rivas Unavailable [phone] Allergies Allergen (clinical drug ingredient) Drug/Non Drug [...] Hammertoe Foot Deformity(M20.41,M20.42), Preulcerative Skin Lesion(s)(L85.1) Wear Daily; Duration: 365 days 08/16/2024 Active Lovastatin Active amLODIPine [...] Problem Acquired hammer toe of right foot ([id number] 105) Other hammer toe(s) (acquired), right foot (M20.41) Active confirmed Problem Acquired hammer toe of left foot (5219206052132 103) Other hammer toe(s) (acquired), left foot (M20.42) Active confirmed Problem Type 2 diabetes mellitus with peripheral angiopathy (604537474) Type 2 diabetes mellitus with diabetic peripheral angiopathy without gangrene (E11.51) Active confirmed Q7(A), Q8(2B), Q9(1B,2C) Vital Signs Blood pressure diastolic 78 mm Hg 08/16/2024 Height 5 ft 11 in in 08/16/2024 Blood pressure systolic 130 mm Hg 08/16/2024 Weight 190 lbs 08/16/2024 BMI 26.5 kg/m2 08/16/2024 Procedures Procedure Date Ordered Date Performed Result Body Sit e 08589-[id number] NAIL, 1-5 08/16/2024 N/A 78715-DRCM SKIN LESIONS, OVER 4 08/16/2024 N/A [id number]-YCYIBEOT DYSTROPHIC NAILS ANY # 08/16/2024 N/A Encounters Encounter Location Date Provider Diagnosis [facility] [address] 08/16/2024 Sony Goldstein Type 2 diabetes mellitus with diabetic peripheral angiopathy without gangrene E11.51 ; Tinea unguium B35.1 ; Pain in right toe(s) M79.674 ; Pain in left toe(s) M79.675 ; Other hammer toe(s) (acquired), right foot M20.41 and Other hammer toe(s) (acquired), left foot M20.[address] [facility] [address] 11/22/2024 Sony Goldstein Assessments Encounter Date Diagnosis (ICD [...] Treatment Pending Test Test Name Order Date [id number]-[id number] NAIL, 1-5 08/16/2024 68465-YBFL SKIN LESIONS, OVER 4 08/16/20 24 [id number] DYSTROPHIC NAILS ANY # Insurance Providers Payer Name Payer Address Payer Phone Subscriber Number Group Number Insured Name Patient Relationship to Insured Coverage Start Date Coverage End Date [employer] [place] [employer] [facility] [address] [place] [address] [id number] Howard Olivarez Self - patient is the insured 3 Medical (General) History Medical History History ICD Code Back,Hip,and Knee pain Cancer Cataracts Diabetic High Blood Pressure Lyme disease Parkinsons disease Hypercholesterolemia
[2025-05-27 07:52] LABS: Anion Gap 15 (12-20); Blood Urea Nitrogen 20 mg/dL (9-16); Calcium 10.2 mg/dL (8.4-10.2); Carbon Dioxide 25 mmol/L (22-29); Chloride 107 mmol/L (96-108); Creatinine Clr Calc Pharmacy 53.6; Estimated Glomerular Filt Rate > 60; Potassium 4.8 mmol/L (3.3-5.1); Sodium 142 mmol/L (135-145)
[2025-05-27 08:00] VITALS: BP 139/61; PULSE 97; RESP 15; TEMP 36.7; O2SAT 98
--- NOTE | 2025-05-27 09:11 | MHC.CM.ED ---
Received case management consult overnight. Patient came to the ER due to knee pain. Has a history of Parkinson's. Found to have a knee effusion. Physical therapy eval completed. Home with services is recommended. Met with patient in regards to discharge planning. Patient lives with his , ambulates with a cane and had no services prior to coming to the ER. PCP verified. Copy of HCP verified to be on file. Patient's is active with [facility]. Patient requested referral to [facility]. Referral made via [facility]. Patient's vehicle is in the parking lot and patient will transpot himself home. Camryn GARRETT aware. Continue to monitor for d/c needs.
[2025-05-27 10:00] VITALS: BP 139/61; PULSE 97; RESP 15; TEMP 36.7; O2SAT 98
== END 2025-05-27 10:08 | disposition home or self-care (01) ==
PROVIDERS: Emergency Provider Emergency Medicine; PCP Internal Medicine
DX: M25.551 Pain in right hip (principal); I10 Essential (primary) hypertension; E11.9 Type 2 diabetes mellitus without complications; G20.A1 Parkinson's disease without dyskinesia, without mention of fluctuations; Z87.891 Personal history of nicotine dependence
CPT/HCPCS: 36415; 73502; 80048; 85025; 97162; 99284

== ENCOUNTER → 2025-05-27 06:35 | Outpatient (BNV) | payer OTHER, MEDICARE, SELFPAY | PROVIDERS: Emergency Provider Emergency Medicine; PCP Internal Medicine; Visit Provider Radiology Diagnostic Radiology | DX: M25.551 Pain in right hip (principal) | CPT/HCPCS: 73502 ==

== ENCOUNTER 2025-06-27 03:50 | Emergency (ER) | payer MEDICARE, SELFPAY ==
--- OUTSIDE RECORDS SUMMARY | 2024-11-22 06:45 | XMS_ITS ---
Author Organization [facility] Address [address] [place] [address] Care Team Providers Care School Guidance Counselor Name Role Phone Magy ANDERSEN, Marcelo Primary Care Provider Sony Rivas Unavailable [phone] Encounters Encounter Location Date Provider Diagnosis [facility] [address] [place] [address] 11/22/2024 Sony Goldstein Plan Of Treatment No Information Progress Notes * Howard VILLATORODOB: [birth year] (75 yo M)Acc No.[id number]:11/22/2024 Progress Note Patient: Howard PARRA Provider: Cayla Goldstein DPM :1950 A ge:74 Y S ex:Male Date:11/22/2024 Address:[address] [place], [place] [address] Pcp:Marcelo Bhatti MD Subjective: * Chief Complaints: [...] DPM Date: 0 11/22/2024 Generated for Wanda paez/Facassieg/eTransmitting on: 04:28 AM EDT
--- NOTE | ~2025-06-27 | XR_ITS ---
CLINICAL HISTORY: trauma 4 view right knee Comparison: CT/SR - CT KNEE RT WO IV CON - 02/05/25 00:36 EDT CR/ID/SR - XR KNEE RT 4V - 02/04/25 13:23 EDT Findings: Seen only on the AP view, there is a cortical step-off at the lateral femoral condyle that was not present on CT of the right knee or right knee radiograph on 02/04/2025. This is a possible minimally displaced fracture. No other fractures are seen. No knee joint dislocation. There is a large knee joint effusion. Osteoarthritis of the knee, as previously noted. Vascular calcifications. IMPRESSION: Possible minimally displaced fracture of the lateral femoral condyle seen only on the AP view of the knee, new from 02/04/2025. Large knee joint effusion. This document has been electronically signed by: Jose Cary MD on 06/27/2025 05:37:12
[2025-06-27 03:58] VITALS: BP 125/63; PULSE 76; RESP 16; TEMP 36.5; O2SAT 95; BMI 23.4
--- OUTSIDE RECORDS SUMMARY | 2025-06-27 04:28 | XMS_ITS | Encounter Summary ---
Author Organization [facility] Address [address] [place] [address] Care Team Providers Care Planishing Hammer Operator Name Role Phone Carmelo Romo MD Primary Care Provider + [phone] Encounter Details Date Type Department Care Team (Late st Contact Info) Description 02/19/2025 Lab Requisition [facility] - Main Lab [address] [facility] [place] [address] Rebeka Godfrey PA [address] [phone] Parkinson's disease without dyskinesia, without mention of [...] disease without dyskinesia, without mention of fluctuations ([facility] V24, [facility] V28) Type 2 diabetes mellitus with unspecified complications ([facility] V24, [facility] V28) Pure hypercholesterolemia, unspecified Essential (primary) hypertension documented in this encounter Results * (ABNORMAL) Basic metabolic panel (02/19/2025 6:30 AM EDT) Pathologist [facility] Sodium 137 133 - 145 mmol/L LAB CHEMISTRY METHOD 02/19/2025 10:17 AM [facility] Potassium 4.3 3.5 - 5.5 mmol/L LAB CHEMISTRY METHOD 02/19/2025 10:17 AM [facility] Chloride 103 96 - 110 mmol/L LAB CHEMISTRY METHOD 02/19/2025 10:17 AM [facility] CO2 25 21 - 32 mmol/L LAB CHEMISTRY METHOD 02/19/2025 10:17 AM [facility] Anion Gap 9 3 - 11 LAB CHEMISTRY METHOD 02/19/2025 10:17 AM [facility] Glucose 63(L) 70 - 100 mg/dL LAB CHEMISTRY METHOD 02/19/2025 10:17 AM [facility] BUN 25 5 - 25 mg/dL LAB CHEMISTRY METHOD 02/19/2025 10:17 AM [facility] Creatinine 1.32(H) 0.70 - 1.30 mg/dL LAB CHEMISTRY METHOD 02/19/2025 10:17 AM [facility] eGFR 56(L) >=60 mL/min/1. 73m2 LAB CHEMISTRY METHOD 02/19/2025 10:17 AM [facility] Comment:Calculation based on the Chronic Kidney Disease Epidemiology Collaboration (CKD-EPI) equation refit without adjustment for race. BUN/Creatinine Ratio 18.9 LAB CHEMISTRY METHOD 02/19/2025 10:17 AM [facility] Calcium 9.5 8.5 - 10.5 mg/dL LAB CHEMISTRY METHOD 02/19/2025 10:17 AM EDT [facility] Blood Venous blood specimen / Unknown Venipuncture / Unknown 02/19/2025 6:30 AM EDT 02/19/2025 8:24 AM EDT Rebeka GAINSE LAB BLOOD ORDERAB LES Final Result [facility] [address] [place] [address], * (ABNORMAL) Complete blood count (02/19/2025 6:30 AM EDT) WBC 14.8(H) 4.8 - 10.8 K/mcL LAB HEMETOLOGY METHOD 02/19/2025 9:35 AM EDT [facility] RBC 5.40 4.50 - 5.50 M/mcL LAB HEMETOLOGY METHOD 02/19/2025 9:35 AM [facility] Hemoglobin 16.0 13.5 - 17.5 g/dL LAB HEMETOLOGY METHOD 02/19/2025 9:35 AM [facility] Hematocrit 49.2 42.0 - 54.0 % LAB HEMETOLOGY METHOD 02/19/2025 9:35 AM EDT [facility] MCV 91.8 79.0 - 98.0 FL LAB HEMETOLOGY METHOD 02/19/2025 9:35 AM [facility] MCH 29.9 27.0 - 32.0 pcg LAB HEMETOLOGY METHOD 02/19/2025 9:35 AM [facility] MCHC 32.5 32.0 - 37.0 g/dL LAB HEMETOLOGY METHOD 02/19/2025 9:35 AM EDT [facility] RDW 13.3 11.0 - 15.0 % LAB HEMETOLOGY METHOD 02/19/2025 9:35 AM EDT [facility] Platelets 260 130 - 400 K/mcL LAB HEMETOLOGY METHOD 02/19/2025 9:35 AM EDT [facility] MPV 10.3 7.0 - 11.0 FL LAB HEMETOLOGY METHOD 02/19/2025 9:35 AM EDT [facility] NRBC 0.0 <1.0 % LAB HEMETOLOGY METHOD 02/19/2025 9:35 AM EDT [facility] NRBC Absolute 0.00 <0.10 K/mcL LAB HEMETOLOGY METHOD 02/19/2025 9:35 AM EDT [facility] Blood Venous blood specimen / Unknown Venipuncture / Unknown 02/19/2025 6:30 AM EDT 02/19/2025 8:24 AM EDT Rebeka GAINES LAB BLOOD ORDERAB LES Final Result [facility] [address] [place] [address], documented in this encounter Visit Diagnoses Diagnosis Parkinson's disease without dyskinesia, without mention of fluctuations (CMS/HCC V24, CMS/HCC V28) Type 2 diabetes mellitus with unspecified complications (CMS/HCC V24, CMS/HCC V28) Pure hypercholesterolemia, unspecified Essential (primary) hypertension Unspecified essential hypertension documented in this encounter Care Teams Planishing Hammer Operator Relationship Specialty Start Date End Date Carmelo Romo MD [address] [place] [address] PCP - General Family Medicine 02/19/25 documented as of this encounter
--- OUTSIDE RECORDS SUMMARY | 2025-06-27 04:28 | XMS_ITS | Clinical Summary ---
Author Organization [address] Address [address] [place] [address] Phone Care Team Providers Care Microbiology Analyst Name Role Phone Carmelo Romo MD Primary Care Provider [phone] Social History Tobacco Use Types Packs/Day Years [...] disease without dyskinesia, without mention of fluctuations ([facility] V24, [facility] V28) Type 2 diabetes mellitus with unspecified complications ([facility] V24, [facility] V28) Pure hypercholesterolemia, unspecified Essential (primary) hypertension from Last 3 Months or Most Recently Relevant to Health Maintenance Results * (ABNORMAL) Basic metabolic panel (02/19/2025 6:30 AM EDT) Sodium 137 133 - 145 mmol/L LAB CHEMISTRY METHOD 02/19/2025 10:17 AM [facility] Potassium 4.3 3.5 - 5.5 mmol/L LAB CHEMISTRY METHOD 02/19/2025 10:17 AM [facility] Chloride 103 96 - 110 mmol/L LAB CHEMISTRY METHOD 02/19/2025 10:17 AM [facility] CO2 25 21 - 32 mmol/L LAB CHEMISTRY METHOD 02/19/2025 10:17 AM [facility] Anion Gap 9 3 - 11 LAB CHEMISTRY METHOD 02/19/2025 10:17 AM [facility] Glucose 63(L) 70 - 100 mg/dL LAB CHEMISTRY METHOD 02/19/2025 10:17 AM [facility] BUN 25 5 - 25 mg/dL LAB CHEMISTRY METHOD 02/19/2025 10:17 AM [facility] Creatinine 1.32(H) 0.70 - 1.30 mg/dL LAB CHEMISTRY METHOD 02/19/2025 10:17 AM [facility] eGFR 56(L) >=60 mL/min/1. 73m2 LAB CHEMISTRY METHOD 02/19/2025 10:17 AM [facility] Comment:Calculation based on the Chronic Kidney Disease Epidemiology Collaboration (CKD-EPI) equation refit without adjustment for race. BUN/Creatinine Ratio 18.9 LAB CHEMISTRY METHOD 02/19/2025 10:17 AM [facility] Calcium 9.5 8.5 - 10.5 mg/dL LAB CHEMISTRY METHOD 02/19/2025 10:17 AM [facility] Blood Venous blood specimen / Unknown Venipuncture / Unknown 02/19/2025 6:30 AM EDT 02/19/2025 8:24 AM EDT us Rebeka GAINES LAB BLOOD ORDERAB LES Final Result [facility] [address] [place] [address], from Last 3 Months or Most Recently Relevant to Health Maintenance Insurance [facility] Care Teams Microbiology Analyst Relationship Specialty Start Date End Date Carmleo Romo MD [address] [place] [address] PCP - General Family Medicine 02/19/25
--- OUTSIDE RECORDS SUMMARY | 2025-06-27 04:28 | XMS_ITS | Patient Health Record ---
Author Organization [facility] Address [address] [place] [address] Care Team Providers Care House Wrecker Name Role Phone Magy ANDERSEN, Marcelo Primary Care Provider Sony Rivas Unavailable [phone] Allergies Allergen (clinical drug ingredient) Drug/Non Drug [...] Problem Acquired hammer toe of right foot (8038703999206 105) Other hammer toe(s) (acquired), right foot (M20.41) Active confirmed Problem Acquired hammer toe of left foot ([id number] 103) Other hammer toe(s) (acquired), left foot (M20.42) Active confirmed Problem Type 2 diabetes mellitus with peripheral angiopathy (707574228) Type 2 diabetes mellitus with diabetic peripheral angiopathy without gangrene (E11.51) Active confirmed Q7(A), Q8(2B), Q9(1B,2C) Vital Signs Blood pressure diastolic 78 mm Hg 08/16/2024 Height 5 ft 11 in in 08/16/2024 Blood pressure systolic 130 mm Hg 08/16/2024 Weight 190 lbs 08/16/2024 BMI 26.5 kg/m2 08/16/2024 Procedures Procedure Date Ordered Date Performed Result Body Sit e 62155-[id number] NAIL, 1-5 08/16/2024 N/A 63423-VTLZ SKIN LESIONS, OVER 4 08/16/2024 N/A [id number] DYSTROPHIC NAILS ANY # 08/16/2024 N/A Encounters Encounter Location Date Provider Diagnosis [facility] [address] 08/16/2024 Sony Goldstein Type 2 diabetes mellitus with diabetic peripheral angiopathy without gangrene E11.51 ; Tinea unguium B35.1 ; Pain in right toe(s) M79.674 ; Pain in left toe(s) M79.675 ; Other hammer toe(s) (acquired), right foot M20.41 and Other hammer toe(s) (acquired), left foot M20.[address] [facility] [address] 11/22/2024 Sony Goldstein Assessments Encounter Date Diagnosis [...] Treatment Pending Test Test Name Order Date 76102-JJTSLLK NAIL, 1-5 08/16/2024 06180-CHAE SKIN LESIONS, OVER 4 08/16/20 24 [id number] DYSTROPHIC NAILS ANY # Insurance Providers Payer Name Payer Address Payer Phone Subscriber Number Group Number Insured Name Patient Relationship to Insured Coverage Start Date Coverage End Date [employer] [place] [employer]vantage [facility] [address] [place] [address] [phone] [id number] Howard Olivarez Self - patient is the insured 3 Medical (General) History Medical History History ICD Code Back,Hip,and Knee pain Cancer Cataracts Diabetic High Blood Pressure Lyme disease Parkinsons disease Hypercholesterolemia
--- NOTE | 2025-06-27 06:00 | ED.GENADULT ---
HPI - General Adult General Chief complaint: Extremity Problem Stated complaint: right knee pain Time Seen by Provider: 06/27/25 04:33 Source: patient Limitations: no limitations History of Present Illness ED Provider: Anat Rodriguez PA-C HPI narrative: 75-year-old male with a history of Parkinson's disease without dyskinesia, hypertension, BPH, hyperlipidemia, type 2 diabetes on metformin, who presents after fall that occurred 4 days ago. Patient states he fell landing on the knee. He has been ambulatory since the fall, however the pain is not resolving. He has been using [id number] Tylenol and lidocaine patches without relief of his symptoms. This is his first medical assessment in the emergency room overnight. Related Data Home Medications ?Medication ?Instructions ?Recorded ?Confirmed cyclobenzaprine 10 mg tablet 10 mg PO BEDTIME PRN Spasms 10/11/24 02/05/25 naproxen 375 mg tablet 375 mg PO BID PRN Pain 10/11/24 02/05/25 sildenafil 50 mg tablet 50 mg PO DAILY PRN Sexual Activity 10/11/24 02/05/25 amlodipine 10 mg tablet 10 mg PO DAILY 10/17/24 02/05/25 Held on 02/07/25. Instructions: Resume on 02/19/25. lovastatin 20 mg tablet 60 mg PO BEDTIME 10/17/24 02/05/25 metformin 500 mg tablet 500 mg PO BID 10/17/24 02/05/25 metoprolol succinate 50 mg 50 mg PO DAILY 02/04/25 02/05/25 tablet,extended release 24 hr lidocaine 5 % topical patch 1 patch topical DAILY PRN Nerve 02/05/25 02/05/25 Pain lisinopril 10 mg tablet 10 mg PO DAILY 02/05/25 02/05/25 Held on 02/07/25. Instructions: Resume on 02/19/25. omeprazole 20 mg capsule,delayed 20 mg PO DAILY@0630 02/05/25 02/05/25 release Previous Rx's ?Medication ?Instructions ?Recorded acetaminophen 325 mg tablet 650 mg (2 x 325 mg) PO Q6H PRN 02/07/25 Pain, Mild 1-3,Fever,Headache #1 tab carbidopa 25 mg-levodopa 100 mg 1 tab PO QID #1 tab 02/07/25 tablet finasteride 5 mg tablet (Proscar) 5 mg PO DAILY #1 tab 02/07/25 magnesium gluconate 12.5 mg 250 mg (20 x 12.5 mg magne- sium 02/07/25 magnesium (250 mg) tablet (250 mg)) PO TID #1 tab prednisone 10 mg tablet See Taper PO DIRECTED #18 tabs 02/07/25 tamsulosin 0.4 mg capsule 0.4 mg PO DAILY #1 cap 02/07/25 ketorolac 10 mg tablet 10 mg PO Q6H PRN pain #20 tabs 06/27/25 methylprednisolone 4 mg tablets in 4 mg PO QAM #21 ea 06/27/25 a dose pack (Medrol (Artur)) Allergies Allergy/AdvReac Type Severity Reaction Status Date / Time acetaminophen (From PERCOCET) Allergy Unknown UNKNOWN Verified 06/27/25 04:01 oxycodone (From PERCOCET) Allergy Unknown UNKNOWN Verified 06/27/25 04:01 pravastatin (PRAVASTATIN) Allergy Unknown UNKNOWN Verified 06/27/25 04:01 rosuvastatin (From CRESTOR) Allergy Unknown UNKNOWN Verified 06/27/25 04:01 percocet Allergy Unknown tunnel Uncoded 06/27/25 04:01 vision pravastatin Allergy Unknown elev liver Uncoded 06/27/25 04:01 enzymes seasonal Allergy Unknown Unknown Uncoded 06/27/25 04:01 Review of Systems Review of Systems: Yes all other systems are reviewed and are negative Constitutional: Constitutional: Denies fatigue and Denies fever(s) Musculoskeletal: Musculoskeletal: Reports arthralgias and Reports joint swelling Endocrine: Endocrine: Denies fatigue PMFSH Past Medical History Attestation statement: The following information was validated with the patient. Medical History Cellulitis of right leg Parkinson's disease without dyskinesia Nocturnal leg cramps Snoring Osteoarthritis Type 2 diabetes mellitus Tremor Hypercholesteremia Parkinson disease Male erectile disorder Lyme disease HTN (hypertension) Headache Abnormal weight Surgical History Hx of colonoscopy Family History Family History Mother HTN (hypertension) Father HTN (hypertension) Social History Social History Household Members: Spouse Housing: House Do you presently have visiting nurse or other home services: No Alcohol intake: never Patient Tobacco Use Status: Former Tobacco user Advance Directives Date on File: 05/27/25 service: Yes Physical Exam ED Vital Signs: Vital Signs - 24 hr 06/27/25 03:58 06/27/25 06:40 Temperature 97.7 F 97 F Pulse Rate 76 67 Respiratory Rate 16 18 Blood Pressure 125/63 114/56 L Pulse Oximetry 95 96 Oxygen Delivery Method Room Air Room Air BMI result Body Mass Index 23.4 Const Other: Alert well-appearing Orientation/consciousness: patient oriented x3 Resp Effort & Inspection: normal respiratory effort Cardio Other: Normal peripheral perfusion Skin Other: Warm dry no rash Neuro Other: Antalgic gait General: patient oriented x3, no focal motor deficits and CN's II-XI intact bilaterally Extrem Other: Patient able to flex and extend the right knee, some swelling noted no erythema or warmth, limited secondary to pain Psych Other: Cooperative Medications Administered Discontinued Medications Generic Name Dose Route Start Last Admin Trade Name Anantq PRN Reason Stop Dose Admin Acetaminophen 975 mg 06/27/25 04:37 06/27/25 05:02 Acetaminophen 325 Mg Tablet PO 06/27/25 04:38 975 mg ONCE ONE Administration Ketorolac Tromethamine 15 mg 06/27/25 04:37 06/27/25 05:03 Ketorolac Tromethamine 15 Mg/Ml Vial IM 06/27/25 04:38 15 mg ONCE ONE Administration Prednisone 10 mg 06/27/25 04:37 06/27/25 05:03 Prednisone 10 Mg Tablet PO 06/27/25 04:38 10 mg ONCE ONE Administration Medical Decision Making Medical Decision Making MDM Narrative: 75-year-old male with a history of Parkinson's disease without dyskinesia, hypertension, BPH, hyperlipidemia, type 2 diabetes on metformin, who presents after fall that occurred 4 days ago. Patient states he fell landing on the knee. He has been ambulatory since the fall, however the pain is not resolving. He has been using [id number] Tylenol and lidocaine patches without relief of his symptoms. This is his first medical assessment in the emergency room overnight. Problem: Age, Parkinson's, diabetes History: Per patient I have considered the following differential diagnoses: Fracture, dislocation, contusion, sprain Plan: X-rays ordered, there was concern for potential femoral condyle fracture. We will place in a knee immobilizer, send with crutches and follow up with the ortho. I did offer PT case management for the patient he declines. He does live at home with his . I have independently reviewed the following tests: ImPRESSION: Possible minimally displaced fracture of the lateral femoral condyle seen only on the AP view of the knee, new from 02/04/2025. Large knee joint effusion. Differential Diagnosis Differential Diagnoses: The differential diagnosis associated with the presentation includes See medical decision-making Admission/Observation Consideration of admission/observation: Escalation of care including admission/observation considered Not applicable Radiology Impression Discussion of test interpretation with radiology: I have reviewed the radiologist's reading. Discharge Plan Discharge Clinical Impression: Displaced fracture of femoral condyle Qualifiers: Encounter type: initial encounter Fracture type: closed Laterality: right Qualified Code(s): S72.411A - Displaced unspecified condyle fracture of lower end of right femur, initial encounter for closed fracture Patient Disposition: Home, Self-Care Instructions: Crutch Instructions (ED), Knee Immobilizer (ED) Additional Instructions: You were found to have a fracture of the femoral condyle. Use the knee immobilizer as directed, keep it in place. Do not bear weight, use the crutches. You will be following up with the orthopedic service, I have provided you with their contact. Take the Medrol Dosepak as directed this is a steroid taper it is an anti-inflammatory. Take the ketorolac as directed this is a 2nd anti-inflammatory, take it with food. You can also alternate with [id number] Tylenol, 1000 mg taken every 6 hours. Prescriptions: New methylprednisolone [Medrol (Artur)] 4 mg tablets,dose pack 4 mg PO QAM Qty: 21 0RF Rx Instructions: Take per package instructions ketorolac 10 mg tablet 10 mg PO Q6H PRN (Reason: pain) Qty: 20 0RF Rx Instructions: maximum total duration of 5 days from all oral, intranasal, or parenteral formulations. The patient received an intramuscular dose of Toradol here in the emergency room No Action metoprolol succinate 50 mg tablet extended release 24 hr 50 mg PO DAILY omeprazole 20 mg Capsule,Delayed Release(Dr/Ec) 20 mg PO DAILY@0630 lidocaine 5 % Adhesive Patch,Medicated 1 patch TOPICAL DAILY PRN (Reason: Nerve Pain) Rx Instructions: leave on most painful area for up to 12 hrs lisinopril 10 mg tablet 10 mg PO DAILY tamsulosin 0.4 mg Capsule 0.4 mg PO DAILY Qty: 1 0RF carbidopa-levodopa 25-100 mg tablet 1 tab PO QID Qty: 1 0RF prednisone 10 mg tablet See Taper PO DIRECTED Qty: 18 0RF Taper: Prednisone 30 mg daily for 3 Days and 0 Hour 20 mg daily for 3 Days and 0 Hour 10 mg daily for 3 Days and 0 Hour Rx Instructions: see taper instructions acetaminophen 325 mg Tablet 650 mg PO Q6H PRN (Reason: Pain, Mild 1-3,Fever,Headache) Qty: 1 0RF magnesium gluconate 12.5 mg magne- sium (250 mg) tablet 250 mg PO TID Qty: 1 0RF finasteride [Proscar] 5 mg tablet 5 mg PO DAILY Qty: 1 0RF cyclobenzaprine 10 mg tablet 10 mg PO BEDTIME PRN (Reason: Spasms) naproxen 375 mg tablet 375 mg PO BID PRN (Reason: Pain) sildenafil 50 mg tablet 50 mg PO DAILY PRN (Reason: Sexual Activity) Rx Instructions: administer 30 minutes to 4 hours before activity lovastatin 20 mg tablet 60 mg PO BEDTIME metformin 500 mg tablet 500 mg PO BID amlodipine 10 mg tablet 10 mg PO DAILY Referrals: Luis Damon MD [Physician, Orthopedics] Referral Note: Possible minimally displaced fracture of the lateral femoral condyle , right Interventions: ED Discharge Assessment Last Done: 06/27/25 06:40 Discharge Date/Time: 06/27/25 06:45 Print Language: Greek
[2025-06-27 06:40] VITALS: BP 114/56; PULSE 67; RESP 18; TEMP 36.1; O2SAT 96
== END 2025-06-27 06:45 | disposition home or self-care (01) ==
PROVIDERS: Emergency Provider Emergency Medicine; PCP Internal Medicine
DX: S72.411A Displaced unspecified condyle fracture of lower end of right femur, initial encounter for closed fracture (principal); W19.XXXA Unspecified fall, initial encounter; Y93.9 Activity, unspecified; Y92.9 Unspecified place or not applicable; Y99.9 Unspecified external cause status; M25.561 Pain in right knee; G20.A1 Parkinson's disease without dyskinesia, without mention of fluctuations; I10 Essential (primary) hypertension; E11.9 Type 2 diabetes mellitus without complications
CPT/HCPCS: 73564; 96372; 99284; J1885

== ENCOUNTER → 2025-06-27 04:37 | Outpatient (BNV) | payer MEDICARE, SELFPAY | PROVIDERS: Emergency Provider Emergency Medicine; PCP Internal Medicine; Visit Provider Student in an Organized Health Care Education/Training Program | DX: Z04.3 Encounter for examination and observation following other accident (principal) | CPT/HCPCS: 73564 ==

== ENCOUNTER 2025-07-07 08:49 | Outpatient (REF) | payer MEDICARE, SELFPAY ==
--- OUTSIDE RECORDS SUMMARY | 2024-11-22 05:45 | XMS_ITS ---
Author Organization [facility] Address [address] [place] [address] Care Team Providers Care Margin Clerk Name Role Phone Magy ANDERSEN, Marcelo Primary Care Provider Sony Rivas Unavailable [phone] Encounters Encounter Location Date Provider Diagnosis [facility] [address] [place] [address] 11/22/2024 Sony Goldstein Plan Of Treatment No Information Progress Notes * Howard VILLATORODOB: [birth year] (75 yo M)Acc No.[id number]:11/22/2024 Progress Note Patient: Howard PARRA Provider: Cayla Goldstein DPM :1950 A ge:74 Y S ex:Male Date:11/22/2024 Address:[address] [place], [place] [address] Pcp:Marcelo Bhatti MD Subjective: * Chief Complaints: * * Medical History: Objective: * Vitals: Assessment: Plan: * Treatment: * Images: * The named appointment provid er may or may not be the originator of this progress note, and it is not deemed complete until electronically signed by the appointment provider. Sign off status: Pending * Provider: Cayla Goldstein DPM Date: 0 11/22/2024 Generated for Wanda paez/Nayeli/eTransmitting on: 09/07/2024 09:07 AM EST
--- NOTE | ~2025-07-07 | XR_ITS ---
EXAMINATION: XR KNEE, RIGHT CLINICAL INFORMATION: M17.11 - Unilateral primary osteoarthritis, right knee COMPARISON: June 27, 2025. TECHNIQUE: AP in standing position both knees. Lateral and sunrise views of the right knee. FINDINGS: Joint space narrowing involving mostly the medial compartments with sclerosis along the articular surface. Chondrocalcinosis in the right lateral meniscus/lateral compartment right knee. No suprapatellar bursa joint effusion. Vascular calcifications. No lytic or blastic lesions. No subcutaneous emphysema. Small volume suprapatellar bursa joint effusion. XR/XR knee RT 3V IMPRESSION: Bicompartmental osteoarthrosis/osteoarthritis involving mostly the medial compartment. Probable CPPD. Small tiny suprapatellar bursa joint effusion. Atherosclerosis disease. Electronically signed by: Luis Wang MD 07/07/2025 02:30 PM [facility]
--- OUTSIDE RECORDS SUMMARY | 2025-07-08 09:08 | XMS_ITS | Encounter Summary ---
Author Organization [facility] Address [address] [place] [address] Care Team Providers Care Supervisor [employer] Name Role Phone Carmelo Romo MD Primary Care Provider + [phone] Encounter Details Date Type Department Care Team (Late st Contact Info) Description 02/19/2025 Lab Requisition [facility] - Main Lab [address] [facility] [place] [address] Rebeka Godfrey PA [address] [phone] Parkinson's disease without dyskinesia, without mention of [...] disease without dyskinesia, without mention of fluctuations ([facility] V24, [facility] V28) Type 2 diabetes mellitus with unspecified complications ([facility] V24, [facility] V28) Pure hypercholesterolemia, unspecified Essential (primary) hypertension documented in this encounter Results * (ABNORMAL) Basic metabolic panel (02/19/2025 6:30 AM EDT) Pathologist [facility] Sodium 137 133 - 145 mmol/L LAB [...] LAB CHEMISTRY METHOD 02/19/2025 10:17 AM EDT [facility] Blood Venous blood specimen / Unknown Venipuncture / Unknown 02/19/2025 6:30 AM EDT 02/19/2025 8:24 AM EDT Rebeka GAINES LAB BLOOD ORDERAB LES Final Result [facility] [address] [place] [address], * (ABNORMAL) Complete blood count (02/19/2025 6:30 AM EDT) WBC 14.8(H) 4.8 - 10.8 K/mcL LAB HEMETOLOGY METHOD 02/19/2025 9:35 AM EDT [facility] RBC 5.40 4.50 - 5.50 M/mcL LAB HEMETOLOGY METHOD 02/19/2025 9:35 AM [facility] Hemoglobin 16.0 13.5 - 17.5 g/dL LAB HEMETOLOGY METHOD 02/19/2025 9:35 AM [facility] Hematocrit 49.2 42.0 - 54.0 % LAB HEMETOLOGY METHOD 02/19/2025 9:35 AM EDT [facility] MCV 91.8 79.0 - 98.0 FL LAB HEMETOLOGY METHOD 02/19/2025 9:35 AM [facility] MCH 29.9 27.0 - 32.0 pcg LAB HEMETOLOGY METHOD 02/19/2025 9:35 AM [facility] MCHC 32.5 32.0 - 37.0 g/dL LAB HEMETOLOGY METHOD 02/19/2025 9:35 AM EDT [facility] RDW 13.3 11.0 - 15.0 % LAB HEMETOLOGY METHOD 02/19/2025 9:35 AM EDT [facility] Platelets 260 130 - 400 K/mcL LAB HEMETOLOGY METHOD 02/19/2025 9:35 AM EDT [facility] MPV 10.3 7.0 - 11.0 FL LAB HEMETOLOGY METHOD 02/19/2025 9:35 AM EDT [facility] NRBC 0.0 <1.0 % LAB HEMETOLOGY METHOD 02/19/2025 9:35 AM EDT [facility] NRBC Absolute 0.00 <0.10 K/mcL LAB HEMETOLOGY METHOD 02/19/2025 9:35 AM EDT [facility] Blood Venous blood specimen / Unknown Venipuncture / Unknown 02/19/2025 6:30 AM EDT 02/19/2025 8:24 AM EDT Rebeka GAINES LAB BLOOD ORDERAB LES Final Result [facility] [address] [place] [address], documented in this encounter Visit Diagnoses Diagnosis Parkinson's disease without dyskinesia, without mention of fluctuations (CMS/HCC V24, CMS/HCC V28) Type 2 diabetes mellitus with unspecified complications (CMS/HCC V24, CMS/HCC V28) Pure hypercholesterolemia, unspecified Essential (primary) hypertension Unspecified essential hypertension documented in this encounter Care Teams Supervisor [employer] Relationship Specialty Start Date End Date Carmelo Romo MD [address] [place] [address] PCP - General Family Medicine 02/19/25 documented as of this encounter
--- OUTSIDE RECORDS SUMMARY | 2025-07-08 09:08 | XMS_ITS | Patient Health Record ---
Author Organization [facility] Address [address] [facility] [place] [address] Care Team Providers Care Trust Administrative Assistant Name Role Phone Magy ANDERSEN, Marcelo Primary Care Provider Sony Rivas Unavailable [phone] Allergies Allergen (clinical drug ingredient) Drug/Non Drug [...] Problem Acquired hammer toe of right foot (0495690346331 105) Other hammer toe(s) (acquired), right foot (M20.41) Active confirmed Problem Acquired hammer toe of left foot ([id number] 103) Other hammer toe(s) (acquired), left foot (M20.42) Active confirmed Problem Type 2 diabetes mellitus with peripheral angiopathy (919171974) Type 2 diabetes mellitus with diabetic peripheral angiopathy without gangrene (E11.51) Active confirmed Q7(A), Q8(2B), Q9(1B,2C) Vital Signs Blood pressure diastolic 78 mm Hg 08/16/2024 Height 5 ft 11 in in 08/16/2024 Blood pressure systolic 130 mm Hg 08/16/2024 Weight 190 lbs 08/16/2024 BMI 26.5 kg/m2 08/16/2024 Procedures Procedure Date Ordered Date Performed Result Body Sit e 33498-EGIHXVT NAIL, 1-5 08/16/2024 N/A 44039-QIQL SKIN LESIONS, OVER 4 08/16/2024 N/A [id number] DYSTROPHIC NAILS ANY # 08/16/2024 N/A Encounters Encounter Location Date Provider Diagnosis [facility] [address] 08/16/2024 Sony Goldstein Type 2 diabetes mellitus with diabetic peripheral angiopathy without gangrene E11.51 ; Tinea unguium B35.1 ; Pain in right toe(s) M79.674 ; Pain in left toe(s) M79.675 ; Other hammer toe(s) (acquired), right foot M20.41 and Other hammer toe(s) (acquired), left foot M20.[address] [facility] [address] 11/22/2024 Sony Goldstein Assessments Encounter Date Diagnosis [...] Treatment Pending Test Test Name Order Date 60305-ZEOMRXR NAIL, 1-5 08/16/2024 20209-FUCI SKIN LESIONS, OVER 4 08/16/20 24 [id number] DYSTROPHIC NAILS ANY # Insurance Providers Payer Name Payer Address Payer Phone Subscriber Number Group Number Insured Name Patient Relationship to Insured Coverage Start Date Coverage End Date [employer] [place] Medicare [employer]vantage [facility] [address] [place] [address] [id number] Howard Olivarez Self - patient is the insured 3 Medical (General) History Medical History History ICD Code Back,Hip,and Knee pain Cancer Cataracts Diabetic High Blood Pressure Lyme disease Parkinsons disease Hypercholesterolemia
--- OUTSIDE RECORDS SUMMARY | 2025-07-08 09:08 | XMS_ITS | Clinical Summary ---
Author Organization [address] Address [address] [place] [address] Phone Care Team Providers Care Assistant Professor Of Spanish Name Role Phone Carmelo Romo MD Primary Care Provider [phone]- [phone] Social History Tobacco Use Types Packs/Day Years [...] without dyskinesia, without mention of fluctuations ([facility] V24, [facility] V28) Type 2 diabetes mellitus with unspecified complications ([facility] V24, [facility] V28) Pure hypercholesterolemia, unspecified Essential (primary) hypertension from Last 3 Months or Most Recently Relevant to Health Maintenance Results * (ABNORMAL) Basic metabolic panel (02/19/2025 6:30 AM EDT) Sodium 137 133 - 145 mmol/L LAB CHEMISTRY METHOD 02/19/2025 10:17 AM [facility] Potassium 4.3 3.5 - 5.5 mmol/L LAB CHEMISTRY METHOD 02/19/2025 10:17 AM [facility] Chloride 103 96 - 110 mmol/L LAB CHEMISTRY METHOD 02/19/2025 10:17 AM [facility] CO2 25 21 - 32 mmol/L LAB CHEMISTRY METHOD 02/19/2025 10:17 AM [facility] Anion Gap 9 3 - 11 LAB CHEMISTRY METHOD 02/19/2025 10:17 AM [facility] Glucose 63(L) 70 - 100 mg/dL LAB CHEMISTRY METHOD 02/19/2025 10:17 AM [facility] BUN 25 5 - 25 mg/dL LAB CHEMISTRY METHOD 02/19/2025 10:17 AM [facility] Creatinine 1.32(H) 0.70 - 1.30 mg/dL LAB CHEMISTRY METHOD 02/19/2025 10:17 AM [facility] eGFR 56(L) >=60 mL/min/1. 73m2 LAB CHEMISTRY METHOD 02/19/2025 10:17 AM [facility] Comment:Calculation based on the Chronic Kidney Disease Epidemiology Collaboration (CKD-EPI) equation refit without adjustment for race. BUN/Creatinine Ratio 18.9 LAB CHEMISTRY METHOD 02/19/2025 10:17 AM [facility] Calcium 9.5 8.5 - 10.5 mg/dL LAB CHEMISTRY METHOD 02/19/2025 10:17 AM [facility] Blood Venous blood specimen / Unknown Venipuncture / Unknown 02/19/2025 6:30 AM EDT 02/19/2025 8:24 AM EDT us Rebeka GAINES LAB BLOOD ORDERAB LES Final Result [facility] [address] [place] [address], from Last 3 Months or Most Recently Relevant to Health Maintenance Insurance [facility] Care Teams Assistant Professor Of Spanish Relationship Specialty Start Date End Date Carmelo Romo MD [address] [place] [address] PCP - General Family Medicine 02/19/25
== END 2025-07-07 08:50 | disposition home or self-care (01) ==
LOC: HO.HOSX 08:49
PROVIDERS: Visit Provider Physician Assistant
DX: M17.11 Unilateral primary osteoarthritis, right knee (principal); M25.561 Pain in right knee
CPT/HCPCS: 73562; 99202

== ENCOUNTER 2025-07-07 12:59 | Outpatient (AMB) | payer MEDICARE, SELFPAY ==
--- NOTE | 2025-07-07 13:11 | A.OFFVIS_ITS ---
Vital Signs 07/07/25 13:15 Height 5 ft 11 in Weight 168 lb BMI 23.4 Intake Visit Reasons: ED f/u RT poss fx lat fem condyle Intake Note: Howard is a 75 year old male who presents today as a Fracture care/ [facility] ED follow up right poss fx lat fem condyle, DOI 06/23/25. At the patient's ER visit he noted that he fell landing on the right knee, X ray's were done. At today's v isit he states he is not having pain at the moment. IMPRESSION: Possible minimally displaced fracture of the lateral femoral condyle seen only on the AP view of the knee, new from 02/04/2025. Large knee joint effusion. Accompanied by: Son Allergies acetaminophen (From PERCOCET) Allergy (Unknown, Verified 06/27/25 04:01) UNKNOWN oxycodone (From PERCOCET) Allergy (Unknown, Verified 06/27/25 04:01) UNKNOWN pravastatin (PRAVASTATIN) Allergy (Unknown, Verified 06/27/25 04:01) UNKNOWN rosuvastatin (From CRESTOR) Allergy (Unknown, Verified 06/27/25 04:01) UNKNOWN percocet Allergy (Unknown, Uncoded 06/27/25 04:01) tunnel vision pravastatin Allergy (Unknown, Uncoded 06/27/25 04:01) elev liver enzymes seasonal Allergy (Unknown, Uncoded 06/27/25 04:01) Unknown Medication List - Last Reconciled 07/07/25 by Nathen Crews PA-C acetaminophen 650 mg (2 x 325 mg) PO Q6H PRN amlodipine 10 mg PO DAILY Held on 02/07/25. Instructions: Resume on 02/19/25. carbidopa-levodopa 25-100 mg 1 tab PO QID cyclobenzaprine 10 mg PO BEDTIME PRN finasteride (Proscar) 5 mg PO DAILY ketorolac 10 mg PO Q6H PRN lidocaine 5% 1 patch topical DAILY PRN lisinopril 10 mg PO DAILY Held on 02/07/25. Instructions: Resume on 02/19/25. lovastatin 60 mg PO BEDTIME magnesium gluconate 250 mg (20 x 12.5 mg magne- sium (250 mg)) PO TID metformin 500 mg PO BID methylprednisolone (Medrol (Artur)) 4 mg PO QAM metoprolol succinate ER 50 mg PO DAILY naproxen 375 mg PO BID PRN omeprazole 20 mg PO DAILY@0630 prednisone See Taper mg PO DIRECTED sildenafil 50 mg PO DAILY PRN tamsulosin 0.4 mg PO DAILY HPI HPI ED f/u RT poss fx lat fem condyle: Details: 75-year-old gentleman presents to the office today for a follow-up right knee. He was seen in the emergency department on 06/27 for right knee pain. Four days prior he fell landing on the right knee. In the emergency department x-rays were obtained which were suggestive of a possible minimally displaced lateral femoral condyle fracture. The patient was placed in a knee immobilizer and given crutches and referred to our office for ortho eval. The patient states he has not been using the brace or the crutches. He denies pain. No limitations in activities. [facility] Medical History Cellulitis of right leg Parkinson's disease without dyskinesia Nocturnal leg cramps Snoring Osteoarthritis Type 2 diabetes mellitus Tremor Hypercholesteremia Parkinson disease Male erectile disorder Lyme disease HTN (hypertension) Headache Abnormal weight Surgical History Hx of colonoscopy Family History Mother HTN (hypertension) Father HTN (hypertension) Social History Household Members: Spouse Housing: House Do you presently have visiting nurse or other home services: No Alcohol intake: never Patient Tobacco Use Status: Former Tobacco user Advance Directives Date on File: 05/27/25 service: Yes Review of Systems Const All systems reviewed & are unremarkable except as noted in HPI and below Physical Exam Vital Signs: BMI result Body Mass Index 23.4 Const General: cooperative and no acute distress Orientation/consciousness: patient oriented x3 Resp Effort & Inspection: normal respiratory effort and able to speak in complete sentences Cardio Peripheral pulses: Peripheral pulses 2+ throughout Neuro General: patient oriented x3 Extrem Other: Right knee normal to inspection no effusion or erythema noted. He has full range of motion. Slight tenderness over the proximal LCL but no ligamentous laxity. Calf supple nontender neurovascularly intact. Results Reviewed Results Reviewed: X-rays of the right knee obtained in the office today and reviewed by me are negative for any acute or chronic abnormalities. Assessment & Plan Assessment & Plan (1) Right knee pain: Code(s): M25.561 - Pain in right knee Category: Medical Plan: I explained to the patient I can not appreciate a true fracture on imaging studies. While he does have very mild discomfort with palpation to the knee there is no further intervention warranted. He should rest and ice and modify activities as needed otherwise he can increase activities as tolerated. He will see us back as needed. Orders: Orders XR knee RT 3V Today M17.11 - Unilateral primary osteoarthritis, right knee Coding Level of Care Code New Pt Level 3 (31251) Complex EM visit Add On G2211 Diagnoses Right knee pain M25.561
[2025-07-07 13:15] VITALS: BMI 23.4
--- OUTSIDE RECORDS SUMMARY | 2025-07-07 15:07 | XMS_ITS | Encounter Summary ---
Author Organization [facility] Address [address] [place] [address] Care Team Providers Care Environmental Director Name Role Phone Carmelo Romo MD Primary Care Provider + [phone] Encounter Details Date Type Department Care Team (Late st Contact Info) Description 02/19/2025 Lab Requisition [facility] - Main Lab [address] [facility] [place] [address] Rebeka Godfrey PA [address] [phone] Parkinson's disease without dyskinesia, without mention of [...] disease without dyskinesia, without mention of fluctuations ([facility] V24, [facility] V28) Type 2 diabetes mellitus with unspecified complications ([facility] V24, [facility] V28) Pure hypercholesterolemia, unspecified Essential (primary) hypertension documented in this encounter Results * (ABNORMAL) Basic metabolic panel (02/19/2025 6:30 AM EDT) Pathologist [facility] Sodium 137 133 - 145 mmol/L LAB CHEMISTRY METHOD 02/19/2025 10:[address] [facility] Potassium 4.3 3.5 - 5.5 mmol/L LAB CHEMISTRY METHOD 02/19/2025 10:[address] [facility] Chloride 103 96 - 110 mmol/L LAB CHEMISTRY METHOD 02/19/2025 10:[address] [facility] CO2 25 21 - 32 mmol/L LAB CHEMISTRY METHOD 02/19/2025 10:[address] [facility] Anion Gap 9 3 - 11 LAB CHEMISTRY METHOD 02/19/2025 10:[address] [facility] Glucose 63(L) 70 - 100 mg/dL LAB CHEMISTRY METHOD 02/19/2025 10:[address] [facility] BUN 25 5 - 25 mg/dL LAB CHEMISTRY METHOD 02/19/2025 10:[address] [facility] Creatinine 1.32(H) 0.70 - 1.30 mg/dL LAB CHEMISTRY METHOD 02/19/2025 10:[address] [facility] eGFR 56(L) >=60 mL/min/1. 73m2 LAB CHEMISTRY METHOD 02/19/2025 10:[address] [facility] Comment:Calculation based on the Chronic Kidney Disease Epidemiology Collaboration (CKD-EPI) equation refit without adjustment for race. BUN/Creatinine Ratio 18.9 LAB CHEMISTRY METHOD 02/19/2025 10:[address] [facility] Calcium 9.5 8.5 - 10.5 mg/dL LAB CHEMISTRY METHOD 02/19/2025 10:17 AM EDT [facility] Blood Venous blood specimen / Unknown Venipuncture / Unknown 02/19/2025 6:30 AM EDT 02/19/2025 8:24 AM EDT Rebeka GAINES LAB BLOOD ORDERAB LES Final Result [facility] [address] [place] [address], * (ABNORMAL) Complete blood count (02/19/2025 6:30 AM EDT) WBC 14.8(H) 4.8 - 10.8 K/mcL LAB HEMETOLOGY METHOD 02/19/2025 9:35 AM EDT [facility] RBC 5.40 4.50 - 5.50 M/mcL LAB HEMETOLOGY METHOD 02/19/2025 9:[address] [facility] Hemoglobin 16.0 13.5 - 17.5 g/dL LAB HEMETOLOGY METHOD 02/19/2025 9:[address] [facility] Hematocrit 49.2 42.0 - 54.0 % LAB HEMETOLOGY METHOD 02/19/2025 9:35 AM EDT [facility] MCV 91.8 79.0 - 98.0 FL LAB HEMETOLOGY METHOD 02/19/2025 9:[address] [facility] MCH 29.9 27.0 - 32.0 pcg LAB HEMETOLOGY METHOD 02/19/2025 9:[address] [facility] MCHC 32.5 32.0 - 37.0 g/dL LAB HEMETOLOGY METHOD 02/19/2025 9:35 AM EDT [facility] RDW 13.3 11.0 - 15.0 % LAB HEMETOLOGY METHOD 02/19/2025 9:35 AM EDT [facility] Platelets 260 130 - 400 K/mcL LAB HEMETOLOGY METHOD 02/19/2025 9:35 AM EDT [facility] MPV 10.3 7.0 - 11.0 FL LAB HEMETOLOGY METHOD 02/19/2025 9:35 AM EDT [facility] NRBC 0.0 <1.0 % LAB HEMETOLOGY METHOD 02/19/2025 9:35 AM EDT [facility] NRBC Absolute 0.00 <0.10 K/mcL LAB HEMETOLOGY METHOD 02/19/2025 9:35 AM EDT [facility] Blood Venous blood specimen / Unknown Venipuncture / Unknown 02/19/2025 6:30 AM EDT 02/19/2025 8:24 AM EDT Rebeka GAINES LAB BLOOD ORDERAB LES Final Result [facility] [address] [place] [address], documented in this encounter Visit Diagnoses Diagnosis Parkinson's disease without dyskinesia, without mention of fluctuations (CMS/HCC V24, CMS/HCC V28) Type 2 diabetes mellitus with unspecified complications (CMS/HCC V24, CMS/HCC V28) Pure hypercholesterolemia, unspecified Essential (primary) hypertension Unspecified essential hypertension documented in this encounter Care Teams Environmental Director Relationship Specialty Start Date End Date Carmelo Romo MD [address] [place] [address] PCP - General Family Medicine 02/19/25 documented as of this encounter
--- OUTSIDE RECORDS SUMMARY | 2025-07-07 15:07 | XMS_ITS | Clinical Summary ---
Author Organization [address] Address [address] [place] [address] Phone Care Team Providers Care Organ Recovery Coordinator Name Role Phone Carmelo Romo MD Primary Care Provider [phone] Social History Tobacco Use Types Packs/Day Years [...] disease without dyskinesia, without mention of fluctuations ([facility] V24, [facility] V28) Type 2 diabetes mellitus with unspecified complications ([facility] V24, [facility] V28) Pure hypercholesterolemia, unspecified Essential (primary) hypertension from Last 3 Months or Most Recently Relevant to Health Maintenance Results * (ABNORMAL) Basic metabolic panel (02/19/2025 6:30 AM EDT) Sodium 137 133 - 145 mmol/L LAB CHEMISTRY METHOD 02/19/2025 10:17 AM [facility] Potassium 4.3 3.5 - 5.5 mmol/L LAB CHEMISTRY METHOD 02/19/2025 10:17 AM [facility] Chloride 103 96 - 110 mmol/L LAB CHEMISTRY METHOD 02/19/2025 10:17 AM [facility] CO2 25 21 - 32 mmol/L LAB CHEMISTRY METHOD 02/19/2025 10:17 AM [facility] Anion Gap 9 3 - 11 LAB CHEMISTRY METHOD 02/19/2025 10:17 AM [facility] Glucose 63(L) 70 - 100 mg/dL LAB CHEMISTRY METHOD 02/19/2025 10:17 AM [facility] BUN 25 5 - 25 mg/dL LAB CHEMISTRY METHOD 02/19/2025 10:17 AM [facility] Creatinine 1.32(H) 0.70 - 1.30 mg/dL LAB CHEMISTRY METHOD 02/19/2025 10:17 AM [facility] eGFR 56(L) >=60 mL/min/1. 73m2 LAB CHEMISTRY METHOD 02/19/2025 10:17 AM [facility] Comment:Calculation based on the Chronic Kidney Disease Epidemiology Collaboration (CKD-EPI) equation refit without adjustment for race. BUN/Creatinine Ratio 18.9 LAB CHEMISTRY METHOD 02/19/2025 10:17 AM [facility] Calcium 9.5 8.5 - 10.5 mg/dL LAB CHEMISTRY METHOD 02/19/2025 10:17 AM [facility] Blood Venous blood specimen / Unknown Venipuncture / Unknown 02/19/2025 6:30 AM EDT 02/19/2025 8:24 AM EDT us Rebeka GAINES LAB BLOOD ORDERAB LES Final Result [facility] [address] [place] [address], from Last 3 Months or Most Recently Relevant to Health Maintenance Insurance [facility] Care Teams Organ Recovery Coordinator Relationship Specialty Start Date End Date Carmelo Romo MD [address] [place] [address] PCP - General Family Medicine 02/19/25
== END 2025-07-07 14:47 | disposition home or self-care (01) ==
LOC: HO.HOS 13:00
PROVIDERS: PCP Internal Medicine; Visit Provider Physician Assistant
DX: M25.561 Pain in right knee (principal)
CPT/HCPCS: 99203; G2211

== ENCOUNTER → 2025-07-07 13:02 | Outpatient (BNV) | payer MEDICARE, SELFPAY | PROVIDERS: Visit Provider Radiology Diagnostic Radiology | DX: M17.11 Unilateral primary osteoarthritis, right knee (principal); M25.461 Effusion, right knee; I70.201 Unspecified atherosclerosis of native arteries of extremities, right leg | CPT/HCPCS: 73562 ==